=== PATIENT | female | born 1975 | race Caucasian/White ===

== ENCOUNTER 2023-04-28 16:31 | Emergency (ER) | payer BC, SELFPAY ==
[2023-04-28 16:51] VITALS: BP 171/94; PULSE 107; RESP 18; TEMP 37.4; O2SAT 97
--- NOTE | 2023-04-28 17:00 | ED.GENADULT ---
HPI - General Adult General Time Seen by Provider: 17:00 Date Seen: 04/28/23 Chief complaint: Sore Throat Stated complaint: Covid+, aches Time Seen by Provider: 04/28/23 17:00 Source: patient and RN notes reviewed Mode of arrival: ambulatory Limitations: no limitations History of Present Illness HPI narrative: Patient is a 48-year-old female coming in with positive COVID test today. 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 She started with symptoms yesterday. She has got sore throat congestion, body aches, some cough. No GI symptoms. She took Paxlovid before without incident, had this prescribed through [facility] where she does get her primary care. She has underlying diabetes, would like to be treated. She is happy to see her oxygenation is good in triage. Related Data Home Medications Medication Instructions Recorded Confirmed escitalopram oxalate .ROUTE 04/28/23 gabapentin .ROUTE 04/28/23 metformin .ROUTE 04/28/23 propranolol .ROUTE 04/28/23 simvastatin .ROUTE 04/28/23 Previous Rx's Medication Instructions Recorded nirmatrelvir 300 mg (150 mg See Rx Instructions PO .COMPLEX 04/28/23 x2)-ritonavir 100 mg tablet,dose #30 ea pack (Paxlovid) Allergies Allergy/AdvReac Type Severity Reaction Status Date / Time hydromorphone [From Dilaudid] Allergy Verified 04/28/23 16:55 Iodinated Contrast Media Allergy Verified 04/28/23 16:55 ibuprofen AdvReac Verified 04/28/23 16:55 Review of Systems Status of ROS: Reports: 6 or more systems reviewed and unremarkable except as noted in History and below Exam Const: Vital Signs, click to edit/add: Vital Signs - 24 hr 04/28/23 16:51 Temperature 99.4 F Pulse Rate [Right Pulse Oximeter] 107 H Respiratory Rate 18 Blood Pressure [Ri ght Upper Arm] 171/94 H Pulse Oximetry 97 Oxygen Delivery Me thod Room Air 48-year-old very pleasant female with some audible nasal congestion but able to speak in complete sentences. Conjugate gaze, pupils equal round reactive, sclera clear. TMs canals normal. Oropharynx with normal mucosa, currently dentulous, posterior pharynx looks normal. Neck is supple. Lungs are clear with good air entry, no wheezing or crackles, no tachypnea. CV slightly fast but regular, no murmur, normal S1 and S2. Documenting provider has reviewed patient's vital signs: yes Course Course ED Course: Reviewed with patient that we are happy to take her home positive test with her current active symptoms and treat for COVID. She did show a picture of her positive COVID test. Vital Signs Vital signs: Initial Vital Signs Temperature 99.4 F 04/28/23 16:51 Temperature Source Temporal Artery Scan 04/28/23 16:51 Pulse Rate 107 H 04/28/23 16:51 Respiratory Rate 18 04/28/23 16:51 Blood Pressure 171/94 H 04/28/23 16:51 Blood Pressure Mean 119 H 04/28/23 16:51 Blood Pressure Position Sitting 04/28/23 16:51 Pulse Oximetry 97 04/28/23 16:51 Oxygen Delivery Method Room Air 04/28/23 16:51 Vital Signs Temperature 99.4 F 04/28/23 16:51 Pulse Rate 107 H 04/28/23 16:51 Respiratory Rate 18 04/28/23 16:51 Blood Pressure 171/94 H 04/28/23 16:51 Pulse Oximetry 97 04/28/23 16:51 Oxygen Delivery Method Room Air 04/28/23 16:51 Temperature 99.4 F 04/28/23 16:51 Pulse Rate 107 H 04/28/23 16:51 Respiratory Rate 18 04/28/23 16:51 Blood Pressure 171/94 H 04/28/23 16:51 Pulse Oximetry 97 04/28/23 16:51 Oxygen Delivery Method Room Air 04/28/23 16:51 Discharge Plan Discharge Clinical Impression: COVID-19 Patient Disposition: Home, Self-Care Condition: Stable Instructions: COVID-19 (Coronavirus Disease 2019) (ED), COVID-19 and Chronic Health Conditions (ED) Additional Instructions: Can use Tylenol and [id number] cough or cold medicines as needed for symptom control. Need to isolate per CDC guidelines until you are improving. Note provided for work that you have COVID. Need to start the Paxlovid kari, if after 5 days from onset of symptoms, will not be beneficial. Need to stop your simvastatin while you are on this medication, can restart 3 days after you stop the Paxlovid. If you feel you are worsening, have further concerns, please seek medical re-evaluation. Activity Level: Activity as Tolerated Prescriptions: New Paxlovid 300 mg (150 mg x 2)-100 mg tablets,dose pack See Rx Instructions .ROUTE .COMPLEX Qty: 30 0RF Rx Instructions: take TWO 150 mg tablets of nirmatrelvir with ONE 100 mg tablet of ritonavir twice daily for 5 days No Action metformin .ROUTE simvastatin .ROUTE gabapentin .ROUTE propranolol .ROUTE escitalopram oxalate [Lexapro] .ROUTE Stand Alone Forms: [employer] Info Instructions
--- NOTE | 2023-04-28 18:15 | ED.NURSE ---
Work note provided.
== END 2023-04-28 18:17 | disposition home or self-care (01) ==
LOC: ED 17:13
PROVIDERS: Emergency Provider Family Medicine
DX: U07.1 COVID-19 (principal)
CPT/HCPCS: 99283

== ENCOUNTER 2023-08-24 13:38 | Emergency (ER) | payer BC, SELFPAY ==
[2023-08-24 13:46] VITALS: BP 142/94; PULSE 83; RESP 18; TEMP 36.6; O2SAT 98; BMI 32.1
--- NOTE | 2023-08-24 13:53 | ED_ITS ---
HPI - General Adult General Date Seen: 08/24/23 Chief complaint: Back Injury/Pain Stated complaint: back and hip pain Time Seen by Provider: 08/24/23 13:51 History of Present Illness HPI narrative: This is a pleasant 48-year-old female presenting to the ER today with her for evaluation of low back pain. She has a history of intermittent low back pain off and on for years but really no significant pain for at least a few years. No previous history of any epidural steroid injections or back surgeries. Past medical history also includes Vanegas's esophagus, GERD (on Protonix), pulmonary sarcoidosis (follows of [facility]). No history of cancer, diabetes, immunosuppression. She recalls that about a week ago last Sunday she was getting out of her car and twisted. She felt like she ?tweaked? something in her low back. She had a momentary spasm of bad pain that day and then was better. The following day, last Sunday, she had a lot of pain in her low back that made it difficult for her to get out of bed. She has been trying to treat her pain with Tylenol. She cannot take NSAIDs because of her GERD and Vanegas's. She has been having difficulty getting around a week and often times has to walk ?hunched over like an old lady?. 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 The pain is mostly on the left side and radiates down to her hip. When it is bad sometimes it has radiated down into her thigh. She does not really have any numbness or burning pain down her leg. No fevers or chills. No anterior abdominal pain Today when she was at [employer] she was apparently carrying something and twisted and then her back is hurting more than normal. Her has been trying to convince her to come see her doctor all week, but she has been refusing. Finally today she relented and came here to the ER. She also notes that for the past month or so she has had occasional episodes of intense dysuria when she urinates. Also sometimes this pain radiates up into her bladder and throughout her body. She is not having any urinary retention or other urinary symptoms today. No anterior abdominal pain. No fever or chills. Bowel movements normal. She has had a previous hysterectomy and a bladder or pelvic sling surgery (no mesh) and has chronic incontinence from that. Incontinence is not changed or worsening lately per her regular primary care doctor is through the [facility] in [place] Related Data Home Medications Medication Instructions Recorded Confirmed escitalopram oxalate .ROUTE 04/28/23 gabapentin .ROUTE 04/28/23 metformin .ROUTE 04/28/23 propranolol .ROUTE 04/28/23 simvastatin .ROUTE 04/28/23 Previous Rx's Medication Instructions Recorded nirmatrelvir 300 mg (150 mg See Rx Instructions PO .COMPLEX 04/28/23 x2)-ritonavir 100 mg tablet,dose #30 ea pack (Paxlovid) cephalexin 500 mg capsule 500 mg PO BID #20 caps 08/24/23 cyclobenzaprine 10 mg tablet 10 mg PO Q8H PRN muscle spasm #15 08/24/23 tabs hydrocodone 5 mg-acetaminophen 325 1 tab PO Q4-6H PRN pain #14 tabs 08/24/23 mg tablet Allergies Allergy/AdvReac Type Severity Reaction Status Date / Time hydromorphone [From Dilaudid] Allergy Verified 04/28/23 16:55 Iodinated Contrast Media Allergy Verified 04/28/23 16:55 ibuprofen AdvReac Verified 04/28/23 16:55 [facility] PFS Social History Smoking Status: Current every day smoker What tobacco products do you use: cigarettes Smoking packs per day: 1 Smoking cigarettes per day: 20.0 Years smoked: 31 Smoking pack-years: 31.00 Do you use any of these nicotine containing products: None Second hand tobacco smoke exposure: No How often do you have a drink containing alcohol: never AUDIT-C Alcohol total score: 0 Non-prescribed substance use: denies use service: Yes Exam Narrative: Exam Narrative: Constitutional: Appears well-developed and well-nourished. Alert. Conversant. Non toxic. HENT: Head: Atraumatic. Nose: Nose normal. Mouth/Throat: Oral mucosa is clear and moist. no trismus. Pharynx normal. Tonsi ls symmetric. No tonsillar enlargement, erythema, or exudate. Eyes: Conjunctivae normal. EOM normal. Pupils equal, round, and reactive to light. No scleral icterus. Neck: Normal range of motion. Neck supple. No tracheal deviation present. Cardiovascular: Normal rate, regular rhythm. No gallop. No friction rub. No murmur heard. Symmetric radial artery pulses Pulmonary/Chest: Effort normal. No stridor. No respiratory distress. No wheezes. No rales. No rhonchi . No tenderness. Abdominal: Soft. Bowel sounds normal. No distension. No mass. No tenderness. No rebound. No guarding. Musculoskeletal: RUE: Normal range of motion. No tenderness. No deformity LUE: Normal range of motion. No tenderness. No deformity RLE: Normal range of motion. No edema. No tenderness. No deformity LLE: Normal range of motion. No edema. No tenderness. No deformity Has pain when she tries to sit up for back exam but is able to roll over. Normal inspection of her lumbar and thoracic spines. No erythema, bruising, abrasion, RASS. She is tender diffusely on the low back, including the midline. No midline lumbar spinous bony tenderness. Neurological: Alert and oriented to person, place, and time. Normal strength. CN II-VII intact. No sensory deficit. GCS eye subscore is 4. GCS verbal subscore is 5. GCS motor subscore is 6. Normal coordination Exam back pain Skin: Skin is warm and dry. No rash noted. No pallor. Normal capillary refill. Psychiatric: Normal mood. Normal affect. Const: Vital Signs, click to edit/add: Vital Signs - 24 hr 08/24/23 13:46 Temperature 98 F Pulse Rate [Pulse Oximeter] 83 Respiratory Rate 18 Blood Pressure [Le ft Upper Arm] 142/94 H Pulse Oximetry 98 Oxygen Delivery Me thod Room Air Course Vital Signs Vital signs: Initial Vital Signs Temperature 98 F 08/24/23 13:46 Temperature Source Temporal Artery Scan 08/24/23 13:46 Pulse Rate 83 08/24/23 13:46 Pulse Rhythm Regular 08/24/23 13:46 Respiratory Rate 18 08/24/23 13:46 Blood Pressure 142/94 H 08/24/23 13:46 Blood Pressure Mean 110 H 08/24/23 13:46 Blood Pressure Position Supine 08/24/23 13:46 Pulse Oximetry 98 08/24/23 13:46 Oxygen Delivery Method Room Air 08/24/23 13:46 Vital Signs Temperature 98 F 08/24/23 13:46 Pulse Rate 83 08/24/23 13:46 Respiratory Rate 18 08/24/23 13:46 Blood Pressure 142/94 H 08/24/23 13:46 Pulse Oximetry 98 08/24/23 13:46 Oxygen Delivery Method Room Air 08/24/23 13:46 Temperature 98 F 08/24/23 13:46 Pulse Rate 83 08/24/23 13:46 Respiratory Rate 18 08/24/23 13:46 Blood Pressure 142/94 H 08/24/23 13:46 Pulse Oximetry 98 08/24/23 13:46 Oxygen Delivery Method Room Air 08/24/23 13:46 Medications Administered Medications: Discontinued Medications Generic Name Dose Route Start Last Admin Trade Name Timothy PRN Reason Stop Dose Admin Hydrocodone Bitart/Acetaminophen 2 tab 08/24/23 14:17 08/24/23 14:31 Hydrocodone-Acetamin 5-325 Mg 1 Tab PO 08/24/23 14:18 2 tab ONCE ONE Administration Cyclobenzaprine HCl 10 mg 08/24/23 14:17 08/24/23 14:31 Cyclobenzaprine Hcl 10 Mg Tablet PO 08/24/23 14:18 10 mg ONCE ONE Administration Medical Decision Making [facility] Narrative Medical decision making narrative: This patient presented with back pain predominantly affecting the left side of her lumbar spine but is often bilateral. It started last week with a known nodule movement that caused a ?twinge in her back and has been present, triggered by movement such as walking, twisting, or trying to bend over, all week long.. Broad differential considered. The patient did not sustain any trauma, therefore x-rays are not necessary due to the low likelihood of fracture or subluxation. No red flag symptoms to suggest CT and/or MRI is indicated at this point. The patient has not had a fever, saddle/perineal anesthesia, bilateral foot numbness, or bowel or bladder dysfunction. There is no clinical evidence of cauda equina syndrome, discitis, spinal/epidural space hematoma or epidural abscess. The neurological exam is normal and the patient's symptoms seem consistent with a musculoskeletal issues and significant muscle spasm. Incidentally she also notes that she has had some occasional bouts of dysuria ongoing for about a month. We did obtain urinalysis which is abnormal showing pyuria, bacteria, and positive nitrite. I suspect she probably also has a concomitant cystitis. Will require outpatient oral antibiotics. No indications for hospitalization or IV antibiotics at this point. Given the nature of her back pain, I would strongly favor that her back pain is actually did related to her spine/musculoskeletal rather than being pain from pyelonephritis. Nonetheless will put her on a 10 day course of oral antibiotics to cover for the possibility of a pyelonephritis. Urine culture is pending. Pain has improved with interventions in the emergency department. The patient will be discharged with pain medications to use as directed. Ice or heat to the back and stretching exercises. No heavy lifting, bending or twisting. Return if increasing pain, numbness, weakness, or bowel or bladder dysfunction. The patient was advised to schedule follow-up with their primary doctor within 2-3 days to re-assess symptoms. Return precautions reviewed and questions answered. Prescriptions for Smoot and Flexeril provided. We reviewed sedation and opiate precautions. Patient and her verbalized their understanding. They have already set up a follow-up appointment with her primary care provider next week. Precautions for return to the ER reviewed. Lab Data Labs: Lab Results 08/24/23 Range/Units 14:42 Urine Color Yellow (Yellow) Urine Appearance Cloudy A (Clear) Urine pH 6.0 (5.0-8.5) Ur Specific King 1.020 (1.000-1.030) Urine Protein Negative (Negative) Urine Glucose (UA) Negative (Negative) Urine Ketones Negative (Negative) Urine Blood 2+ A (Negative) Urine Nitrite Positive A (Negative) Urine Bilirubin Negative (Negative) Urine Urobilinogen 0.2 (0.2-1.0) Ur Leukocyte Esterase 1+ A (Negative) Urine RBC 2-5 A (0-2) Urine WBC 5-10 A (0-5) Ur Squamous Epith Cells Few (None-Few) Urine Bacteria Many A (None) Discharge Plan Discharge Clinical Impression: UTI (urinary tract infection), Low back pain Patient Disposition: Home, Self-Care Condition: Stable Instructions: Urinary Tract Infection in Women (DC), Acute Low Back Pain (ED) Additional Instructions: As we discussed, please follow-up with your regular doctor by next week. If you have worsening pain in your back, numbness or weakness down your leg, distur bance of bladder or bowel function, high fever, or other worsening symptoms, please come back to the ER right away. He use caution with pain killers a muscle relaxers because they can cause drowsiness, dizziness, and can be addictive. We take the antibiotics twice daily to treat your urinary infection. Prescriptions: New cephalexin 500 mg capsule 500 mg PO BID Qty: 20 0RF hydrocodone-acetaminophen 5-325 mg tablet 1 tab PO Q4-6H PRN (Reason: pain) Qty: 14 0RF cyclobenzaprine 10 mg tablet 10 mg PO Q8H PRN (Reason: muscle spasm) Qty: 15 0RF No Action metformin .ROUTE simvastatin .ROUTE gabapentin .ROUTE propranolol .ROUTE escitalopram oxalate [Lexapro] .ROUTE Paxlovid 300 mg (150 mg x 2)-100 mg tablets,dose pack See Rx Instructions .ROUTE .COMPLEX Qty: 30 0RF Rx Instructions: take TWO 150 mg tablets of nirmatrelvir with ONE 100 mg tablet of ritonavir twice daily for 5 days Follow Up/Referrals: Provider,Not a Local [Primary Care Provider] - Stand Alone Forms: MyHealth Info Instructions
[2023-08-24] MEDS: CYCLOBENZAPRINE HCL 10 MG TABLET PO (14:31)
[2023-08-24] MEDS: HYDROCODONE-ACETAMIN 5-325 MG 1 TAB 2 TAB PO (14:31)
[2023-08-24 14:53] LABS: Appearance Urine Cloudy (Clear); Bilirubin Urine Negative (Negative); Blood Urine 2+ (Negative); Color Urine Yellow (Yellow); Glucose Urine Negative (Negative); Ketones Urine Negative (Negative); Leukocyte Esterase Urine 1+ (Negative); Nitrite Urine Positive (Negative); Protein Urine Negative (Negative); Urobilinogen Urine 0.2 (0.2-1.0)
[2023-08-24 15:08] LABS: Bacteria Urine Many; Squamous Epithelial Cell Urine Few (None-Few)
[2023-08-24 16:16] VITALS: PULSE 78; O2SAT 97
== END 2023-08-24 16:25 | disposition home or self-care (01) ==
PROVIDERS: Emergency Provider Emergency Medicine
DX: M54.50 Low back pain, unspecified (principal); N39.0 Urinary tract infection, site not specified
CPT/HCPCS: 81001; 87086; 87186; 99284; A9270

== ENCOUNTER 2023-10-01 18:24 | Emergency (ER) | payer BC, SELFPAY ==
[2023-10-01 18:40] VITALS: BP 132/86; PULSE 81; RESP 16; TEMP 36.3; O2SAT 97; BMI 32.1
--- NOTE | 2023-10-01 18:45 | XR_ITS ---
Patient: JOE JHON Facility:?[facility] Patient ID:?[id number] Site Patient ID:?[id number]. Site :?[id number] Study:?XRay-Extremity Left WRIST 3V-10/01/2023 7:12:51 PM Ordering Physician:RAGHAVENDRA Final Report: Indication: Injury and pain Technique: Left wrist 3 view Comparison: None Findings: Bones: Alignment is normal. No fractures or bone lesions. Joint spaces: Unremarkable. Soft tissues: Unremarkable. Impression: No sign of acute injury in the left wrist. Dictated by Oskar Tierney MD @ 10/01/2023 9:22:27 PM Signed by:?Oskar Tierney MD @10/01/2023 9:22:27 PM (Electronic Signature)
--- NOTE | 2023-10-02 08:17 | W.ED.CHARTNO ---
ED Chart Note Chart Note Details Date: 10/02/23 Details: I had no involvement in direct patient care of this patient, patient left the ED without being seen.
== END 2023-10-01 21:50 | disposition left against medical advice (07) ==
PROVIDERS: Emergency Provider Family Medicine
DX: M79.602 Pain in left arm (principal); Z53.21 Procedure and treatment not carried out due to patient leaving prior to being seen by health care provider
CPT/HCPCS: 73110

== ENCOUNTER 2024-10-20 16:12 | Emergency (ER) | payer OTHER, SELFPAY ==
--- OUTSIDE RECORDS SUMMARY | 2024-10-20 16:14 | XMS_ITS | Encounter Summary ---
Author Organization [facility] Address [address] [place] [address] Care Team Providers Care Hob Machine Operator Name Role Phone Diamond Wiggins M.D. Primary Care Provider + Reason for Referral * Outpatient (Routine) - Authorized Specialty Diagnoses / Procedures Referred By [place] baca Referred To Contact Orthopedic Surgery Diagnoses Pain Knee Right Diamond Wiggins M.D. [address] [place] [address] Phone: tel: fax: [facility] Region Referral ID Status Reason Start Date Expiration Date V isits Requested Visits Authorized [id number] Authorized 09/12/2024 03/14/2026 1 1 Scheduling Instructions Ortho internal referral panel order, imaging before Consult visit LETTER [facility]RIER Encounter Details Date Type Department Care Team (Late st Contact Info) Description 09/03/2024 Results Follow-Up Department of Family Medicine, [facility], in [place], [place] [address], [place] [address] Diamond Wiggins M.D. [address], [place] [address] Albumin, Random, Urine, MR Knee Right without IV Contrast Social History Tobacco Use Types Packs/Day Years Used Date Smoking Tobacco: Every Day Cigarettes 1 31.1 Started: 08/28/1993 Passive Smoke Exposure: Current Smokeless Tobacco: Never Alcohol Use Standard Drinks/Week Comments No 0 (1 standard drink = 0.6 oz pur e alcohol) [facility] Utilities Answer Date Recorded In the past 12 months has th e electric, gas, oil, or water company threatened to shut off services in your home? No 03/11/2024 Humiliation, Afraid, Rape, and Kick questionnair e Answer Date Recorded Within the last year, have y ou been afraid of your partner or ex-partner? No 11/01/2022 Within the last year, have y ou been humiliated or emotionally abused in other ways by your partner or ex-partner? No Within the last year, have y ou been kicked, hit, slapped, or otherwise physically hurt by your partner or ex-partner? No 11/01/2022 Within the last year, have y ou been raped or forced to have any kind of sexual activity by your partner or ex-partner? No 11/01/2022 Social Connection and Isolation Panel [NHANES] A nswer Date Recorded In a typical week, how many times do you talk on the phone with family, friends, or neighbors? Once a week 11/01/2022 How often do you get together with friends or re latives? Never 11/01/2022 How often do you attend episcopal or denominational serv ices? Never 11/01/2022 Do you belong to any clubs o r organizations such as episcopal groups, unions, fraternal or athletic groups, or school groups? No 11/01/2022 How often do you attend meet ings of the clubs or organizations you belong to? Never 11/01/2022 Are you , , di vorced, , never , or living with a partner? 11/01/2022 AUDIT-C Answer Date Recorded Q1: How often do you have a drink containing alc ohol? Never 11/01/2022 Average Number of Drinks Not on file 023 Frequency of Binge Drinking Not on file 10/05 Overall Financial Resource Strain (CARDIA) Answe r Date Recorded How hard is it for you to pa y for the very basics like food, housing, medical care, and heating? Not hard at all 11/01/2022 PHQ-2 Answer Date Recorded PHQ-2 Score 2 09/01/2024 [facility] - Occupational Stress Questionnaire Answer Date Recorded Do you feel stress - tense, restless, nervous, or anxious, or unable to sleep at night because your mind is troubled all the time - these days? Very much 11/01/2022 Exercise Vital Sign Answer Date Recorde d On average, how many days pe r week do you engage in moderate to strenuous exercise (like a brisk walk)? 4 days 03/11/2024 On average, how many minutes do you engage in exercise at this level? 30 min 03/11/2024 Hunger Vital Sign Answer Date Recorded Within the past 12 months, y ou worried that your food would run out before you got the money to buy more. Sometimes true Within the past 12 months, t he food you bought just didn't last and you didn't have money to get more. Never true 01/2024 PRAPARE - Transportation Answer Date Re corded In the past 12 months, has l ack of transportation kept you from medical appointments or from getting medications? No 01/2024 In the past 12 months, has l ack of transportation kept you from meetings, work, or from getting things needed for daily living? No 03/11/2024 Depression Answer Date Recor ded PHQ-9 Total Score (max 27) 6 09/01 Nutrition Answer Date Recorded On average, how many serving s of fruits and vegetables do you eat per day (serving size is equal to 1 cup or approximately the size of a tennis ball)? 3-5 03/11/2024 Dental Answer Date Recorded Dental: Regular Dentist No 11/02/19 23 Employment Answer Date Recorded Employment status Employed and actively working without restrictions 03/11/2024 Housing Stability Answer Date Recorded What is your living situation today? I have a [facility] place to live 03/11/2024 Education Answer Date Recorded What is the highest level of school you have completed or the highest degree you have received? 12th grade 01/05/2020 Comments No Sex and Gender Information Value Date Recorded Sex Assigned at Female 01/07/2018 10:26 AM CDT Legal Sex Female 7:46 PM [employer] [facility] Gender Identity Female 01/07/2018 10:26 AM CDT Sexual Orientation Straight 01/07/2018 10 :26 AM CDT documented as of this encounter Plan of Treatment Upcoming Encounters Date Type Department Care Team (Late st Contact Info) Description 10/27/2024 3:30 PM CDT Comprehensive Visit Department of Orthopedic Surgery in [place], [place] [address] [address] Laith Mckinnon M.D. [address] [address] 12/31/2024 3:00 PM CDT Office Visit Department of Urology in [place], [place] [address] [phone] Tatum Orozco, ALEJANDRA, C.N.P. [address] [address] Scheduled Referrals Name Type Priority Associated Diagnoses Order Schedule Orthopedic Surgery - Knee non surgical consult (clinic) Outpatient Referral Routine Pain Knee Right Expected: 09/12/2024 (Approximate), Expires: 12/10/2025 documented as of this encounter Visit Diagnoses Diagnosis Pain Knee Right- Primary Other Tear Medial Meniscus Current Injury Right Knee Initial- Primary documented in this encounter Additional Health Concerns Assessment Noted Time PHQ-9 Depression Total Score: 6 09/01/19 25 10:41 PM [facility] documented as of this encounter Care Teams Hob Machine Operator Relationship Specialty Start Date End Date Diamond Wiggins M.D. [address] [address] PCP - General Family Medicine 01/22/23 documented as of this encounter
--- OUTSIDE RECORDS SUMMARY | 2024-10-20 16:14 | XMS_ITS | Encounter Summary ---
Author Organization [facility] Address [address] [place] [address] Care Team Providers Care Shipping Track Supervisor Name Role Phone Diamond Wiggins M.D. Primary Care Provider + Reason for Referral * Outpatient (Routine) - Authorized Specialty Diagnoses / Procedures Referred By Maine baca Referred To Contact Urology Tatum Orozco APRN, C.N.P. [address] [place] [address] Phone: tel: fax: [facility] Region Referral ID Status Reason Start Date Expiration Date V isits Requested Visits Authorized [id number] Authorized 09/30/2024 04/01/2026 1 1 TEACHER Reason for Visit * Reason Comments Consult Dysuria * Outpatient (Routine) - Closed Specialty Diagnoses / Procedures Referred By Maine baca Referred To Contact Urology Diagnoses Dysuria Diamond Wiggins M.D. [address] [place] [address] Phone: tel: fax: [facility] Region Referral ID Status Reason Start Date Expiration Date Visits Re quested Visits Authorized [id number] Closed 09/02/2024 03/04/2026 1 1 Encounter Details Date Type Department Care Team (Latest Contact Info) Description 09/30/2024 2:00 PM MID TEACHER Comprehensive Visit Department of Urology in [place], [place] [address] [place] [address] Tatum Orozco APRN, C.N.P. [address] [place] [phone] Infection Urinary Tract Personal History (Primary Dx); Dysuria; Atrophy Vagina Due To Estrogen Deficiency; Incontinence Urinary; Abuse Tobacco Smoking Social History Tobacco Use Types Packs/Day Years Used Date Smoking Tobacco: Every Day Cigarettes 1 31.1 Started: 08/28/1993 Passive Smoke Exposure: Current Smokeless Tobacco: Never Tobacco Cessation:Ready to Q uit: Not Asked; Counseling Given: Not Answered Comments:2 packs/day from 1993 to 2009 Alcohol Use Standard Drinks/Week Comments Not Currently 0 (1 standard drink = 0.6 oz pur e alcohol) [facility] [employer] Answer Date Recorded In the past 12 months has [employer] gas, oil, or water [employer] threatened to shut off services in your [...] Never 11/01/2022 How often do you attend yazidism or nondenominational serv ices? Never 11/01/2022 Do you belong to any clubs o r organizations such as yazidism groups, unions, fraternal or athletic groups, or [...] Answer Date Recorded PHQ-2 Score 2 09/01/2024 [facility] - [facility]ational Stress Questionnaire Answer Date [...] Date Recorded Dental: Regular Dentist No 11/02/19 Employment Answer Date Recorded Employment status Employed and actively working without restrictions 03/11/2024 Housing Stability Answer Date Recorded What is your living situation today? I have a [facility] place to live 03/11/2024 Education Answer Date Recorded What is the highest level of school you have completed or the highest degree you have received? 12th grade 01/05/2020 Comments No Sex and Gender Information Value Date Recorded Sex Assigned at Female 01/07/2018 10:26 AM CDT Legal Sex Female 7:46 PM MID TEACHER Gender Identity Female 01/07/2018 10:26 AM CDT Sexual Orientation Straight 01/07/2018 10 :26 AM CDT documented as of this encounter Consult Notes * Tatum Orozco APRN, C.N.P. - 09/30/2024 2:00 PM CST DATE OF VISIT: 09/30/2024 SUBJECTIVE CHIEF COMPLAINT / REASON FOR VISIT Susie Mcghee is a 49 y.o. female who presents for evaluation of Consult and Dysuria. The patient verbally consented to an audio recording of their visit to assist with the completion of documentation. History of Present Illness Mrs. Susie Hernandez is a pleasant 49 year old female with recurrent urinary tract infections who presents with persistent symptoms despite multiple antibiotic treatments. She has been experiencing urinary tract infection symptoms for over a month and is currently on herthird course of antibiotics. Initially treated with Macrobid, which was ineffective, she then used Bactrim, which temporarily resolved her symptoms. However, symptoms recurred a few days after completing Bactrim, leading to treatment with Cipro. She continues to experience dysuria and uses AZO for symptom relief. Hematuria is noted during infections. She underwent a hysterectomy in 2011 but retained her ovaries. She experiences menopausal symptoms such as hot flashes, night sweats, and vaginal dryness, which have impacted her sexual activity, requiring more lubrication during intercourse. She has a history of diabetes, which she states is 'pretty much under control,' although she notes that her creatinine ratio is abnormal. She has not had frequent infections since the of her oldest daughter 33 years ago. She has a history of sarcoidosis affecting her lungs, diagnosed in 2009, and is the only family member with this condition. She smokes about a pack a day, having reduced from two packs a day since 2009. She started smoking at age 21. Her quit smoking three years ago. Lower Urinary Symptoms Lower Urinary Sx: able to sense full bladder (+) 6 x per day 3 x nightly difficulty urinating (+) Presence of pelvic pain: suprapubic pain (+) Obstructive Sx: straining (+) kidney infections or required hospitalization for kidney failure (-) # of UTI's in past year: 3 or more Required catheter: no Incontinence: urge incontinence (+) unintentionally leaks urine (-) Treatments: Treatments taken for urinary symptoms: medications treatments helped (-) had surgical or office procedures to improve urinary symptoms (-) The following portions of the patient's history were reviewed and updated as appropriate: allergies, current medications, family history, medical history, social history, surgical history, and problem list. REVIEW OF SYSTEMS Genitourinary: Positive for difficulty urinating. Problem List[1] Medical History[2] Surgical History[3] Family History[4] Allergies[5] Medications Ordered Prior to Encounter[6] Social History[7] OBJECTIVE Physical Exam Vitals and nursing note reviewed. General: Well developed, well nourished, well groomed female in no acute distress. Neurological: Alert, cooperative, oriented x3. Appropriate mood and affect. Abdomen: Soft, non-tender, non-distended Extremities: Warm, without edema or ulcerations. DIAGNOSTIC Postvoid residual by bladder scan 14 mL. ASSESSMENT/ PLAN Dysuria Orders: Urology - General - lower urinary symptoms consult (clinic) Infection Urinary Tract Personal History Persistent UTI symptoms continue despite multiple antibiotic courses, including Macrobid, Bactrim, and Cipro. E. Coli was identified in the urine culture. Perimenopausal symptoms include vaginal dryness. Complete the current Ciprofloxacin course. We discussed the role of vaginal estrogen in preventing further urinary tract infections. Start vaginal estrogen cream nightly for the first week, then reduce to three times a week. Proper administration discussed. Consider cranberry supplements and vitamin C for prevention. Maintain hydration, urinate frequently, urinate after sex, and practice gentle hygiene. Follow up in three months. Atrophy Vagina Due To Estrogen Deficiency Experiencing hot flashes and night sweats. Start vaginal estrogen cream as previously discussed. Incontinence Urinary Currently using Oxybutynin for urgency and frequency. Discussed potential long- term side effects. Continue Oxybutynin for now. Reassess the need for it after starting vaginal estrogen cream. Abuse Tobacco Smoking Currently smoking one pack a day. Discussed increased risk for bladder and kidney cancers. Encouraged to quit smoking. Plan to reassess symptoms and treatment efficacy in three months. If infection symptoms return, send a portal message or contact the nurse directly. All questions answered today. [1] Patient Active Problem List Diagnosis Barretts Esophagus Without Dysplasia Restless Leg Syndrome Obesity Body Mass Index 30-39.9 Adult Depression Major Recurrent Moderate (HCC) Hyperlipidemia Diabetes Mellitus Type 2 Without Complication (HCC) Nicotine Dependence Cigarettes Migraine Headache Refraction Disorder Elevated Alkaline Phosphatase Sarcoidosis Pulmonary (HCC) Anxiety Temporomandibular Joint Disorder Incontinence Urinary [2] Past Medical History: Diagnosis Date Anxiety Generalized Disorder Asthma Moderate Persistent With History Of Tobacco Use 02/19/2018 Asthma NOS Simmons's Esophagus Depressive Disorder Diabetes Mellitus NOS Dysphagia Gastroesophageal Reflux Disease NOS Headache Unspecified Hyperlipidemia Other Injury Of Unspecified Body Region My right big toe Personal History Unintended Awareness Under General Anesthesia Post Operative Nausea/Vomiting Restless Leg Syndrome Sarcoidosis [3] Past Surgical History: Procedure Laterality Date CHOLECYSTECTOMY GALLBLADDER SURGERY [id number] LYMPH NODE BIOPSY Chest and neck TOTAL HYSTERECTOMY [id number] TUBAL LIGATION [id number] [4] Family History Problem Relation Name Age of Onset Diabetes Mother Susie Mathis Hypertension Mother Susie Mathis Stroke Mother Susie Mathis 61 Kidney disease Father Jeffry mathis Bone cancer Father Jeffry mathis Other cancer Father Jeffry mathis Bone cancer Coronary artery disease Father Jeffry mathis Heart attack Father Jeffry mathis 40 Diabetes Sister tarsha paige Sleep apnea Sister tarsha royal Hypertension Sister tarsha royal Hypertension Sister Treva festus Diabetes Sister Treva festus Sleep apnea Sister Treva festus Brain Aneurysm Maternal Grandmother Tarsha Duff Coronary artery disease Maternal Grandmother Tarsha Duff Had pacemaker Heart attack Maternal Grandmother Tarsha Duff 66 Heart disease Maternal Grandfather Heart disease Paternal Grandmother Ulrich stanislaw Coronary artery disease Paternal Grandmother Ulrich stanislaw Heart attack Paternal Grandmother Mojgan dover 89 Heart disease Paternal Grandfather No Known Problems Daughter No Known Problems Daughter No Known Problems Daughter Glaucoma Neg Hx Macular degeneration Neg Hx [5] Allergies Allergen Reactions Contrast [Iodinated Contrast Media] GI intolerance Hydromorphone GI intolerance Ibuprofen Other (see comments) Hx of simmons's esophagus [6] Current Outpatient Medications on File Prior to Visit Medication Sig Dispense Refill acetaminophen (TYLENOL) 500 mg tablet Take 500 mg by mouth as needed. albuterol 90 mcg/actuation inhaler Inhale 2 puffs every 4 (four) hours as needed for wheezing or shortness of breath. 54 g 3 ciprofloxacin (Cipro) 250 mg tablet Take 250 mg by mouth 2 (two) times a day before morning and evening meals. DULoxetine (Cymbalta) [address] capsule Take 1 capsule (30 mg total) by mouth daily. 28 capsule 0 FLUoxetine (PROzac) 20 mg capsule Take 1 capsule (20 mg total) by mouth daily. Take with 40 mg pillfor a dose of 60 mg daily 90 capsule 3 FLUoxetine (PROzac) 40 mg capsule Take 1 capsule (40 mg total) by mouth daily. Take with 20 mg pillfor a total daily dose of 60 mg 90 capsule 3 gabapentin (Neurontin) 100 mg capsule Take 1 pill (100 mg) with each morning and afternoon dose of gabapentin 300 mg for a total dose of 400 mg in the morning and 400 mg in the afternoon. 180 capsule3 gabapentin (Neurontin) 300 mg capsule TAKE 1 CAPSULE BY MOUTH TWICE DAILY AND 3 CAPSULES AT [id number] capsule 11 magnesium 200 mg tablet Take 2 tablets (400 mg total) by mouth every morning before breakfast. 180 tablet 3 metFORMIN XR (Glucophage-XR) 500 mg 24 hr tablet Take 1 tablet by mouth twice daily 180 tablet 3 oxyBUTYnin (Ditropan-XL) 5 mg 24 hr tablet Take 1 tablet (5 mg total) by mouth at bedtime. 90 tablet 3 pantoprazole (PROTONIX) 40 mg EC tablet TAKE 1 TABLET BY MOUTH TWICE DAILY BEFORE BREAKFAST AND DINNER. TAKE 30-60 MINUTES BEFORE MEALS 180 tablet 3 rosuvastatin (CRESTOR) 20 mg tablet Take 1 tablet (20 mg total) by mouth daily. 90 tablet 3 No current facility-administered medications on file prior to visit. [7] Social History Tobacco Use Smoking status: Every Day Current packs/day: 1.00 Average packs/day: 1 pack/day for 31.1 years (31.1 ttl pk-yrs) Types: Cigarettes Start date: 08/28/1993 Passive exposure: Current Smokeless tobacco: Never Tobacco comments: 2 packs/day from 1993 to 2009 Vaping Use Vaping status: never used Substance Use Topics Alcohol use: Not Currently Drug use: Never TEACHER documented in this encounter Miscellaneous Notes * Assessment & Plan Note - Tatum Orozco APRN, C.N.P. - 09/30/2024 2:00 PM CSTAssociated Problem(s): Incontinence Urinary Currently using Oxybutynin for urgency and frequency. Discussed potential long- term side effects. Continue Oxybutynin for now. Reassess the need for it after starting vaginal estrogen cream. TEACHER documented in this encounter Plan of Treatment Upcoming Encounters Date Type Department Care Team (Late st Contact Info) Description 10/27/2024 3:30 PM CDT Comprehensive Visit Department of Orthopedic Surgery in [place], [place] [address] [phone] Laith Mckinnon M.D. [address] [phone] 12/31/2024 3:00 PM CDT Office Visit Department of Urology in [place], [place] [address] [phone] Tatum Orozco APRN, C.N.P. [address] [phone] Scheduled Referrals Name Type Priority Associated Diagnoses Orde r Schedule Urology office visit (clinic) Outpatient Referral Routine Expected: 12/28/2024, Expires: 12/28/2025 documented as of this encounter Visit Diagnoses Diagnosis Infection Urinary Tract Personal History- Primary Dysuria Atrophy Vagina Due To Estrogen Deficiency Incontinence Urinary Abuse Tobacco Smoking Other Tear Medial Meniscus Current Injury Right Knee Initial- Primary documented in this encounter Additional Health Concerns Assessment Noted Time PHQ-9 Depression Total Score: 6 09/01/19 25 10:41 PM MID TEACHER documented as of this encounter Care Teams Shipping Track Supervisor Relationship Specialty Start Date End Date Diamond Wiggins M.D. [address] [phone] PCP - General Family Medicine 01/22/23 documented as of this encounter
--- OUTSIDE RECORDS SUMMARY | 2024-10-20 16:14 | XMS_ITS | Encounter Summary ---
Author Organization [facility] Address [address] [place] [address] Care Team Providers Care Painter Helper Name Role Phone Diamond Wiggins M.D. Primary Care Provider + Encounter Details Date Type Department Care Team (Latest Contact Info) Description 09/30/2024 10:58 AM SMALL WIND ENERGY INSTALLER - 09/30/2024 11:59 PM [facility] Hospital Encounter Department of Laboratory Medicine in [place], [place] [address], [place] [address] Diamond Wiggins M.D. [address] [place] [phone] Diabetes Mellitus Type 2 Peripheral Neuropathy (HCC) Discharge Disposition: Home or Self Care Social History Tobacco Use Types Packs/Day Years Used Date Smoking Tobacco: Every Day Cigarettes 1 31.1 Started: 08/28/1993 Passive Smoke Exposure: Current Smokeless Tobacco: Never Comments:2 packs/day from to 2009 Alcohol Use Standard Drinks/Week Comments Not Currently 0 (1 standard drink = 0.6 oz pur e alcohol) [facility] Utilities Answer Date Recorded In the past 12 months has e electric, gas, oil, or water company [...] Never 11/01/2022 How often do you attend zoroastrian or catholic serv ices? Never 11/01/2022 Do you belong to any clubs o r organizations such as zoroastrian groups, unions, fraternal or athletic groups, or [...] Answer Date Recorded PHQ-2 Score 2 09/01/2024 [facility] [place] of Occupat ional Health - Occupational Stress Questionnaire Answer Date Recorded [...] your living situation today? I have a [facility] place to live 03/11/2024 Education Answer Date Recorded What is the highest level of school you have completed or the highest degree you have received? 12th grade 01/05/2020 Comments No Sex and Gender Information Value Date Recorded Sex Assigned at Female 01/07/2018 10:26 AM CDT Legal Sex Female 7:46 PM SMALL WIND ENERGY INSTALLER Gender Identity Female 01/07/2018 10:26 AM CDT Sexual Orientation Straight 01/07/2018 10 :26 AM CDT documented as of this encounter Medications at Time of Discharge acetaminophen (TYLENOL) 500 mg tablet Take 500 mg by mouth as needed. albuterol 90 mcg/actuation inhaler Inhale 2 puffs every 4 (four) hours as needed for wheezing or shortness of breath. 54 g 3 05/18/2022 DULoxetine (Cymbalta) [address] capsule Take 1 capsule (30 mg total) by mouth daily. 28 capsule 07/10/2024 estradioL (Estrace) 0.1 mg/g (0.01%) vaginal cream Insert 1 g into the vagina 3 (three) times a week. Use nightly for first week. 42.5 g 3 10/01/2024 FLUoxetine (PROzac) 20 mg capsule Take 1 capsule (20 mg total) by mouth daily. Take with 40 mg pill for a dose of 60 mg daily 90 capsule 3 09/02/2024 FLUoxetine (PROzac) 40 mg capsule Take 1 capsule (40 mg total) by mouth daily. Take with 20 mg pill for a total daily dose of 60 mg 90 capsule 3 09/02/2024 gabapentin (Neurontin) 100 mg capsule Take 1 pill (100 mg) with each morning and afternoon dose of gabapentin 300 mg for a total dose of 400 mg in the morning and 400 mg in the afternoon. 180 capsule 3 07/25/2024 gabapentin (Neurontin) 300 mg capsuleIndication s:Neuropathy Peripheral TAKE 1 CAPSULE BY MOUTH TWICE DAILY AND 3 CAPSULES AT BEDTIME 150 capsule 11 07/08/2024 magnesium 200 mg tablet Take 2 tablets (400 mg total) by mouth every morning before breakfast. 180 tablet 3 07/03/2023 metFORMIN XR (Glucophage-XR) 500 mg 24 hr tablet Take 1 tablet by mouth twice daily 180 tablet 3 05/14/2024 oxyBUTYnin (Ditropan-XL) 5 mg 24 hr tablet Take 1 tablet (5 mg total) by mouth at bedtime. 90 tablet 3 07/10/2024 pantoprazole (PROTONIX) 40 mg EC tablet TAKE 1 TABLET BY MOUTH TWICE DAILY BEFORE BREAKFAST AND DINNER. TAKE 30-60 MINUTES BEFORE MEALS 180 tablet 3 11/03/2022 rosuvastatin (CRESTOR) 20 mg tablet Take 1 tablet (20 mg total) by mouth daily. 90 tablet 3 10/12/2023 cefdinir (Omnicef) 300 mg capsuleIndication s:Cystitis Unspecified With Hematuria Take 1 capsule (300 mg total) by mouth 2 (two) times a day before morning and evening meals for 7 days. 14 capsule 10/02/2024 ciprofloxacin (Cipro) 250 mg tablet Take 250 mg by mouth 2 (two) times a day before morning and evening meals. 09/24/2024 5 documented as of this encounter Plan of Treatment Upcoming Encounters Date Type Department Care Team (Late st Contact Info) Description 10/27/2024 3:30 PM CDT Comprehensive Visit Department of Orthopedic Surgery in [place], [place] [address], [place] [address] Laith Mckinnon M.D. [address] [place] [phone] 12/31/2024 3:00 PM CDT Office Visit Department of Urology in [place], [place] [address] [place] [address] Tatum Orozco APRN, C.N.P. [address] [place] [phone] documented as of this encounter Procedures Procedure Name Priority Date/Time Associated Diagnosis Comments BASIC METABOLIC PANEL, S/P Routine 09/30/2024 11:19 AM SMALL WIND ENERGY INSTALLER Diabetes Mellitus Type 2 Peripheral Neuropathy (HCC) documented in this encounter Results * (ABNORMAL) Basic Metabolic Panel (09/30/2024 11:19 AM SMALL WIND ENERGY INSTALLER) Potassium, P 4.0 3.6 - 5.2 mmol/L 09/30/2024 11:47 AM SMALL WIND ENERGY INSTALLER OWAT Sodium, P 136 135 - 145 mmol/L 09/30/2024 11:47 AM SMALL WIND ENERGY INSTALLER OWAT Chloride, P 100 98 - 107 mmol/L 09/30/2024 11:47 AM SMALL WIND ENERGY INSTALLER OWAT Bicarbonate, P 22 22 - 29 mmol/L 09/30/2024 11:47 AM SMALL WIND ENERGY INSTALLER OWAT Anion Gap, P 14 7 - 15 09/30/2024 11:47 AM SMALL WIND ENERGY INSTALLER OWAT BUN (Blood Urea Nitrogen), P 10 6 - 21 mg/dL 09/30/2024 11:47 AM SMALL WIND ENERGY INSTALLER OWAT Creatinine 0.82 0.59 - 1.04 mg/dL 09/30/2024 11:47 AM SMALL WIND ENERGY INSTALLER OWAT Estimated GFR (eGFR) 87 >=60 mL/min/BSA 09/30/2024 11:47 AM SMALL WIND ENERGY INSTALLER OWAT Comment: Estimated GFR calculated using the 2020 CKD_EPI creatinine equation. Calcium, Total, P 9.4 8.6 - 10.0 mg/dL 09/30/2024 11:47 AM SMALL WIND ENERGY INSTALLER OWAT Glucose, P 163(H) 70 - 140 mg/dL 09/30/2024 11:47 AM SMALL WIND ENERGY INSTALLER OWAT Blood (Blood, Venous) 09/30/2024 11:19 AM SMALL WIND ENERGY INSTALLER 09/30/2024 11:25 AM SMALL WIND ENERGY INSTALLER us Diamond Wiggins M.D. LAB BLOOD ADD-ON Final R esult [facility] [address] [place] [id number], [facility] OWAT [facility] in [place] [address] [place] [address] documented in this encounter Visit Diagnoses Diagnosis Diabetes Mellitus Type 2 Peripheral Neuropathy (HCC) Other Tear Medial Meniscus Current Injury Right Knee Initial- Primary documented in this encounter Additional Health Concerns Assessment Noted Time PHQ-9 Depression Total Score: 6 09/01/19 25 10:41 PM SMALL WIND ENERGY INSTALLER documented as of this encounter Care Teams Painter Helper Relationship Specialty Start Date End Date Diamond Wiggins M.D. [address] [phone] PCP - General Family Medicine 01/22/23 documented as of this encounter
--- OUTSIDE RECORDS SUMMARY | 2024-10-20 16:14 | XMS_ITS | Encounter Summary ---
Author Organization [facility] Address [address] [place] [address] Care Team Providers Care Containers Sales Representative Name Role Phone Diamond Wiggins M.D. Primary Care Provider + Encounter Details Date Type Department Care Team (Late st Contact Info) Description 09/02/2024 Results Follow-Up Department of Family Medicine, [facility], in [place], [place] [address] [place] [phone] Diamond Wiggins M.D. [address] [place] [phone] Urinalysis, with Microscopic: Urine, Midstream, Bacterial Culture, Aerobic + Susceptibility, Urine, Albumin, Random, Urine, Hemoglobin A1c Social History Tobacco Use Types Packs/Day Years Used Date Smoking Tobacco: Every Day Cigarettes 1 31.1 Started: 08/28/1993 Passive Smoke Exposure: Current Smokeless Tobacco: Never Alcohol Use Standard Drinks/Week Comments No 0 (1 standard drink = 0.6 oz pur e alcohol) [facility] Utilities Answer Date Recorded In the past 12 months has [facility] [employer] [facility], gas, oil, or water [employer] threatened to shut off services in your [...] Never 11/01/2022 How often do you attend roman catholic or worship serv ices? Never 11/01/2022 Do you belong to any clubs o r organizations such as roman catholic groups, unions, fraternal or athletic groups, or [...] Answer Date Recorded PHQ-2 Score 2 09/01/2024 [facility] [place] [facility] - Occupational Stress Questionnaire Answer [...] your living situation today? I have a [facility] place to live 03/11/2024 Education Answer Date Recorded What is the highest level of school you have completed or the highest degree you have received? 12th grade 01/05/2020 Comments No Sex and Gender Information Value Date Recorded Sex Assigned at Female 01/07/2018 10:26 AM CDT Legal Sex Female 7:46 PM MECHANICAL CAR CHECKER Gender Identity Female 01/07/2018 10:26 AM CDT Sexual Orientation Straight 01/07/2018 10 :26 AM CDT documented as of this encounter Plan of Treatment Upcoming Encounters Date Type Department Care Team (Late st Contact Info) Description 10/27/2024 3:30 PM CDT Comprehensive Visit Department of Orthopedic Surgery in [place], [place] [address] [place] [address] Laith Mckinnon M.D. [address] [place] [phone] 12/31/2024 3:00 PM CDT Office Visit Department of Urology in [place], [place] [address] [phone] Tatum Orozoc APRN, C.N.P. [address] [phone] documented as of this encounter Visit Diagnoses Diagnosis Acute Cystitis Without Hematuria- Primary Other Tear Medial Meniscus Current Injury Right Knee Initial- Primary documented in this encounter Additional Health Concerns Assessment Noted Time PHQ-9 Depression Total Score: 6 09/01/19 25 10:41 PM MECHANICAL CAR CHECKER documented as of this encounter Care Teams Containers Sales Representative Relationship Specialty Start Date End Date Diamond Wiggins M.D. [address] [phone] PCP - General Family Medicine 01/22/23 documented as of this encounter
--- OUTSIDE RECORDS SUMMARY | 2024-10-20 16:14 | XMS_ITS | Clinical Summary ---
Author Organization [facility] Address [address] [place] [address] Care Team Providers Care Chemical Production Technician Name Role Phone Diamond Wiggins M.D. Primary Care Provider + Source Comments Patient records contain information from all sites at [facility]. For routine questions regarding patient records, call [phone] during business hours, M-F 8:00 AM - 5:00 PM Central Time. Record requests for emergency care only can be directed to [phone] at any time.[facility] Allergies Active Allergy Reactions Criticality Noted Date Comments Iodinated Contrast Media GI intolerance 08/16/2017 Hydromorphone GI intolerance 08/16/2017 Ibuprofen Other (see comments) 04/27/2018 Hx of simmons's esophagus Medications * This document contains information received from the source organization and may not represent a complete record from that organization. acetaminophen (TYLENOL) 500 mg tablet Take 500 mg by mouth as needed. Active albuterol 90 mcg/actuation inhaler Inhale 2 puffs every 4 (four) hours as needed for wheezing or shortness of breath. 54 g 3 05/18/20 22 Active pantoprazole (PROTONIX) 40 mg EC tablet TAKE 1 TABLET BY MOUTH TWICE DAILY BEFORE BREAKFAST AND DINNER. TAKE 30-60 MINUTES BEFORE MEALS 180 tablet 3 11/04/19 23 Active magnesium 200 mg tablet Take 2 tablets (400 mg total) by mouth every morning before breakfast. 180 tablet 3 07/03/20 23 Active rosuvastatin (CRESTOR) 20 mg tablet Take 1 tablet (20 mg total) by mouth daily. 90 tablet 3 10/12/19 24 Active metFORMIN XR (Glucophage-XR ) 500 mg 24 hr tablet Take 1 tablet by mouth twice daily 180 tablet 3 05/14/20 24 Active gabapentin (Neurontin) 300 mg capsuleIndicat ions:Neuropath y Peripheral TAKE 1 CAPSULE BY MOUTH TWICE DAILY AND 3 CAPSULES AT BEDTIME 150 capsule 11 07/08/20 24 Active oxyBUTYnin (Ditropan-XL) 5 mg 24 hr tablet Take 1 tablet (5 mg total) by mouth at bedtime. 90 tablet 3 07/10/20 24 Active DULoxetine (Cymbalta) [address] capsule Take 1 capsule (30 mg total) by mouth daily. 28 capsule 07/10/20 24 Active gabapentin (Neurontin) 100 mg capsule Take 1 pill (100 mg) with each morning and afternoon dose of gabapentin 300 mg for a total dose of 400 mg in the morning and 400 mg in the afternoon. 180 capsule 3 07/25/20 24 Active FLUoxetine (PROzac) 20 mg capsule Take 1 capsule (20 mg total) by mouth daily. Take with 40 mg pill for a dose of 60 mg daily 90 capsule 3 09/02/19 25 Active FLUoxetine (PROzac) 40 mg capsule Take 1 capsule (40 mg total) by mouth daily. Take with 20 mg pill for a total daily dose of 60 mg 90 capsule 3 09/02/19 25 Active estradioL (Estrace) 0.1 mg/g (0.01%) vaginal cream Insert 1 g into the vagina 3 (three) times a week. Use nightly for first week. 42.5 g 3 10/01/19 25 Active ondansetron (Zofran) 4 mg tablet Take 1 tablet (4 mg total) by mouth every 8 (eight) hours as needed for nausea or vomiting. 20 tablet 10/03/19 25 Active ciprofloxacin (Cipro) 250 mg tablet Take 250 mg by mouth 2 (two) times a day before morning and evening meals. 09/24/19 25 025 Discontinued cefdinir (Omnicef) 300 mg capsuleIndicat ions:Cystitis Unspecified With Hematuria Take 1 capsule (300 mg total) by mouth 2 (two) times a day before morning and evening meals for 7 days. 14 capsule 10/02/19 25 025 ondansetron (Zofran) 4 mg tablet Take 4 mg by mouth every 8 (eight) hours as needed for nausea or vomiting. 025 Discontinued(Re order) Active Problems Problem Noted Date Diagnosed Date Incontinence Urinary 10/26/2023 Overview (10/26/2023): Elements of overflow, urge, and stress incontinence Assessment & Plan (10/01/2024 8:26 PM PRODUCTION TEAM LEADER): Currently using Oxybutynin for urgency and frequency. Discussed potential long- term side effects. Continue Oxybutynin for now. Reassess the need for it after starting vaginal estrogen cream. Assessment & Plan (10/26/2023 6:58 PM CDT): We had an in-depth discussion of the different factors that can contribute to this mixed picture of incontinence and the fact that it gives us many options to try for treatment. It also indicates that no option is likely to be completely effective. When presented with the options for medication, pelvic floor physical therapy, and gynecologic referral for pessary or discussion of surgical intervention, she opted to try medication alone at this time. I advised we could try Myrbetriq and see if insurance will cover it. If not, we will likely need to do an older anticholinergic medications such as oxybutynin. 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 Gastroenterology: Elevated alk phos to be monitored yearly. Ocular: No evidence of involvement 04/19/22 Previously medicated: Prednisone and caused sweats, eating disorder, and chest pain. Annual monitoring: CBC w/ differential, CMP, vitamin D, EKG, CXR, ophthalmologic exam Elevated Alkaline Phosphatase 11/06/2022 Overview (10/26/2023): April 2022: MRI elastogram 1. No findings to suggest sarcoidosis in the abdomen. 2. Hepatic steatosis and hepatomegaly. 3. Mean liver stiffness is normal. 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 Sound tension-like in distribution yet some migraine symptoms (photophobia//nausea) Medications trialed: propranolol 60 mg (2020) Hyperlipidemia 04/29/2020 Overview (11/07/2022): Medications: 40mg Simvastatin Recent Lipid panel: 10/2021 LDL= 65, HDL= 35, BE=864, FN=238 (fasted) Diabetes Mellitus Type 2 Without Complication Overview (09/03/2024): # Disease status - Hgb A1c: 6.4 - Goal/Control: <7.0 - Complications: none # Lab monitoring - Vitamin B12, annual if on metformin: due - Protein:Microalbumin Ratio: 18 03/16/23 # CV risk management - Statin (CVD or age > 40): rosuvastatin 20 mg - Tobacco cessation: precontemplative # Preventive agents - ACEi/ARB (If proteinuria present or HTN): n/a - Vaccinations: Influenza vaccine: Up-to-date PCV20: Up-to-date HBV vaccine series (Recommended for -): Up-to-date Tdap: Up-to-date # Preventive exams - Foot exam: 09/02/24 - Eye exam: Due - Dental exam: Due Nicotine Dependence Cigarettes 04/29/2020 Depression Major Recurrent Moderate 01/29/2020 Overview (10/26/2023): Discontinued Wellbutrin 11/18/20 in setting of headaches, hypertension and limited benefit. Assessment & Plan (10/26/2023 6:54 PM CDT): Doing well on Cymbalta 60 mg Restless Leg Syndrome 02/19/2018 Overview (11/19/2020): Increased Mirapex from 0.125 to 0.25 mg 11/18/20 Obesity Body Mass Index 30-39.9 Adult 02/19/2018 Barretts Esophagus Without Dysplasia 02/12/2018 Overview (11/06/2022): February 2018: EGD specialized Simmons's mucosa. February 2020: EGD biopsies specialized Simmons's mucosa, no dysplasia November 2020: EGD revealed Bristol-colored mucosa consistent with short-segment Simmons's esophagus biopsies were negative for dysplasia and no specialized Simmons's mucosa Medications: 40mg of Protonix daily Follow up: Should have endoscopy every 3-5 years Assessment & Plan (10/25/2023 4:50 PM CDT): Endoscopy ordered today Resolved Problems Problem Noted Date Diagnosed Date Resolved Date Pain Chest Wall 04/26/2020 11/10/2020 Asthma Moderate Persistent W ith History Of Tobacco Use 02/19/2018 01/29/2020 Encounters Date Type Department Care Team Description 10/02/2024 4:45 PM PRODUCTION TEAM LEADER Internal E-Consult Division of Nephrology and Hypertension in [place], [place] [address] [place] [address] Aditya Sheikh M.D. Proteinuria 10/02/2024 Orders Only Department of Family Medicine, [facility], in [place], [place] [address] [place] [phone] Diamond Wiggins M.D. Proteinuria (Primary Dx) 09/30/2024 2:00 PM PRODUCTION TEAM LEADER Comprehensive Visit Department of Urology in [place], [place] [address] [place] [phone] Tatum Orozco APRN CMeliaNMeliaPMelia Infection Urinary Tract Personal History (Primary Dx); Dysuria; Atrophy Vagina Due To Estrogen Deficiency; Incontinence Urinary; Abuse Tobacco Smoking 09/30/2024 10:58 AM PRODUCTION TEAM LEADER - 09/30/2024 11:59 PM PRODUCTION TEAM LEADER Hospital Encounter Department of Laboratory Medicine in [address] [phone] Diamond Wiggins M.D. Dysuria; Proteinuria Discharge Disposition: Home or Self Care 09/30/2024 10:58 AM PRODUCTION TEAM LEADER - 09/30/2024 11:59 PM PRODUCTION TEAM LEADER Hospital Encounter Department of Laboratory Medicine in [address] [phone] Diamond Wiggins M.D. Diabetes Mellitus Type 2 Peripheral Neuropathy (HCC) Discharge Disposition: Home or Self Care 09/30/2024 Results Follow-Up Department of Family Medicine, [facility], in [place], [place] [address] [place] [phone] Diamond Wiggins M.D. Urinalysis with Microscopic if Indicated: Urine, Midstream, Albumin, Random, Urine, Microscopic Automated, Bacterial Culture, Aerobic + Susceptibility, Urine 09/24/2024 1:07 PM PRODUCTION TEAM LEADER - 09/24/2024 11:59 PM PRODUCTION TEAM LEADER Emergency [facility] [address] [place] [phone] Discharge Disposition: Home or Self Care 09/12/2024 8:21 AM PRODUCTION TEAM LEADER - 09/12/2024 11:59 PM PRODUCTION TEAM LEADER Hospital Encounter Department of Laboratory Medicine in [place], [place] [address] [place] [phone] Diamodn Wiggins M.D. Proteinuria Discharge Disposition: Home or Self Care 09/12/2024 6:50 AM PRODUCTION TEAM LEADER - 09/12/2024 8:20 AM PRODUCTION TEAM LEADER Hospital Encounter Department of Radiology in [address] [phone] Diamond Wiggins M.D. Pain Knee Right Discharge Disposition: Home or Self Care 09/12/2024 Results Follow-Up Department of Family Medicine, [facility], in [address] [phone] Diamond Wiggins M.D. Albumin, Random, Urine 09/09/2024 Orders Only [facility] Diamond Wiggins M.D. Diabetes Mellitus Type 2 Peripheral Neuropathy (HCC) 09/03/2024 Results Follow-Up Department of Family Medicine, [facility], in [address] [phone] Diamond Wiggins M.D. Albumin, Random, Urine, MR Knee Right without IV Contrast 09/03/2024 Clinical Communication Department of Family Medicine, [facility], in [address] [phone] Diamond Wiggins M.D. Results 09/02/2024 2:00 PM PRODUCTION TEAM LEADER Office Visit Department of Family Medicine, [facility], in [address] [phone] Diamond Wiggins M.D. Dysuria (Primary Dx); Pain Knee Right; Screening Mammogram Breast Cancer; Diabetes Mellitus Type 2 Without Complication (HCC); Bunion Right; Diabetes Mellitus Type 2 Peripheral Neuropathy (HCC); Depression Major Recurrent Moderate (HCC); Sarcoidosis Pulmonary (HCC) 09/02/2024 11:50 AM PRODUCTION TEAM LEADER - 09/02/2024 11:59 PM PRODUCTION TEAM LEADER Hospital Encounter Department of Laboratory Medicine in [address] [phone] Diamond Wiggins M.D. Diabetes Mellitus Type 2 Without Complication (HCC) Discharge Disposition: Home or Self Care 09/02/2024 11:50 AM PRODUCTION TEAM LEADER - 09/02/2024 11:59 PM PRODUCTION TEAM LEADER Hospital Encounter Department of Laboratory Medicine in [address] [phone] Diamond Wiggins M.D. Hematuria; Dysuria; Diabetes Mellitus Type 2 Without Complication (HCC) Discharge Disposition: Home or Self Care 09/02/2024 Results Follow-Up Department of [facility], [facility], in [address] [phone] Diamond Wiggins M.D. Urinalysis, with Microscopic: Urine, Midstream, Bacterial Culture, Aerobic + Susceptibility, Urine, Albumin, Random, Urine, Hemoglobin A1c 08/15/2024 Clinical Communication Department of [facility], [facility], in [address] [phone] Diamond Wiggins M.D. Order Request 08/13/2024 Clinical Communication Department of [facility], [facility], in [address] [phone] Diamond Wiggins M.D. Med Question from Last 3 Months Immunizations Immunization Administration Dates Next Due HepB Adult (HEPLISAV-B) 12/10/2020,11/03/2020 PCV20 12/21/2021 PPSV23 02/19/2018 RZV (SHINGRIX) 07/03/2023,05/01/2023 SARS-COV-2 (COVID-19) - MODE RNA (12 YEARS AND OLDER) Fall Seasonal 09/02/2024 Tdap 02/19/2018 influenza trivalent vaccine (6 months and older)(PF) 09/02/2024 influenza vaccine quad (FLUZ ONE/FLUARIX) (6 months and older)(PF) 05/01/2023,07/26/2021,11/03/2020 Family History Medical History Relation Name Comments No Known Problems Daughter 1 No Known Problems Daughter 2 No Known Problems Daughter 3 Bone cancer Father Jeffry mathis Coronary artery disease Father Jeffry mathis Heart attack Father Jeffry mathis 40 Kidney disease Father Jeffry mathis Other cancer Father Jeffry mathis Bone cancer Heart disease Maternal Grandfather Brain Aneurysm Maternal Grandmother Tarsha Duff Coronary artery disease Maternal Grandmother Tarsha conner Had pacemaker Heart attack Maternal Grandmother Tarsha Duff 66 Diabetes Mother Susie Mathis Hypertension Mother Susie Mathis Stroke Mother Susie Mathis 61 Heart disease Paternal Grandfather Coronary artery disease Paternal Grandmother Mojgan dover Heart attack Paternal Grandmother Mojgan dover 89 Heart disease Paternal Grandmother Mojgan dover Diabetes Sister 1 tarsha paige Hypertension Sister 1 tarsha paige Sleep apnea Sister 1 tarsha paige Diabetes Sister 2 Treva de la pazs Hypertension Sister 2 Treva de la pazs Sleep apnea Sister 2 Treva de la pazs Glaucoma Neg Hx Macular degeneration Neg Hx Relation Name Status Comments Daughter 1 Daughter 2 Daughter 3 Father Jeffry mathis Maternal Grandfather Maternal Grandmother Tarsha Duff Mother Susie Mathis Paternal Grandfather Paternal Grandmother Mojgan dover Sister 1 tarsha paige Sister 2 Treva mortensen Social History Tobacco Use Types Packs/Day Years Used Date Smoking Tobacco: Every Day Cigarettes 1 31.1 Started: 08/28/1993 Passive Smoke Exposure: Current Smokeless Tobacco: Never Tobacco Cessation:Ready to Q uit: Not Asked; Counseling Given: Not Answered Comments:2 packs/day from 1993 to 2009 Alcohol Use Standard Drinks/Week Comments Not Currently 0 (1 standard drink = 0.6 oz pur e alcohol) [facility] Utilities Answer Date Recorded In the past 12 months has [facility] [employer], gas, oil, or water 5o9 threatened to shut off services in your [...] Never 11/01/2022 How often do you attend methodist or temple serv ices? Never 11/01/2022 Do you belong to any clubs o r organizations such as methodist groups, unions, fraternal or athletic groups, or [...] Answer Date Recorded PHQ-2 Score 2 09/01/2024 [facility] - Occupational Stress [...] your living situation today? I have a [facility] place to live 03/11/2024 Education Answer Date Recorded What is the highest level of school you have completed or the highest degree you have received? 12th grade 01/05/2020 Comments No Sex and Gender Information Value Date Recorded Sex Assigned at Female 01/07/2018 10:26 AM CDT Legal Sex Female 7:46 PM PRODUCTION TEAM LEADER Gender Identity Female 01/07/2018 10:26 AM CDT Sexual Orientation Straight 01/07/2018 10 :26 AM CDT Last Filed Vital Signs Vital Sign Reading Time Taken Comments Blood Pressure 127/81 09/02/2024 1:11 PM PRODUCTION TEAM LEADER Pulse 77 09/02/2024 1:11 PM PRODUCTION TEAM LEADER Temperature 36.6 C (97.8 F) 09/02/2024 1:11 PM PRODUCTION TEAM LEADER Respiratory Rate 16 10/25/2023 3:15 PM CDT Oxygen Saturation 97% 07/22/2022 3:00 PM PRODUCTION TEAM LEADER Inhaled Oxygen Concentration - - Weight 90.4 kg (199 lb 4.7 oz) 09/02/2024 1:11 P M PRODUCTION TEAM LEADER Height 174 cm (5' 8.5) 09/02/2024 1:11 PM PRODUCTION TEAM LEADER Body Mass Index 29.86 09/02/2024 1:11 PM PRODUCTION TEAM LEADER Plan of Treatment Upcoming Encounters Date Type Department Care Team (Late st Contact Info) Description 10/27/2024 3:30 PM CDT Comprehensive Visit Department of Orthopedic Surgery in [place], [place] [address] [phone] Laith Mckinnon M.D. [address] [phone] 12/31/2024 3:00 PM CDT Office Visit Department of Urology in [place], [place] [address] [phone] Tatum Orozco APRN, C.N.P. [address] [phone] Health Maintenance Due Date Last Done Comments CT Colonography 1973 Cologuard 1973 Colonoscopy 1973 Colorectal Cancer Screening 1973 FIT 1973 Hepatitis C Screening 1973 Mammogram 11/19/2021 11/19/2020, 01/24/2018 Tobacco Cessation counseling 11/23/2021 11/23/2020 Lung Cancer Screening 03/19/2023 03/19/2022 , 02/09/2020, 01/08/2018 Depression Monitoring (PHQ-9) 12/30/2024 09/01/2024 Hemoglobin A1C 03/02/2025 09/02/2024, 03/0 02/2024, 03/16/2023, Additional history exists Diabetic Office Visit with Foot Exam 09/02/2025 09/02/2024, 09/02/2024, 09/02/2024, Additional history exists Office Visit for Blood Pressure Check / Re-check 09/02/2025 09/02/2024 Visit: Chronic Disease, age 18+ 09/02/2025 09/02/2024 Dilated Eye Exam 09/06/2025 09/06/2024 (Per formed elsewhere), 04/19/2022, 11/02/2020 (Performed elsewhere) Creatinine Level (Kidney Function Test) 09/30/2025 09/30/2024, 10/11/2023, 10/06/2022, Additional history exists Urine Albumin 09/30/2025 09/30/2024, 02/2025, 09/02/2024, Additional history exists DTaP,Tdap,and Td Vaccines (2 - Td or Tdap) 02/20/2028 02/19/2018 Lipid (Cholesterol) Screening 10/10/2028 10/11/2023, 10/06/2022, 12/21/2021, Additional history exists Hepatitis B Vaccines Completed 12/10/2020, 11/04/19 21 Pneumococcal vaccine (50+ years) Completed 12/21/2021, 02/19/2018 Zoster Vaccines Completed 07/03/2023, 05/01/2023 COVID-19 Vaccine Completed 09/02/2024, , 08/15/2021, Additional history exists Depression Monitoring (PHQ-9 for quality tracking) Completed 09/02/2024 Influenza Vaccine Completed 09/02/2024, , 07/26/2021, Additional history exists IPV Vaccines Aged Out No longer eligi ble based on patient's age to complete this topic Procedures Procedure Name Priority Date/Time Associated Diagnosis Comments VA URINALYSIS AUTO WO MICRO Routine 09/30/2024 11:27 AM PRODUCTION TEAM LEADER ALBUMIN, RANDOM, U Routine 09/30/2024 11:27 AM PRODUCTION TEAM LEADER Proteinuria URINALYSIS WITH MICROSCOPIC IF INDICATED, U Routine 09/30/2024 11:27 AM PRODUCTION TEAM LEADER Dysuria BACTERIAL CULTURE, AEROBIC + SUSC, URINE Routine 09/30/2024 11:27 AM PRODUCTION TEAM LEADER Dysuria BASIC METABOLIC PANEL, S/P Routine 09/30/2024 11:19 AM PRODUCTION TEAM LEADER Diabetes Mellitus Type 2 Peripheral Neuropathy (HCC) ALBUMIN, RANDOM, U Routine 09/12/2024 8: 23 AM PRODUCTION TEAM LEADER Proteinuria MR KNEE RIGHT WITHOUT IV CONTRAST RAD - Routine (most inpatients and all outpatients) 09/12/2024 7:56 AM PRODUCTION TEAM LEADER Pain Knee Right HEMOGLOBIN A1C, B Routine 09/02/2024 12:15 PM PRODUCTION TEAM LEADER Diabetes Mellitus Type 2 Without Complication (HCC) ALBUMIN, RANDOM, U Routine 09/02/2024 12:13 PM PRODUCTION TEAM LEADER Diabetes Mellitus Type 2 Without Complication (HCC) URINALYSIS WITH MICROSCOPIC Routine 09/02/2024 12:13 PM PRODUCTION TEAM LEADER Hematuria BACTERIAL CULTURE, AEROBIC + SUSC, URINE Routine 09/02/2024 12:13 PM PRODUCTION TEAM LEADER Dysuria LIPID PANEL, S Routine 10/11/2023 10:36 AM PRODUCTION TEAM LEADER Hyperlipidemia Diabetes Mellitus Type 2 Without Complication (HCC) CT CHEST WITHOUT IV CONTRAST RAD - Routine (most inpatients and all outpatients) 03/19/2022 8:56 AM CDT Nodule Pulmonary BI BREAST SCREENING BILATERAL WITH TOMOSYNTHESIS RAD - Routine (most inpatients and all outpatients) 11/19/2020 8:53 AM CDT Screening Mammogram Average Risk Patient from Last 3 Months or Most Recently Relevant to Health Maintenance Results * (ABNORMAL) Urinalysis with Microscopic if Indicated: Urine, Midstream (09/30/2024 11:27 AM PRODUCTION TEAM LEADER) Source Urine, Urine, Midstream 09/30/2024 11:27 AM PRODUCTION TEAM LEADER OWAT Clarity Clear Clear 09/30/2024 11:32 AM PRODUCTION TEAM LEADER OWAT Color Yellow 09/30/2024 11:32 AM PRODUCTION TEAM LEADER OWAT Comment: ----REFERENCE VALUE---- Colorless Yellow Dina Blood Small(A) Negative 09/30/2024 11:32 AM PRODUCTION TEAM LEADER OWAT Nitrite Negative Negative 09/30/2024 11:32 AM PRODUCTION TEAM LEADER OWAT Leukocyte Esterase Negative Negative 09/30/2024 11:32 AM PRODUCTION TEAM LEADER OWAT Protein 100(A) mg/dL 09/30/2024 11:32 AM PRODUCTION TEAM LEADER OWAT Comment: ----REFERENCE VALUE---- Negative Trace Glucose Negative Negative mg/dL 09/30/2024 11:32 AM PRODUCTION TEAM LEADER OWAT Ketone Negative Negative mg/dL 09/30/2024 11:32 AM PRODUCTION TEAM LEADER OWAT Bilirubin Negative Negative 09/30/2024 11:32 AM PRODUCTION TEAM LEADER OWAT pH 6.5 5.0 - 8.0 09/30/2024 11:32 AM PRODUCTION TEAM LEADER OWAT Specific [place] 1.019 1.001 - 1.035 09/30/2024 11:32 AM PRODUCTION TEAM LEADER OWAT Urobilinogen 0.2 0.2 - 1.0 mg/dL 09/30/2024 11:32 AM PRODUCTION TEAM LEADER OWAT Urine (Urine, Midstream) 09/30/2024 11:27 AM PRODUCTION TEAM LEADER 09/30/2024 11:27 AM PRODUCTION TEAM LEADER us Diamond Wiggins M.D. LAB URINE ORDERABLES Fin al Result Performing Organization Address [facility] Co de Phone Number [facility] [address] [place] [address], [facility] OWAT [facility] [place] [address] [address] * (ABNORMAL) Microscopic Automated (09/30/2024 11:27 AM PRODUCTION TEAM LEADER) White Blood Cells None Seen /hpf 09/30/2024 11:42 AM PRODUCTION TEAM LEADER OWAT Comment: ----REFERENCE VALUE---- Males: 0-3 Females: 0-10 Unknown: 0-10 Red Blood Cells 11-20(A) 0 - 2 /hpf 11:42 AM PRODUCTION TEAM LEADER OWAT Dysmorphic Red Blood Cells <=25 <=25 % 09/30/2024 11:42 AM PRODUCTION TEAM LEADER OWAT Hyaline Casts 1-3 /lpf 09/30/2024 11:42 AM PRODUCTION TEAM LEADER OWAT Squamous Cells Occ-3 /hpf 09/30/2024 11:42 AM PRODUCTION TEAM LEADER OWAT Urine 09/30/2024 11:2 7 AM PRODUCTION TEAM LEADER 09/30/2024 11:27 AM PRODUCTION TEAM LEADER us Diamond Wiggins M.D. LAB URINE ORDERABLES Fin al Result Performing Organization Address City/[facility]/ZIP Co de Phone Number [facility] [address] [facility] [place] [address], [place] OWAT [facility] [place] [address] [place] [address] * (ABNORMAL) Bacterial Culture, Aerobic + Susceptibility, Urine (09/30/2024 11:27 AM PRODUCTION TEAM LEADER) Only the most recent of2 resultswithin the time period is included. Urine Culture ESCHERICHIA COLI 10,000-100,000 cfu/mL (A) 10/02/2024 8:27 AM PRODUCTION TEAM LEADER MKTO Urine (Urine, Midstream) 09/30/2024 11:27 AM PRODUCTION TEAM LEADER 09/30/2024 1:56 PM PRODUCTION TEAM LEADER Comment:Specimen Source Site : Urine Narrative Organism Antibiotic Method Susceptibility Escherichia coli Ampicillin SUSCEPTIBILITY, LAURA (MCG/ML) >=32 mcg/mL: Resistant Escherichia coli Ampicillin + Sulbactam SUSCEPTI BILITY, LAURA (MCG/ML) 16 mcg/mL: Intermediate Escherichia coli Piperacillin + Tazobactam SUSCE PTIBILITY, LAURA (MCG/ML) <=4 mcg/mL: Susceptible Escherichia coli Cefazolin SUSCEPTIBILITY, LAURA (MCG/ML) <=4 mcg/mL: Susceptible Comment: The interpretation applies to uncomplicated urinary tract infections only. It also applies to these oral cephalosporins: cefuroxime, cephalexin, and cefprozil. Escherichia coli Ceftazidime SUSCEPTIBILITY, LAURA (MCG/ML) <=1 mcg/mL: Susceptible Escherichia coli Ceftriaxone SUSCEPTIBILITY, LAURA (MCG/ML) <=1 mcg/mL: Susceptible Escherichia coli Cefepime SUSCEPTIBILITY, LAURA (MCG/ML) <=1 mcg/mL: Susceptible Escherichia coli Aztreonam SUSCEPTIBILITY, LAURA (MCG/ML) <=1 mcg/mL: Susceptible Escherichia coli Ertapenem SUSCEPTIBILITY, LAURA (MCG/ML) <=0.5 mcg/mL: Susceptible Escherichia coli Meropenem SUSCEPTIBILITY, LAURA (MCG/ML) <=0.25 mcg/mL: Susceptible Escherichia coli Gentamicin SUSCEPTIBILITY, LAURA (MCG/ML) <=1 mcg/mL: Susceptible Escherichia coli Tobramycin SUSCEPTIBILITY, LAURA (MCG/ML) <=1 mcg/mL: Susceptible Escherichia coli Levofloxacin SUSCEPTIBILITY, LAURA (MCG/ML) >=8 mcg/mL: Resistant Escherichia coli Nitrofurantoin SUSCEPTIBILITY, LAURA (MCG/ML) <=16 mcg/mL: Susceptible Escherichia coli Trimethoprim + Sulfamethoxazole SUSCEPTIBILITY, LAURA (MCG/ML) <=20 mcg/mL: Susceptible us Diamond Wiggins M.D. LAB MICROBIOLOGY - GENER AL ORDERABLES Final Result Performing Organization Address City/[facility]/ZIP Co de Phone Number [facility] [address] [place] [address], [facility] MKTO [facility] in [place] [address] [place] [address] * (ABNORMAL) Albumin, Random, Urine (09/30/2024 11:27 AM PRODUCTION TEAM LEADER) Only the most recent of3 resultswithin the time period is included. Microalbumin 588.0 mg/L 09/30/2024 12:49 PM PRODUCTION TEAM LEADER OWAT Creatinine 137 mg/dL 09/30/2024 12:17 PM PRODUCTION TEAM LEADER OWAT Albumin/Creatinin e Ratio 429(H) <25 mg/g 09/30/2024 12:49 PM PRODUCTION TEAM LEADER OWAT Urine (Urine, Midstream) 09/30/2024 11:27 AM PRODUCTION TEAM LEADER 09/30/2024 11:27 AM PRODUCTION TEAM LEADER us Diamond Wiggins M.D. LAB URINE ORDERABLES Fin al Result [facility] [address] [place] [address], [facility] OWAT [facility] in [place] [address] [place] [address] * (ABNORMAL) Basic Metabolic Panel (09/30/2024 11:19 AM PRODUCTION TEAM LEADER) Potassium, P 4.0 3.6 - 5.2 mmol/L 09/30/2024 11:47 AM PRODUCTION TEAM LEADER OWAT Sodium, P 136 135 - 145 mmol/L 09/30/2024 11:47 AM PRODUCTION TEAM LEADER OWAT Chloride, P 100 98 - 107 mmol/L 09/30/2024 11:47 AM PRODUCTION TEAM LEADER OWAT Bicarbonate, P 22 22 - 29 mmol/L 09/30/2024 11:47 AM PRODUCTION TEAM LEADER OWAT Anion Gap, P 14 7 - 15 09/30/2024 11:47 AM PRODUCTION TEAM LEADER OWAT BUN (Blood Urea Nitrogen), P 10 6 - 21 mg/dL 09/30/2024 11:47 AM PRODUCTION TEAM LEADER OWAT Creatinine 0.82 0.59 - 1.04 mg/dL 09/30/2024 11:47 AM PRODUCTION TEAM LEADER OWAT Estimated GFR (eGFR) 87 >=60 mL/min/BSA 09/30/2024 11:47 AM PRODUCTION TEAM LEADER OWAT Comment: Estimated GFR calculated using the 2020 CKD_EPI creatinine equation. Calcium, Total, P 9.4 8.6 - 10.0 mg/dL 09/30/2024 11:47 AM PRODUCTION TEAM LEADER OWAT Glucose, P 163(H) 70 - 140 mg/dL 09/30/2024 11:47 AM PRODUCTION TEAM LEADER OWAT Blood (Blood, Venous) 09/30/2024 11:19 AM PRODUCTION TEAM LEADER 09/30/2024 11:25 AM PRODUCTION TEAM LEADER us Diamond Wiggins M.D. LAB BLOOD ADD-ON Final R esult [facility] [address] [place] [id number], [facility] OWAT [facility] in [place] [address] [place] [address] * MR Knee Right without IV Contrast (09/12/2024 7:56 AM PRODUCTION TEAM LEADER) Anatomical Region Laterality Modality Lower Extremity, Knee, Muscu loskeletal RST LOS, Musculoskeletal ARZ LOS, Muskuloskeletal FLA LOS Right Magne tic Resonance Impressions 09/12/2024 8:06 AM PRODUCTION TEAM LEADER 1. Equivocal horizontal oblique tears of the lateral meniscus at the posterior horn and posterior horn body junction. 2. The medial meniscus is intact. 3. No acute cruciate or collateral ligamentous injury. Sequela of remote injury to the MCL. 4. Focal high-grade chondromalacia of the anterior weightbearing lateral femoral condyle with reactive bone marrow edema. Grade 2 patellar chondromalacia. No additional high-grade chondral defects. 5. Small to moderate knee joint effusion. Narrative 09/12/2024 8:06 AM PRODUCTION TEAM LEADER EXAM: MR KNEE RIGHT WITHOUT IV CONTRAST COMPARISON:12/27/2022 radiographs, 12/27/2022 CT FINDINGS: Motion artifact mildly degrades image quality. Increased intrasubstance signal of the medial meniscal posterior horn, without definitive tear. No high-grade medial compartment chondral defects. Increased signal of the lateral meniscus at the posterior horn extending to the articular surface on one image, series 7 image 12.. Increased signal of the lateral meniscus free edge at the body posterior horn junction, example sagittal images 13. High-grade chondromalacia of the anterior weightbearing lateral femoral condyle with associated subchondral edema, example sagittal images 8. The extensor mechanism is intact. Grade 2 patellar chondromalacia.. The medial patellofemoral ligament and the lateral retinacular complex are unremarkable. The ACL and PCL are intact. The MCL is mildly thickened, without evidence for fiber disruption. Popliteus tendinosis. The lateral supporting structures are otherwise unremarkable. Trace fluid in a popliteal cyst. Small to moderate knee joint effusion. Procedure Note Jorge Cisse M.D. - 09/12/2024 EXAM: MR KNEE RIGHT WITHOUT IV CONTRAST COMPARISON:12/27/2022 radiographs, 12/27/2022 CT FINDINGS: Motion artifact mildly degrades image quality. Increased intrasubstance signal of the medial meniscal posterior horn,without definitive tear. No high-grade medial compartment chondraldefects. Increased signal of the lateral meniscus at the posterior horn extendingto the articular surface on one image, series 7 image 12.. Increasedsignal of the lateral meniscus free edge at the body posterior hornjunction, example sagittal images 13. High-grade chondromalacia of the anterior weightbearing lateral femoralcondyle with associated subchondral edema, example sagittal images 8. The extensor mechanism is intact. Grade 2 patellar chondromalacia.. Themedial patellofemoral ligament and the lateral retinacular complex areunremarkable. The ACL and PCL are intact. The MCL is mildly thickened, without evidencefor fiber disruption. Popliteus tendinosis. The lateral supportingstructures are otherwise unremarkable. Trace fluid in a popliteal cyst.Small to moderate knee joint effusion. IMPRESSION: 1. Equivocal horizontal oblique tears of the lateral meniscus at theposterior horn and posterior horn body junction. 2. The medial meniscus is intact. 3. No acute cruciate or collateral ligamentous injury. Sequela of remoteinjury to the MCL. 4. Focal high-grade chondromalacia of the anterior weightbearing lateralfemoral condyle with reactive bone marrow edema. Grade 2 patellarchondromalacia. No additional high-grade chondral defects. 5. Small to moderate knee joint effusion. us Diamond Wiggins M.D. IMG MRI PROCEDURES Final Result * (ABNORMAL) Hemoglobin A1c (09/02/2024 12:15 PM PRODUCTION TEAM LEADER) Hemoglobin A1c, B 6.2(H) 4.2 - 5.6 % 09/02/2024 5:27 PM PRODUCTION TEAM LEADER AUST Comment: Hemoglobin A1c values of 5.7-6.4 percent indicate an increased risk for developing diabetes mellitus. In diabetic patients, HbA1c goals should be discussed with healthcare provider. Blood (Blood, Venous) 09/02/2024 12:15 PM PRODUCTION TEAM LEADER 09/02/2024 12:27 PM PRODUCTION TEAM LEADER Diamond Wiggins M.D. LAB BLOOD ADD-ON Final R esult [facility] [address] [place] [address], [facility] [address] [place] [address] * (ABNORMAL) Urinalysis, with Microscopic: Urine, Midstream (09/02/2024 12:13 PM PRODUCTION TEAM LEADER) Source Urine, Urine, Midstream 09/02/2024 12:34 PM PRODUCTION TEAM LEADER OWAT Clarity Clear Clear 09/02/2024 12:34 PM PRODUCTION TEAM LEADER OWAT Color Dina 09/02/2024 12:34 PM PRODUCTION TEAM LEADER OWAT Comment: ----REFERENCE VALUE---- Colorless Yellow Dina Blood Small(A) Negative 09/02/2024 12:34 PM PRODUCTION TEAM LEADER OWAT Nitrite Negative Negative 09/02/2024 12:34 PM PRODUCTION TEAM LEADER OWAT Leukocyte Esterase Trace(A) Negative 09/02/2024 12:34 PM PRODUCTION TEAM LEADER OWAT Protein Trace mg/dL 09/02/2024 12:34 PM PRODUCTION TEAM LEADER OWAT Comment: ----REFERENCE VALUE---- Negative Trace Glucose Negative Negative mg/dL 09/02/2024 12:34 PM PRODUCTION TEAM LEADER OWAT Ketone Negative Negative mg/dL 09/02/2024 12:34 PM PRODUCTION TEAM LEADER OWAT Bilirubin Negative Negative 09/02/2024 12:34 PM PRODUCTION TEAM LEADER OWAT pH 6.0 5.0 - 8.0 09/02/2024 12:34 PM PRODUCTION TEAM LEADER OWAT Specific [place] 1.007 1.001 - 1.035 09/02/2024 12:34 PM PRODUCTION TEAM LEADER OWAT Urobilinogen 0.2 0.2 - 1.0 mg/dL 09/02/2024 12:34 PM PRODUCTION TEAM LEADER OWAT White Blood Cells 4-10 /hpf 09/02/2024 12:38 PM PRODUCTION TEAM LEADER OWAT Comment: ----REFERENCE VALUE---- Males: 0-3 Females: 0-10 Unknown: 0-10 Red Blood Cells Occ-2 0 - 2 /hpf 12:38 PM PRODUCTION TEAM LEADER OWAT Bacteria Present(A) None Seen 09/02/2024 12:38 PM PRODUCTION TEAM LEADER OWAT Urine (Urine, Midstream) 09/02/2024 12:13 PM PRODUCTION TEAM LEADER 09/02/2024 12:28 PM PRODUCTION TEAM LEADER us Diamond Wiggins M.D. LAB URINE ORDERABLES Fin al Result [facility] [address] [place] [address], [facility] OWAT [facility] [place] [address] [place] [address] * (ABNORMAL) Lipid Panel (10/11/2023 10:36 AM PRODUCTION TEAM LEADER) Triglycerides 375(H) mg/dL 10/11/2023 11:48 AM PRODUCTION TEAM LEADER OWAT Comment: ----REFERENCE VALUE---- Normal: <150 mg/dL Borderline High: 150-199 mg/dL High: 200-499 mg/dL Very High: > or =500 mg/dL Cholesterol, Total 262(H) mg/dL 2023 11:48 AM PRODUCTION TEAM LEADER OWAT Comment: ----REFERENCE VALUE---- Desirable: < 200 mg/dL Borderline High: 200 - 239 mg/dL High: > or = 240 mg/dL Cholesterol, LDL, Calculated 148(H) mg/dL 10/11/2023 11:48 AM PRODUCTION TEAM LEADER OWAT Comment: ----REFERENCE VALUE---- Desirable: <100 mg/dL Above Desirable: 100-129 mg/dL Borderline High: 130-159 mg/dL High: 160-189 mg/dL Very High: >=190 mg/dL ----ADDITIONAL INFORMATION---- LDL cholesterol calculated using the Souza/NIH equation. Cholesterol, HDL 44(L) >=50 mg/dL 10/11/19 11:48 AM PRODUCTION TEAM LEADER OWAT Cholesterol, Non-HDL, Calculated 218(H) mg/dL 10/11/2023 11:48 AM PRODUCTION TEAM LEADER OWAT Comment: ----REFERENCE VALUE---- Desirable: <130 mg/dL Above Desirable: 130-159 mg/dL Borderline High: 160-189 mg/dL High: 190-219 mg/dL Very High: > or =220 mg/dL Fasting (8 HR or more) Yes 10/11/2023 10:50 AM PRODUCTION TEAM LEADER OWAT Blood (Blood, Venous) 10/11/2023 10:36 AM PRODUCTION TEAM LEADER 10/11/2023 10:50 AM PRODUCTION TEAM LEADER us Diamond Wiggins M.D. LAB BLOOD ADD-ON Final R esult [facility] [address] [place] [address], [facility] OWAT [facility] [place] [address] [place] [address] * CT Chest without IV Contrast (03/19/2022 8:56 AM CDT) Anatomical Region Laterality Modality Chest, Thoracic RST LOS, Tho racic ARZ LOS, Thoracic FLA LOS N/A Computed Tomography, Compute d Tomography 03/19/2022 7:05 PM CDT Impressions 03/20/2022 12:00 PM CDT 1. Bulky bilateral hilar and mediastinal adenopathy, some which are stable others which are larger and is compatible with the clinical history of sarcoidosis. 2. Increasing centrilobular groundglass nodularity in the upper lungs which may relate to smoking-related respiratory bronchiolitis Mosaic attenuation of both lungs is likely due to areas of air trapping which may relate to small airway disease. However hypersensitivity pneumonitis is not excluded and clinical correlation is recommended. 3. Small (sub-6 mm) pulmonary nodules, some which are new. Guidelines for follow-up as discussed in the body of the report Narrative 03/20/2022 12:00 PM CDT EXAM: CT CHEST WITHOUT IV CONTRAST COMPARISON: CT chest dated 02/09/2020 FINDINGS: Tiny tracheal diverticulum. Increasing upper lung predominant centrilobular groundglass nodularity/ micro-nodularity. Increasing mosaic attenuation of the lung parenchyma laterally. Previous described mild new scattered groundglass opacities in the upper lungs have resolved. Few new small nodules such as a 3 mm nodule in the inferior right upper lobe (series 3/image 209). Stable additional small nodules such as 4 mm nodule right middle lobe (image 233). Calcified granuloma. No pleural effusion. Multi station bulky hilar lymphadenopathy is again noted with some lymph nodes which are stable others which are increased in size such as a 23 x 17 mm right paratracheal lymph node (image 142) previously measuring 21 x 14 mm. Additional scattered subcentimeter thoracic lymph nodes are stable such as a 7 mm right anterior diaphragmatic lymph node ( image 369) . Mild calcifications of the thoracic aorta. Small hiatal hernia. No suspicious osseous lesions. Degenerative changes of the spine. Cholecystectomy. Splenule GUIDELINES FOR FOLLOW-UP of newly detected solid nodules incidentally detected on CT in persons 35 years or older. (2017 revision) LOW-RISK PATIENT (Minimal or absent history of smoking or of other known risk factors) For single nodule, size: <6mm No routine follow-up required 6-8mm CT at 6-12 months; then consider CT at 18-24 months, if no change >8mm Consider Pulmonary Medicine consultation for management, or follow-up with CT at 3 months For multiple nodules, size of largest nodule: <6mm No routine follow-up required 6mm or > CT at 3-6 months, then consider CT at 18-24 months HIGH-RISK PATIENT (History of smoking or of other known risk factors) For single nodule, size: <6mm Optional CT at 12 months*; If unchanged, no further follow-up required 6-8mm CT at 6-12 months; then CT at 18-24 months, if no change >8mm Consider Pulmonary Medicine consultation for management, or follow-up with CT at 3 months For multiple nodules, size of largest nodule: <6mm Optional CT at 12 months*; If unchanged, no further follow-up required 6mm or > CT at 3-6 months, then at 18-24 months (Nodule size is the average of length and width.) *Nodules <6mm do not require routine follow-up, but certain patients at high risk with suspicious nodule morphology, upper lobe location, or both may warrant 12-month follow-up. Guidelines do not apply to lung cancer screening, patients with immunosuppression, or patients with a known primary cancer. Sean Olea M.D. [place] CT PROCEDURES Edited Resul t - Final * BI Breast Screening Bilateral with Tomosynthesis (11/19/2020 8:53 AM CDT) Anatomical Region Laterality Modality Breast, Breast Imaging RST L OS, Breast Imaging ARZ LOS, Breast Imaging FLA LOS Bilateral Mammography 11/19/2020 9:56 AM CDT Impressions 11/19/2020 10:17 AM CDT Negative. RECOMMENDATION: Annual Screening Mammogram ASSESSMENT: BI-RADS: 1: Negative. Narrative 11/19/2020 10:17 AM CDT EXAM: BI BREAST SCREENING BILATERAL WITH TOMOSYNTHESIS Current study was evaluated with a Computer Aided Detection (CAD) system. INDICATION: Screening mammogram. COMPARISON: Prior exam(s) were available and reviewed for comparison. DENSITY: b. There are scattered areas of fibroglandular density. FINDINGS: No findings of malignancy. No significant change since prior exam. Procedure Note Yasmine Champion M.D., Ph.D. - 11/19/2020 EXAM: BI BREAST SCREENING BILATERAL WITH TOMOSYNTHESIS Current study was evaluated with a Computer Aided Detection (CAD) system. INDICATION: Screening mammogram. COMPARISON: Prior exam(s) were available and reviewed for comparison. DENSITY: b. There are scattered areas of fibroglandular density. FINDINGS: No findings of malignancy. No significant change since priorexam. IMPRESSION: Negative. RECOMMENDATION: Annual Screening Mammogram ASSESSMENT: BI-RADS: 1: Negative. Pavithra Berry APRN, C.N.P., M.S.N. IM BI PROC EDURES Final Result from Last 3 Months or Most Recently Relevant to Health Maintenance Insurance [facility] Advance Directives For more information, please contact: [phone] * Full Code (Latest Code Status on File) Date Activated Date Inactivated Comments 04/26/2020 3:55 AM 04/26/2020 2:23 PM Question Answer Comments Full Code: Discussed Care Teams Chemical Production Technician Relationship Specialty Start Date End Date Diamond Wiggins M.D. [address], [place] [phone] PCP - General Family Medicine 01/22/23
--- OUTSIDE RECORDS SUMMARY | 2024-10-20 16:14 | XMS_ITS | Encounter Summary ---
Author Organization [facility] Address [address] [place] [address] Care Team Providers Care Director Of Retail Operations Name Role Phone Diamond Wiggins M.D. Primary Care Provider + Reason for Referral * MRI/CAT/PET Scan (Routine) - Closed Specialty Diagnoses / Procedures Referred By Contac t Referred To Contact Radiology Diagnoses Pain Knee Right Procedures MR Knee Right without IV Contrast [place] MRI LWR EXT JOINT WO Diamond Daigle M.D. [address] [place] [phone] Phone: tel: fax: [facility] Region Referral ID Status Reason Start Date Expiration Date Visits Re quested Visits Authorized [id number] Closed 09/03/2024 11/01/2024 1 1 ETING REPORTING ANALYST Reason for Visit * MRI/CAT/PET Scan (Routine) - Closed Specialty Diagnoses / Procedures Referred By Contac t Referred To Contact Radiology Diagnoses Pain Knee Right Procedures MR Knee Right without IV Contrast NJ MRI LWR EXT JOINT WO Diamond Daigle M.D. [address] [place] [phone] Phone: tel: fax: [facility] Region Referral ID Status Reason Start Date Expiration Date Visits Re quested Visits Authorized [id number] Closed 09/03/2024 11/01/2024 1 1 Encounter Details Date Type Department Care Team (Latest Contact Info) Description 09/12/2024 6:50 AM MARKETING REPORTING ANALYST - 09/12/2024 8:20 AM MARKETING REPORTING ANALYST Hospital Encounter Department of Radiology in [place], [place] [address] [place] [phone] Diamond Wiggins M.D. [address], [place] [phone] Pain Knee Right Discharge Disposition: Home or Self Care Social History Tobacco Use Types Packs/Day Years Used Date Smoking Tobacco: Every Day Cigarettes 09 05. Started: 08/28/1993 Passive Smoke Exposure: Current Smokeless Tobacco: Never Alcohol Use Standard Drinks/Week Comments No 0 (1 standard drink = 0.6 oz pur e alcohol) [facility] Utilities Answer Date Recorded In the past 12 months has e [employer], gas, oil, or water [employer] threatened to shut off services in your [...] Never 11/01/2022 How often do you attend congregational or church serv ices? Never 11/01/2022 Do you belong to any clubs o r organizations such as congregational groups, unions, fraternal or athletic groups, or [...] Date Recorded PHQ-2 Score 2 09/01/2024 [facility] - Occupational Stress Questionnaire Answer Date [...] ded PHQ-9 Total Score (max 27) 6 01/27 /2025 Nutrition Answer Date Recorded On average, how [...] your living situation today? I have a [facility] place to live 03/11/2024 Education Answer Date Recorded What is the highest level of school you have completed or the highest degree you have received? 12th grade 01/05/2020 Comments No Sex and Gender Information Value Date Recorded Sex Assigned at Female 01/07/2018 10:26 AM CDT Legal Sex Female 7:46 PM MARKETING REPORTING ANALYST Gender Identity Female 01/07/2018 10:26 AM CDT [...] total) by mouth daily. 28 capsule 07/10/2024 FLUoxetine (PROzac) 20 mg capsule Take 1 [...] capsule 3 07/25/2024 gabapentin (Neurontin) 300 mg capsuleIndicatio ns:Neuropathy Peripheral TAKE 1 CAPSULE BY MOUTH TWICE [...] by mouth daily. 90 tablet 3 10/12/2023 documented as of this encounter Plan of Treatment Upcoming Encounters Date Type Department Care Team (Late st Contact Info) Description 10/27/2024 3:30 PM CDT Comprehensive Visit Department of Orthopedic Surgery in [place], [place] [address] [phone] Laith Mckinnon M.D. [address] [phone] 12/31/2024 3:00 PM CDT Office Visit Department of Urology in [place], [place] [address] [phone] Tatum Orozco APRN, C.N.P. [address] [phone] documented as of this encounter Procedures Procedure Name Priority Date/Time Associated Diagnosis Comments MR KNEE RIGHT WITHOUT IV CONTRAST RAD - Routine (most inpatients and all outpatients) 09/12/2024 7:56 AM MARKETING REPORTING ANALYST Pain Knee Right documented in this encounter Results * MR Knee Right without IV Contrast (09/12/2024 7:56 AM MARKETING REPORTING ANALYST) Anatomical Region Laterality Modality Lower Extremity, Knee, Muscu loskeletal RST LOS, Musculoskeletal ARZ LOS, Muskuloskeletal FLA LOS Right Magne tic Resonance Impressions 09/12/2024 8:06 AM MARKETING REPORTING ANALYST 1. Equivocal horizontal oblique tears of the [...] knee joint effusion. Narrative 09/12/2024 8:06 AM MARKETING REPORTING ANALYST EXAM: MR KNEE RIGHT WITHOUT IV CONTRAST [...] 5. Small to moderate knee joint effusion. Diamond Wiggins M.D. IMG MRI PROCEDURES Final Result documented in this encounter Visit Diagnoses Diagnosis Pain Knee Right Other Tear Medial Meniscus Current Injury Right Knee Initial- Primary documented in this encounter Additional Health Concerns Assessment Noted Time PHQ-9 Depression Total Score: 6 09/01/19 25 10:41 PM MARKETING REPORTING ANALYST documented as of this encounter Care Teams Director Of Retail Operations Relationship Specialty Start Date End Date Diamond Wiggins M.D. [address] [phone] PCP - General Family Medicine 01/22/23 documented as of this encounter
--- OUTSIDE RECORDS SUMMARY | 2024-10-20 16:14 | XMS_ITS | Encounter Summary ---
Author Organization [facility] Address [address] [place] [address] Care Team Providers Care Tunnel Drier Operator Name Role Phone Diamond Wiggins M.D. Primary Care Provider + Reason for Visit * Reason Comments BURNING ON URINATION Encounter Details Date Type Department Care Team (Late st Contact Info) Description 09/24/2024 1:07 PM SECTION REPAIRER - 09/24/2024 11:59 PM SECTION REPAIRER Emergency [facility] [address] [place] [address] Discharge Disposition: Home or Self Care Social History Tobacco Use Types Packs/Day Years Used Date Smoking Tobacco: Every Day Cigarettes 1 31.1 Started: 08/28/1993 Passive Smoke Exposure: Current Smokeless Tobacco: Never Alcohol Use Standard Drinks/Week Comments No 0 (1 standard drink = 0.6 oz pur e alcohol) [facility] Utilities Answer Date Recorded In the past 12 months has [employer] gas, oil, or water [email or web address] threatened to shut off services in your [...] Never 11/01/2022 How often do you attend rastafarian or pentecostal serv ices? Never 11/01/2022 Do you belong to any clubs o r organizations such as rastafarian groups, unions, fraternal or athletic groups, or [...] Answer Date Recorded PHQ-2 Score 2 09/01/2024 [facility] of Occupat ional Health - Occupational Stress [...] your living situation today? I have a [facility] place to live 03/11/2024 Education Answer Date Recorded What is the highest level of school you have completed or the highest degree you have received? 12th grade 01/05/2020 Comments No Sex and Gender Information Value Date Recorded Sex Assigned at Female 01/07/2018 10:26 AM CDT Legal Sex Female 7:46 PM SECTION REPAIRER Gender Identity Female 01/07/2018 10:26 AM CDT [...] by mouth daily. 90 tablet 3 10/12/2023 ciprofloxacin (Cipro) 250 mg tablet Take 250 mg by mouth 2 (two) times a day before morning and evening meals. 09/24/2024 documented as of this encounter Plan of Treatment Upcoming Encounters Date Type Department Care Team (Late st Contact Info) Description 10/27/2024 3:30 PM CDT Comprehensive Visit Department of Orthopedic Surgery in [place], [place] [address], [place] [address] Laith Mckinnon M.D. [address] [place] [phone] 12/31/2024 3:00 PM CDT Office Visit Department of Urology in [place], [place] [address], [place] [address] Tatum Orozco APRN, C.N.P. [address] [place] [phone] documented as of this encounter Visit Diagnoses Not on filedocumented in this encounter Additional Health Concerns Assessment Noted Time PHQ-9 Depression Total Score: 6 09/01/19 25 10:41 PM SECTION REPAIRER documented as of this encounter Care Teams Tunnel Drier Operator Relationship Specialty Start Date End Date Diamond Wiggins M.D. [address] [place] [phone] PCP - General Family Medicine 01/22/23 documented as of this encounter
--- OUTSIDE RECORDS SUMMARY | 2024-10-20 16:14 | XMS_ITS | Encounter Summary ---
Author Organization [facility] Address [address] [place] [address] Care Team Providers Care Sociology Teacher Name Role Phone Diamond Wiggins M.D. Primary Care Provider + Encounter Details Date Type Department Care Team (Late st Contact Info) Description 09/12/2024 Results Follow-Up Department of Family Medicine, [facility], in [place], [place] [address] [place] [phone] Diamond Wiggins M.D. [address] [place] [phone] Albumin, Random, Urine Social History Tobacco Use Types Packs/Day Years Used Date Smoking Tobacco: Every Day Cigarettes 1 31.1 Started: 08/28/1993 Passive Smoke Exposure: Current Smokeless Tobacco: Never Alcohol Use Standard Drinks/Week Comments No 0 (1 standard drink = 0.6 oz pur e alcohol) [facility] Utilities Answer Date Recorded In the [...] Never 11/01/2022 How often do you attend scientology or oriental orthodox serv ices? Never 11/01/2022 Do you belong to any clubs o r organizations such as scientology groups, unions, fraternal or athletic groups, or [...] Answer Date Recorded PHQ-2 Score 2 09/01/2024 [facility] of Occupat ional Health - Occupational Stress [...] your living situation today? I have a [facility] place to live 03/11/2024 Education Answer Date Recorded What is the highest level of school you have completed or the highest degree you have received? 12th grade 01/05/2020 Comments No Sex and Gender Information Value Date Recorded Sex Assigned at Female 01/07/2018 10:26 AM CDT Legal Sex Female 7:46 PM ROLLER HELPER Gender Identity Female 01/07/2018 10:26 AM CDT Sexual Orientation Straight 01/07/2018 10 :26 AM CDT documented as of this encounter Plan of Treatment Upcoming Encounters Date Type Department Care Team (Late st Contact Info) Description 10/27/2024 3:30 PM CDT Comprehensive Visit Department of Orthopedic Surgery in [place], [place] [address] [place] [address] Laith Mckinnon M.D. [address] [place] [phone] 12/31/2024 3:00 PM CDT Office Visit Department of Urology in [place], [place] [address] [place] [address] Tatum Orozco APRN, C.N.P. [address] [place] [phone] documented as of this encounter Results * (ABNORMAL) Albumin, Random, Urine (09/30/2024 11:27 AM ROLLER HELPER) Microalbumin 588.0 mg/L 09/30/2024 12:49 PM ROLLER HELPER OWAT Creatinine 137 mg/dL 09/30/2024 12:17 PM ROLLER HELPER OWAT Albumin/Creatinin e Ratio 429(H) <25 mg/g 09/30/2024 12:49 PM ROLLER HELPER OWAT Urine (Urine, Midstream) 09/30/2024 11:27 AM ROLLER HELPER 09/30/2024 11:27 AM ROLLER HELPER us Diamond Wiggins M.D. LAB URINE ORDERABLES Fin al Result [facility] [address] [place] [address], [place] OW[facility] in [place] [address] [place] [address] * (ABNORMAL) Bacterial Culture, Aerobic + Susceptibility, Urine (09/30/2024 11:27 AM ROLLER HELPER) Urine Culture ESCHERICHIA COLI 10,000-100,000 cfu/mL (A) 10/02/2024 8:27 AM ROLLER HELPER MKTO Urine (Urine, Midstream) 09/30/2024 11:27 AM ROLLER HELPER 09/30/2024 1:56 PM ROLLER HELPER Comment:Specimen Source Site : Urine Narrative Organism [...] Sulfamethoxazole SUSCEPTIBILITY, LAURA (MCG/ML) <=20 mcg/mL: Susceptible Diamond Wiggins M.D. LAB MICROBIOLOGY - [facility] ORDERABLES Final Result [facility] [address] [place] [address], [facility] in [place] [address] [place] [address] * (ABNORMAL) Urinalysis with Microscopic if Indicated: Urine, Midstream (09/30/2024 11:27 AM ROLLER HELPER) Source Urine, Urine, Midstream 09/30/2024 11:27 AM ROLLER HELPER OWAT Clarity Clear Clear 09/30/2024 11:32 AM ROLLER HELPER OWAT Color Yellow 09/30/2024 11:32 AM ROLLER HELPER OWAT Comment: ----REFERENCE VALUE---- Colorless Yellow Dina Blood Small(A) Negative 09/30/2024 11:32 AM ROLLER HELPER OWAT Nitrite Negative Negative 09/30/2024 11:32 AM ROLLER HELPER OWAT Leukocyte Esterase Negative Negative 09/30/2024 11:32 AM ROLLER HELPER OWAT Protein 100(A) mg/dL 09/30/2024 11:32 AM ROLLER HELPER OWAT Comment: ----REFERENCE VALUE---- Negative Trace Glucose Negative Negative mg/dL 09/30/2024 11:32 AM ROLLER HELPER OWAT Ketone Negative Negative mg/dL 09/30/2024 11:32 AM ROLLER HELPER OWAT Bilirubin Negative Negative 09/30/2024 11:32 AM ROLLER HELPER OWAT pH 6.5 5.0 - 8.0 09/30/2024 11:32 AM ROLLER HELPER OWAT Specific [place] 1.019 1.001 - 1.035 09/30/2024 11:32 AM ROLLER HELPER OWAT Urobilinogen 0.2 0.2 - 1.0 mg/dL 09/30/2024 11:32 AM ROLLER HELPER OWAT Urine (Urine, Midstream) 09/30/2024 11:27 AM ROLLER HELPER 09/30/2024 11:27 AM ROLLER HELPER Diamond Wiggins M.D. LAB URINE ORDERABLES Fin al Result [facility] [address] [place] [address], [facility] OWAT [facility] in [place] [address] [place] [address] documented in this encounter Visit Diagnoses Diagnosis Dysuria- Primary Proteinuria Other Tear Medial Meniscus Current Injury Right Knee Initial- Primary documented in this encounter Additional Health Concerns Assessment Noted Time PHQ-9 Depression Total Score: 6 09/01/19 10:41 PM ROLLER HELPER documented as of this encounter Care Teams Sociology Teacher Relationship Specialty Start Date End Date Diamond Wiggins M.D. [address] [place] [phone] PCP - General Family Medicine 01/22/23 documented as of this encounter
--- OUTSIDE RECORDS SUMMARY | 2024-10-20 16:14 | XMS_ITS | Encounter Summary ---
Author Organization [facility] Address [address] [place] [address] Care Team Providers Care Grill Cook Name Role Phone Diamond Wiggins M.D. Primary Care Provider + Encounter Details Date Type Department Care Team (Latest Contact Info) Description 09/12/2024 8:21 AM DIRECTOR BUSINESS MANAGEMENT - 09/12/2024 11:59 PM [facility] Hospital Encounter Department of Laboratory Medicine in [place], [place] [address], [place] [address] Diamond Wiggins M.D. [address] [place] [phone] Proteinuria Discharge Disposition: Home or Self Care Social History Tobacco Use Types Packs/Day Years Used Date Smoking Tobacco: Every Day Cigarettes 1 31.1 Started: 08/28/1993 Passive Smoke Exposure: Current Smokeless Tobacco: Never Alcohol Use Standard Drinks/Week Comments No 0 (1 standard drink = 0.6 oz pur e alcohol) [facility] Utilities Answer Date Recorded In the past 12 months has e [employer], gas, oil, or water [employer] threatened to shut off services in your [...] Never 11/01/2022 How often do you attend oriental orthodox or gnosticism serv ices? Never 11/01/2022 Do you belong to any clubs o r organizations such as oriental orthodox groups, unions, fraternal or athletic groups, or [...] Answer Date Recorded PHQ-2 Score 2 09/01/2024 [facility] of Occupat ional Health - Occupational Stress [...] your living situation today? I have a [facility] place to live 03/11/2024 Education Answer Date Recorded What is the highest level of school you have completed or the highest degree you have received? 12th grade 01/05/2020 Comments No Sex and Gender Information Value Date Recorded Sex Assigned at Female 01/07/2018 10:26 AM CDT Legal Sex Female 7:46 PM DIRECTOR BUSINESS MANAGEMENT Gender Identity Female 01/07/2018 10:26 AM CDT [...] Comprehensive Visit Department of Orthopedic Surgery in [place], [place] [address], [place] [address] Laith Mckinnon M.D. [address] [place] [address] 12/31/2024 3:00 PM CDT Office Visit Department of Urology in [place], [place] [address] [place] [address] Tatum Orozco APRN, C.N.P. [address] [place] [phone] documented as of this encounter Procedures Procedure Name Priority Date/Time Associated Diagnosis Comments ALBUMIN, RANDOM, U Routine 09/12/2024 8: 23 AM DIRECTOR BUSINESS MANAGEMENT Proteinuria documented in this encounter Results * (ABNORMAL) Albumin, Random, Urine (09/12/2024 8:23 AM DIRECTOR BUSINESS MANAGEMENT) Microalbumin 245.0 mg/L 09/12/2024 9:08 AM DIRECTOR BUSINESS MANAGEMENT OWAT Creatinine 81 mg/dL 09/12/2024 9:08 AM DIRECTOR BUSINESS MANAGEMENT OWAT Albumin/Creatinin e Ratio 302(H) <25 mg/g 09/12/2024 9:08 AM DIRECTOR BUSINESS MANAGEMENT OWAT Urine (Urine, Midstream) 09/12/2024 8:23 AM DIRECTOR BUSINESS MANAGEMENT 09/12/2024 8:36 AM DIRECTOR BUSINESS MANAGEMENT us Diamond Wiggins M.D. LAB URINE ORDERABLES Fin al Result - [facility] [address] [place] [address], [facility] OWAT [facility] in [place] [address] [place] [address] documented in this encounter Visit Diagnoses Diagnosis Proteinuria Other Tear Medial Meniscus Current Injury Right Knee Initial- Primary documented in this encounter Additional Health Concerns Assessment Noted Time PHQ-9 Depression Total Score: 6 09/01/19 25 10:41 PM DIRECTOR BUSINESS MANAGEMENT documented as of this encounter Care Teams Grill Cook Relationship Specialty Start Date End Date Diamond Wiggins M.D. [address] [place] [phone] PCP - General Family Medicine 01/22/23 documented as of this encounter
--- OUTSIDE RECORDS SUMMARY | 2024-10-20 16:14 | XMS_ITS | Encounter Summary ---
Author Organization [facility] Address [address] [place] [address] Care Team Providers Care Engineering Leader Name Role Phone Diamond Wiggins M.D. Primary Care Provider + Reason for Visit * Reason Onset Date Comments Results 09/03/2024 Encounter Details Date Type Department Care Team (Late st Contact Info) Description 09/03/2024 Clinical Communication Department of Family Medicine, [facility], in [place], [place] [address] [place] [phone] Diamond Wiggins M.D. [address] [place] [phone] Results Social History Tobacco Use Types Packs/Day Years Used Date Smoking Tobacco: Every Day Cigarettes 1 31.1 Started: 08/28/1993 Passive Smoke Exposure: Current Smokeless Tobacco: Never Alcohol Use Standard Drinks/Week Comments No 0 (1 standard drink = 0.6 oz pur e alcohol) [facility] Utilities Answer Date Recorded In the [...] Never 11/01/2022 How often do you attend jain or christian serv ices? Never 11/01/2022 Do you belong to any clubs o r organizations such as jain groups, unions, fraternal or athletic groups, or [...] Answer Date Recorded PHQ-2 Score 2 09/01/2024 [facility] of Occupat ional Health - Occupational Stress [...] your living situation today? I have a [employer] place to live 03/11/2024 Education Answer Date Recorded What is the highest level of school you have completed or the highest degree you have received? 12th grade 01/05/2020 Comments No Sex and Gender Information Value Date Recorded Sex Assigned at Female 01/07/2018 10:26 AM CDT Legal Sex Female 7:46 PM ATHLETICS TEACHER Gender Identity Female 01/07/2018 10:26 AM CDT Sexual Orientation Straight 01/07/2018 10 :26 AM CDT documented as of this encounter Plan of Treatment Upcoming Encounters Date Type Department Care Team (Late st Contact Info) Description 10/27/2024 3:30 PM CDT Comprehensive Visit Department of Orthopedic Surgery in [place], [place] [address] [place] [phone] Laith Mckinnon M.D. [address] [place] [address] 12/31/2024 3:00 PM CDT Office Visit Department of Urology in [place], [place] [address] [place] [phone] Tatum Orozco APRN, C.N.P. [address] [address] documented as of this encounter Results * (ABNORMAL) Albumin, Random, Urine (09/12/2024 8:23 AM ATHLETICS TEACHER) Microalbumin 245.0 mg/L 09/12/2024 9:08 AM ATHLETICS TEACHER OWAT Creatinine 81 mg/dL 09/12/2024 9:08 AM ATHLETICS TEACHER OWAT Albumin/Creatinin e Ratio 302(H) <25 mg/g 09/12/2024 9:08 AM ATHLETICS TEACHER OWAT Urine (Urine, Midstream) 09/12/2024 8:23 AM ATHLETICS TEACHER 09/12/2024 8:36 AM ATHLETICS TEACHER us Diamond Wiggins M.D. LAB URINE ORDERABLES Fin al Result [facility] [address] [place] [address], [facility] OWAT [facility] [place] [address] [place] [address] documented in this encounter Visit Diagnoses Diagnosis Proteinuria- Primary Other Tear Medial Meniscus Current Injury Right Knee Initial- Primary documented in this encounter Additional Health Concerns Assessment Noted Time PHQ-9 Depression Total Score: 6 09/01/19 25 10:41 PM ATHLETICS TEACHER documented as of this encounter Care Teams Engineering Leader Relationship Specialty Start Date End Date Diamond Wiggins M.D. [address] [place] [phone] PCP - General Family Medicine 01/22/23 documented as of this encounter
--- OUTSIDE RECORDS SUMMARY | 2024-10-20 16:14 | XMS_ITS | Encounter Summary ---
Author Organization [facility] Address [address] [place] [address] Care Team Providers Care Make Ready Worker Name Role Phone Diamond Wiggins M.D. Primary Care Provider + Encounter Details Date Type Department Care Team (Late st Contact Info) Description 09/09/2024 [facility] Diamond Todd M.D. [address] [place] [address] Diabetes Mellitus Type 2 Peripheral Neuropathy (HCC) Social History Tobacco Use Types Packs/Day Years Used Date Smoking Tobacco: Every Day Cigarettes 1 31.1 Started: 08/28/1993 Passive Smoke Exposure: Current Smokeless Tobacco: Never Alcohol Use Standard Drinks/Week Comments No 0 (1 standard drink = 0.6 oz pur e alcohol) [facility] Utilities Answer Date Recorded In the past 12 months has e [employer], gas, oil, or water [employer] threatened to shut off services in your [...] Never 11/01/2022 How often do you attend bahai or hoahaoism serv ices? Never 11/01/2022 Do you belong to any clubs o r organizations such as bahai groups, unions, fraternal or athletic groups, or [...] Answer Date Recorded PHQ-2 Score 2 09/01/2024 [facility] of Occupat ional Health - [...] medical appointments or from getting medications? No 0801/2024 In the past 12 months, has l [...] living situation today? I have a [facility] place to live 03/11/2024 Education Answer Date Recorded What is the highest level of school you have completed or the highest degree you have received? 12th grade 01/05/2020 Comments No Sex and Gender Information Value Date Recorded Sex Assigned at Female 01/07/2018 10:26 AM CDT Legal Sex Female 7:46 PM SOLUTIONS EXECUTIVE CLOUD SALES Gender Identity Female 01/07/2018 10:26 AM CDT Sexual Orientation Straight 01/07/2018 10 :26 AM CDT documented as of this encounter Plan of Treatment Upcoming Encounters Date Type Department Care Team (Late st Contact Info) Description 10/27/2024 3:30 PM CDT Comprehensive Visit Department of Orthopedic Surgery in [place], [place] [address] [place] [phone] Laith Mckinnon M.D. [address] [place] [phone] 12/31/2024 3:00 PM CDT Office Visit Department of Urology in [place], [place] [address] [place] [address] Tatum Orozco APRN, C.N.P. [address] [facility] [place] [address] documented as of this encounter Results * (ABNORMAL) Basic Metabolic Panel (09/30/2024 11:19 AM SOLUTIONS EXECUTIVE CLOUD SALES) Potassium, P 4.0 3.6 - 5.2 mmol/L 09/30/2024 11:47 AM SOLUTIONS EXECUTIVE CLOUD SALES OWAT Sodium, P 136 135 - 145 mmol/L 09/30/2024 11:47 AM SOLUTIONS EXECUTIVE CLOUD SALES OWAT Chloride, P 100 98 - 107 mmol/L 09/30/2024 11:47 AM SOLUTIONS EXECUTIVE CLOUD SALES OWAT Bicarbonate, P 22 22 - 29 mmol/L 09/30/2024 11:47 AM SOLUTIONS EXECUTIVE CLOUD SALES OWAT Anion Gap, P 14 7 - 15 09/30/2024 11:47 AM SOLUTIONS EXECUTIVE CLOUD SALES OWAT BUN (Blood Urea Nitrogen), P 10 6 - 21 mg/dL 09/30/2024 11:47 AM SOLUTIONS EXECUTIVE CLOUD SALES OWAT Creatinine 0.82 0.59 - 1.04 mg/dL 09/30/2024 11:47 AM SOLUTIONS EXECUTIVE CLOUD SALES OWAT Estimated GFR (eGFR) 87 >=60 mL/min/BSA 09/30/2024 11:47 AM SOLUTIONS EXECUTIVE CLOUD SALES OWAT Comment: Estimated GFR calculated using the 2020 CKD_EPI creatinine equation. Calcium, Total, P 9.4 8.6 - 10.0 mg/dL 09/30/2024 11:47 AM SOLUTIONS EXECUTIVE CLOUD SALES OWAT Glucose, P 163(H) 70 - 140 mg/dL 09/30/2024 11:47 AM SOLUTIONS EXECUTIVE CLOUD SALES OWAT Blood (Blood, Venous) 09/30/2024 11:19 AM SOLUTIONS EXECUTIVE CLOUD SALES 09/30/2024 11:25 AM SOLUTIONS EXECUTIVE CLOUD SALES us Diamond Wiggins M.D. LAB BLOOD ADD-ON Final R esult [facility] [address] [place] [address], [facility] OWAT [facility] [place] [address] [place] [address] documented in this encounter Visit Diagnoses Diagnosis Diabetes Mellitus Type 2 Peripheral Neuropathy (HCC) Other Tear Medial Meniscus Current Injury Right Knee Initial- Primary documented in this encounter Additional Health Concerns Assessment Noted Time PHQ-9 Depression Total Score: 6 09/01/19 25 10:41 PM SOLUTIONS EXECUTIVE CLOUD SALES documented as of this encounter Care Teams Make Ready Worker Relationship Specialty Start Date End Date Diamond Wiggins M.D. [address] [place] [phone] PCP - General Family Medicine 01/22/23 documented as of this encounter
--- OUTSIDE RECORDS SUMMARY | 2024-10-20 16:15 | XMS_ITS | Clinical Summary ---
Author Organization [facility] Address [address] [place] [address] Care Team Providers Care Pump Installation And Servicer Name Role Phone Diamond Wiggins MD Primary Care Provider Allergies Active Allergy Reactions Criticality Noted Date Comments Hydromorphone Nausea And Vomiting 12/27/2022 Ibuprofen *Unknown 04/27/2018 Hx of simmons's esophagus Iodinated Contrast Media GI Upset 08/16/2017 Medications crutchIndicatio ns:Knee injury, initial encounter,Sprai n of medial collateral ligament of right knee, initial encounter For home use. 2 Each 12/27/2022 Active fluconazole (DIFLUCAN) 150 mg tabletIndicatio ns:Dysuria Take 1 tab today and repeat in 3 days. 2 Tablet 09/24/2024 Active ciprofloxacin (CIPRO) 250 mg tabletIndicatio ns:Dysuria Take 1 Tablet (250 mg) by mouth two times daily before meals for 10 days. 20 Tablet 09/24/2024 Encounters Date Type Department Care Team Description 09/24/2024 1:17 PM CERTIFIED VETERINARY TECHNICIAN - 09/24/2024 2:49 PM [facility] Emergency [facility] [address] [place] [address] Floyd Quinones PA Dysuria (Primary Dx) Discharge Disposition: Home Self Care 09/24/2024 Travel from Last 3 Months Social History Tobacco Use Types Packs/Day Years Used Date Smoking Tobacco: Never Assessed Interpersonal Safety Answer Date Record ed Are you being hit, kicked, p ushed or yelled at (see row info)? No 09/24/2024 Interpersonal Safety Abuse 12 - 18 Not on file 09/24/2024 Interpersonal Safety Ambulatory Vulnerability No t on file 09/24/2024 Comments No Sex and Gender Information Value Date Recorded Sex Assigned at Not on file Legal Sex Female 4:52 PM CDT Gender Identity Not on file Sexual Orientation Not on file Last Filed Vital Signs Vital Sign Reading Time Taken Comments Blood Pressure 126/79 09/24/2024 1:13 PM CERTIFIED VETERINARY TECHNICIAN Pulse 96 09/24/2024 1:13 PM CERTIFIED VETERINARY TECHNICIAN Temperature 36.3 C (97.3 F) 09/24/2024 1:13 PM CERTIFIED VETERINARY TECHNICIAN Respiratory Rate 16 09/24/2024 1:13 PM CERTIFIED VETERINARY TECHNICIAN Oxygen Saturation 97% 09/24/2024 1:13 PM CERTIFIED VETERINARY TECHNICIAN Inhaled Oxygen Concentration - - Weight 88.9 kg (196 lb) 09/24/2024 1:13 PM CERTIFIED VETERINARY TECHNICIAN Height 170.2 cm (5' 7) 09/24/2024 1:13 PM CERTIFIED VETERINARY TECHNICIAN Body Mass Index 30.7 09/24/2024 1:13 PM CERTIFIED VETERINARY TECHNICIAN Plan of Treatment Health Maintenance Due Date Last Done Comments Tdap 1984 Depression screening for age 12+ 1985 HIV for age 15-65 1988 BMI (ht and wt on same day) for age 18+ 1991 Hepatitis C screening for ag e 18-79 1991 Tetanus booster 1993 Pap test for age 21-65 1994 Colonoscopy through age 75 2018 Lipids for age 45-75 2018 Mammogram for age 45-75 2018 Pneumococcal series for age 50+ (1 of 1 - PCV) 2023 Zoster (shingles) series for age 50+ (1 of 2) 2023 Influenza Vaccine (#1) 2024 COVID-19 vaccine series Completed 09/02/19, 07/03/2023, 08/15/2021, Additional history exists Procedures Procedure Name Priority Date/Time Associated Diagnosis Comments URINALYSIS MICROSCOPIC STAT 09/24/2024 2:02 PM CERTIFIED VETERINARY TECHNICIAN UA W/ SEDIMENT EXAM REFLEXED PER CRITERIA STAT 09/24/2024 2:02 PM CERTIFIED VETERINARY TECHNICIAN URINALYSIS MICROSCOPIC STAT 09/24/2024 1:19 PM CERTIFIED VETERINARY TECHNICIAN from Last 3 Months Results * (ABNORMAL) URINALYSIS MICROSCOPIC (09/24/2024 2:02 PM CERTIFIED VETERINARY TECHNICIAN) Only the most recent of2 resultswithin the time period is included. RBC 0-2 0-2, None Seen /HPF 09/24/2024 2:18 PM [facility] WBC 3-5 0-2, 3-5, None Seen /HPF 09/24/2024 2:18 PM [facility] BACTERIA Few None Seen, Rare, Few Bacteria/H PF 09/24/2024 2:18 PM [facility] EPITHELIAL CELLS Moderate(A ) None Seen, Few Epi/HPF 09/24/2024 2:18 PM [facility] Urine URINE SPECIMEN / Unknown Non-Blood / Unknown 09/24/2024 2:02 PM CERTIFIED VETERINARY TECHNICIAN 09/24/2024 2:07 PM CERTIFIED VETERINARY TECHNICIAN us Floyd RAMIREZ URINE Aracelis l Result [facility] [address] [phone] * (ABNORMAL) UA W/ SEDIMENT EXAM REFLEXED PER CRITERIA (09/24/2024 2:02 PM CERTIFIED VETERINARY TECHNICIAN) COLOR [place](A) Yellow Color 09/24/2024 2:18 PM [facility] CLARITY Clear Clear Clarity 09/24/2024 2:18 PM [facility] SPECIFIC GRAVITY,URINE <=1.005(A) 1.010, 1.015, 1.020, 1.025 09/24/2024 2:18 PM [facility] PH,URINE 5.5 6.0, 7.0, 8.0, 5.5, 6.5, 7.5, 8.5 09/24/2024 2:18 PM [facility] UROBILINOGEN, QUALITATIVE Increased(A) Normal EU/dl 09/24/2024 2:18 PM [facility] PROTEIN, URINE Trace(A) Negative mg/dL 09/24/2024 2:18 PM [facility] GLUCOSE, URINE 100(A) Negative mg/dL 09/24/2024 2:18 PM [facility] KETONES,URINE Negative Negative mg/dL 09/24/2024 2:18 PM CERTIFIED VETERINARY TECHNICIAN [facility] BILIRUBIN,URI NE Negative Negative 09/24/2024 2:18 PM [facility] OCCULT BLOOD,URINE Trace(A) Negative 09/24/2024 2:18 PM [facility] NITRITE Positive(A) Negative 09/24/2024 2:18 PM [facility] LEUKOCYTE ESTERASE Negative Negative 09/24/2024 2:18 PM [facility] Urine URINE SPECIMEN / Unknown Non-Blood / Unknown 09/24/2024 2:02 PM CERTIFIED VETERINARY TECHNICIAN 09/24/2024 2:07 PM [facility] Floyd RAMIREZ URINE Aracelis l Result [facility] [address] [phone] from Last 3 Months Insurance [facility] NON-GA-ITS Care Teams Pump Installation And Servicer Relationship Specialty Start Date End Date Diamond Wiggins MD [address] [place] [phone] PCP - General Family Practice 12/14/23
--- OUTSIDE RECORDS SUMMARY | 2024-10-20 16:15 | XMS_ITS | Encounter Summary ---
Author Organization [facility] Address [address] [place] [address] Care Team Providers Care Associate Property Manager Name Role Phone Diamond Wiggins M.D. Primary Care Provider + Reason for Visit * Outpatient (Routine) - Closed Specialty Diagnoses / Procedures Referred By [place] baca Referred To Contact Nephrology and Hypertension Diagnoses Proteinuria Procedures Nephrology - Abnormal urine sediment/proteinuria eConsult Diamond Wiggins M.D. [address] [place] [phone] Phone: tel: fax: [facility] Referral ID Status Reason Start Date Expiration Date Visits Re quested Visits Authorized [id number] Closed 09/30/2024 12/31/2025 1 1 Encounter Details Date Type Department Care Team (Late st Contact Info) Description 10/02/2024 4:45 PM SEASONAL PACKAGE HANDLER Internal E-Consult Division of Nephrology and Hypertension in [place], [place] [address] [place] [phone] Aditya Sheikh M.D. [address] [place] [phone] Proteinuria Social History Tobacco Use Types Packs/Day Years Used Date Smoking Tobacco: Every Day Cigarettes 1 31.1 Started: 08/28/1993 Passive Smoke Exposure: Current Smokeless Tobacco: Never Comments:2 packs/day from to 2009 Alcohol Use Standard Drinks/Week Comments Not Currently 0 (1 standard drink = 0.6 oz pur e alcohol) [facility] Utilities Answer Date Recorded In the past [...] Never 11/01/2022 How often do you attend confucianism or mandaen serv ices? Never 11/01/2022 Do you belong to any clubs o r organizations such as confucianism groups, unions, fraternal or athletic groups, or [...] Answer Date Recorded PHQ-2 Score 2 09/01/2024 [place] [facility] Questionnaire Answer Date [...] your living situation today? I have a [facility] place to live 03/11/2024 Education Answer Date Recorded What is the highest level of school you have completed or the highest degree you have received? 12th grade 01/05/2020 Comments No Sex and Gender Information Value Date Recorded Sex Assigned at Female 01/07/2018 10:26 AM CDT Legal Sex Female 7:46 PM SEASONAL PACKAGE HANDLER Gender Identity Female 01/07/2018 10:26 AM CDT Sexual Orientation Straight 01/07/2018 10 :26 AM CDT documented as of this encounter Consult Notes * Aditya Sheikh M.D. - 10/02/2024 4:45 PM CST SUBJECTIVE Ordering Physician: Diamond Wiggins M.D. The patient was not personally interviewed or examined. The history and examination findings are based on the clinical documentation provided and/or discussed with a physician or provider who had personally interviewed and examined the patient. Time spent: Five minutes or more of medical review. Chief Complaint / Reason for Visit A consult was placed regarding Susie Mcghee, a 49 y.o. female. Clinical question to be answered: New proteinuria over last month, patient dealing with recurrent UTIs during that time. Initial test done for routine screening with diabetes. Family history of kidney failure. Recommendations for additional testing now versus watchful waiting? History of Present Illness The following portions of the patient's history were reviewed and updated as appropriate: allergies, current medications, family history, medical history, social history, surgical history, and problem list. OBJECTIVE Consult Findings: Susie Mcghee is a 49 y.o. with history of DM II, pulmonary sarcoidosis, multiple recent UTIs, with new proteinuria. Not present 03/29 but seen on most recent testing. Question is whether to test further now vs wait. Prior CT A/P from 2020 did not comment on any kidney pathology (such as granulomas). ASSESSMENT / PLAN In setting of UTI not uncommon to have uptick in proteinuria, so reasonable to wait at least until episode resolved and then retest perhaps 2-4 weeks from resolution. Would get ACR + UPCR because shehas two risk factors for true proteinuria, those being her DM II + the sarcoidosis. If proteinuria still elevated, please refer her to nephrology for further evaluation. Independently of referral, given DM II, RAAS blockade would be appropriate if proteinuria persists. Less enthusiastic about SGLT2i only because of UTI history. ONAL PACKAGE HANDLER documented in this encounter Plan of Treatment Upcoming Encounters Date Type Department Care Team (Late st Contact Info) Description 10/27/2024 3:30 PM CDT Comprehensive Visit Department of Orthopedic Surgery in [place], [place] [address] [place] [phone] Laith Mckinnon M.D. [address] [place] [phone] 12/31/2024 3:00 PM CDT Office Visit Department of Urology in [place], [place] [address] [place] [address] Tatum Orozco, ALEJANDRA, C.N.P. [address] [place] [phone] documented as of this encounter Visit Diagnoses Diagnosis Proteinuria Other Tear Medial Meniscus Current Injury Right Knee Initial- Primary documented in this encounter Additional Health Concerns Assessment Noted Time PHQ-9 Depression Total Score: 6 09/01/19 25 10:41 PM SEASONAL PACKAGE HANDLER documented as of this encounter Care Teams Associate Property Manager Relationship Specialty Start Date End Date Diamond Wiggins M.D. [address], [place] [phone] PCP - General Family Medicine 01/22/23 documented as of this encounter
--- OUTSIDE RECORDS SUMMARY | 2024-10-20 16:15 | XMS_ITS | Encounter Summary ---
Author Organization [facility] Address [address] [place] [address] Care Team Providers Care Cook Candy Name Role Phone Diamond Wiggins M.D. Primary Care Provider + Encounter Details Date Type Department Care Team (Latest Contact Info) Description 09/30/2024 10:58 AM NETWORK SYSTEMS ADMINISTRATOR - 09/30/2024 11:59 PM [facility] Hospital Encounter Department of Laboratory Medicine in [place], [place] [address], [place] [address] Diamond Wiggins M.D. [address] [place] [phone] Dysuria; Proteinuria Discharge Disposition: Home or Self Care Social History Tobacco Use Types Packs/Day Years Used Date Smoking Tobacco: Every Day Cigarettes 1 31.1 Started: 08/28/1993 Passive Smoke Exposure: Current Smokeless Tobacco: Never Comments:2 packs/day from to 2009 Alcohol Use Standard Drinks/Week Comments Not Currently 0 (1 standard drink = 0.6 oz pur e alcohol) [facility] Utilities Answer Date Recorded In the past 12 months has e [employer], gas, oil, or water [employer] threatened to shut off services in your [...] How often do you attend rastafarian or restoration serv ices? Never 11/01/2022 Do you belong [...] Answer Date Recorded PHQ-2 Score 2 09/01/2024 [facility] [place] of Occupat ional Health - Occupational [...] your living situation today? I have a [facility] place to live 03/11/2024 Education Answer Date Recorded What is the highest level of school you have completed or the highest degree you have received? 12th grade 01/05/2020 Comments No Sex and Gender Information Value Date Recorded Sex Assigned at Female 01/07/2018 10:26 AM CDT Legal Sex Female 7:46 PM NETWORK SYSTEMS ADMINISTRATOR Gender Identity Female 01/07/2018 10:26 AM CDT [...] Comprehensive Visit Department of Orthopedic Surgery in [place], [place] [address] [facility] [place] [address] Laith Mckinnon M.D. [address] [address] 12/31/2024 3:00 PM CDT Office Visit Department of Urology in [place], [place] [address] [facility] [place] [address] Tatum Orozco APRN, C.NMeliaP. [address] [place] [address] documented as of this encounter Procedures Procedure Name Priority Date/Time Associated Diagnosis Comments URINALYSIS WITH MICROSCOPIC IF INDICATED, U Routine 09/30/2024 11:27 AM NETWORK SYSTEMS ADMINISTRATOR Dysuria SD URINALYSIS AUTO WO MICRO Routine 09/30/2024 11:27 AM NETWORK SYSTEMS ADMINISTRATOR BACTERIAL CULTURE, AEROBIC + SUSC, URINE Routine 09/30/2024 11:27 AM NETWORK SYSTEMS ADMINISTRATOR Dysuria ALBUMIN, RANDOM, U Routine 09/30/2024 11 :27 AM NETWORK SYSTEMS ADMINISTRATOR Proteinuria documented in this encounter Results * (ABNORMAL) Microscopic Automated (09/30/2024 11:27 AM NETWORK SYSTEMS ADMINISTRATOR) White Blood Cells None Seen /hpf 09/30/2024 11:42 AM NETWORK SYSTEMS ADMINISTRATOR OWAT Comment: ----REFERENCE VALUE---- Males: 0-3 Females: 0-10 Unknown: 0-10 Red Blood Cells 11-20(A) 0 - 2 /hpf 11:42 AM NETWORK SYSTEMS ADMINISTRATOR OWAT Dysmorphic Red Blood Cells <=25 <=25 % 09/30/2024 11:42 AM NETWORK SYSTEMS ADMINISTRATOR OWAT Hyaline Casts 1-3 /lpf 09/30/2024 11:42 AM NETWORK SYSTEMS ADMINISTRATOR OWAT Squamous Cells Occ-3 /hpf 09/30/2024 11:42 AM NETWORK SYSTEMS ADMINISTRATOR OWAT Urine 09/30/2024 11:2 7 AM NETWORK SYSTEMS ADMINISTRATOR 09/30/2024 11:27 AM NETWORK SYSTEMS ADMINISTRATOR Diamond Wiggins M.D. LAB URINE ORDERABLES Fin al Result Performing Organization Address [facility] Co de Phone Number [facility] [address] [place] [address], [facility] OWAT [facility] in [place] [address], [place] [address] * (ABNORMAL) Albumin, Random, Urine (09/30/2024 11:27 AM NETWORK SYSTEMS ADMINISTRATOR) Microalbumin 588.0 mg/L 09/30/2024 12:49 PM NETWORK SYSTEMS ADMINISTRATOR OWAT Creatinine 137 mg/dL 09/30/2024 12:17 PM NETWORK SYSTEMS ADMINISTRATOR OWAT Albumin/Creatinin e Ratio 429(H) <25 mg/g 09/30/2024 12:49 PM NETWORK SYSTEMS ADMINISTRATOR OWAT Urine (Urine, Midstream) 09/30/2024 11:27 AM NETWORK SYSTEMS ADMINISTRATOR 09/30/2024 11:27 AM NETWORK SYSTEMS ADMINISTRATOR us Diamond Wiggins M.D. LAB URINE ORDERABLES Fin al Result Performing Organization Address [facility] Co de Phone Number [facility] [address] [place] [address], [place] OWAT [facility] in [place] [address] [place] [address] * (ABNORMAL) Bacterial Culture, Aerobic + Susceptibility, Urine (09/30/2024 11:27 AM NETWORK SYSTEMS ADMINISTRATOR) Urine Culture ESCHERICHIA COLI 10,000-100,000 cfu/mL (A) 10/02/2024 8:27 AM NETWORK SYSTEMS ADMINISTRATOR MKTO Urine (Urine, Midstream) 09/30/2024 11:27 AM NETWORK SYSTEMS ADMINISTRATOR 09/30/2024 1:56 PM NETWORK SYSTEMS ADMINISTRATOR Comment:Specimen Source Site : Urine Narrative Organism [...] us Diamond Wiggins M.D. LAB MICROBIOLOGY - BANNER AL ORDERABLES Final Result [facility] [address] [place] [address], [facility] in [place] [address] [place] [address] * (ABNORMAL) Urinalysis with Microscopic if Indicated: Urine, Midstream (09/30/2024 11:27 AM NETWORK SYSTEMS ADMINISTRATOR) Source Urine, Urine, Midstream 09/30/2024 11:27 AM NETWORK SYSTEMS ADMINISTRATOR OWAT Clarity Clear Clear 09/30/2024 11:32 AM NETWORK SYSTEMS ADMINISTRATOR OWAT Color Yellow 09/30/2024 11:32 AM NETWORK SYSTEMS ADMINISTRATOR OWAT Comment: ----REFERENCE VALUE---- Colorless Yellow Dina Blood Small(A) Negative 09/30/2024 11:32 AM NETWORK SYSTEMS ADMINISTRATOR OWAT Nitrite Negative Negative 09/30/2024 11:32 AM NETWORK SYSTEMS ADMINISTRATOR OWAT Leukocyte Esterase Negative Negative 09/30/2024 11:32 AM NETWORK SYSTEMS ADMINISTRATOR OWAT Protein 100(A) mg/dL 09/30/2024 11:32 AM NETWORK SYSTEMS ADMINISTRATOR OWAT Comment: ----REFERENCE VALUE---- Negative Trace Glucose Negative Negative mg/dL 09/30/2024 11:32 AM NETWORK SYSTEMS ADMINISTRATOR OWAT Ketone Negative Negative mg/dL 09/30/2024 11:32 AM NETWORK SYSTEMS ADMINISTRATOR OWAT Bilirubin Negative Negative 09/30/2024 11:32 AM NETWORK SYSTEMS ADMINISTRATOR OWAT pH 6.5 5.0 - 8.0 09/30/2024 11:32 AM NETWORK SYSTEMS ADMINISTRATOR OWAT Specific [place] 1.019 1.001 - 1.035 09/30/2024 11:32 AM NETWORK SYSTEMS ADMINISTRATOR OWAT Urobilinogen 0.2 0.2 - 1.0 mg/dL 09/30/2024 11:32 AM NETWORK SYSTEMS ADMINISTRATOR OWAT Urine (Urine, Midstream) 09/30/2024 11:27 AM NETWORK SYSTEMS ADMINISTRATOR 09/30/2024 11:27 AM NETWORK SYSTEMS ADMINISTRATOR us Diamond Wiggins M.D. LAB URINE ORDERABLES Fin al Result [facility] [address] [place] [address], [facility] OWAT [facility] [place] [address] [place] [address] documented in this encounter Visit Diagnoses Diagnosis Dysuria Proteinuria Other Tear Medial Meniscus Current Injury Right Knee Initial- Primary documented in this encounter Additional Health Concerns Assessment Noted Time PHQ-9 Depression Total Score: 6 09/01/19 10:41 PM NETWORK SYSTEMS ADMINISTRATOR documented as of this encounter Care Teams Cook Candy Relationship Specialty Start Date End Date Diamond Wiggins M.D. [address] [phone] PCP - General Family Medicine 01/22/23 documented as of this encounter
--- OUTSIDE RECORDS SUMMARY | 2024-10-20 16:15 | XMS_ITS | Encounter Summary ---
Author Organization [facility] Address [address] [place] [address] Care Team Providers Care Stock Selector Name Role Phone Diamond Wiggins M.D. Primary Care Provider + Encounter Details Date Type Department Care Team (Late st Contact Info) Description 10/02/2024 Orders Only Department of Family Medicine, [facility], in [place], [place] [address], [place] [address] Diamond Wiggins M.D. [address], [place] [address] Proteinuria (Primary Dx) Social History Tobacco Use Types Packs/Day Years Used Date Smoking Tobacco: Every Day Cigarettes 1 31.1 Started: 08/28/1993 Passive Smoke Exposure: Current Smokeless Tobacco: Never Comments:2 packs/day from to 2009 Alcohol Use Standard Drinks/Week Comments Not Currently 0 (1 standard drink = 0.6 oz pur e alcohol) [facility] Utilities Answer Date Recorded In the [...] Never 11/01/2022 How often do you attend restorationism or faith serv ices? Never 11/01/2022 Do you belong to any clubs o r organizations such as restorationism groups, unions, fraternal or athletic groups, or [...] Answer Date Recorded PHQ-2 Score 2 09/01/2024 [facility] of Occupat ional Health - Occupational Stress [...] your living situation today? I have a [facility] place to live 03/11/2024 Education Answer Date Recorded What is the highest level of school you have completed or the highest degree you have received? 12th grade 01/05/2020 Comments No Sex and Gender Information Value Date Recorded Sex Assigned at Female 01/07/2018 10:26 AM CDT Legal Sex Female 7:46 PM MANAGER FUND Gender Identity Female 01/07/2018 10:26 AM CDT Sexual Orientation Straight 01/07/2018 10 :26 AM CDT documented as of this encounter Plan of Treatment Upcoming Encounters Date Type Department Care Team (Late st Contact Info) Description 10/27/2024 3:30 PM CDT Comprehensive Visit Department of Orthopedic Surgery in [place], [place] [address] [place] [phone] Laith Mckinnon M.D. [address] [place] [phone] 12/31/2024 3:00 PM CDT Office Visit Department of Urology in [place], [place] [address], [place] [address] Tatum Orozco APRN, C.N.P. [address] [place] [address] Scheduled Orders Name Type Priority Associated Diagnoses Orde r Schedule Albumin, Random, Urine Lab Routine Proteinuria Expected: 10/30/2024, Expires: 12/30/2025 Protein/Creatinine Ratio, Random, Urine Lab Routine Proteinuria Expected: 10/30/2024, Expires: 12/30/2025 documented as of this encounter Visit Diagnoses Diagnosis Proteinuria- Primary Other Tear Medial Meniscus Current Injury Right Knee Initial- Primary documented in this encounter Additional Health Concerns Assessment Noted Time PHQ-9 Depression Total Score: 6 09/01/19 25 10:41 PM MANAGER FUND documented as of this encounter Care Teams Stock Selector Relationship Specialty Start Date End Date Diamond Wiggins M.D. [address] [place] [phone] PCP - General Family Medicine 01/22/23 documented as of this encounter
--- OUTSIDE RECORDS SUMMARY | 2024-10-20 16:15 | XMS_ITS | Encounter Summary ---
Author Organization [facility] Address [address] [place] [address] Care Team Providers Care Airways Operations Specialist Name Role Phone Diamond Wiggins M.D. Primary Care Provider + Reason for Referral * Outpatient (Routine) - Closed Specialty Diagnoses / Procedures Referred By Maine baca Referred To Contact Nephrology and Hypertension Diagnoses Proteinuria Procedures Nephrology - Abnormal urine sediment/proteinuria eConsult Diamond Wiggins M.D. [address] [place] [address] Phone: tel: fax: [facility] Referral ID Status Reason Start Date Expiration Date Visits Re quested Visits Authorized [id number] Closed 09/30/2024 12/31/2025 1 1 WORKER Encounter Details Date Type Department Care Team (Late st Contact Info) Description 09/30/2024 Results Follow-Up Department of Family Medicine, [facility], in [place], [place] [address] [place] [address] Diamond Wiggins M.D. [address] [place] [address] Urinalysis with Microscopic if Indicated: Urine, Midstream, Albumin, Random, Urine, Microscopic Automated, Bacterial Culture, Aerobic + Susceptibility, Urine Social History Tobacco Use Types Packs/Day Years Used Date Smoking Tobacco: Every Day Cigarettes 1 31.1 Started: 08/28/1993 Passive Smoke Exposure: Current Smokeless Tobacco: Never Comments:2 packs/day from to 2009 Alcohol Use Standard Drinks/Week Comments Not Currently 0 (1 standard drink = 0.6 oz pur e alcohol) [facility] Utilities Answer Date Recorded In the past 12 months has e [employer], gas, oil, or water [employer] threatened to shut off services in your [...] Never 11/01/2022 How often do you attend yarsanism or christian serv ices? Never 11/01/2022 Do you belong to any clubs o r organizations such as yarsanism groups, unions, fraternal or athletic groups, or [...] Answer Date Recorded PHQ-2 Score 2 09/01/2024 [facility] [place] of Occupat ional Health - Occupational Stress [...] AM CDT Legal Sex Female 7:46 PM DOCKWORKER Gender Identity Female 01/07/2018 10:26 AM CDT Sexual Orientation Straight 01/07/2018 10 :26 AM CDT documented as of this encounter Plan of Treatment Upcoming Encounters Date Type Department Care Team (Late st Contact Info) Description 10/27/2024 3:30 PM CDT Comprehensive Visit Department of Orthopedic Surgery in [place], [place] [address] [phone] Laith Mckinnon M.D. [address] [phone] 12/31/2024 3:00 PM CDT Office Visit Department of Urology in [place], [place] [address] [phone] Tatum Orozco APRN, C.N.P. [address] [phone] documented as of this encounter Visit Diagnoses Diagnosis Proteinuria- Primary Cystitis Unspecified With Hematuria Other Tear Medial Meniscus Current Injury Right Knee Initial- Primary documented in this encounter Additional Health Concerns Assessment Noted Time PHQ-9 Depression Total Score: 6 09/01/19 25 10:41 PM DOCKWORKER documented as of this encounter Care Teams Airways Operations Specialist Relationship Specialty Start Date End Date Diamond Wiggins M.D. [address] [phone] PCP - General Family Medicine 01/22/23 documented as of this encounter
[2024-10-20 17:00] VITALS: BP 117/79; PULSE 108; RESP 18; TEMP 36.7; O2SAT 97; BMI 31.0
[2024-10-20 17:14] LABS: Appearance Urine Cloudy (Clear)
[2024-10-20 17:17] LABS: Color Urine Red (Yellow)
[2024-10-20 17:21] LABS: Bacteria Urine Many; Squamous Epithelial Cell Urine Few (None-Few)
--- NOTE | 2024-10-20 19:27 | ED.GENADULT ---
HPI - General Adult General Date Seen: 10/20/24 Chief complaint: Urogenital Problems, Female Stated complaint: UTI persisting Time Seen by Provider: 10/20/24 19:21 History of Present Illness HPI narrative: 49 yo F with a past medical history of Vanegas's esophagus, GERD, pulmonary sarcoidosis, low back pain. I saw her here in the ER on August 24, about 2 months ago for a exacerbation of low back pain. During that visit she did have an abnormal urinalysis with 5-10 WBC/HPF and 2-5 RBC/HPF, positive nitrite. Positive leukocyte esterase. Prescribe cephalexin. Urine culture from that visit grew > 1000,000 CFU/mL pansensitive E coli . Patient reports that while on the antibiotics her symptoms got better but then within a few days after completing them she had recurrence of urinary urgency, frequency, dysuria. She had a follow-up with a ER in [place] and apparently had another urinary tract infection. After that she had another bout of symptoms and saw her PCP and was put back on another course of antibiotics. She has been on total of 4 antibiotics in the past couple of months. While on the medications her symptoms get better and then when the few days after completion the symptoms come back. She actually had a an appointment with a urologist through [facility] last week and reports that she had a bella postvoid residual. Her urologist recommended vaginal estrogen cream, daily cranberry pills and follow-up in a month to see if her symptoms are getting better. Her most recent course of antibiotics was prescribed by her PCP. She had finish 10 days of Bactrim that she finished it a few days ago and is now having recurrence of urinary urgency, dysuria, frequency. She has also had a few weeks of some left flank pain. No fever or chills. No nausea vomiting. Bowel movements normal. No other abdominal pain. Her notes that she has had blood in her urine for many months. She has not yet had a cystoscopy. No history of bladder cancer. Related Data Home Medications ?Medication ?Instructions ?Recorded ?Confirmed gabapentin .Route 04/28/23 metformin PO TID 04/28/23 simvastatin .Route 04/28/23 duloxetine 60 mg capsule,delayed 60 mg PO 10/01/23 release pantoprazole 40 mg tablet,delayed 40 mg PO 10/01/23 release fluoxetine 40 mg capsule mg PO 10/20/24 Previous Rx's ?Medication ?Instructions ?Recorded cefdinir 300 mg capsule 300 mg PO BID 10 days #20 caps 10/20/24 ondansetron 4 mg disintegrating 4 mg PO Q8H PRN nausea and 10/20/24 tablet vomiting #10 tabs Allergies Allergy/AdvReac Type Severity Reaction Status Date / Time hydromorphone (From Dilaudid) Allergy Verified 10/20/24 17:10 Iodinated Contrast Media Allergy Verified 10/20/24 17:10 ibuprofen AdvReac Ver[facility] 10/20/24 [facility] Social History Smoking Status: Current every day smoker What tobacco products do you use: cigarettes Smoking packs per day: 1 Smoking cigarettes per day: 20.0 Years smoked: 31 Smoking pack-years: 31.00 Do you use any of these nicotine containing products: None Second hand tobacco smoke exposure: No How often do you have a drink containing alcohol: never AUDIT-C Alcohol total score: 0 Non-prescribed substance use: denies use service: Yes Exam Narrative: Exam Narrative: Constitutional: Appears well-developed and well-nourished. Alert. Conversant. Non toxic. HENT: Head: Atraumatic. Nose: Nose normal. Mouth/Throat: Oral mucosa is clear and moist. no trismus. Eyes: Conjunctivae normal. EOM normal. Pupils equal, round, and reactive to light. No scleral icterus. Neck: Normal range of motion. Neck supple. No tracheal deviation present. Cardiovascular: Normal rate, regular rhythm. No gallop. No friction rub. No murmur heard. Symmetric radial artery pulses Pulmonary/Chest: Effort normal. No stridor. No respiratory distress. No wheezes. No rales. No rhonchi . No tenderness. Abdominal: Soft. Bowel sounds normal. No distension. No mass. Endorses suprapubic pain, mild suprapubic tenderness. No rebound. No guarding. Endorses left CVA pain but no tenderness. No rash or bruising Musculoskeletal: RUE: Normal range of motion. No tenderness. No deformity LUE: Normal range of motion. No tenderness. No deformity RLE: Normal range of motion. No edema. No tenderness. No deformity LLE: Normal range of motion. No edema. No tenderness. No deformity Neurological: Alert and oriented to person, place, and time. Normal strength. CN II-VII intact. No sensory deficit. GCS eye subscore is 4. GCS verbal subscore is 5. GCS motor subscore is 6. Normal coordination Skin: Skin is warm and dry. No rash noted. No pallor. Normal capillary refill. Psychiatric: Normal mood. Normal affect. Const: Vital Signs, click to edit/add: Vital Signs - 24 hr 10/20/24 17:00 Temperature 98.0 F Pulse Rate [Pulse Oximeter] 108 H Respiratory Rate 18 Blood Pressure [Ri ght Upper Arm] 117/79 Pulse Oximetry 97 Oxygen Delivery Me thod Room Air Course Vital Signs Vital signs: Initial Vital Signs Temperature 98.0 F 10/20/24 17:00 Temperature Source Temporal Artery Scan 10/20/24 17:00 Pulse Rate 108 H 10/20/24 17:00 Respiratory Rate 18 10/20/24 17:00 Blood Pressure 117/79 10/20/24 17:00 Blood Pressure Mean 91 10/20/24 17:00 Blood Pressure Position Sitting 10/20/24 17:00 Pulse Oximetry 97 10/20/24 17:00 Oxygen Delivery Method Room Air 10/20/24 17:00 Vital Signs Temperature 98.0 F 10/20/24 17:00 Pulse Rate 108 H 10/20/24 17:00 Respiratory Rate 18 10/20/24 17:00 Blood Pressure 117/79 10/20/24 17:00 Pulse Oximetry 97 10/20/24 17:00 Oxygen Delivery Method Room Air 10/20/24 17:00 Temperature 98.0 F 10/20/24 17:00 Pulse Rate 108 H 10/20/24 17:00 Respiratory Rate 18 10/20/24 17:00 Blood Pressure 117/79 10/20/24 17:00 Pulse Oximetry 97 10/20/24 17:00 Oxygen Delivery Method Room Air 10/20/24 17:00 Medications Administered Medications: Discontinued Medications Generic Name Dose Route Start Last Admin Trade Name Freq PRN Reason Stop Dose Admin Cephalexin HCl 500 mg 10/20/24 20:59 10/20/24 21:05 Cephalexin 500 Mg Capsule PO 10/20/24 21:00 500 mg ONCE ONE Administration Medical Decision Making MDM Narrative Medical decision making narrative: Pleasant 49-year-old female with history of pulmonary sarcoidosis and multiple recent urinary tract infections presenting to the ER today with recurrent episode of dysuria, urgency, frequency for the past couple of days. She had just completed a 10 day course of Bactrim prior to onset of her symptoms. Urinalysis obtained here in the ER today is mildly abnormal with hematuria, positive nitrite, positive glucose S esterase. However not quite as abnormal as her urinalysis from August. Previous culture grew pansensitive E coli. Given recurrent symptoms consider possible anatomic abnormality in the urinary tract such as bladder stone, staghorn kidney stone, colovesical fistula. We did obtain CT imaging which is fortunately normal [place] [id number] but the patient is not febrile and she is hemodynamically stable. At this point there isn't really much sepsis physiology. Initial tachycardia improved prior to my evaluation here in the ER without receiving IV fluids. Although she has a leukocytosis at this point I think she is safe for outpatient management. First dose of antibiotic administered here in the ER and prescription for cefdinir sent to her pharmacy. Repeat urine culture is pending and we may need to adjust antibiotic therapy, if indicated by sensitivities. Need for close outpatient follow-up with her PCP and her urologist for further evaluation. Likely would benefit from cystoscopy given recurrent hematuria and repeat urinary tract infections. Lab Data Labs: Lab Results 10/20/24 10/20/24 Range/Units 17:00 20:14 WBC 20.76 H (4.50-11.00) K/uL RBC 4.47 (4.00-5.20) m/uL Hgb 13.8 (12.0-16.0) gm/dL Hct 42.1 (33.0-51.0) % MCV 94 (80-100) fL MCH 31 (26-34) pg MCHC 33 (32-36) gm/dL RDW Coeff of Amanda 12.8 (11.5-15.5) % Plt Count 475 H (140-440) K/uL Neut % (Auto) 68.3 (42.0-72.0) % Lymph % (Auto) 23.4 (20-44) % Garvin % (Auto) 5.9 (0.0-11.0) % Eos % (Auto) 1.4 (0.0-7.0) % Baso % (Auto) 0.7 (0.0-3.0) % Neut # (Auto) 14.20 H (1.7-7.0) K/uL Lymph # (Auto) 4.90 H (0.90-2.90) K/uL Garvin # (Auto) 1.20 H (0.00-0.90) K/UL Eos # (Auto) 0.30 (0.00-0.50) K/uL Baso # (Auto) 0.10 (0.00-0.30) K/uL Abs Immat Gran (auto) 0.10 (0.00-0.30) K/uL Imm/Tot Granulo (auto) 0.3 % Sodium 133 L (135-149) mmol/L Potassium 4.2 (3.6-5.1) mmol/L Chloride 98 (96-114) mmol/L Carbon Dioxide 22 (20-32) mmol/L Anion Gap 13 (7-15) mEq/L BUN 13 (7-30) mg/dL Creatinine 1.6 H (0.5-1.5) mg/dL Estimated Creat Clear 40.45 Estimated GFR 39 ml/min Glucose 104 (60-115) mg/dL Calcium 9.6 (8.4-10.6) mg/dL Urine Color Red A (Yellow) Urine Appearance Cloudy A (Clear) Urine pH 5.0 (5.0-8.5) Ur Specific Frederick <= 1.005 (1.000-1.030) Urine Protein 2+ A (Negative) Urine Glucose (UA) 1+ A (Negative) Urine Ketones 1+ A (Negative) Urine Blood Trace-intact A (Negative) Urine Nitrite Positive A (Negative) Urine Bilirubin 1+ A (Negative) Urine Urobilinogen 4.0 A (0.2-1.0) Ur Leukocyte Esterase 3+ A (Negative) Urine RBC 2-5 A (0-2) Urine WBC 2-5 (0-5) Ur Squamous Epith Cells Few (None-Few) Urine Bacteria Many A (None) Imaging Data CT scan - abdomen: Attestation: I have reviewed the pertinent imaging results. Radiologist's impression: IMPRESSION: No acute findings within the abdomen or pelvis. No urolith or evidence of obstructive uropathy. Discharge Plan Discharge Clinical Impression: UTI (urinary tract infection) Patient Disposition: Home, Self-Care Condition: Stable Instructions: Urinary Tract Infection in Women (DC) Additional Instructions: As we discussed, your urine sample is somewhat abnormal today, suggesting that you probably have another bladder infection. Will put you back on antibiotics starting today. We will start you back on cephalexin today, and we can adjust her antibiotic if needed after urine culture comes back. It typically takes a day or 2 for your urine culture to result. Please follow-up with your regular doctor in [place] and with your urologist through [facility] within 1 week for re-evaluation. Activity Level: No Restrictions Discharge Diet: Regular Prescriptions: New cefdinir 300 mg capsule 300 mg PO BID 10 Days Qty: 20 0RF ondansetron 4 mg tablet,disintegrating 4 mg PO Q8H PRN (Reason: nausea and vomiting) Qty: 10 0RF No Action metformin PO TID Patient Comments: 400mg at am and noon, 900mg at hs simvastatin .Route gabapentin .Route pantoprazole 40 mg tablet,delayed release (DR/EC) 40 mg PO duloxetine 60 mg capsule,delayed release(DR/EC) 60 mg PO fluoxetine 40 mg capsule PO Follow Up/Referrals: Provider,Not a Local [Primary Care Provider] - Stand Alone Forms: [employer] Info Instructions
[2024-10-20 19:36] LABS: Bilirubin Urine 1+ (Negative); Glucose Urine 1+ (Negative); Ketones Urine 1+ (Negative)
[2024-10-20 19:37] LABS: Blood Urine Trace-intact (Negative); Leukocyte Esterase Urine 3+ (Negative); Nitrite Urine Positive (Negative); Protein Urine 2+ (Negative); Specific Gravity Urine <= 1.005 (1.000-1.030)
--- NOTE | 2024-10-20 19:54 | CRLHL7_ITS ---
For Patients: As a result of the Century Cures Act, medical imaging exams and procedure reports are released immediately into your electronic medical record. You may view this report before your referring provider. If you have questions, please contact your health care provider. INDICATION: Pelvic pain, left flank pain, hematuria. TECHNIQUE: CT abdomen and pelvis without contrast. COMPARISON: None. FINDINGS: Lower chest: Unremarkable. Liver: Normal in size and attenuation. No suspicious masses. Gallbladder and bile ducts: Status post cholecystectomy. No abnormal biliary ductal dilatation. Pancreas: Unremarkable. No mass or inflammation. Spleen: Normal in size. No masses. Adrenal glands: Normal in size. No nodules. Kidneys: Normal in size. No suspicious masses, stones, or hydronephrosis. GI tract: Unremarkable. Normal in caliber. No sign of mass or inflammation. Normal appendix. Vasculature: Normal caliber abdominal aorta with mild atherosclerotic calcification. Lymph nodes: No lymphadenopathy. Peritoneum/Abdominal Wall: Unremarkable. No free air or significant free fluid. Pelvis: Status post hysterectomy. Bones: Unremarkable for age. IMPRESSION: No acute findings within the abdomen or pelvis. No urolith or evidence of obstructive uropathy. Please note that all CT scans at this facility use dose modulation, iterative reconstruction, and/or weight-based dosing when appropriate to reduce radiation dose to as low as reasonably achievable. Dictated by Michael Rojas MD @ 10/20/2024 8:43:11 PM (Electronically Signed)
--- OUTSIDE RECORDS SUMMARY | 2024-10-20 20:04 | XMS_ITS | Encounter Summary ---
Author Organization [facility] Address [address] [place] [address] Care Team Providers Care Design Consultant Name Role Phone Diamond Wiggins M.D. Primary Care Provider + Reason for Visit * Reason Onset Date Comments Results 09/03/2024 Encounter Details Date Type Department Care Team (Late st Contact Info) Description 09/03/2024 Clinical Communication Department of Family Medicine, [facility], in [place], [place] [address] [place] [phone] Diamond Wiggins M.D. [address] [place] [phone] Results Social History Tobacco Use Types Packs/Day Years Used Date Smoking Tobacco: Every Day Cigarettes 1 31.1 Started: 08/28/1993 Passive Smoke Exposure: Current Smokeless Tobacco: Never Alcohol Use Standard Drinks/Week Comments No 0 (1 standard drink = 0.6 oz pur e alcohol) [facility] Utilities Answer Date Recorded In [...] Never 11/01/2022 How often do you attend presybeterian or denominational serv ices? Never 11/01/2022 Do you belong to any clubs o r organizations such as presybeterian groups, unions, fraternal or athletic groups, or [...] Answer Date Recorded PHQ-2 Score 2 09/01/2024 [facility] of Occupat ional Health - [...] your living situation today? I have a [facility] place to live 03/11/2024 Education Answer Date Recorded What is the highest level of school you have completed or the highest degree you have received? 12th grade 01/05/2020 Comments No Sex and Gender Information Value Date Recorded Sex Assigned at Female 01/07/2018 10:26 AM CDT Legal Sex Female 7:46 PM CASH PERSON Gender Identity Female 01/07/2018 10:26 AM CDT Sexual Orientation Straight 01/07/2018 10 :26 AM CDT documented as of this encounter Plan of Treatment Upcoming Encounters Date Type Department Care Team (Late st Contact Info) Description 10/27/2024 3:30 PM CDT Comprehensive Visit Department of Orthopedic Surgery in [place], [place] [address] [place] [phone] Laith Mckinnon M.D. [address] [place] [address] 12/31/2024 3:00 PM CDT Office Visit Department of Urology in [place], [place] [address] [place] [phone] Tatum Orozco APRN, C.N.P. [address], [place] [phone] documented as of this encounter Results * (ABNORMAL) Albumin, Random, Urine (09/12/2024 8:23 AM CASH PERSON) Microalbumin 245.0 mg/L 09/12/2024 9:08 AM CASH PERSON OWAT Creatinine 81 mg/dL 09/12/2024 9:08 AM CASH PERSON OWAT Albumin/Creatinin e Ratio 302(H) <25 mg/g 09/12/2024 9:08 AM CASH PERSON OWAT Urine (Urine, Midstream) 09/12/2024 8:23 AM CASH PERSON 09/12/2024 8:36 AM CASH PERSON us Diamond Wiggins M.D. LAB URINE ORDERABLES Fin al Result [facility] [address] [place] [address], [facility] in [place] [address] [place] [address] documented in this encounter Visit Diagnoses Diagnosis Proteinuria- Primary Other Tear Medial Meniscus Current Injury Right Knee Initial- Primary documented in this encounter Additional Health Concerns Assessment Noted Time PHQ-9 Depression Total Score: 6 09/01/19 25 10:41 PM CASH PERSON documented as of this encounter Care Teams Design Consultant Relationship Specialty Start Date End Date Diamond Wiggins M.D. [address] [place] [phone] PCP - General Family Medicine 01/22/23 documented as of this encounter
--- OUTSIDE RECORDS SUMMARY | 2024-10-20 20:04 | XMS_ITS | Encounter Summary ---
Author Organization [facility] Address [address] [place] [address] Care Team Providers Care Data Operations Director Name Role Phone Diamond Wiggins M.D. Primary Care Provider + Reason for Referral * Outpatient (Routine) - Closed Specialty Diagnoses / Procedures Referred By Maine baca Referred To Contact Nephrology and Hypertension Diagnoses Proteinuria Procedures Nephrology - Abnormal urine sediment/proteinuria eConsult Diamond Wiggins M.D. 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 [address] [place] [phone] Urinalysis with Microscopic if Indicated: [...] drink = 0.6 oz pur e alcohol) [facility] Utilities Answer Date Recorded In the past 12 months has e [employer], gas, oil, or water [employer] threatened to shut off services in your [...] Never 11/01/2022 How often do you attend shinto or adventism serv ices? 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 [address] [phone] 12/31/2024 3:00 PM CDT Office Visit Department of Urology in [place], [place] [address] [phone] Tatum Orozco APRN, C.N.P. 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 [address] [phone] PCP - General Family Medicine 01/22/23 documented as of this encounter
--- OUTSIDE RECORDS SUMMARY | 2024-10-20 20:04 | XMS_ITS | Clinical Summary ---
Author Organization [facility] Address [address] [place] [address] Care Team Providers Care Talent Development Consultant Name Role Phone Diamond Wiggins MD Primary [...] Department Care Team Description 09/24/2024 1:17 PM OPTO MECHANICAL TECHNICIAN - 09/24/2024 2:49 PM [facility] Emergency [facility] [address] [place] [address] Floyd Quinones PA Dysuria (Primary Dx) Discharge [...] Comments Blood Pressure 126/79 09/24/2024 1:13 PM OPTO MECHANICAL TECHNICIAN Pulse 96 09/24/2024 1:13 PM OPTO MECHANICAL TECHNICIAN Temperature 36.3 C (97.3 F) 09/24/2024 1:13 PM OPTO MECHANICAL TECHNICIAN Respiratory Rate 16 09/24/2024 1:13 PM OPTO MECHANICAL TECHNICIAN Oxygen Saturation 97% 09/24/2024 1:13 PM OPTO MECHANICAL TECHNICIAN Inhaled Oxygen Concentration - - Weight 88.9 kg (196 lb) 09/24/2024 1:13 PM OPTO MECHANICAL TECHNICIAN Height 170.2 cm (5' 7) 09/24/2024 1:13 PM OPTO MECHANICAL TECHNICIAN Body Mass Index 30.7 09/24/2024 1:13 PM OPTO MECHANICAL TECHNICIAN Plan of Treatment Health Maintenance Due [...] Comments URINALYSIS MICROSCOPIC STAT 09/24/2024 2:02 PM OPTO MECHANICAL TECHNICIAN UA W/ SEDIMENT EXAM REFLEXED PER CRITERIA STAT 09/24/2024 2:02 PM OPTO MECHANICAL TECHNICIAN URINALYSIS MICROSCOPIC STAT 09/24/2024 1:19 PM OPTO MECHANICAL TECHNICIAN from Last 3 Months Results * (ABNORMAL) URINALYSIS MICROSCOPIC (09/24/2024 2:02 PM OPTO MECHANICAL TECHNICIAN) Only the most recent of2 resultswithin the time period is included. RBC 0-2 0-2, None Seen /HPF 09/24/2024 2:18 PM [facility] WBC 3-5 0-2, 3-5, None Seen /HPF 09/24/2024 2:18 PM [facility] BACTERIA Few None Seen, Rare, Few Bacteria/H PF 09/24/2024 2:18 PM [facility] EPITHELIAL CELLS Moderate(A ) None Seen, Few Epi/HPF 09/24/2024 2:18 PM [facility] Urine URINE SPECIMEN / Unknown Non-Blood / Unknown 09/24/2024 2:02 PM OPTO MECHANICAL TECHNICIAN 09/24/2024 2:07 PM OPTO MECHANICAL TECHNICIAN us Floyd RAMIREZ URINE Aracelis l Result [facility] [address] [phone] * (ABNORMAL) UA W/ SEDIMENT EXAM REFLEXED PER CRITERIA (09/24/2024 2:02 PM OPTO MECHANICAL TECHNICIAN) COLOR Anton(A) Yellow Color 09/24/2024 2:18 PM [facility] CLARITY Clear Clear Clarity 09/24/2024 2:18 PM [facility] SPECIFIC GRAVITY,URINE <=1.005(A) 1.010, 1.015, 1.020, 1.025 09/24/2024 2:18 PM [facility] PH,URINE 5.5 6.0, 7.0, 8.0, 5.5, 6.5, 7.5, 8.5 09/24/2024 2:18 PM [facility] UROBILINOGEN, QUALITATIVE Increased(A) Normal EU/dl 09/24/2024 2:18 PM [facility] PROTEIN, URINE Trace(A) Negative mg/dL 09/24/2024 2:18 PM [facility] GLUCOSE, URINE 100(A) Negative mg/dL 09/24/2024 2:18 PM [facility] KETONES,URINE Negative Negative mg/dL 09/24/2024 2:18 PM OPTO MECHANICAL TECHNICIAN [facility] BILIRUBIN,URI NE Negative Negative 09/24/2024 2:18 PM [facility] OCCULT BLOOD,URINE Trace(A) Negative 09/24/2024 2:18 PM [facility] NITRITE Positive(A) Negative 09/24/2024 2:18 PM [facility] LEUKOCYTE ESTERASE Negative Negative 09/24/2024 2:18 PM [facility] Urine URINE SPECIMEN / Unknown Non-Blood / Unknown 09/24/2024 2:02 PM OPTO MECHANICAL TECHNICIAN 09/24/2024 2:07 PM [facility] Floyd RAMIREZ URINE Aracelis l Result [facility] [address] [phone] from Last 3 Months Insurance [facility] NON-MS-ITS Care Teams Talent Development Consultant Relationship Specialty Start Date End Date Diamond Wiggins MD [address] [place] [phone] PCP - General Family Practice 12/14/23
--- OUTSIDE RECORDS SUMMARY | 2024-10-20 20:04 | XMS_ITS | Clinical Summary ---
Author Organization [facility] Address [address] [place] [address] Care Team Providers Care Sander Hand Name Role Phone Diamond Wiggins M.D. Primary Care Provider + Source Comments Patient records contain information from all sites at [facility]. For routine questions regarding patient records, call [phone] during business hours, M-F 8:00 AM - 5:00 PM Central Time. Record requests for emergency care only can be directed to [phone] at any time.[facility] Allergies Active Allergy Reactions Criticality Noted Date [...] incontinence Assessment & Plan (10/01/2024 8:26 PM LOCAL DRIVER): Currently using Oxybutynin for urgency and frequency. [...] cervical lymph node biopsy in 2009 at [facility]: April 2020 she does warrant surveillance [...] Lipid panel: 10/2021 LDL= 65, HDL= 35, PW=622, TZ=695 (fasted) Diabetes Mellitus Type 2 Without Complication [...] mucosa, no dysplasia November 2020: EGD revealed [place]-colored mucosa consistent with short-segment Simmons's esophagus biopsies [...] Department Care Team Description 10/02/2024 4:45 PM LOCAL DRIVER Internal E-Consult Division of Nephrology and Hypertension in [place], [place] [address] [place] [address] Aditya Sheikh M.D. Proteinuria 10/02/2024 Orders Only Department of Family Medicine, [facility], in [place], [place] [address] [place] [phone] Diamond Wiggins M.D. Proteinuria (Primary Dx) 09/30/2024 2:00 PM LOCAL DRIVER Comprehensive Visit Department of Urology in [place], [place] [address] [place] [phone] Tatum Orozco APRN CMeliaNMeliaPMelia Infection Urinary Tract Personal History (Primary Dx); Dysuria; Atrophy Vagina Due To Estrogen Deficiency; Incontinence Urinary; Abuse Tobacco Smoking 09/30/2024 10:58 AM LOCAL DRIVER - 09/30/2024 11:59 PM LOCAL DRIVER Hospital Encounter Department of Laboratory Medicine in [address] [phone] Diamond Wiggins M.D. Dysuria; Proteinuria Discharge Disposition: Home or Self Care 09/30/2024 10:58 AM LOCAL DRIVER - 09/30/2024 11:59 PM LOCAL DRIVER Hospital Encounter Department of Laboratory Medicine in [address] [phone] Diamond Wiggins M.D. Diabetes Mellitus Type 2 Peripheral Neuropathy (HCC) Discharge Disposition: Home or Self Care 09/30/2024 Results Follow-Up Department of Family Medicine, [facility], in [place], [place] [address] [place] [phone] Diamond Wiggins M.D. Urinalysis with Microscopic if Indicated: Urine, Midstream, Albumin, Random, Urine, Microscopic Automated, Bacterial Culture, Aerobic + Susceptibility, Urine 09/24/2024 1:07 PM LOCAL DRIVER - 09/24/2024 11:59 PM LOCAL DRIVER Emergency [facility] [address] [place] [phone] Discharge Disposition: Home or Self Care 09/12/2024 8:21 AM LOCAL DRIVER - 09/12/2024 11:59 PM LOCAL DRIVER Hospital Encounter Department of Laboratory Medicine in [place], [place] [address] [place] [phone] Diamond Wiggins M.D. Proteinuria Discharge Disposition: Home or Self Care 09/12/2024 6:50 AM LOCAL DRIVER - 09/12/2024 8:20 AM LOCAL DRIVER Hospital Encounter Department of Radiology in [address] [phone] Diamond Wiggins M.D. Pain Knee Right Discharge Disposition: Home or Self Care 09/12/2024 Results Follow-Up Department of Family Medicine, [facility], in [address] [phone] Diamond Wiggins M.D. Albumin, Random, Urine 09/09/2024 Orders Only [facility] Diamond Wiggins M.D. Diabetes Mellitus Type 2 Peripheral Neuropathy (HCC) 09/03/2024 Results Follow-Up Department of Family Medicine, [facility], in [address] [phone] Diamond Wiggins M.D. Albumin, Random, Urine, MR Knee Right without IV Contrast 09/03/2024 Clinical Communication Department of Family Medicine, [facility], in [address] [phone] Diamond Wiggins M.D. Results 09/02/2024 2:00 PM LOCAL DRIVER Office Visit Department of Family Medicine, [facility], in [address] [phone] Diamond Wiggins M.D. Dysuria (Primary Dx); Pain Knee Right; Screening Mammogram Breast Cancer; Diabetes Mellitus Type 2 Without Complication (HCC); Bunion Right; Diabetes Mellitus Type 2 Peripheral Neuropathy (HCC); Depression Major Recurrent Moderate (HCC); Sarcoidosis Pulmonary (HCC) 09/02/2024 11:50 AM LOCAL DRIVER - 09/02/2024 11:59 PM LOCAL DRIVER Hospital Encounter Department of Laboratory Medicine in [address] [phone] Diamond Wiggins M.D. Diabetes Mellitus Type 2 Without Complication (HCC) Discharge Disposition: Home or Self Care 09/02/2024 11:50 AM LOCAL DRIVER - 09/02/2024 11:59 PM LOCAL DRIVER Hospital Encounter Department of Laboratory Medicine in [address] [phone] Diamond Wiggins M.D. Hematuria; Dysuria; Diabetes Mellitus Type 2 Without Complication (HCC) Discharge Disposition: Home or Self Care 09/02/2024 Results Follow-Up Department of [facility], [facility], in [address] [phone] Diamond Wiggins M.D. Urinalysis, with Microscopic: Urine, Midstream, Bacterial Culture, Aerobic + Susceptibility, Urine, Albumin, Random, Urine, Hemoglobin A1c 08/15/2024 Clinical Communication Department of [facility], [facility], in [address] [phone] Diamond Wiggins M.D. Order Request 08/13/2024 Clinical Communication Department of [facility], [facility], in [address] [phone] Diamond Wiggins M.D. Med Question from Last [...] 0.6 oz pur e alcohol) [facility] Utilities Answer Date Recorded In the past 12 months has [facility] [employer], gas, oil, or water [employer] threatened to shut off services in your [...] Never 11/01/2022 How often do you attend taoism or hindu serv ices? Never 11/01/2022 Do you belong to any clubs o r organizations such as taoism groups, unions, fraternal or athletic groups, or [...] Answer Date Recorded PHQ-2 Score 2 09/01/2024 [facility] - Occupational Stress [...] your living situation today? I have a [facility] place to live 03/11/2024 Education Answer Date Recorded What is the highest level of school you have completed or the highest degree you have received? 12th grade 01/05/2020 Comments No Sex and Gender Information Value Date Recorded Sex Assigned at Female 01/07/2018 10:26 AM CDT Legal Sex Female 7:46 PM LOCAL DRIVER Gender Identity Female 01/07/2018 10:26 AM CDT Sexual Orientation Straight 01/07/2018 10 :26 AM CDT Last Filed Vital Signs Vital Sign Reading Time Taken Comments Blood Pressure 127/81 09/02/2024 1:11 PM LOCAL DRIVER Pulse 77 09/02/2024 1:11 PM LOCAL DRIVER Temperature 36.6 C (97.8 F) 09/02/2024 1:11 PM LOCAL DRIVER Respiratory Rate 16 10/25/2023 3:15 PM CDT Oxygen Saturation 97% 07/22/2022 3:00 PM LOCAL DRIVER Inhaled Oxygen Concentration - - Weight 90.4 kg (199 lb 4.7 oz) 09/02/2024 1:11 P M LOCAL DRIVER Height 174 cm (5' 8.5) 09/02/2024 1:11 PM LOCAL DRIVER Body Mass Index 29.86 09/02/2024 1:11 PM LOCAL DRIVER Plan of Treatment Upcoming Encounters Date Type Department Care Team (Late st Contact Info) Description 10/27/2024 3:30 PM CDT Comprehensive Visit Department of Orthopedic Surgery in [place], [place] [address] [phone] Laith Mckinnon M.D. [address] [phone] 12/31/2024 3:00 PM CDT Office Visit Department of Urology in [place], [place] [address] [phone] Tatum Orozco APRN, C.N.P. [address] [phone] Health Maintenance Due Date Last [...] Procedure Name Priority Date/Time Associated Diagnosis Comments [place] URINALYSIS AUTO WO MICRO Routine 09/30/2024 11:27 AM LOCAL DRIVER ALBUMIN, RANDOM, U Routine 09/30/2024 11:27 AM LOCAL DRIVER Proteinuria URINALYSIS WITH MICROSCOPIC IF INDICATED, U Routine 09/30/2024 11:27 AM LOCAL DRIVER Dysuria BACTERIAL CULTURE, AEROBIC + SUSC, URINE Routine 09/30/2024 11:27 AM LOCAL DRIVER Dysuria BASIC METABOLIC PANEL, S/P Routine 09/30/2024 11:19 AM LOCAL DRIVER Diabetes Mellitus Type 2 Peripheral Neuropathy (HCC) ALBUMIN, RANDOM, U Routine 09/12/2024 8: 23 AM LOCAL DRIVER Proteinuria MR KNEE RIGHT WITHOUT IV CONTRAST RAD - Routine (most inpatients and all outpatients) 09/12/2024 7:56 AM LOCAL DRIVER Pain Knee Right HEMOGLOBIN A1C, B Routine 09/02/2024 12:15 PM LOCAL DRIVER Diabetes Mellitus Type 2 Without Complication (HCC) ALBUMIN, RANDOM, U Routine 09/02/2024 12:13 PM LOCAL DRIVER Diabetes Mellitus Type 2 Without Complication (HCC) URINALYSIS WITH MICROSCOPIC Routine 09/02/2024 12:13 PM LOCAL DRIVER Hematuria BACTERIAL CULTURE, AEROBIC + SUSC, URINE Routine 09/02/2024 12:13 PM LOCAL DRIVER Dysuria LIPID PANEL, S Routine 10/11/2023 10:36 AM LOCAL DRIVER Hyperlipidemia Diabetes Mellitus Type 2 Without Complication [...] if Indicated: Urine, Midstream (09/30/2024 11:27 AM LOCAL DRIVER) Source Urine, Urine, Midstream 09/30/2024 11:27 AM LOCAL DRIVER OWAT Clarity Clear Clear 09/30/2024 11:32 AM LOCAL DRIVER OWAT Color Yellow 09/30/2024 11:32 AM LOCAL DRIVER OWAT Comment: ----REFERENCE VALUE---- Colorless Yellow Dina Blood Small(A) Negative 09/30/2024 11:32 AM LOCAL DRIVER OWAT Nitrite Negative Negative 09/30/2024 11:32 AM LOCAL DRIVER OWAT Leukocyte Esterase Negative Negative 09/30/2024 11:32 AM LOCAL DRIVER OWAT Protein 100(A) mg/dL 09/30/2024 11:32 AM LOCAL DRIVER OWAT Comment: ----REFERENCE VALUE---- Negative Trace Glucose Negative Negative mg/dL 09/30/2024 11:32 AM LOCAL DRIVER OWAT Ketone Negative Negative mg/dL 09/30/2024 11:32 AM LOCAL DRIVER OWAT Bilirubin Negative Negative 09/30/2024 11:32 AM LOCAL DRIVER OWAT pH 6.5 5.0 - 8.0 09/30/2024 11:32 AM LOCAL DRIVER OWAT Specific [place] 1.019 1.001 - 1.035 09/30/2024 11:32 AM LOCAL DRIVER OWAT Urobilinogen 0.2 0.2 - 1.0 mg/dL 09/30/2024 11:32 AM LOCAL DRIVER OWAT Urine (Urine, Midstream) 09/30/2024 11:27 AM LOCAL DRIVER 09/30/2024 11:27 AM LOCAL DRIVER us Diamond Wiggins M.D. LAB URINE ORDERABLES Fin al Result Performing Organization Address [facility] Co de Phone Number [facility] [address] [place] [address], [facility] OW[address] [facility] [place] [address] [address] * (ABNORMAL) Microscopic Automated (09/30/2024 11:27 AM LOCAL DRIVER) White Blood Cells None Seen /hpf 09/30/2024 11:42 AM LOCAL DRIVER OWAT Comment: ----REFERENCE VALUE---- Males: 0-3 Females: 0-10 Unknown: 0-10 Red Blood Cells 11-20(A) 0 - 2 /hpf 11:42 AM LOCAL DRIVER OWAT Dysmorphic Red Blood Cells <=25 <=25 % 09/30/2024 11:42 AM LOCAL DRIVER OWAT Hyaline Casts 1-3 /lpf 09/30/2024 11:42 AM LOCAL DRIVER OWAT Squamous Cells Occ-3 /hpf 09/30/2024 11:42 AM LOCAL DRIVER OWAT Urine 09/30/2024 11:2 7 AM LOCAL DRIVER 09/30/2024 11:27 AM LOCAL DRIVER us Diamond Wiggins M.D. LAB URINE ORDERABLES Fin al Result Performing Organization Address City/[facility]/ZIP Co de Phone Number [facility] [address] [place] [address], [place] OWAT [facility] in [place] [address] [place] [address] * (ABNORMAL) Bacterial Culture, Aerobic + Susceptibility, Urine (09/30/2024 11:27 AM LOCAL DRIVER) Only the most recent of2 resultswithin the time period is included. Urine Culture ESCHERICHIA COLI 10,000-100,000 cfu/mL (A) 10/02/2024 8:27 AM LOCAL DRIVER MKTO Urine (Urine, Midstream) 09/30/2024 11:27 AM LOCAL DRIVER 09/30/2024 1:56 PM LOCAL DRIVER Comment:Specimen Source Site : Urine Narrative Organism [...] AL ORDERABLES Final Result Performing Organization Address City/[facility]/ZIP Co de Phone Number [facility] [address] [place] [address], [facility] MK[address] [facility] [place] [address] [place] [address] * (ABNORMAL) Albumin, Random, Urine (09/30/2024 11:27 AM LOCAL DRIVER) Only the most recent of3 resultswithin the time period is included. Microalbumin 588.0 mg/L 09/30/2024 12:49 PM LOCAL DRIVER OWAT Creatinine 137 mg/dL 09/30/2024 12:17 PM LOCAL DRIVER OWAT Albumin/Creatinin e Ratio 429(H) <25 mg/g 09/30/2024 12:49 PM LOCAL DRIVER OWAT Urine (Urine, Midstream) 09/30/2024 11:27 AM LOCAL DRIVER 09/30/2024 11:27 AM LOCAL DRIVER us Diamond Wiggins M.D. LAB URINE ORDERABLES Fin al Result [facility] [address] [place] [address], [facility] [facility] [place] [address] [place] [address] * (ABNORMAL) Basic Metabolic Panel (09/30/2024 11:19 AM LOCAL DRIVER) Potassium, P 4.0 3.6 - 5.2 mmol/L 09/30/2024 11:47 AM LOCAL DRIVER OWAT Sodium, P 136 135 - 145 mmol/L 09/30/2024 11:47 AM LOCAL DRIVER OWAT Chloride, P 100 98 - 107 mmol/L 09/30/2024 11:47 AM LOCAL DRIVER OWAT Bicarbonate, P 22 22 - 29 mmol/L 09/30/2024 11:47 AM LOCAL DRIVER OWAT Anion Gap, P 14 7 - 15 09/30/2024 11:47 AM LOCAL DRIVER OWAT BUN (Blood Urea Nitrogen), P 10 6 - 21 mg/dL 09/30/2024 11:47 AM LOCAL DRIVER OWAT Creatinine 0.82 0.59 - 1.04 mg/dL 09/30/2024 11:47 AM LOCAL DRIVER OWAT Estimated GFR (eGFR) 87 >=60 mL/min/BSA 09/30/2024 11:47 AM LOCAL DRIVER OWAT Comment: Estimated GFR calculated using the 2020 CKD_EPI creatinine equation. Calcium, Total, P 9.4 8.6 - 10.0 mg/dL 09/30/2024 11:47 AM LOCAL DRIVER OWAT Glucose, P 163(H) 70 - 140 mg/dL 09/30/2024 11:47 AM LOCAL DRIVER OWAT Blood (Blood, Venous) 09/30/2024 11:19 AM LOCAL DRIVER 09/30/2024 11:25 AM LOCAL DRIVER us Diamond Wiggins M.D. LAB BLOOD ADD-ON Final R esult [facility] [address] [place] [address], [facility] OW[address] [facility] [place] [address] [place] [address] * MR Knee Right without IV Contrast (09/12/2024 7:56 AM LOCAL DRIVER) Anatomical Region Laterality Modality Lower Extremity, Knee, Muscu loskeletal RST LOS, Musculoskeletal ARZ LOS, Muskuloskeletal FLA LOS Right Magne tic Resonance Impressions 09/12/2024 8:06 AM LOCAL DRIVER 1. Equivocal horizontal oblique tears of the [...] knee joint effusion. Narrative 09/12/2024 8:06 AM LOCAL DRIVER EXAM: MR KNEE RIGHT WITHOUT IV CONTRAST [...] * (ABNORMAL) Hemoglobin A1c (09/02/2024 12:15 PM LOCAL DRIVER) Hemoglobin A1c, B 6.2(H) 4.2 - 5.6 % 09/02/2024 5:27 PM LOCAL DRIVER AUST Comment: Hemoglobin A1c values of 5.7-6.4 percent indicate an increased risk for developing diabetes mellitus. In diabetic patients, HbA1c goals should be discussed with healthcare provider. Blood (Blood, Venous) 09/02/2024 12:15 PM LOCAL DRIVER 09/02/2024 12:27 PM LOCAL DRIVER Diamond Wiggins M.D. LAB BLOOD ADD-ON Final R esult [facility] [address] [place] [address], [facility] [address] [place] [address] * (ABNORMAL) Urinalysis, with Microscopic: Urine, Midstream (09/02/2024 12:13 PM LOCAL DRIVER) Source Urine, Urine, Midstream 09/02/2024 12:34 PM LOCAL DRIVER OWAT Clarity Clear Clear 09/02/2024 12:34 PM LOCAL DRIVER OWAT Color Dina 09/02/2024 12:34 PM LOCAL DRIVER OWAT Comment: ----REFERENCE VALUE---- Colorless Yellow Dina Blood Small(A) Negative 09/02/2024 12:34 PM LOCAL DRIVER OWAT Nitrite Negative Negative 09/02/2024 12:34 PM LOCAL DRIVER OWAT Leukocyte Esterase Trace(A) Negative 09/02/2024 12:34 PM LOCAL DRIVER OWAT Protein Trace mg/dL 09/02/2024 12:34 PM LOCAL DRIVER OWAT Comment: ----REFERENCE VALUE---- Negative Trace Glucose Negative Negative mg/dL 09/02/2024 12:34 PM LOCAL DRIVER OWAT Ketone Negative Negative mg/dL 09/02/2024 12:34 PM LOCAL DRIVER OWAT Bilirubin Negative Negative 09/02/2024 12:34 PM LOCAL DRIVER OWAT pH 6.0 5.0 - 8.0 09/02/2024 12:34 PM LOCAL DRIVER OWAT Specific [place] 1.007 1.001 - 1.035 09/02/2024 12:34 PM LOCAL DRIVER OWAT Urobilinogen 0.2 0.2 - 1.0 mg/dL 09/02/2024 12:34 PM LOCAL DRIVER OWAT White Blood Cells 4-10 /hpf 09/02/2024 12:38 PM LOCAL DRIVER OWAT Comment: ----REFERENCE VALUE---- Males: 0-3 Females: 0-10 Unknown: 0-10 Red Blood Cells Occ-2 0 - 2 /hpf 12:38 PM LOCAL DRIVER OWAT Bacteria Present(A) None Seen 09/02/2024 12:38 PM LOCAL DRIVER OWAT Urine (Urine, Midstream) 09/02/2024 12:13 PM LOCAL DRIVER 09/02/2024 12:28 PM LOCAL DRIVER us Dimaond Wiggins M.D. LAB URINE ORDERABLES Fin al Result [facility] [address] [place] [address], [facility] OWAT [facility] [place] [address] [place] [address] * (ABNORMAL) Lipid Panel (10/11/2023 10:36 AM LOCAL DRIVER) Triglycerides 375(H) mg/dL 10/11/2023 11:48 AM LOCAL DRIVER OWAT Comment: ----REFERENCE VALUE---- Normal: <150 mg/dL Borderline High: 150-199 mg/dL High: 200-499 mg/dL Very High: > or =500 mg/dL Cholesterol, Total 262(H) mg/dL 2023 11:48 AM LOCAL DRIVER OWAT Comment: ----REFERENCE VALUE---- Desirable: < 200 mg/dL Borderline High: 200 - 239 mg/dL High: > or = 240 mg/dL Cholesterol, LDL, Calculated 148(H) mg/dL 10/11/2023 11:48 AM LOCAL DRIVER OWAT Comment: ----REFERENCE VALUE---- Desirable: <100 mg/dL Above Desirable: 100-129 mg/dL Borderline High: 130-159 mg/dL High: 160-189 mg/dL Very High: >=190 mg/dL ----ADDITIONAL INFORMATION---- LDL cholesterol calculated using the Souza/NIH equation. Cholesterol, HDL 44(L) >=50 mg/dL 10/11/19 11:48 AM LOCAL DRIVER OWAT Cholesterol, Non-HDL, Calculated 218(H) mg/dL 10/11/2023 11:48 AM LOCAL DRIVER OWAT Comment: ----REFERENCE VALUE---- Desirable: <130 mg/dL Above Desirable: 130-159 mg/dL Borderline High: 160-189 mg/dL High: 190-219 mg/dL Very High: > or =220 mg/dL Fasting (8 HR or more) Yes 10/11/2023 10:50 AM LOCAL DRIVER OWAT Blood (Blood, Venous) 10/11/2023 10:36 AM LOCAL DRIVER 10/11/2023 10:50 AM LOCAL DRIVER us Diamond Wiggins M.D. LAB BLOOD ADD-ON Final R esult [facility] [address] [place] [address], [facility] OWAT [facility] [place] [address] [place] [address] * CT Chest without IV Contrast (03/19/2022 [...] Most Recently Relevant to Health Maintenance Insurance [facility] Advance Directives For more information, please contact: [phone] * Full Code (Latest Code Status on File) Date Activated Date Inactivated Comments 04/26/2020 3:55 AM 04/26/2020 2:23 PM Question Answer Comments Full Code: Discussed Care Teams Sander Hand Relationship Specialty Start Date End Date Diamond Wiggins M.D. [address] [phone] PCP - General Family Medicine 01/22/23
--- OUTSIDE RECORDS SUMMARY | 2024-10-20 20:04 | XMS_ITS | Encounter Summary ---
Author Organization [facility] Address [address] [place] [address] Care Team Providers Care Magento Developer Name Role Phone Diamond Wiggins M.D. Primary Care Provider + Reason for Visit * Reason Comments BURNING ON URINATION Encounter Details Date Type Department Care Team (Late st Contact Info) Description 09/24/2024 1:07 PM STONE GLUER - 09/24/2024 11:59 PM STONE GLUER Emergency [facility] [address] [place] [address] Discharge Disposition: Home or Self Care Social History Tobacco Use Types Packs/Day Years Used Date Smoking Tobacco: Every Day Cigarettes 1 31.1 Started: 08/28/1993 Passive Smoke Exposure: Current Smokeless Tobacco: Never Alcohol Use Standard Drinks/Week Comments No 0 (1 standard drink = 0.6 oz pur e alcohol) [facility] Utilities Answer Date Recorded In the past 12 months has [employer] gas, oil, or water [email or web address] threatened to shut off services in your [...] Never 11/01/2022 How often do you attend lutheran or christian serv ices? Never 11/01/2022 Do you belong to any clubs o r organizations such as lutheran groups, unions, fraternal or athletic groups, or [...] Answer Date Recorded PHQ-2 Score 2 09/01/2024 [facility] of Occupat ional Health - Occupational Stress [...] your living situation today? I have a [facility] place to live 03/11/2024 Education Answer Date Recorded What is the highest level of school you have completed or the highest degree you have received? 12th grade 01/05/2020 Comments No Sex and Gender Information Value Date Recorded Sex Assigned at Female 01/07/2018 10:26 AM CDT Legal Sex Female 7:46 PM STONE GLUER Gender Identity Female 01/07/2018 10:26 AM CDT [...] Comprehensive Visit Department of Orthopedic Surgery in [place], [place] [address], [place] [address] Laith Mckinnon M.D. [address] [place] [address] 12/31/2024 3:00 PM CDT Office Visit Department of Urology in [place], [place] [address], [place] [address] Tatum Orozco APRN, C.N.P. [address] [place] [address] documented as of this encounter Visit Diagnoses Not on filedocumented in this encounter Additional Health Concerns Assessment Noted Time PHQ-9 Depression Total Score: 6 09/01/19 25 10:41 PM STONE GLUER documented as of this encounter Care Teams Magento Developer Relationship Specialty Start Date End Date Diamond Wiggins M.D. [address] [place] [phone] PCP - General Family Medicine 01/22/23 documented as of this encounter
--- OUTSIDE RECORDS SUMMARY | 2024-10-20 20:04 | XMS_ITS | Encounter Summary ---
Author Organization [facility] Address [address] [place] [address] Care Team Providers Care Screw Down Name Role Phone Diamond Wiggins M.D. Primary Care Provider + Encounter Details Date Type Department Care Team (Late st Contact Info) Description 09/02/2024 Results Follow-Up Department of Family Medicine, [facility], in [place], [place] [address] [place] [phone] Diamond Wiggins M.D. [address] [place] [phone] Urinalysis, with Microscopic: Urine, Midstream, Bacterial Culture, Aerobic + Susceptibility, Urine, Albumin, Random, Urine, Hemoglobin A1c Social History Tobacco Use Types Packs/Day Years Used Date Smoking Tobacco: Every Day Cigarettes 1 31.1 Started: 08/28/1993 Passive Smoke Exposure: Current Smokeless Tobacco: Never Alcohol Use Standard Drinks/Week Comments No 0 (1 standard drink = 0.6 oz pur e alcohol) [facility] Utilities Answer Date Recorded In the past 12 months has [facility] [employer], gas, oil, or water [employer] threatened to shut off services in your [...] Never 11/01/2022 How often do you attend mormon or mormonism serv ices? Never 11/01/2022 Do you belong to any clubs o r organizations such as mormon groups, unions, fraternal or athletic groups, or [...] Answer Date Recorded PHQ-2 Score 2 09/01/2024 [facility] - Occupational Stress Questionnaire Answer [...] your living situation today? I have a [facility] place to live 03/11/2024 Education Answer Date Recorded What is the highest level of school you have completed or the highest degree you have received? 12th grade 01/05/2020 Comments No Sex and Gender Information Value Date Recorded Sex Assigned at Female 01/07/2018 10:26 AM CDT Legal Sex Female 7:46 PM STOCK OR DELIVERY CLERK Gender Identity Female 01/07/2018 10:26 AM CDT Sexual Orientation Straight 01/07/2018 10 :26 AM CDT documented as of this encounter Plan of Treatment Upcoming Encounters Date Type Department Care Team (Late st Contact Info) Description 10/27/2024 3:30 PM CDT Comprehensive Visit Department of Orthopedic Surgery in [place], [place] [address] [place] [address] Laith Mckinnon M.D. [address] [place] [phone] 12/31/2024 3:00 PM CDT Office Visit Department of Urology in [place], [place] [address] [phone] Tatum Orozco APRN, C.N.P. [address] [phone] documented as of this encounter Visit Diagnoses Diagnosis Acute Cystitis Without Hematuria- Primary Other Tear Medial Meniscus Current Injury Right Knee Initial- Primary documented in this encounter Additional Health Concerns Assessment Noted Time PHQ-9 Depression Total Score: 6 09/01/19 25 10:41 PM STOCK OR DELIVERY CLERK documented as of this encounter Care Teams Screw Down Relationship Specialty Start Date End Date Diamond Wiggins M.D. [address] [phone] PCP - General Family Medicine 01/22/23 documented as of this encounter
--- OUTSIDE RECORDS SUMMARY | 2024-10-20 20:04 | XMS_ITS | Encounter Summary ---
Author Organization [facility] Address [address] [place] [address] Care Team Providers Care Dye Colorist Formulator Name Role Phone Diamond Wiggins M.D. Primary Care Provider + Encounter Details Date Type Department Care Team (Late st Contact Info) Description 10/02/2024 Orders Only Department of Family Medicine, [facility], in [place], [place] [address], [place] [address] Diamond Wiggins M.D. [address], [place] [address] Proteinuria (Primary Dx) Social History Tobacco Use Types Packs/Day Years Used Date Smoking Tobacco: Every Day Cigarettes 1 31.1 Started: 08/28/1993 Passive Smoke Exposure: Current Smokeless Tobacco: Never Comments:2 packs/day from to 2009 Alcohol Use Standard Drinks/Week Comments Not Currently 0 (1 standard drink = 0.6 oz pur e alcohol) [facility] Utilities Answer Date Recorded In the [...] Never 11/01/2022 How often do you attend religion or latter day serv ices? Never 11/01/2022 Do you belong to any clubs o r organizations such as religion groups, unions, fraternal or athletic groups, or [...] Answer Date Recorded PHQ-2 Score 2 09/01/2024 [facility] [place] of Occupat ional Health - Occupational Stress [...] your living situation today? I have a [facility] place to live 03/11/2024 Education Answer Date Recorded What is the highest level of school you have completed or the highest degree you have received? 12th grade 01/05/2020 Comments No Sex and Gender Information Value Date Recorded Sex Assigned at Female 01/07/2018 10:26 AM CDT Legal Sex Female 7:46 PM GEOTHERMAL HEAT PUMP MACHINIST Gender Identity Female 01/07/2018 10:26 AM CDT Sexual Orientation Straight 01/07/2018 10 :26 AM CDT documented as of this encounter Plan of Treatment Upcoming Encounters Date Type Department Care Team (Late st Contact Info) Description 10/27/2024 3:30 PM CDT Comprehensive Visit Department of Orthopedic Surgery in [place], [place] [address] [place] [phone] Laith Mckinnon M.D. [address] [place] [phone] 12/31/2024 3:00 PM CDT Office Visit Department of Urology in [place], [place] [address], [place] [address] Tatum Orozco APRN, C.N.P. [address] [place] [address] Scheduled Orders Name Type Priority [...] Total Score: 6 09/01/19 25 10:41 PM GEOTHERMAL HEAT PUMP MACHINIST documented as of this encounter Care Teams Dye Colorist Formulator Relationship Specialty Start Date End Date Diamond Wiggins M.D. [address] [place] [phone] PCP - General Family Medicine 01/22/23 documented as of this encounter
--- OUTSIDE RECORDS SUMMARY | 2024-10-20 20:04 | XMS_ITS | Encounter Summary ---
Author Organization [facility] Address [address] [place] [address] Care Team Providers Care Professor Of Literature Name Role Phone Diamond Wiggins M.D. Primary Care Provider + Reason for Referral * Outpatient (Routine) - Authorized Specialty Diagnoses / Procedures Referred By [place] baca Referred To Contact Urology Tatum Orozco APRN, C.N.P. [address] [place] [address] Phone: tel: fax: [facility] Region Referral ID Status Reason Start Date Expiration Date V isits Requested Visits Authorized [id number] Authorized 09/30/2024 04/01/2026 1 1 CARGO GROUND OPERATIONS SUPERVISOR Reason for Visit * Reason Comments Consult Dysuria * Outpatient (Routine) - Closed Specialty Diagnoses / Procedures Referred By [place] baca Referred To Contact Urology Diagnoses Dysuria Diamond Wiggins M.D. [address] [place] [address] Phone: tel: fax: [facility] Region Referral ID Status Reason Start Date Expiration Date Visits Re quested Visits Authorized [id number] Closed 09/02/2024 03/04/2026 1 1 Encounter Details Date Type Department Care Team (Latest Contact Info) Description 09/30/2024 2:00 PM AIR CARGO GROUND OPERATIONS SUPERVISOR Comprehensive Visit Department of Urology in [place], [place] [address] [place] [address] Tatum Orozco APRN, C.N.P. [address] [place] [phone] Infection Urinary Tract Personal History (Primary Dx); [...] drink = 0.6 oz pur e alcohol) [facility] [employer] Answer Date Recorded In the past 12 months has [employer] gas, oil, or water [employer] threatened to shut off services in your [...] Never 11/01/2022 How often do you attend sikh or adventist serv ices? Never 11/01/2022 Do you belong to any clubs o r organizations such as sikh groups, unions, fraternal or athletic groups, or [...] 09/01/2024 [facility] of Occupat ional [facility] - Occupational Stress Questionnaire Answer Date Recorded [...] your living situation today? I have a [facility] place to live 03/11/2024 Education Answer Date Recorded What is the highest level of school you have completed or the highest degree you have received? 12th grade 01/05/2020 Comments No Sex and Gender Information Value Date Recorded Sex Assigned at Female 01/07/2018 10:26 AM CDT Legal Sex Female 7:46 PM AIR CARGO GROUND OPERATIONS SUPERVISOR Gender Identity Female 01/07/2018 10:26 AM CDT [...] History: Procedure Laterality Date CHOLECYSTECTOMY GALLBLADDER SURGERY [id number] LYMPH NODE BIOPSY Chest and neck TOTAL HYSTERECTOMY [id number] TUBAL LIGATION [id number] [4] Family History Problem Relation Name Age [...] Ulrich stanislaw Coronary artery disease Paternal Grandmother Ulrihc stanislaw Heart attack Paternal Grandmother Mojgan dover [...] MOUTH TWICE DAILY AND 3 CAPSULES AT [id number] capsule 11 magnesium 200 mg tablet Take [...] Alcohol use: Not Currently Drug use: Never CARGO GROUND OPERATIONS SUPERVISOR documented in this encounter Miscellaneous Notes * Assessment & Plan Note - Tatum Orozco APRN, C.N.P. - 09/30/2024 2:00 PM CSTAssociated Problem(s): Incontinence Urinary Currently using Oxybutynin for urgency and frequency. Discussed potential long- term side effects. Continue Oxybutynin for now. Reassess the need for it after starting vaginal estrogen cream. CARGO GROUND OPERATIONS SUPERVISOR documented in this encounter Plan of Treatment Upcoming Encounters Date Type Department Care Team (Late st Contact Info) Description 10/27/2024 3:30 PM CDT Comprehensive Visit Department of Orthopedic Surgery in [place], [place] [address] [phone] Laith Mckinnon M.D. [address] [phone] 12/31/2024 3:00 PM CDT Office Visit Department of Urology in [place], [place] [address] [phone] Tatum Orozco APRN, C.N.P. [address] [phone] Scheduled Referrals Name Type Priority [...] Total Score: 6 09/01/19 25 10:41 PM AIR CARGO GROUND OPERATIONS SUPERVISOR documented as of this encounter Care Teams Professor Of Literature Relationship Specialty Start Date End Date Diamond Wiggins M.D. [address] [phone] PCP - General Family Medicine 01/22/23 documented as of this encounter
--- OUTSIDE RECORDS SUMMARY | 2024-10-20 20:04 | XMS_ITS | Encounter Summary ---
Author Organization [facility] Address [address] [place] [address] Care Team Providers Care Field Reviewer Name Role Phone Diamond Wiggins M.D. Primary Care Provider + Reason for Referral * MRI/CAT/PET Scan (Routine) - Closed Specialty Diagnoses / Procedures Referred By Contac t Referred To Contact Radiology Diagnoses Pain Knee Right Procedures MR Knee Right without IV Contrast [place] MRI LWR EXT JOINT WO Diamond Daigle M.D. [address] [place] [phone] Phone: tel: fax: [facility] Region Referral ID Status Reason Start Date Expiration Date Visits Re quested Visits Authorized [id number] Closed 09/03/2024 11/01/2024 1 1 ERY FILLER Reason for Visit * MRI/CAT/PET Scan (Routine) - Closed Specialty Diagnoses / Procedures Referred By Contac t Referred To Contact Radiology Diagnoses Pain Knee Right Procedures MR Knee Right without IV Contrast [place] MRI LWR EXT JOINT WO Diamond Daigle M.D. [address] [place] [phone] Phone: tel: fax: [facility] Region Referral ID Status Reason Start Date Expiration Date Visits Re quested Visits Authorized [id number] Closed 09/03/2024 11/01/2024 1 1 Encounter Details Date Type Department Care Team (Latest Contact Info) Description 09/12/2024 6:50 AM BATTERY FILLER - 09/12/2024 8:20 AM BATTERY FILLER Hospital Encounter Department of Radiology in [place], [place] [address] [place] [phone] Diamond Wiggins M.D. [address], [place] [address] Pain Knee Right Discharge Disposition: Home or Self Care Social History Tobacco Use Types Packs/Day Years Used Date Smoking Tobacco: Every Day Cigarettes 09 05. Started: 08/28/1993 Passive Smoke Exposure: Current Smokeless Tobacco: Never Alcohol Use Standard Drinks/Week Comments No 0 (1 standard drink = 0.6 oz pur e alcohol) [facility] Utilities Answer Date Recorded In the past 12 months has e [employer], gas, oil, or water [employer] threatened to shut off services in your [...] Never 11/01/2022 How often do you attend holiness or jainism serv ices? Never 11/01/2022 Do you belong to any clubs o r organizations such as holiness groups, unions, fraternal or athletic groups, or [...] Answer Date Recorded PHQ-2 Score 2 09/01/2024 [facility] of Occupat ional [facility] - Occupational Stress Questionnaire Answer Date [...] your living situation today? I have a [facility] place to live 03/11/2024 Education Answer Date Recorded What is the highest level of school you have completed or the highest degree you have received? 12th grade 01/05/2020 Comments No Sex and Gender Information Value Date Recorded Sex Assigned at Female 01/07/2018 10:26 AM CDT Legal Sex Female 7:46 PM BATTERY FILLER Gender Identity Female 01/07/2018 10:26 AM CDT [...] Comprehensive Visit Department of Orthopedic Surgery in [place], [place] [address] [phone] Laith Mckinnon M.D. [address] [phone] 12/31/2024 3:00 PM CDT Office Visit Department of Urology in [place], [place] [address] [phone] Tatum Orozco APRN, C.N.P. [address] [phone] documented as of this encounter Procedures Procedure Name Priority Date/Time Associated Diagnosis Comments MR KNEE RIGHT WITHOUT IV CONTRAST RAD - Routine (most inpatients and all outpatients) 09/12/2024 7:56 AM BATTERY FILLER Pain Knee Right documented in this encounter Results * MR Knee Right without IV Contrast (09/12/2024 7:56 AM BATTERY FILLER) Anatomical Region Laterality Modality Lower Extremity, Knee, Muscu loskeletal RST LOS, Musculoskeletal ARZ LOS, Muskuloskeletal FLA LOS Right Magne tic Resonance Impressions 09/12/2024 8:06 AM BATTERY FILLER 1. Equivocal horizontal oblique tears of the [...] knee joint effusion. Narrative 09/12/2024 8:06 AM BATTERY FILLER EXAM: MR KNEE RIGHT WITHOUT IV CONTRAST [...] Total Score: 6 09/01/19 25 10:41 PM BATTERY FILLER documented as of this encounter Care Teams Field Reviewer Relationship Specialty Start Date End Date Diamond Wiggins M.D. [address] [phone] PCP - General Family Medicine 01/22/23 documented as of this encounter
--- OUTSIDE RECORDS SUMMARY | 2024-10-20 20:04 | XMS_ITS | Encounter Summary ---
Author Organization [facility] Address [address] [place] [address] Care Team Providers Care Power Plant Operations Manager Name Role Phone Diamond Wiggins M.D. Primary Care Provider + Reason for Referral * Outpatient (Routine) - Authorized Specialty Diagnoses / Procedures Referred By [place] baca Referred To Contact Orthopedic Surgery Diagnoses Pain Knee Right Diamond Wiggins M.D. [address] [place] [address] Phone: tel: fax: [facility] Region Referral ID Status Reason Start Date Expiration Date V isits Requested Visits Authorized [id number] Authorized 09/12/2024 03/14/2026 1 1 Scheduling Instructions Ortho internal referral panel order, imaging before Consult visit ULAR TOWER CLIMBER Encounter Details Date Type Department Care Team (Late st Contact Info) Description 09/03/2024 Results Follow-Up Department of Family Medicine, [facility], in [place], [place] [address], [place] [address] Diamond Wiggins M.D. [address], [place] [address] Albumin, Random, Urine, MR Knee Right without IV Contrast Social History Tobacco Use Types Packs/Day Years Used Date Smoking Tobacco: Every Day Cigarettes 1 31.1 Started: 08/28/1993 Passive Smoke Exposure: Current Smokeless Tobacco: Never Alcohol Use Standard Drinks/Week Comments No 0 (1 standard drink = 0.6 oz pur e alcohol) [facility] Utilities Answer Date Recorded In [...] How often do you attend confucianism or pentecostal serv ices? Never 11/01/2022 Do [...] Answer Date Recorded PHQ-2 Score 2 09/01/2024 [facility] of Occupat ional [facility] - Occupational Stress Questionnaire Answer [...] your living situation today? I have a [facility] place to live 03/11/2024 Education Answer Date Recorded What is the highest level of school you have completed or the highest degree you have received? 12th grade 01/05/2020 Comments No Sex and Gender Information Value Date Recorded Sex Assigned at Female 01/07/2018 10:26 AM CDT Legal Sex Female 7:46 PM CELLULAR TOWER CLIMBER Gender Identity Female 01/07/2018 10:26 AM CDT Sexual Orientation Straight 01/07/2018 10 :26 AM CDT documented as of this encounter Plan of Treatment Upcoming Encounters Date Type Department Care Team (Late st Contact Info) Description 10/27/2024 3:30 PM CDT Comprehensive Visit Department of Orthopedic Surgery in [place], [place] [address] [phone] Laith Mckinnon M.D. [address] [phone] 12/31/2024 3:00 PM CDT Office Visit Department of Urology in [place], [place] [address] [phone] Tatum Orozco, ALEJANDRA, C.N.P. [address] [phone] Scheduled Referrals Name Type Priority [...] Total Score: 6 09/01/19 25 10:41 PM CELLULAR TOWER CLIMBER documented as of this encounter Care Teams Power Plant Operations Manager Relationship Specialty Start Date End Date Diamond Wiggins M.D. [address] [phone] PCP - General Family Medicine 01/22/23 documented as of this encounter
--- OUTSIDE RECORDS SUMMARY | 2024-10-20 20:04 | XMS_ITS | Encounter Summary ---
Author Organization [facility] Address [address] [place] [address] Care Team Providers Care Machine Sprayer Name Role Phone Diamond Wiggins M.D. Primary Care Provider + Reason for Visit * Outpatient (Routine) - Closed Specialty Diagnoses / Procedures Referred By [place] baca Referred To Contact Nephrology and Hypertension Diagnoses Proteinuria Procedures Nephrology - Abnormal urine sediment/proteinuria eConsult Diamond Wiggins M.D. [address] [place] [phone] Phone: tel: fax: [facility] Referral ID Status Reason Start Date Expiration Date Visits Re quested Visits Authorized [id number] Closed 09/30/2024 12/31/2025 1 1 Encounter Details Date Type Department Care Team (Late st Contact Info) Description 10/02/2024 4:45 PM CHILD DEVELOPMENT PROFESSOR Internal E-Consult Division of Nephrology and Hypertension in [place], [place] [address] [place] [phone] Aditya Sheikh M.D. [address] [place] [phone] Proteinuria Social History Tobacco Use Types Packs/Day Years Used Date Smoking Tobacco: Every Day Cigarettes 1 31.1 Started: 08/28/1993 Passive Smoke Exposure: Current Smokeless Tobacco: Never Comments:2 packs/day from to 2009 Alcohol Use Standard Drinks/Week Comments Not Currently 0 (1 standard drink = 0.6 oz pur e alcohol) [facility] Utilities Answer Date Recorded In [...] How often do you attend holiness or mormon serv ices? Never 11/01/2022 Do you belong [...] Answer Date Recorded PHQ-2 Score 2 09/01/2024 [facility] [place] [facility] Questionnaire Answer Date [...] AM CDT Legal Sex Female 7:46 PM CHILD DEVELOPMENT PROFESSOR Gender Identity Female 01/07/2018 10:26 AM CDT [...] about SGLT2i only because of UTI history. D DEVELOPMENT PROFESSOR documented in this encounter Plan of Treatment Upcoming Encounters Date Type Department Care Team (Late st Contact Info) Description 10/27/2024 3:30 PM CDT Comprehensive Visit Department of Orthopedic Surgery in [place], [place] [address] [place] [address] Laith Mckinnon M.D. [address] [place] [phone] 12/31/2024 3:00 PM CDT Office Visit Department of Urology in [place], [place] [address] [place] [address] Tatum Orozco, ALEJANDRA, C.N.P. [address] [place] [address] documented as of this encounter Visit Diagnoses Diagnosis Proteinuria Other Tear Medial Meniscus Current Injury Right Knee Initial- Primary documented in this encounter Additional Health Concerns Assessment Noted Time PHQ-9 Depression Total Score: 6 09/01/19 25 10:41 PM CHILD DEVELOPMENT PROFESSOR documented as of this encounter Care Teams Machine Sprayer Relationship Specialty Start Date End Date Diamond Wiggins M.D. [address], [place] [phone] PCP - General Family Medicine 01/22/23 documented as of this encounter
--- OUTSIDE RECORDS SUMMARY | 2024-10-20 20:04 | XMS_ITS | Encounter Summary ---
Author Organization [facility] Address [address] [place] [address] Care Team Providers Care Infection Control Rn Name Role Phone Diamond Wiggins M.D. Primary Care Provider + Encounter Details Date Type Department Care Team (Latest Contact Info) Description 09/12/2024 8:21 AM DIAMOND CUTTER - 09/12/2024 11:[address] [facility] Hospital Encounter Department of Laboratory Medicine in [place], [place] [address], [place] [phone] Diamond Wiggins M.D. [address] [place] [phone] Proteinuria Discharge Disposition: Home or Self Care Social History Tobacco Use Types Packs/Day Years Used Date Smoking Tobacco: Every Day Cigarettes 1 31.1 Started: 08/28/1993 Passive Smoke Exposure: Current Smokeless Tobacco: Never Alcohol Use Standard Drinks/Week Comments No 0 (1 standard drink = 0.6 oz pur e alcohol) [facility] Utilities Answer Date Recorded In the past 12 months has e [employer], gas, oil, or water [employer] threatened to shut off services in your [...] Never 11/01/2022 How often do you attend protestant or congregation serv ices? Never 11/01/2022 Do you belong to any clubs o r organizations such as protestant groups, unions, fraternal or athletic groups, or [...] Answer Date Recorded PHQ-2 Score 2 09/01/2024 [facility] [place] of Occupat ional Health - Occupational Stress [...] your living situation today? I have a [facility] place to live 03/11/2024 Education Answer Date Recorded What is the highest level of school you have completed or the highest degree you have received? 12th grade 01/05/2020 Comments No Sex and Gender Information Value Date Recorded Sex Assigned at Female 01/07/2018 10:26 AM CDT Legal Sex Female 7:46 PM DIAMOND CUTTER Gender Identity Female 01/07/2018 10:26 AM CDT [...] Comprehensive Visit Department of Orthopedic Surgery in [place], [place] [address], [place] [address] Laith Mckinnon M.D. [address] [place] [phone] 12/31/2024 3:00 PM CDT Office Visit Department of Urology in [place], [place] [address] [place] [address] Tatum Orozco APRN, C.N.P. [address] [place] [phone] documented as of this encounter Procedures Procedure Name Priority Date/Time Associated Diagnosis Comments ALBUMIN, RANDOM, U Routine 09/12/2024 8: 23 AM DIAMOND CUTTER Proteinuria documented in this encounter Results * (ABNORMAL) Albumin, Random, Urine (09/12/2024 8:23 AM DIAMOND CUTTER) Microalbumin 245.0 mg/L 09/12/2024 9:08 AM DIAMOND CUTTER OWAT Creatinine 81 mg/dL 09/12/2024 9:08 AM DIAMOND CUTTER OWAT Albumin/Creatinin e Ratio 302(H) <25 mg/g 09/12/2024 9:08 AM DIAMOND CUTTER OWAT Urine (Urine, Midstream) 09/12/2024 8:23 AM DIAMOND CUTTER 09/12/2024 8:36 AM DIAMOND CUTTER us Diamond Wiggins M.D. LAB URINE ORDERABLES Fin al Result [facility] [address] [place] [address], [facility] OWAT [facility] in [place] [address] [place] [address] documented in this encounter Visit Diagnoses Diagnosis Proteinuria Other Tear Medial Meniscus Current Injury Right Knee Initial- Primary documented in this encounter Additional Health Concerns Assessment Noted Time PHQ-9 Depression Total Score: 6 09/01/19 25 10:41 PM DIAMOND CUTTER documented as of this encounter Care Teams Infection Control Rn Relationship Specialty Start Date End Date Diamond Wiggins M.D. [address] [place] [phone] PCP - General Family Medicine 01/22/23 documented as of this encounter
--- OUTSIDE RECORDS SUMMARY | 2024-10-20 20:04 | XMS_ITS | Encounter Summary ---
Author Organization [facility] Address [address] [place] [address] Care Team Providers Care Training And Quality Manager Name Role Phone Diamond Wiggins M.D. Primary Care Provider + Encounter Details Date Type Department Care Team (Latest Contact Info) Description 09/30/2024 10:58 AM SAWMILL WORKER - 09/30/2024 11:59 PM [facility] Hospital Encounter Department of Laboratory Medicine in [place], [place] [address], [place] [address] Diamond Wiggins M.D. [address] [place] [phone] Diabetes Mellitus Type 2 Peripheral Neuropathy [...] How often do you attend mormon or jewish serv ices? Never 11/01/2022 Do you belong [...] Answer Date Recorded PHQ-2 Score 2 09/01/2024 [facility] [place] of Occupat ional Health - Occupational Stress [...] your living situation today? I have a [facility] place to live 03/11/2024 Education Answer Date Recorded What is the highest level of school you have completed or the highest degree you have received? 12th grade 01/05/2020 Comments No Sex and Gender Information Value Date Recorded Sex Assigned at Female 01/07/2018 10:26 AM CDT Legal Sex Female 7:46 PM SAWMILL WORKER Gender Identity Female 01/07/2018 10:26 AM CDT [...] Comprehensive Visit Department of Orthopedic Surgery in [place], [place] [address], [place] [address] Laith Mckinnon M.D. [address] [place] [phone] 12/31/2024 3:00 PM CDT Office Visit Department of Urology in [place], [place] [address] [place] [address] Tatum Orozco APRN, C.N.P. [address] [place] [phone] documented as of this encounter Procedures Procedure Name Priority Date/Time Associated Diagnosis Comments BASIC METABOLIC PANEL, S/P Routine 09/30/2024 11:19 AM SAWMILL WORKER Diabetes Mellitus Type 2 Peripheral Neuropathy (HCC) documented in this encounter Results * (ABNORMAL) Basic Metabolic Panel (09/30/2024 11:19 AM SAWMILL WORKER) Potassium, P 4.0 3.6 - 5.2 mmol/L 09/30/2024 11:47 AM SAWMILL WORKER OWAT Sodium, P 136 135 - 145 mmol/L 09/30/2024 11:47 AM SAWMILL WORKER OWAT Chloride, P 100 98 - 107 mmol/L 09/30/2024 11:47 AM SAWMILL WORKER OWAT Bicarbonate, P 22 22 - 29 mmol/L 09/30/2024 11:47 AM SAWMILL WORKER OWAT Anion Gap, P 14 7 - 15 09/30/2024 11:47 AM SAWMILL WORKER OWAT BUN (Blood Urea Nitrogen), P 10 6 - 21 mg/dL 09/30/2024 11:47 AM SAWMILL WORKER OWAT Creatinine 0.82 0.59 - 1.04 mg/dL 09/30/2024 11:47 AM SAWMILL WORKER OWAT Estimated GFR (eGFR) 87 >=60 mL/min/BSA 09/30/2024 11:47 AM SAWMILL WORKER OWAT Comment: Estimated GFR calculated using the 2020 CKD_EPI creatinine equation. Calcium, Total, P 9.4 8.6 - 10.0 mg/dL 09/30/2024 11:47 AM SAWMILL WORKER OWAT Glucose, P 163(H) 70 - 140 mg/dL 09/30/2024 11:47 AM SAWMILL WORKER OWAT Blood (Blood, Venous) 09/30/2024 11:19 AM SAWMILL WORKER 09/30/2024 11:25 AM SAWMILL WORKER us Diamond Wiggins M.D. LAB BLOOD ADD-ON Final R esult [facility] [address] [place] [address], [facility] OWAT [facility] in [place] [address] [place] [address] documented in this encounter Visit Diagnoses Diagnosis Diabetes Mellitus Type 2 Peripheral Neuropathy (HCC) Other Tear Medial Meniscus Current Injury Right Knee Initial- Primary documented in this encounter Additional Health Concerns Assessment Noted Time PHQ-9 Depression Total Score: 6 09/01/19 25 10:41 PM SAWMILL WORKER documented as of this encounter Care Teams Training And Quality Manager Relationship Specialty Start Date End Date Diamond Wiggins M.D. [address] [phone] PCP - General Family Medicine 01/22/23 documented as of this encounter
--- OUTSIDE RECORDS SUMMARY | 2024-10-20 20:04 | XMS_ITS | Encounter Summary ---
Author Organization [facility] Address [address] [place] [address] Care Team Providers Care Abstract Maker Name Role Phone Diamond Wiggins M.D. Primary Care Provider + Encounter Details Date Type Department Care Team (Late st Contact Info) Description 09/09/2024 [facility] Diamond Todd M.D. [address] [place] [address] Diabetes Mellitus Type 2 Peripheral Neuropathy (HCC) Social History Tobacco Use Types Packs/Day Years Used Date Smoking Tobacco: Every Day Cigarettes 1 31.1 Started: 08/28/1993 Passive Smoke Exposure: Current Smokeless Tobacco: Never Alcohol Use Standard Drinks/Week Comments No 0 (1 standard drink = 0.6 oz pur e alcohol) [facility] Utilities Answer Date Recorded In the past 12 months has e [employer], gas, oil, or water [email or web address] threatened to shut off services in your [...] Never 11/01/2022 How often do you attend muslim or caodaism serv ices? Never 11/01/2022 Do you belong to any clubs o r organizations such as muslim groups, unions, fraternal or athletic groups, or [...] Answer Date Recorded PHQ-2 Score 2 09/01/2024 [facility] of Occupat ional Health - Occupational Stress [...] your living situation today? I have a [facility] place to live 03/11/2024 Education Answer Date Recorded What is the highest level of school you have completed or the highest degree you have received? 12th grade 01/05/2020 Comments No Sex and Gender Information Value Date Recorded Sex Assigned at Female 01/07/2018 10:26 AM CDT Legal Sex Female 7:46 PM MARKETING SUPPORT COORDINATOR Gender Identity Female 01/07/2018 10:26 AM CDT Sexual Orientation Straight 01/07/2018 10 :26 AM CDT documented as of this encounter Plan of Treatment Upcoming Encounters Date Type Department Care Team (Late st Contact Info) Description 10/27/2024 3:30 PM CDT Comprehensive Visit Department of Orthopedic Surgery in [place], [place] [address] [place] [phone] Laith Mckinnon M.D. [address] [place] [phone] 12/31/2024 3:00 PM CDT Office Visit Department of Urology in [place], [place] [address] [place] [address] Tatum Orozco APRN, C.N.P. [address] [facility] [place] [address] documented as of this encounter Results * (ABNORMAL) Basic Metabolic Panel (09/30/2024 11:19 AM MARKETING SUPPORT COORDINATOR) Potassium, P 4.0 3.6 - 5.2 mmol/L 09/30/2024 11:47 AM MARKETING SUPPORT COORDINATOR OWAT Sodium, P 136 135 - 145 mmol/L 09/30/2024 11:47 AM MARKETING SUPPORT COORDINATOR OWAT Chloride, P 100 98 - 107 mmol/L 09/30/2024 11:47 AM MARKETING SUPPORT COORDINATOR OWAT Bicarbonate, P 22 22 - 29 mmol/L 09/30/2024 11:47 AM MARKETING SUPPORT COORDINATOR OWAT Anion Gap, P 14 7 - 15 09/30/2024 11:47 AM MARKETING SUPPORT COORDINATOR OWAT BUN (Blood Urea Nitrogen), P 10 6 - 21 mg/dL 09/30/2024 11:47 AM MARKETING SUPPORT COORDINATOR OWAT Creatinine 0.82 0.59 - 1.04 mg/dL 09/30/2024 11:47 AM MARKETING SUPPORT COORDINATOR OWAT Estimated GFR (eGFR) 87 >=60 mL/min/BSA 09/30/2024 11:47 AM MARKETING SUPPORT COORDINATOR OWAT Comment: Estimated GFR calculated using the 2020 CKD_EPI creatinine equation. Calcium, Total, P 9.4 8.6 - 10.0 mg/dL 09/30/2024 11:47 AM MARKETING SUPPORT COORDINATOR OWAT Glucose, P 163(H) 70 - 140 mg/dL 09/30/2024 11:47 AM MARKETING SUPPORT COORDINATOR OWAT Blood (Blood, Venous) 09/30/2024 11:19 AM MARKETING SUPPORT COORDINATOR 09/30/2024 11:25 AM MARKETING SUPPORT COORDINATOR us Diamond Wiggins M.D. LAB BLOOD ADD-ON Final R esult [facility] [address] [facility] [place] [address], [facility] OWAT [facility] in [place] [address] [place] [address] documented in this encounter Visit Diagnoses Diagnosis Diabetes Mellitus Type 2 Peripheral Neuropathy (HCC) Other Tear Medial Meniscus Current Injury Right Knee Initial- Primary documented in this encounter Additional Health Concerns Assessment Noted Time PHQ-9 Depression Total Score: 6 09/01/19 25 10:41 PM MARKETING SUPPORT COORDINATOR documented as of this encounter Care Teams Abstract Maker Relationship Specialty Start Date End Date Diamond Wiggins M.D. [address] [place] [phone] PCP - General Family Medicine 01/22/23 documented as of this encounter
--- OUTSIDE RECORDS SUMMARY | 2024-10-20 20:04 | XMS_ITS | Encounter Summary ---
Author Organization [facility] Address [address] [place] [address] Care Team Providers Care Print Project Manager Name Role Phone Diamond Wiggins M.D. Primary Care Provider + Encounter Details Date Type Department Care Team (Latest Contact Info) Description 09/30/2024 10:58 AM CAREER AND GUIDANCE COUNSELOR - 09/30/2024 11:59 PM [facility] Hospital Encounter Department of Laboratory Medicine in [place], [place] [address], [place] [address] Diamond Wiggins M.D. [address] [place] [phone] Dysuria; Proteinuria Discharge Disposition: Home or Self Care Social History Tobacco Use Types Packs/Day Years Used Date Smoking Tobacco: Every Day Cigarettes 1 31.1 Started: 08/28/1993 Passive Smoke Exposure: Current Smokeless Tobacco: Never Comments:2 packs/day from to 2009 Alcohol Use Standard Drinks/Week Comments Not Currently 0 (1 standard drink = 0.6 oz pur e alcohol) [facility] Utilities Answer Date Recorded In the past 12 months has e [employer], gas, oil, or water [employer] threatened to shut off services in your [...] Never 11/01/2022 How often do you attend restorationist or methodist serv ices? Never 11/01/2022 Do you belong to any clubs o r organizations such as restorationist groups, unions, fraternal or athletic groups, or [...] Answer Date Recorded PHQ-2 Score 2 09/01/2024 [facility] [place] of Occupat ional Health - Occupational Stress [...] your living situation today? I have a [facility] place to live 03/11/2024 Education Answer Date Recorded What is the highest level of school you have completed or the highest degree you have received? 12th grade 01/05/2020 Comments No Sex and Gender Information Value Date Recorded Sex Assigned at Female 01/07/2018 10:26 AM CDT Legal Sex Female 7:46 PM CAREER AND GUIDANCE COUNSELOR Gender Identity Female 01/07/2018 10:26 AM CDT [...] Comprehensive Visit Department of Orthopedic Surgery in [place], [place] [address] [place] [facility] [phone] Laith Mckinnon M.D. [address], [place] [phone] 12/31/2024 3:00 PM CDT Office Visit Department of Urology in [place], [place] [address] [place] [facility] [place] [phone] Tatum Orozco APRN, C.NMeliaP. [address] [place] [phone] documented as of this encounter Procedures Procedure Name Priority Date/Time Associated Diagnosis Comments URINALYSIS WITH MICROSCOPIC IF INDICATED, U Routine 09/30/2024 11:27 AM CAREER AND GUIDANCE COUNSELOR Dysuria GA URINALYSIS AUTO WO MICRO Routine 09/30/2024 11:27 AM CAREER AND GUIDANCE COUNSELOR BACTERIAL CULTURE, AEROBIC + SUSC, URINE Routine 09/30/2024 11:27 AM CAREER AND GUIDANCE COUNSELOR Dysuria ALBUMIN, RANDOM, U Routine 09/30/2024 11 :27 AM CAREER AND GUIDANCE COUNSELOR Proteinuria documented in this encounter Results * (ABNORMAL) Microscopic Automated (09/30/2024 11:27 AM CAREER AND GUIDANCE COUNSELOR) White Blood Cells None Seen /hpf 09/30/2024 11:42 AM CAREER AND GUIDANCE COUNSELOR OWAT Comment: ----REFERENCE VALUE---- Males: 0-3 Females: 0-10 Unknown: 0-10 Red Blood Cells 11-20(A) 0 - 2 /hpf 11:42 AM CAREER AND GUIDANCE COUNSELOR OWAT Dysmorphic Red Blood Cells <=25 <=25 % 09/30/2024 11:42 AM CAREER AND GUIDANCE COUNSELOR OWAT Hyaline Casts 1-3 /lpf 09/30/2024 11:42 AM CAREER AND GUIDANCE COUNSELOR OWAT Squamous Cells Occ-3 /hpf 09/30/2024 11:42 AM CAREER AND GUIDANCE COUNSELOR OWAT Urine 09/30/2024 11:2 7 AM CAREER AND GUIDANCE COUNSELOR 09/30/2024 11:27 AM CAREER AND GUIDANCE COUNSELOR Diamond Wiggins M.D. LAB URINE ORDERABLES Fin al Result Performing Organization Address [facility] Co de Phone Number [facility] [address] [place] [address], [facility] OWAT [facility] in [place] [address], [place] [address] * (ABNORMAL) Albumin, Random, Urine (09/30/2024 11:27 AM CAREER AND GUIDANCE COUNSELOR) Microalbumin 588.0 mg/L 09/30/2024 12:49 PM CAREER AND GUIDANCE COUNSELOR OWAT Creatinine 137 mg/dL 09/30/2024 12:17 PM CAREER AND GUIDANCE COUNSELOR OWAT Albumin/Creatinin e Ratio 429(H) <25 mg/g 09/30/2024 12:49 PM CAREER AND GUIDANCE COUNSELOR OWAT Urine (Urine, Midstream) 09/30/2024 11:27 AM CAREER AND GUIDANCE COUNSELOR 09/30/2024 11:27 AM CAREER AND GUIDANCE COUNSELOR us Diamond Wiggins M.D. LAB URINE ORDERABLES Fin al Result Performing Organization Address [facility] Co de Phone Number [facility] [address] [place] [address], [place] OWAT [facility] in [place] [address] [place] [address] * (ABNORMAL) Bacterial Culture, Aerobic + Susceptibility, Urine (09/30/2024 11:27 AM CAREER AND GUIDANCE COUNSELOR) Urine Culture ESCHERICHIA COLI 10,000-100,000 cfu/mL (A) 10/02/2024 8:27 AM CAREER AND GUIDANCE COUNSELOR MKTO Urine (Urine, Midstream) 09/30/2024 11:27 AM CAREER AND GUIDANCE COUNSELOR 09/30/2024 1:56 PM CAREER AND GUIDANCE COUNSELOR Comment:Specimen Source Site : Urine Narrative Organism [...] Diamond Wiggins M.D. LAB MICROBIOLOGY - [facility] AL ORDERABLES Final Result [facility] [address] [place] [address], [facility] in [place] [address] [place] [address] * (ABNORMAL) Urinalysis with Microscopic if Indicated: Urine, Midstream (09/30/2024 11:27 AM CAREER AND GUIDANCE COUNSELOR) Source Urine, Urine, Midstream 09/30/2024 11:27 AM CAREER AND GUIDANCE COUNSELOR OWAT Clarity Clear Clear 09/30/2024 11:32 AM CAREER AND GUIDANCE COUNSELOR OWAT Color Yellow 09/30/2024 11:32 AM CAREER AND GUIDANCE COUNSELOR OWAT Comment: ----REFERENCE VALUE---- Colorless Yellow Dina Blood Small(A) Negative 09/30/2024 11:32 AM CAREER AND GUIDANCE COUNSELOR OWAT Nitrite Negative Negative 09/30/2024 11:32 AM CAREER AND GUIDANCE COUNSELOR OWAT Leukocyte Esterase Negative Negative 09/30/2024 11:32 AM CAREER AND GUIDANCE COUNSELOR OWAT Protein 100(A) mg/dL 09/30/2024 11:32 AM CAREER AND GUIDANCE COUNSELOR OWAT Comment: ----REFERENCE VALUE---- Negative Trace Glucose Negative Negative mg/dL 09/30/2024 11:32 AM CAREER AND GUIDANCE COUNSELOR OWAT Ketone Negative Negative mg/dL 09/30/2024 11:32 AM CAREER AND GUIDANCE COUNSELOR OWAT Bilirubin Negative Negative 09/30/2024 11:32 AM CAREER AND GUIDANCE COUNSELOR OWAT pH 6.5 5.0 - 8.0 09/30/2024 11:32 AM CAREER AND GUIDANCE COUNSELOR OWAT Specific [place] 1.019 1.001 - 1.035 09/30/2024 11:32 AM CAREER AND GUIDANCE COUNSELOR OWAT Urobilinogen 0.2 0.2 - 1.0 mg/dL 09/30/2024 11:32 AM CAREER AND GUIDANCE COUNSELOR OWAT Urine (Urine, Midstream) 09/30/2024 11:27 AM CAREER AND GUIDANCE COUNSELOR 09/30/2024 11:27 AM CAREER AND GUIDANCE COUNSELOR us Diamond Wiggins M.D. LAB URINE ORDERABLES Fin al Result [facility] [address] [place] [address], [facility] OWAT [facility] [place] [address] [place] [address] documented in this encounter Visit Diagnoses Diagnosis Dysuria Proteinuria Other Tear Medial Meniscus Current Injury Right Knee Initial- Primary documented in this encounter Additional Health Concerns Assessment Noted Time PHQ-9 Depression Total Score: 6 09/01/19 10:41 PM CAREER AND GUIDANCE COUNSELOR documented as of this encounter Care Teams Print Project Manager Relationship Specialty Start Date End Date Diamond Wiggins M.D. [address], [place] [phone] PCP - General Family Medicine 01/22/23 documented as of this encounter
--- OUTSIDE RECORDS SUMMARY | 2024-10-20 20:04 | XMS_ITS | Encounter Summary ---
Author Organization [facility] Address [address] [place] [address] Care Team Providers Care Scrap Burner Name Role Phone Diamond Wiggins M.D. Primary Care Provider + Encounter Details Date Type Department Care Team (Late st Contact Info) Description 09/12/2024 Results Follow-Up Department of Family Medicine, [facility], in [place], [place] [address] [place] [phone] Diamond Wiggins M.D. [address] [place] [phone] Albumin, Random, Urine Social History Tobacco Use Types Packs/Day Years Used Date Smoking Tobacco: Every Day Cigarettes 1 31.1 Started: 08/28/1993 Passive Smoke Exposure: Current Smokeless Tobacco: Never Alcohol Use Standard Drinks/Week Comments No 0 (1 standard drink = 0.6 oz pur e alcohol) [facility] Utilities Answer Date Recorded In the past [...] Never 11/01/2022 How often do you attend anglican or zoroastrianism serv ices? Never 11/01/2022 Do you belong to any clubs o r organizations such as anglican groups, unions, fraternal or athletic groups, or [...] Answer Date Recorded PHQ-2 Score 2 09/01/2024 [facility] [place] of Occupat ional Health - Occupational Stress [...] living situation today? I have a [facility] place to live 03/11/2024 Education Answer Date Recorded What is the highest level of school you have completed or the highest degree you have received? 12th grade 01/05/2020 Comments No Sex and Gender Information Value Date Recorded Sex Assigned at Female 01/07/2018 10:26 AM CDT Legal Sex Female 7:46 PM DIGITAL DESIGN ENGINEER Gender Identity Female 01/07/2018 10:26 AM CDT Sexual Orientation Straight 01/07/2018 10 :26 AM CDT documented as of this encounter Plan of Treatment Upcoming Encounters Date Type Department Care Team (Late st Contact Info) Description 10/27/2024 3:30 PM CDT Comprehensive Visit Department of Orthopedic Surgery in [place], [place] [address] [place] [phone] Laith Mckinnon M.D. [address] [place] [phone] 12/31/2024 3:00 PM CDT Office Visit Department of Urology in [place], [place] [address] [place] [phone] Tatum Orozco APRN, C.N.P. [address] [place] [phone] documented as of this encounter Results * (ABNORMAL) Albumin, Random, Urine (09/30/2024 11:27 AM DIGITAL DESIGN ENGINEER) Microalbumin 588.0 mg/L 09/30/2024 12:49 PM DIGITAL DESIGN ENGINEER OWAT Creatinine 137 mg/dL 09/30/2024 12:17 PM DIGITAL DESIGN ENGINEER OWAT Albumin/Creatinin e Ratio 429(H) <25 mg/g 09/30/2024 12:49 PM DIGITAL DESIGN ENGINEER OWAT Urine (Urine, Midstream) 09/30/2024 11:27 AM DIGITAL DESIGN ENGINEER 09/30/2024 11:27 AM DIGITAL DESIGN ENGINEER us Diamond Wiggins M.D. LAB URINE ORDERABLES Fin al Result [facility] [address] [place] [address], [place] OWAT [facility] in [place] [address] [place] [address] * (ABNORMAL) Bacterial Culture, Aerobic + Susceptibility, Urine (09/30/2024 11:27 AM DIGITAL DESIGN ENGINEER) Urine Culture ESCHERICHIA COLI 10,000-100,000 cfu/mL (A) 10/02/2024 8:27 AM DIGITAL DESIGN ENGINEER MKTO Urine (Urine, Midstream) 09/30/2024 11:27 AM DIGITAL DESIGN ENGINEER 09/30/2024 1:56 PM DIGITAL DESIGN ENGINEER Comment:Specimen Source Site : Urine Narrative Organism [...] Susceptible Diamond Wiggins M.D. LAB MICROBIOLOGY - [facility] ORDERABLES Final Result [facility] [address] [place] [address], [facility] [place] [address] [place] [address] * (ABNORMAL) Urinalysis with Microscopic if Indicated: Urine, Midstream (09/30/2024 11:27 AM DIGITAL DESIGN ENGINEER) Source Urine, Urine, Midstream 09/30/2024 11:27 AM DIGITAL DESIGN ENGINEER OWAT Clarity Clear Clear 09/30/2024 11:32 AM DIGITAL DESIGN ENGINEER OWAT Color Yellow 09/30/2024 11:32 AM DIGITAL DESIGN ENGINEER OWAT Comment: ----REFERENCE VALUE---- Colorless Yellow Dina Blood Small(A) Negative 09/30/2024 11:32 AM DIGITAL DESIGN ENGINEER OWAT Nitrite Negative Negative 09/30/2024 11:32 AM DIGITAL DESIGN ENGINEER OWAT Leukocyte Esterase Negative Negative 09/30/2024 11:32 AM DIGITAL DESIGN ENGINEER OWAT Protein 100(A) mg/dL 09/30/2024 11:32 AM DIGITAL DESIGN ENGINEER OWAT Comment: ----REFERENCE VALUE---- Negative Trace Glucose Negative Negative mg/dL 09/30/2024 11:32 AM DIGITAL DESIGN ENGINEER OWAT Ketone Negative Negative mg/dL 09/30/2024 11:32 AM DIGITAL DESIGN ENGINEER OWAT Bilirubin Negative Negative 09/30/2024 11:32 AM DIGITAL DESIGN ENGINEER OWAT pH 6.5 5.0 - 8.0 09/30/2024 11:32 AM DIGITAL DESIGN ENGINEER OWAT Specific [place] 1.019 1.001 - 1.035 09/30/2024 11:32 AM DIGITAL DESIGN ENGINEER OWAT Urobilinogen 0.2 0.2 - 1.0 mg/dL 09/30/2024 11:32 AM DIGITAL DESIGN ENGINEER OWAT Urine (Urine, Midstream) 09/30/2024 11:27 AM DIGITAL DESIGN ENGINEER 09/30/2024 11:27 AM DIGITAL DESIGN ENGINEER Diamond Wiggins M.D. LAB URINE ORDERABLES Fin al Result [facility] [address] [place] [address], [facility] OWAT [facility] in [place] [address] [place] [address] documented in this encounter Visit Diagnoses Diagnosis Dysuria- Primary Proteinuria Other Tear Medial Meniscus Current Injury Right Knee Initial- Primary documented in this encounter Additional Health Concerns Assessment Noted Time PHQ-9 Depression Total Score: 6 09/01/19 10:41 PM DIGITAL DESIGN ENGINEER documented as of this encounter Care Teams Scrap Burner Relationship Specialty Start Date End Date Diamond Wiggins M.D. [address] [place] [phone] PCP - General Family Medicine 01/22/23 documented as of this encounter
[2024-10-20 20:17] LABS: Basophils Percent Auto 0.7 % (0.0-3.0); Eosinophils Percent Auto 1.4 % (0.0-7.0); Hematocrit 42.1 % (33.0-51.0); Hemoglobin* 13.8 gm/dL (12.0-16.0); Immature Granulocytes Pct Auto 0.3 %; Lymphocytes Percent Auto 23.4 % (20-44); Mean Corpuscular HGB Conc 33 gm/dL (32-36); Mean Corpuscular Hemoglobin 31 pg (26-34); Mean Corpuscular Volume 94 fL (80-100); Monocytes Percent Auto 5.9 % (0.0-11.0); Neutrophils Percent Auto 68.3 % (42.0-72.0); Platelet Count* 475 K/uL (140-440); RDW Coefficient of Variation % 12.8 % (11.5-15.5); Red Blood Count 4.47 m/uL (4.00-5.20); White Blood Count* 20.76 K/uL (4.50-11.00)
[2024-10-20 20:18] LABS: Slide Review Reflex No
[2024-10-20 20:37] LABS: Chloride* 98 mmol/L (96-114); Sodium* 133 mmol/L (135-149)
[2024-10-20 20:38] LABS: Potassium* 4.2 mmol/L (3.6-5.1)
[2024-10-20 20:40] LABS: Blood Urea Nitrogen* 13 mg/dL (7-30); Creatinine* 1.6 mg/dL (0.5-1.5); Est. Creatinine Clearance* 40.45; Estimated Glomerular Filt Rate 39 ml/min
[2024-10-20 20:41] LABS: Calcium* 9.6 mg/dL (8.4-10.6); Carbon Dioxide* 22 mmol/L (20-32); Glucose* 104 mg/dL (60-115)
[2024-10-20 20:53] LABS: Anion Gap 13 mEq/L (7-15)
[2024-10-20] MEDS: cephALEXin 500 MG CAPSULE PO (21:05)
--- NOTE | 2024-10-23 15:23 | ED_ITS ---
HPI - General Adult General Chief complaint: Urogenital Problems, Female Stated complaint: UTI persisting Time Seen by Provider: 10/20/24 19:21 History of Present Illness HPI narrative: Urine culture growing E coli. Resistant to Ancef and 1st generation cephalosporins, also resistant to Levaquin. Also resistant to Cipro. She is on cefdinir and according to sensitivity data at her E coli isolate is sensitive to 3rd generation cephalosporins. I called the patient and updated her by phone. Related Data Home Medications ?Medication ?Instructions ?Recorded ?Confirmed gabapentin .Route 04/28/23 metformin PO TID 04/28/23 simvastatin .Route 04/28/23 duloxetine 60 mg capsule,delayed 60 mg PO 10/01/23 release pantoprazole 40 mg tablet,delayed 40 mg PO 10/01/23 release fluoxetine 40 mg capsule mg PO 10/20/24 Previous Rx's ?Medication ?Instructions ?Recorded cefdinir 300 mg capsule 300 mg PO BID 10 days #20 caps 10/20/24 ondansetron 4 mg disintegrating 4 mg PO Q8H PRN nausea and 10/20/24 tablet vomiting #10 tabs Allergies Allergy/AdvReac Type Severity Reaction Status Date / Time hydromorphone (From Dilaudid) Allergy Verified 10/20/24 17:10 Iodinated Contrast Media Allergy Verified 10/20/24 17:10 ibuprofen AdvReac Verified 10/20/24 17:10 PFSH PFSH Social History Smoking Status: Current every day smoker What tobacco products do you use: cigarettes Smoking packs per day: 1 Smoking cigarettes per day: 20.0 Years smoked: 31 Smoking pack-years: 31.00 Do you use any of these nicotine containing products: None Second hand tobacco smoke exposure: No How often do you have a drink containing alcohol: never AUDIT-C Alcohol total score: 0 Non-prescribed substance use: denies use service: Yes Course Vital Signs Vital signs: Initial Vital Signs Temperature 98.0 F 10/20/24 17:00 Temperature Source Temporal Artery Scan 10/20/24 17:00 Pulse Rate 108 H 10/20/24 17:00 Respiratory Rate 18 10/20/24 17:00 Blood Pressure 117/79 10/20/24 17:00 Blood Pressure Mean 91 10/20/24 17:00 Blood Pressure Position Sitting 10/20/24 17:00 Pulse Oximetry 97 10/20/24 17:00 Oxygen Delivery Method Room Air 10/20/24 17:00 Vital Signs Temperature 98.0 F 10/20/24 17:00 Pulse Rate 108 H 10/20/24 17:00 Respiratory Rate 18 10/20/24 17:00 Blood Pressure 117/79 10/20/24 17:00 Pulse Oximetry 97 10/20/24 17:00 Oxygen Delivery Method Room Air 10/20/24 17:00 Temperature 98.0 F 10/20/24 17:00 Pulse Rate 108 H 10/20/24 17:00 Respiratory Rate 18 10/20/24 17:00 Blood Pressure 117/79 10/20/24 17:00 Pulse Oximetry 97 10/20/24 17:00 Oxygen Delivery Method Room Air 10/20/24 17:00 Medications Administered Medications: Discontinued Medications Generic Name Dose Route Start Last Admin Trade Name Freq PRN Reason Stop Dose Admin Cephalexin HCl 500 mg 10/20/24 20:59 10/20/24 21:05 Cephalexin 500 Mg Capsule PO 10/20/24 21:00 500 mg ONCE ONE Administration Medical Decision Making Lab Data Labs: Lab Results 10/20/24 10/20/24 Range/Units 17:00 20:14 WBC 20.76 H (4.50-11.00) K/uL RBC 4.47 (4.00-5.20) m/uL Hgb 13.8 (12.0-16.0) gm/dL Hct 42.1 (33.0-51.0) % MCV 94 (80-100) fL MCH 31 (26-34) pg MCHC 33 (32-36) gm/dL RDW Coeff of Amanda 12.8 (11.5-15.5) % Plt Count 475 H (140-440) K/uL Neut % (Auto) 68.3 (42.0-72.0) % Lymph % (Auto) 23.4 (20-44) % [place] % (Auto) 5.9 (0.0-11.0) % Eos % (Auto) 1.4 (0.0-7.0) % Baso % (Auto) 0.7 (0.0-3.0) % Neut # (Auto) 14.20 H (1.7-7.0) K/uL Lymph # (Auto) 4.90 H (0.90-2.90) K/uL [place] # (Auto) 1.20 H (0.00-0.90) K/UL Eos # (Auto) 0.30 (0.00-0.50) K/uL Baso # (Auto) 0.10 (0.00-0.30) K/uL Abs Immat Gran (auto) 0.10 (0.00-0.30) K/uL Imm/Tot Granulo (auto) 0.3 % Sodium 133 L (135-149) mmol/L Potassium 4.2 (3.6-5.1) mmol/L Chloride 98 (96-114) mmol/L Carbon Dioxide 22 (20-32) mmol/L Anion Gap 13 (7-15) mEq/L BUN 13 (7-30) mg/dL Creatinine 1.6 H (0.5-1.5) mg/dL Estimated Creat Clear 40.45 Estimated GFR 39 ml/min Glucose 104 (60-115) mg/dL Calcium 9.6 (8.4-10.6) mg/dL Urine Color Red A (Yellow) Urine Appearance Cloudy A (Clear) Urine pH 5.0 (5.0-8.5) Ur Specific [place] <= 1.005 (1.000-1.030) Urine Protein 2+ A (Negative) Urine Glucose (UA) 1+ A (Negative) Urine Ketones 1+ A (Negative) Urine Blood Trace-intact A (Negative) Urine Nitrite Positive A (Negative) Urine Bilirubin 1+ A (Negative) Urine Urobilinogen 4.0 A (0.2-1.0) Ur Leukocyte Esterase 3+ A (Negative) Urine RBC 2-5 A (0-2) Urine WBC 2-5 (0-5) Ur Squamous Epith Cells Few (None-Few) Urine Bacteria Many A (None) Discharge Plan Discharge Clinical Impression: UTI (urinary tract infection) Patient Disposition: Home, Self-Care Condition: Stable Instructions: Urinary Tract Infection in Women (DC) Additional Instructions: As we discussed, your urine sample is somewhat abnormal today, suggesting that you probably have another bladder infection. Will put you back on antibiotics starting today. We will start you back on cephalexin today, and we can adjust her antibiotic if needed after urine culture comes back. It typically takes a day or 2 for your urine culture to result. Please follow-up with your regular doctor in [place] and with your urologist through [facility] within 1 week for re-evaluation. Activity Level: No Restrictions Discharge Diet: Regular Prescriptions: New cefdinir 300 mg capsule 300 mg PO BID 10 Days Qty: 20 0RF ondansetron 4 mg tablet,disintegrating 4 mg PO Q8H PRN (Reason: nausea and vomiting) Qty: 10 0RF No Action metformin PO TID Patient Comments: 400mg at am and noon, 900mg at hs simvastatin .Route gabapentin .Route pantoprazole 40 mg tablet,delayed release (DR/EC) 40 mg PO duloxetine 60 mg capsule,delayed release(DR/EC) 60 mg PO fluoxetine 40 mg capsule PO Follow Up/Referrals: Provider,Not a Local [Primary Care Provider] - Stand Alone Forms: [employer] Info Instructions
== END 2024-10-20 21:05 | disposition home or self-care (01) ==
PROVIDERS: Emergency Provider Emergency Medicine
DX: N39.0 Urinary tract infection, site not specified (principal)
CPT/HCPCS: 36415; 74176; 80048; 81001; 85025; 87086; 99281; 99283; A9270

== ENCOUNTER 2024-10-24 14:59 | Emergency (ER) | payer BC, SELFPAY ==
--- OUTSIDE RECORDS SUMMARY | 2024-10-24 15:02 | XMS_ITS | Encounter Summary ---
Author Organization [facility] Address [address] [place] [address] Care Team Providers Care Sap Senior Developer Name Role Phone Diamond Wiggins M.D. Primary Care Provider + Encounter Details Date Type Department Care Team (Late st Contact Info) Description 09/09/[address] [facility] Diamond Todd M.D. [address] [place] [phone] Diabetes Mellitus Type 2 Peripheral Neuropathy (HCC) Social History Tobacco Use Types Packs/Day Years Used Date Smoking Tobacco: Every Day Cigarettes 1 31.2 Started: 08/28/1993 Passive Smoke Exposure: Current Smokeless Tobacco: Never Alcohol Use Standard Drinks/Week Comments No 0 (1 standard drink = 0.6 oz pur e alcohol) [facility] Utilities Answer Date Recorded In the past 12 months has e [employer], gas, oil, or water [employer] threatened to shut off services in your [...] Never 11/01/2022 How often do you attend sikhism or anglican serv ices? Never 11/01/2022 Do you belong to any clubs o r organizations such as sikhism groups, unions, fraternal or athletic groups, or [...] Answer Date Recorded PHQ-2 Score 2 09/01/2024 [facility] of Occupat ional Health - Occupational [...] your living situation today? I have a [facility] place to live 03/11/2024 Education Answer Date Recorded What is the highest level of school you have completed or the highest degree you have received? 12th grade 01/05/2020 Comments No Sex and Gender Information Value Date Recorded Sex Assigned at Female 01/07/2018 10:26 AM CDT Legal Sex Female 7:46 PM HOTEL BAGGAGE HANDLER Gender Identity Female 01/07/2018 10:26 AM CDT Sexual Orientation Straight 01/07/2018 10 :26 AM CDT documented as of this encounter Plan of Treatment Upcoming Encounters Date Type Department Care Team (Late st Contact Info) Description 10/27/2024 3:30 PM CDT Comprehensive Visit Department of Orthopedic Surgery in [place], [place] [address] [place] [phone] Laith Mckinnon M.D. [address] [place] [phone] 12/31/2024 3:00 PM CDT Office Visit Department of Urology in [place], [place] [address] [place] [address] Tatum Orozco APRN, C.N.P. [address] [facility] [place] [address] documented as of this encounter Results * (ABNORMAL) Basic Metabolic Panel (09/30/2024 11:19 AM HOTEL BAGGAGE HANDLER) Potassium, P 4.0 3.6 - 5.2 mmol/L 09/30/2024 11:47 AM HOTEL BAGGAGE HANDLER OWAT Sodium, P 136 135 - 145 mmol/L 09/30/2024 11:47 AM HOTEL BAGGAGE HANDLER OWAT Chloride, P 100 98 - 107 mmol/L 09/30/2024 11:47 AM HOTEL BAGGAGE HANDLER OWAT Bicarbonate, P 22 22 - 29 mmol/L 09/30/2024 11:47 AM HOTEL BAGGAGE HANDLER OWAT Anion Gap, P 14 7 - 15 09/30/2024 11:47 AM HOTEL BAGGAGE HANDLER OWAT BUN (Blood Urea Nitrogen), P 10 6 - 21 mg/dL 09/30/2024 11:47 AM HOTEL BAGGAGE HANDLER OWAT Creatinine 0.82 0.59 - 1.04 mg/dL 09/30/2024 11:47 AM HOTEL BAGGAGE HANDLER OWAT Estimated GFR (eGFR) 87 >=60 mL/min/BSA 09/30/2024 11:47 AM HOTEL BAGGAGE HANDLER OWAT Comment: Estimated GFR calculated using the 2020 CKD_EPI creatinine equation. Calcium, Total, P 9.4 8.6 - 10.0 mg/dL 09/30/2024 11:47 AM HOTEL BAGGAGE HANDLER OWAT Glucose, P 163(H) 70 - 140 mg/dL 09/30/2024 11:47 AM HOTEL BAGGAGE HANDLER OWAT Blood (Blood, Venous) 09/30/2024 11:19 AM HOTEL BAGGAGE HANDLER 09/30/2024 11:25 AM HOTEL BAGGAGE HANDLER us Diamond Wiggins M.D. LAB BLOOD ADD-ON Final R esult [facility] [address] [place] [address], [place] [employer] [place] [address] [place] [address] documented in this encounter Visit Diagnoses Diagnosis Diabetes Mellitus Type 2 Peripheral Neuropathy (HCC) Other Tear Medial Meniscus Current Injury Right Knee Initial- Primary documented in this encounter Additional Health Concerns Assessment Noted Time PHQ-9 Depression Total Score: 6 09/01/19 25 10:41 PM HOTEL BAGGAGE HANDLER documented as of this encounter Care Teams Sap Senior Developer Relationship Specialty Start Date End Date Diamond Wiggins M.D. [address] [place] [phone] PCP - General Family Medicine 01/22/23 documented as of this encounter
--- OUTSIDE RECORDS SUMMARY | 2024-10-24 15:02 | XMS_ITS | Encounter Summary ---
Author Organization [facility] Address [address] [place] [address] Care Team Providers Care Corral Boss Name Role Phone Diamond Wiggins M.D. Primary Care Provider + Encounter Details Date Type Department Care Team (Latest Contact Info) Description 09/30/2024 10:58 AM REGIONAL ECONOMIC LIAISON - 09/30/2024 11:59 PM [facility] Hospital Encounter Department of Laboratory Medicine in [place], [place] [address], [place] [phone] Diamond Wiggins M.D. [address] [place] [phone] Diabetes Mellitus Type 2 Peripheral Neuropathy (HCC) Discharge Disposition: Home or Self Care Social History Tobacco Use Types Packs/Day Years Used Date Smoking Tobacco: Every Day Cigarettes 1 31.2 Started: 08/28/1993 Passive Smoke Exposure: Current Smokeless Tobacco: Never Comments:2 packs/day from to 2009 Alcohol Use Standard Drinks/Week Comments Not Currently 0 (1 standard drink = 0.6 oz pur e alcohol) [facility] Utilities Answer Date Recorded In [...] Never 11/01/2022 How often do you attend religious or yazidism serv ices? Never 11/01/2022 Do you belong to any clubs o r organizations such as religious groups, unions, fraternal or athletic groups, or [...] Answer Date Recorded PHQ-2 Score 2 09/01/2024 [facility] [place] of Occupat ional Health - Occupational Stress [...] your living situation today? I have a [facility] place to live 03/11/2024 Education Answer Date Recorded What is the highest level of school you have completed or the highest degree you have received? 12th grade 01/05/2020 Comments No Sex and Gender Information Value Date Recorded Sex Assigned at Female 01/07/2018 10:26 AM CDT Legal Sex Female 7:46 PM REGIONAL ECONOMIC LIAISON Gender Identity Female 01/07/2018 10:26 AM CDT [...] Comprehensive Visit Department of Orthopedic Surgery in [place], [place] [address], [place] [phone] Laith Mckinnon M.D. [address] [place] [phone] 12/31/2024 3:00 PM CDT Office Visit Department of Urology in [place], [place] [address] [place] [phone] Tatum Orozco APRN, C.N.P. [address] [place] [phone] documented as of this encounter Procedures Procedure Name Priority Date/Time Associated Diagnosis Comments BASIC METABOLIC PANEL, S/P Routine 09/30/2024 11:19 AM REGIONAL ECONOMIC LIAISON Diabetes Mellitus Type 2 Peripheral Neuropathy (HCC) documented in this encounter Results * (ABNORMAL) Basic Metabolic Panel (09/30/2024 11:19 AM REGIONAL ECONOMIC LIAISON) Potassium, P 4.0 3.6 - 5.2 mmol/L 09/30/2024 11:47 AM [employer] E[employer]OMIC LIAISON OWAT Sodium, P 136 135 - 145 mmol/L 09/30/2024 11:47 AM REG[employer] E[employer]OMIC LIAISON OWAT Chloride, P 100 98 - 107 mmol/L 09/30/2024 11:47 AM REG[employer] E[employer]OMIC LIAISON OWAT Bicarbonate, P 22 22 - 29 mmol/L 09/30/2024 11:47 AM REGIONAL ECONOMIC LIAISON OWAT Anion Gap, P 14 7 - 15 09/30/2024 11:47 AM REGIONAL ECONOMIC LIAISON OWAT BUN (Blood Urea Nitrogen), P 10 6 - 21 mg/dL 09/30/2024 11:47 AM REG[employer] E[employer]OMIC LIAISON OWAT Creatinine 0.82 0.59 - 1.04 mg/dL 09/30/2024 11:47 AM REGION[employer] ECONOMIC LIAISON OWAT Estimated GFR (eGFR) 87 >=60 mL/min/BSA 09/30/2024 11:47 AM REGIONAL ECONOMIC LIAISON OWAT Comment: Estimated GFR calculated using the 2020 CKD_EPI creatinine equation. Calcium, Total, P 9.4 8.6 - 10.0 mg/dL 09/30/2024 11:47 AM REGIONAL ECONOMIC LIAISON OWAT Glucose, P 163(H) 70 - 140 mg/dL 09/30/2024 11:47 AM REGIONAL ECONOMIC LIAISON OWAT Blood (Blood, Venous) 09/30/2024 11:19 AM REGIONAL ECONOMIC LIAISON 09/30/2024 11:25 AM REGIONAL ECONOMIC LIAISON us Diamond Wiggins M.D. LAB BLOOD ADD-ON Final R esult [facility] [address] [place] [address], [facility] OWAT [facility] [place] [address] [place] [address] documented in this encounter Visit Diagnoses Diagnosis Diabetes Mellitus Type 2 Peripheral Neuropathy (HCC) Other Tear Medial Meniscus Current Injury Right Knee Initial- Primary documented in this encounter Additional Health Concerns Assessment Noted Time PHQ-9 Depression Total Score: 6 09/01/19 25 10:41 PM REGIONAL ECONOMIC LIAISON documented as of this encounter Care Teams Corral Boss Relationship Specialty Start Date End Date Diamond Wiggins M.D. [address] [phone] PCP - General Family Medicine 01/22/23 documented as of this encounter
--- OUTSIDE RECORDS SUMMARY | 2024-10-24 15:02 | XMS_ITS | Encounter Summary ---
Author Organization [facility] Address [address] [place] [address] Care Team Providers Care Substation Operator Name Role Phone Diamond Wiggins M.D. Primary Care Provider + Reason for Referral * MRI/CAT/PET Scan (Routine) - Closed Specialty Diagnoses / Procedures Referred By Contac t Referred To Contact Radiology Diagnoses Pain Knee Right Procedures MR Knee Right without IV Contrast ND MRI LWR EXT JOINT WO Diamond Daigle M.D. [address] [place] [phone] Phone: tel: fax: [facility] Region Referral ID Status Reason Start Date Expiration Date Visits Re quested Visits Authorized [id number] Closed 09/03/2024 11/01/2024 1 1 ANIC SENIOR Reason for Visit * MRI/CAT/PET Scan (Routine) - Closed Specialty Diagnoses / Procedures Referred By Contac t Referred To Contact Radiology Diagnoses Pain Knee Right Procedures MR Knee Right without IV Contrast ND MRI LWR EXT JOINT WO Diamond Daigle M.D. [address] [place] [phone] Phone: tel: fax: [facility] Region Referral ID Status Reason Start Date Expiration Date Visits Re quested Visits Authorized [id number] Closed 09/03/2024 11/01/2024 1 1 Encounter Details Date Type Department Care Team (Latest Contact Info) Description 09/12/2024 6:50 AM MECHANIC SENIOR - 09/12/2024 8:20 AM MECHANIC SENIOR Hospital Encounter Department of Radiology in [place], [place] [address] [place] [phone] Diamond Wiggins M.D. [address], [place] [phone] Pain Knee Right Discharge Disposition: Home or Self Care Social History Tobacco Use Types Packs/Day Years Used Date Smoking Tobacco: Every Day Cigarettes 09 05.2 Started: 08/28/1993 Passive Smoke Exposure: Current Smokeless Tobacco: Never Alcohol Use Standard Drinks/Week Comments No 0 (1 standard drink = 0.6 oz pur e alcohol) [facility] Utilities Answer Date Recorded In the past 12 months has e [employer], gas, oil, or water [employer] threatened to shut off services in your [...] Never 11/01/2022 How often do you attend adventism or samaritan serv ices? Never 11/01/2022 Do you belong to any clubs o r organizations such as adventism groups, unions, fraternal or athletic groups, or [...] Answer Date Recorded PHQ-2 Score 2 09/01/2024 [facility] of Occupat ional [facility] - Occupational Stress Questionnaire Answer Date Recorded [...] living situation today? I have a [facility] place to live 03/11/2024 Education Answer Date Recorded What is the highest level of school you have completed or the highest degree you have received? 12th grade 01/05/2020 Comments No Sex and Gender Information Value Date Recorded Sex Assigned at Female 01/07/2018 10:26 AM CDT Legal Sex Female 7:46 PM MECHANIC SENIOR Gender Identity Female 01/07/2018 10:26 AM CDT [...] Comprehensive Visit Department of Orthopedic Surgery in [place], [place] [address] [phone] Laith Mckinnon M.D. [address] [phone] 12/31/2024 3:00 PM CDT Office Visit Department of Urology in [place], [place] [address] [phone] Tatum Orozco APRN, C.N.P. [address] [phone] documented as of this encounter Procedures Procedure Name Priority Date/Time Associated Diagnosis Comments MR KNEE RIGHT WITHOUT IV CONTRAST RAD - Routine (most inpatients and all outpatients) 09/12/2024 7:56 AM MECHANIC SENIOR Pain Knee Right documented in this encounter Results * MR Knee Right without IV Contrast (09/12/2024 7:56 AM MECHANIC SENIOR) Anatomical Region Laterality Modality Lower Extremity, Knee, Muscu loskeletal RST LOS, Musculoskeletal ARZ LOS, Muskuloskeletal FLA LOS Right Magne tic Resonance Impressions 09/12/2024 8:06 AM MECHANIC SENIOR 1. Equivocal horizontal oblique tears of the [...] knee joint effusion. Narrative 09/12/2024 8:06 AM MECHANIC SENIOR EXAM: MR KNEE RIGHT WITHOUT IV CONTRAST [...] Total Score: 6 09/01/19 25 10:41 PM MECHANIC SENIOR documented as of this encounter Care Teams Substation Operator Relationship Specialty Start Date End Date Diamond Wiggins M.D. [address] [phone] PCP - General Family Medicine 01/22/23 documented as of this encounter
--- OUTSIDE RECORDS SUMMARY | 2024-10-24 15:02 | XMS_ITS | Encounter Summary ---
Author Organization [facility] Address [address] [place] [address] Care Team Providers Care Geochemical Manager Name Role Phone Diamond Wiggins M.D. Primary Care Provider + Encounter Details Date Type Department Care Team (Latest Contact Info) Description 09/30/2024 10:58 AM POLICY AND PLANNING MANAGER - 09/30/2024 11:59 PM [facility] Hospital Encounter Department of Laboratory Medicine in [place], [place] [address], [place] [address] Diamond Wiggins M.D. [address] [place] [phone] Dysuria; Proteinuria Discharge Disposition: Home or Self Care Social History Tobacco Use Types Packs/Day Years Used Date Smoking Tobacco: Every Day Cigarettes 1 31.2 Started: 08/28/1993 Passive Smoke Exposure: Current Smokeless Tobacco: Never Comments:2 packs/day from to 2009 Alcohol Use Standard Drinks/Week Comments Not Currently 0 (1 standard drink = 0.6 oz pur e alcohol) [facility] Utilities Answer Date Recorded In the past 12 months has e [employer], gas, oil, or water [employer] threatened to shut off services in your [...] How often do you attend yazidism or buddhism serv ices? Never 11/01/2022 Do you belong [...] Answer Date Recorded PHQ-2 Score 2 09/01/2024 [facility] [place] of Occupat ional Health - Occupational Stress [...] your living situation today? I have a [facility] place to live 03/11/2024 Education Answer Date Recorded What is the highest level of school you have completed or the highest degree you have received? 12th grade 01/05/2020 Comments No Sex and Gender Information Value Date Recorded Sex Assigned at Female 01/07/2018 10:26 AM CDT Legal Sex Female 7:46 PM POLICY AND PLANNING MANAGER Gender Identity Female 01/07/2018 10:26 AM CDT [...] Comprehensive Visit Department of Orthopedic Surgery in [place], [place] [address] [place] [facility] [place] [phone] Laith Mckinnon M.D. [address], [place] [phone] 12/31/2024 3:00 PM CDT Office Visit Department of Urology in [place], [place] [address] [place] [facility] [place] [address] Tatum Orozco APRN, C.NMeliaP. [address] [place] [phone] documented as of this encounter Procedures Procedure Name Priority Date/Time Associated Diagnosis Comments URINALYSIS WITH MICROSCOPIC IF INDICATED, U Routine 09/30/2024 11:27 AM POLICY AND PLANNING MANAGER Dysuria IL URINALYSIS AUTO WO MICRO Routine 09/30/2024 11:27 AM POLICY AND PLANNING MANAGER BACTERIAL CULTURE, AEROBIC + SUSC, URINE Routine 09/30/2024 11:27 AM POLICY AND PLANNING MANAGER Dysuria ALBUMIN, RANDOM, U Routine 09/30/2024 11 :27 AM POLICY AND PLANNING MANAGER Proteinuria documented in this encounter Results * (ABNORMAL) Microscopic Automated (09/30/2024 11:27 AM POLICY AND PLANNING MANAGER) White Blood Cells None Seen /hpf 09/30/2024 11:42 AM POLICY AND PLANNING MANAGER OWAT Comment: ----REFERENCE VALUE---- Males: 0-3 Females: 0-10 Unknown: 0-10 Red Blood Cells 11-20(A) 0 - 2 /hpf 11:42 AM POLICY AND PLANNING MANAGER OWAT Dysmorphic Red Blood Cells <=25 <=25 % 09/30/2024 11:42 AM POLICY AND PLANNING MANAGER OWAT Hyaline Casts 1-3 /lpf 09/30/2024 11:42 AM POLICY AND PLANNING MANAGER OWAT Squamous Cells Occ-3 /hpf 09/30/2024 11:42 AM POLICY AND PLANNING MANAGER OWAT Urine 09/30/2024 11:2 7 AM POLICY AND PLANNING MANAGER 09/30/2024 11:27 AM POLICY AND PLANNING MANAGER Diamond Wiggins M.D. LAB URINE ORDERABLES Fin al Result Performing Organization Address [facility] Co de Phone Number [facility] [address] [place] [address], [facility] OWAT [facility] [place] [address] [address] * (ABNORMAL) Albumin, Random, Urine (09/30/2024 11:27 AM POLICY AND PLANNING MANAGER) Microalbumin 588.0 mg/L 09/30/2024 12:49 PM POLICY AND PLANNING MANAGER OWAT Creatinine 137 mg/dL 09/30/2024 12:17 PM POLICY AND PLANNING MANAGER OWAT Albumin/Creatinin e Ratio 429(H) <25 mg/g 09/30/2024 12:49 PM POLICY AND PLANNING MANAGER OWAT Urine (Urine, Midstream) 09/30/2024 11:27 AM POLICY AND PLANNING MANAGER 09/30/2024 11:27 AM POLICY AND PLANNING MANAGER us Dimaond Wiggins M.D. LAB URINE ORDERABLES Fin al Result Performing Organization Address [facility] Co de Phone Number [facility] [address] [place] [address], [place] OWAT [facility] [place] [address] [place] [address] * (ABNORMAL) Bacterial Culture, Aerobic + Susceptibility, Urine (09/30/2024 11:27 AM POLICY AND PLANNING MANAGER) Urine Culture ESCHERICHIA COLI 10,000-100,000 cfu/mL (A) 10/02/2024 8:27 AM POLICY AND PLANNING MANAGER MKTO Urine (Urine, Midstream) 09/30/2024 11:27 AM POLICY AND PLANNING MANAGER 09/30/2024 1:56 PM POLICY AND PLANNING MANAGER Comment:Specimen Source Site : Urine Narrative Organism [...] us Diamond Wiggins M.D. LAB MICROBIOLOGY - [facility] AL ORDERABLES Final Result [facility] [address] [place] [address], [facility] in [place] [address] [place] [address] * (ABNORMAL) Urinalysis with Microscopic if Indicated: Urine, Midstream (09/30/2024 11:27 AM POLICY AND PLANNING MANAGER) Source Urine, Urine, Midstream 09/30/2024 11:27 AM POLICY AND PLANNING MANAGER OWAT Clarity Clear Clear 09/30/2024 11:32 AM POLICY AND PLANNING MANAGER OWAT Color Yellow 09/30/2024 11:32 AM POLICY AND PLANNING MANAGER OWAT Comment: ----REFERENCE VALUE---- Colorless Yellow Dina Blood Small(A) Negative 09/30/2024 11:32 AM POLICY AND PLANNING MANAGER OWAT Nitrite Negative Negative 09/30/2024 11:32 AM POLICY AND PLANNING MANAGER OWAT Leukocyte Esterase Negative Negative 09/30/2024 11:32 AM POLICY AND PLANNING MANAGER OWAT Protein 100(A) mg/dL 09/30/2024 11:32 AM POLICY AND PLANNING MANAGER OWAT Comment: ----REFERENCE VALUE---- Negative Trace Glucose Negative Negative mg/dL 09/30/2024 11:32 AM POLICY AND PLANNING MANAGER OWAT Ketone Negative Negative mg/dL 09/30/2024 11:32 AM POLICY AND PLANNING MANAGER OWAT Bilirubin Negative Negative 09/30/2024 11:32 AM POLICY AND PLANNING MANAGER OWAT pH 6.5 5.0 - 8.0 09/30/2024 11:32 AM POLICY AND PLANNING MANAGER OWAT Specific [place] 1.019 1.001 - 1.035 09/30/2024 11:32 AM POLICY AND PLANNING MANAGER OWAT Urobilinogen 0.2 0.2 - 1.0 mg/dL 09/30/2024 11:32 AM POLICY AND PLANNING MANAGER OWAT Urine (Urine, Midstream) 09/30/2024 11:27 AM POLICY AND PLANNING MANAGER 09/30/2024 11:27 AM POLICY AND PLANNING MANAGER us Diamond Wiggins M.D. LAB URINE ORDERABLES Fin al Result [facility] [address] [place] [address], [facility] OWAT [facility] [place] [address] [place] [address] documented in this encounter Visit Diagnoses Diagnosis Dysuria Proteinuria Other Tear Medial Meniscus Current Injury Right Knee Initial- Primary documented in this encounter Additional Health Concerns Assessment Noted Time PHQ-9 Depression Total Score: 6 09/01/19 10:41 PM POLICY AND PLANNING MANAGER documented as of this encounter Care Teams Geochemical Manager Relationship Specialty Start Date End Date Diamond Wiggins M.D. [address] [phone] PCP - General Family Medicine 01/22/23 documented as of this encounter
--- OUTSIDE RECORDS SUMMARY | 2024-10-24 15:02 | XMS_ITS | Encounter Summary ---
Author Organization [facility] Address [address] [place] [address] Care Team Providers Care Electric Sealing Machine Operator Name Role Phone Diamond Wiggins M.D. Primary Care Provider + Encounter Details Date Type Department Care Team (Late st Contact Info) Description 09/12/2024 Results Follow-Up Department of Family Medicine, [facility], in [place], [place] [address] [place] [phone] Diamond Wiggins M.D. [address] [place] [phone] Albumin, Random, Urine Social History Tobacco Use Types Packs/Day Years Used Date Smoking Tobacco: Every Day Cigarettes 1 31.2 Started: 08/28/1993 Passive Smoke Exposure: Current Smokeless Tobacco: Never Alcohol Use Standard Drinks/Week Comments No 0 (1 standard drink = 0.6 oz pur e alcohol) [facility] Utilities Answer Date Recorded In the past [...] Never 11/01/2022 How often do you attend confucianist or roman catholic serv ices? Never 11/01/2022 Do you belong to any clubs o r organizations such as confucianist groups, unions, fraternal or athletic groups, or [...] Answer Date Recorded PHQ-2 Score 2 09/01/2024 [facility] of Occupat ional Health - Occupational Stress [...] AM CDT Legal Sex Female 7:46 PM AFTERSCHOOL Gender Identity Female 01/07/2018 10:26 AM CDT Sexual Orientation Straight 01/07/2018 10 :26 AM CDT documented as of this encounter Plan of Treatment Upcoming Encounters Date Type Department Care Team (Late st Contact Info) Description 10/27/2024 3:30 PM CDT Comprehensive Visit Department of Orthopedic Surgery in [place], [place] [address] [place] [phone] Laith Mckinnon M.D. [address] [place] [phone] 12/31/2024 3:00 PM CDT Office Visit Department of Urology in [place], [place] [address] [place] [phone] Tatum Orozco APRN, C.N.P. [address] [place] [phone] documented as of this encounter Results * (ABNORMAL) Albumin, Random, Urine (09/30/2024 11:27 AM AFTERSCHOOL) Microalbumin 588.0 mg/L 09/30/2024 12:49 PM AFTERSCHOOL OWAT Creatinine 137 mg/dL 09/30/2024 12:17 PM AFTERSCHOOL OWAT Albumin/Creatinin e Ratio 429(H) <25 mg/g 09/30/2024 12:49 PM AFTERSCHOOL OWAT Urine (Urine, Midstream) 09/30/2024 11:27 AM AFTERSCHOOL 09/30/2024 11:27 AM AFTERSCHOOL us Diamond Wiggins M.D. LAB URINE ORDERABLES Fin al Result [facility] [address] [place] [address], [place] OWAT [facility] in [place] [address] [place] [address] * (ABNORMAL) Bacterial Culture, Aerobic + Susceptibility, Urine (09/30/2024 11:27 AM AFTERSCHOOL) Urine Culture ESCHERICHIA COLI 10,000-100,000 cfu/mL (A) 10/02/2024 8:27 AM AFTERSCHOOL MKTO Urine (Urine, Midstream) 09/30/2024 11:27 AM AFTERSCHOOL 09/30/2024 1:56 PM AFTERSCHOOL Comment:Specimen Source Site : Urine Narrative Organism [...] Susceptible Diamond Wiggins M.D. LAB MICROBIOLOGY - [facility] ORDERABLES Final Result [facility] [address] [place] [address], [facility] in [place] [address] [place] [address] * (ABNORMAL) Urinalysis with Microscopic if Indicated: Urine, Midstream (09/30/2024 11:27 AM AFTERSCHOOL) Source Urine, Urine, Midstream 09/30/2024 11:27 AM AFTERSCHOOL OWAT Clarity Clear Clear 09/30/2024 11:32 AM AFTERSCHOOL OWAT Color Yellow 09/30/2024 11:32 AM AFTERSCHOOL OWAT Comment: ----REFERENCE VALUE---- Colorless Yellow Dina Blood Small(A) Negative 09/30/2024 11:32 AM AFTERSCHOOL OWAT Nitrite Negative Negative 09/30/2024 11:32 AM AFTERSCHOOL OWAT Leukocyte Esterase Negative Negative 09/30/2024 11:32 AM AFTERSCHOOL OWAT Protein 100(A) mg/dL 09/30/2024 11:32 AM AFTERSCHOOL OWAT Comment: ----REFERENCE VALUE---- Negative Trace Glucose Negative Negative mg/dL 09/30/2024 11:32 AM AFTERSCHOOL OWAT Ketone Negative Negative mg/dL 09/30/2024 11:32 AM AFTERSCHOOL OWAT Bilirubin Negative Negative 09/30/2024 11:32 AM AFTERSCHOOL OWAT pH 6.5 5.0 - 8.0 09/30/2024 11:32 AM AFTERSCHOOL OWAT Specific [place] 1.019 1.001 - 1.035 09/30/2024 11:32 AM AFTERSCHOOL OWAT Urobilinogen 0.2 0.2 - 1.0 mg/dL 09/30/2024 11:32 AM AFTERSCHOOL OWAT Urine (Urine, Midstream) 09/30/2024 11:27 AM AFTERSCHOOL 09/30/2024 11:27 AM AFTERSCHOOL Diamond Wiggins M.D. LAB URINE ORDERABLES Fin al Result [facility] [address] [place] [address], [facility] OWAT [facility] in [place] [address] [place] [address] documented in this encounter Visit Diagnoses Diagnosis Dysuria- Primary Proteinuria Other Tear Medial Meniscus Current Injury Right Knee Initial- Primary documented in this encounter Additional Health Concerns Assessment Noted Time PHQ-9 Depression Total Score: 6 09/01/19 10:41 PM AFTERSCHOOL documented as of this encounter Care Teams Electric Sealing Machine Operator Relationship Specialty Start Date End Date Diamond Wiggins M.D. [address] [place] [phone] PCP - General Family Medicine 01/22/23 documented as of this encounter
--- OUTSIDE RECORDS SUMMARY | 2024-10-24 15:02 | XMS_ITS | Encounter Summary ---
Author Organization [facility] Address [address] [place] [address] Care Team Providers Care Clinical Biostatistician Name Role Phone Diamond Wiggins M.D. Primary Care Provider + Reason for Visit * Reason Comments BURNING ON URINATION Encounter Details Date Type Department Care Team (Late st Contact Info) Description 09/24/2024 1:07 PM HANGER - 09/24/2024 11:59 PM HANGER Emergency [facility] [address] [place] [address] Discharge Disposition: Home or Self Care Social History Tobacco Use Types Packs/Day Years Used Date Smoking Tobacco: Every Day Cigarettes 1 31.2 Started: 08/28/1993 Passive Smoke Exposure: Current Smokeless Tobacco: Never Alcohol Use Standard Drinks/Week Comments No 0 (1 standard drink = 0.6 oz pur e alcohol) [facility] Utilities Answer Date Recorded In the past 12 months has [employer], oil, or water [employer] threatened to shut off services in your [...] Never 11/01/2022 How often do you attend alevism or anabaptism serv ices? Never 11/01/2022 Do you belong to any clubs o r organizations such as alevism groups, unions, fraternal or athletic groups, or [...] 09/01/2024 [facility] of Occupat ional Health - Occupational [...] AM CDT Legal Sex Female 7:46 PM HANGER Gender Identity Female 01/07/2018 10:26 AM CDT [...] Comprehensive Visit Department of Orthopedic Surgery in [place], [place] [address], [place] [phone] Laith Mckinnon M.D. [address] [place] [phone] 12/31/2024 3:00 PM CDT Office Visit Department of Urology in [place], [place] [address], [place] [phone] Tatum Orozco APRN, C.N.P. [address] [place] [phone] documented as of this encounter Visit Diagnoses Not on filedocumented in this encounter Additional Health Concerns Assessment Noted Time PHQ-9 Depression Total Score: 6 09/01/19 25 10:41 PM HANGER documented as of this encounter Care Teams Clinical Biostatistician Relationship Specialty Start Date End Date Diamond Wiggins M.D. [address] [place] [phone] PCP - General Family Medicine 01/22/23 documented as of this encounter
--- OUTSIDE RECORDS SUMMARY | 2024-10-24 15:02 | XMS_ITS | Encounter Summary ---
Author Organization [facility] Address [address] [place] [address] Care Team Providers Care Education And Training Coordinator Name Role Phone Diamond Wiggins M.D. Primary Care Provider + Reason for Referral * Outpatient (Routine) - Authorized Specialty Diagnoses / Procedures Referred By [place] baca Referred To Contact Orthopedic Surgery Diagnoses Pain Knee Right Diamond Wiggins M.D. [address] [place] [address] Phone: tel: fax: [facility] Region Referral ID Status Reason Start Date Expiration Date V isits Requested Visits Authorized [id number] Authorized 09/12/2024 03/14/2026 1 1 Scheduling Instructions Ortho internal referral panel order, imaging before Consult visit OR APPLICATIONS ARCHITECT Encounter Details Date Type Department Care Team (Late st Contact Info) Description 09/03/2024 Results Follow-Up Department of Family Medicine, [facility], in [place], [place] [address], [place] [address] Diamond Wiggins M.D. [address] [phone] Albumin, Random, Urine, MR Knee Right without IV Contrast Social History Tobacco Use Types Packs/Day Years Used Date Smoking Tobacco: Every Day Cigarettes 1 31.2 Started: 08/28/1993 Passive Smoke Exposure: Current Smokeless Tobacco: Never Alcohol Use Standard Drinks/Week Comments No 0 (1 standard drink = 0.6 oz pur e alcohol) [facility] Utilities Answer Date Recorded In [...] Never 11/01/2022 How often do you attend sabianist or orthodoxy serv ices? Never 11/01/2022 Do you belong to any clubs o r organizations such as sabianist groups, unions, fraternal or athletic groups, or [...] Date Recorded PHQ-2 Score 2 09/01/2024 [facility] of Occupat ional [facility] - Occupational Stress Questionnaire Answer Date [...] AM CDT Legal Sex Female 7:46 PM SENIOR APPLICATIONS ARCHITECT Gender Identity Female 01/07/2018 10:26 AM CDT Sexual Orientation Straight 01/07/2018 10 :26 AM CDT documented as of this encounter Plan of Treatment Upcoming Encounters Date Type Department Care Team (Late st Contact Info) Description 10/27/2024 3:30 PM CDT Comprehensive Visit Department of Orthopedic Surgery in [place], [place] [address] [phone] Laith Mckinnon M.D. [address] [phone] 12/31/2024 3:00 PM CDT Office Visit Department of Urology in [place], [place] [address] [phone] Tatum Orozco, ALEJANDRA, C.N.P. [address] [phone] Scheduled Referrals Name Type Priority [...] Total Score: 6 09/01/19 25 10:41 PM SENIOR APPLICATIONS ARCHITECT documented as of this encounter Care Teams Education And Training Coordinator Relationship Specialty Start Date End Date Diamond Wiggins M.D. [address] [phone] PCP - General Family Medicine 01/22/23 documented as of this encounter
--- OUTSIDE RECORDS SUMMARY | 2024-10-24 15:02 | XMS_ITS | Clinical Summary ---
Author Organization [facility] Address [address] [place] [address] Care Team Providers Care Spool Carrier Name Role Phone Diamond Wiggins M.D. Primary Care Provider + Source Comments Patient records contain information from all sites at [facility]. For routine questions regarding patient records, call [phone] during business hours, M-F 8:00 AM - 5:00 PM Central Time. Record requests for emergency care only can be directed to [phone] at any time.[facility] Allergies Active Allergy Reactions Criticality Noted Date [...] incontinence Assessment & Plan (10/01/2024 8:26 PM INTERNATIONAL FIRST OFFICER): Currently using Oxybutynin for urgency and frequency. 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 Proteinuria 10/02/2024 Orders Only Department of Family Medicine, [facility], in [place], [place] [address] [place] [phone] Diamond Wiggins M.D. Proteinuria (Primary Dx) 09/30/2024 2:00 PM INTERNATIONAL FIRST OFFICER Comprehensive Visit Department of Urology in [place], [place] [address] [place] [phone] Tatum Orozco APRN CMeliaNMeliaPMelia Infection Urinary Tract Personal History (Primary Dx); Dysuria; Atrophy Vagina Due To Estrogen Deficiency; Incontinence Urinary; Abuse Tobacco Smoking 09/30/2024 10:58 AM INTERNATIONAL FIRST OFFICER - 09/30/2024 11:59 PM INTERNATIONAL FIRST OFFICER Hospital Encounter Department of Laboratory Medicine in [address] [phone] Diamond Wiggins M.D. Dysuria; Proteinuria Discharge Disposition: Home or Self Care 09/30/2024 10:58 AM INTERNATIONAL FIRST OFFICER - 09/30/2024 11:59 PM INTERNATIONAL FIRST OFFICER Hospital Encounter Department of Laboratory Medicine in [address] [phone] Diamond Wiggins M.D. Diabetes Mellitus Type 2 Peripheral Neuropathy (HCC) Discharge Disposition: Home or Self Care 09/30/2024 Results Follow-Up Department of Family Medicine, [facility], in [place], [place] [address] [place] [phone] Diamond Wiggins M.D. Urinalysis with Microscopic if Indicated: Urine, Midstream, Albumin, Random, Urine, Microscopic Automated, Bacterial Culture, Aerobic + Susceptibility, Urine 09/24/2024 1:07 PM INTERNATIONAL FIRST OFFICER - 09/24/2024 11:59 PM INTERNATIONAL FIRST OFFICER Emergency [facility] [address] [place] [phone] Discharge Disposition: Home or Self Care 09/12/2024 8:21 AM INTERNATIONAL FIRST OFFICER - 09/12/2024 11:59 PM INTERNATIONAL FIRST OFFICER Hospital Encounter Department of Laboratory Medicine in [place], [place] [address] [place] [phone] Diamond Wiggins M.D. Proteinuria Discharge Disposition: Home or Self Care 09/12/2024 6:50 AM INTERNATIONAL FIRST OFFICER - 09/12/2024 8:20 AM INTERNATIONAL FIRST OFFICER Hospital Encounter Department of Radiology in [address] [phone] Diamond Wiggins M.D. Pain Knee Right Discharge Disposition: Home or Self Care 09/12/2024 Results Follow-Up Department of Family Medicine, [facility], in [address] [phone] Diamond Wiggins M.D. Albumin, Random, Urine 09/09/2024 Orders Only [facility] Diamond Wiggins M.D. Diabetes Mellitus Type 2 Peripheral Neuropathy (HCC) 09/03/2024 Results Follow-Up Department of Family Medicine, [facility], in [address] [phone] Diamond Wiggins M.D. Albumin, Random, Urine, MR Knee Right without IV Contrast 09/03/2024 Clinical Communication Department of Family Medicine, [facility], in [address] [phone] Diamond Wiggins M.D. Results 09/02/2024 2:00 PM INTERNATIONAL FIRST OFFICER Office Visit Department of Family Medicine, [facility], in [address] [phone] Diamond Wiggins M.D. Dysuria (Primary Dx); Pain Knee Right; Screening Mammogram Breast Cancer; Diabetes Mellitus Type 2 Without Complication (HCC); Bunion Right; Diabetes Mellitus Type 2 Peripheral Neuropathy (HCC); Depression Major Recurrent Moderate (HCC); Sarcoidosis Pulmonary (HCC) 09/02/2024 11:50 AM INTERNATIONAL FIRST OFFICER - 09/02/2024 11:59 PM INTERNATIONAL FIRST OFFICER Hospital Encounter Department of Laboratory Medicine in [address] [phone] Diamond Wiggins M.D. Diabetes Mellitus Type 2 Without Complication (HCC) Discharge Disposition: Home or Self Care 09/02/2024 11:50 AM INTERNATIONAL FIRST OFFICER - 09/02/2024 11:59 PM INTERNATIONAL FIRST OFFICER Hospital Encounter Department of Laboratory Medicine in [address] [phone] Diamond Wiggins M.D. Hematuria; Dysuria; Diabetes Mellitus Type 2 Without Complication (HCC) Discharge Disposition: Home or Self Care 09/02/2024 Results Follow-Up Department of [facility], [facility], in [address] [phone] Diamond Wiggins M.D. Urinalysis, with Microscopic: Urine, Midstream, Bacterial Culture, Aerobic + Susceptibility, Urine, Albumin, Random, Urine, Hemoglobin A1c 08/15/[address] Department of [facility], [facility], in [address] [phone] Diamond Wiggins M.D. Order Request 08/13/[address] of [facility], [facility], in [address] [phone] Diamond Wiggins M.D. Med Question from Last [...] 1 Daughter 2 Daughter 3 Father Jeffry matihs Maternal Grandfather Maternal Grandmother Tarsha Duff Mother [...] drink = 0.6 oz pur e alcohol) [facility] Utilities Answer Date Recorded In the past 12 months has [facility] [employer], gas, oil, or water [employer] threatened to shut off services in [...] Never 11/01/2022 How often do you attend voodoo or confucianism serv ices? Never 11/01/2022 Do you belong to any clubs o r organizations such as voodoo groups, unions, fraternal or athletic groups, or [...] Answer Date Recorded PHQ-2 Score 2 09/01/2024 [facility] Occupat ional [facility] - Occupational [...] your living situation today? I have a [facility] place to live 03/11/2024 Education Answer Date Recorded What is the highest level of school you have completed or the highest degree you have received? 12th grade 01/05/2020 Comments No Sex and Gender Information Value Date Recorded Sex Assigned at Female 01/07/2018 10:26 AM CDT Legal Sex Female 7:46 PM INTERNATIONAL FIRST OFFICER Gender Identity Female 01/07/2018 10:26 AM CDT Sexual Orientation Straight 01/07/2018 10 :26 AM CDT Last Filed Vital Signs Vital Sign Reading Time Taken Comments Blood Pressure 127/81 09/02/2024 1:11 PM INTERNATIONAL FIRST OFFICER Pulse 77 09/02/2024 1:11 PM INTERNATIONAL FIRST OFFICER Temperature 36.6 C (97.8 F) 09/02/2024 1:11 PM INTERNATIONAL FIRST OFFICER Respiratory Rate 16 10/25/2023 3:15 PM CDT Oxygen Saturation 97% 07/22/2022 3:00 PM INTERNATIONAL FIRST OFFICER Inhaled Oxygen Concentration - - Weight 90.4 kg (199 lb 4.7 oz) 09/02/2024 1:11 P M INTERNATIONAL FIRST OFFICER Height 174 cm (5' 8.5) 09/02/2024 1:11 PM INTERNATIONAL FIRST OFFICER Body Mass Index 29.86 09/02/2024 1:11 PM INTERNATIONAL FIRST OFFICER Plan of Treatment Upcoming Encounters Date Type Department Care Team (Late st Contact Info) Description 10/27/2024 3:30 PM CDT Comprehensive Visit Department of Orthopedic Surgery in [place], [place] [address] [phone] Laith Mckinnon M.D. [address] [phone] 12/31/2024 3:00 PM CDT Office Visit Department of Urology in [place], [place] [address] [phone] Tatum Orozco APRN, C.N.P. [address] [phone] Health Maintenance Due Date Last [...] Procedure Name Priority Date/Time Associated Diagnosis Comments [place] URINALYSIS AUTO WO MICRO Routine 09/30/2024 11:27 AM INTERNATIONAL FIRST OFFICER ALBUMIN, RANDOM, U Routine 09/30/2024 11:27 AM INTERNATIONAL FIRST OFFICER Proteinuria URINALYSIS WITH MICROSCOPIC IF INDICATED, U Routine 09/30/2024 11:27 AM INTERNATIONAL FIRST OFFICER Dysuria BACTERIAL CULTURE, AEROBIC + SUSC, URINE Routine 09/30/2024 11:27 AM INTERNATIONAL FIRST OFFICER Dysuria BASIC METABOLIC PANEL, S/P Routine 09/30/2024 11:19 AM INTERNATIONAL FIRST OFFICER Diabetes Mellitus Type 2 Peripheral Neuropathy (HCC) ALBUMIN, RANDOM, U Routine 09/12/2024 8: 23 AM INTERNATIONAL FIRST OFFICER Proteinuria MR KNEE RIGHT WITHOUT IV CONTRAST RAD - Routine (most inpatients and all outpatients) 09/12/2024 7:56 AM INTERNATIONAL FIRST OFFICER Pain Knee Right HEMOGLOBIN A1C, B Routine 09/02/2024 12:15 PM INTERNATIONAL FIRST OFFICER Diabetes Mellitus Type 2 Without Complication (HCC) ALBUMIN, RANDOM, U Routine 09/02/2024 12:13 PM INTERNATIONAL FIRST OFFICER Diabetes Mellitus Type 2 Without Complication (HCC) URINALYSIS WITH MICROSCOPIC Routine 09/02/2024 12:13 PM INTERNATIONAL FIRST OFFICER Hematuria BACTERIAL CULTURE, AEROBIC + SUSC, URINE Routine 09/02/2024 12:13 PM INTERNATIONAL FIRST OFFICER Dysuria LIPID PANEL, S Routine 10/11/2023 10:36 AM INTERNATIONAL FIRST OFFICER Hyperlipidemia Diabetes Mellitus Type 2 Without Complication [...] if Indicated: Urine, Midstream (09/30/2024 11:27 AM INTERNATIONAL FIRST OFFICER) Source Urine, Urine, Midstream 09/30/2024 11:27 AM INTERNATIONAL FIRST OFFICER OWAT Clarity Clear Clear 09/30/2024 11:32 AM INTERNATIONAL FIRST OFFICER OWAT Color Yellow 09/30/2024 11:32 AM INTERNATIONAL FIRST OFFICER OWAT Comment: ----REFERENCE VALUE---- Colorless Yellow Dina Blood Small(A) Negative 09/30/2024 11:32 AM INTERNATIONAL FIRST OFFICER OWAT Nitrite Negative Negative 09/30/2024 11:32 AM INTERNATIONAL FIRST OFFICER OWAT Leukocyte Esterase Negative Negative 09/30/2024 11:32 AM INTERNATIONAL FIRST OFFICER OWAT Protein 100(A) mg/dL 09/30/2024 11:32 AM INTERNATIONAL FIRST OFFICER OWAT Comment: ----REFERENCE VALUE---- Negative Trace Glucose Negative Negative mg/dL 09/30/2024 11:32 AM INTERNATIONAL FIRST OFFICER OWAT Ketone Negative Negative mg/dL 09/30/2024 11:32 AM INTERNATIONAL FIRST OFFICER OWAT Bilirubin Negative Negative 09/30/2024 11:32 AM INTERNATIONAL FIRST OFFICER OWAT pH 6.5 5.0 - 8.0 09/30/2024 11:32 AM INTERNATIONAL FIRST OFFICER OWAT Specific [place] 1.019 1.001 - 1.035 09/30/2024 11:32 AM INTERNATIONAL FIRST OFFICER OWAT Urobilinogen 0.2 0.2 - 1.0 mg/dL 09/30/2024 11:32 AM INTERNATIONAL FIRST OFFICER OWAT Urine (Urine, Midstream) 09/30/2024 11:27 AM INTERNATIONAL FIRST OFFICER 09/30/2024 11:27 AM INTERNATIONAL FIRST OFFICER us Diamond Wiggins M.D. LAB URINE ORDERABLES Fin al Result Performing Organization Address [facility] Co de Phone Number [facility] [address] [place] [address], [facility] [place] [address], [place] [address] * (ABNORMAL) Microscopic Automated (09/30/2024 11:27 AM INTERNATIONAL FIRST OFFICER) White Blood Cells None Seen /hpf 09/30/2024 11:42 AM INTERNATIONAL FIRST OFFICER OWAT Comment: ----REFERENCE VALUE---- Males: 0-3 Females: 0-10 Unknown: 0-10 Red Blood Cells 11-20(A) 0 - 2 /hpf 11:42 AM INTERNATIONAL FIRST OFFICER OWAT Dysmorphic Red Blood Cells <=25 <=25 % 09/30/2024 11:42 AM INTERNATIONAL FIRST OFFICER OWAT Hyaline Casts 1-3 /lpf 09/30/2024 11:42 AM INTERNATIONAL FIRST OFFICER OWAT Squamous Cells Occ-3 /hpf 09/30/2024 11:42 AM INTERNATIONAL FIRST OFFICER OWAT Urine 09/30/2024 11:2 7 AM INTERNATIONAL FIRST OFFICER 09/30/2024 11:27 AM INTERNATIONAL FIRST OFFICER us Diamond Wiggins M.D. LAB URINE ORDERABLES Fin al Result Performing Organization Address City/[facility]/ZIP Co de Phone Number [facility] [address] [place] [address], [place] OW[facility] in [place] [address] [place] [address] * (ABNORMAL) Bacterial Culture, Aerobic + Susceptibility, Urine (09/30/2024 11:27 AM INTERNATIONAL FIRST OFFICER) Only the most recent of2 resultswithin the time period is included. Urine Culture ESCHERICHIA COLI 10,000-100,000 cfu/mL (A) 10/02/2024 8:27 AM INTERNATIONAL FIRST OFFICER MKTO Urine (Urine, Midstream) 09/30/2024 11:27 AM INTERNATIONAL FIRST OFFICER 09/30/2024 1:56 PM INTERNATIONAL FIRST OFFICER Comment:Specimen Source Site : Urine Narrative Organism [...] AL ORDERABLES Final Result Performing Organization Address City/[facility]/ZIP Co de Phone Number [facility] [address] [place] [address], [facility] MKTO [facility] [place] [address] [place] [address] * (ABNORMAL) Albumin, Random, Urine (09/30/2024 11:27 AM INTERNATIONAL FIRST OFFICER) Only the most recent of3 resultswithin the time period is included. Microalbumin 588.0 mg/L 09/30/2024 12:49 PM INTERNATIONAL FIRST OFFICER OWAT Creatinine 137 mg/dL 09/30/2024 12:17 PM INTERNATIONAL FIRST OFFICER OWAT Albumin/Creatinin e Ratio 429(H) <25 mg/g 09/30/2024 12:49 PM INTERNATIONAL FIRST OFFICER OWAT Urine (Urine, Midstream) 09/30/2024 11:27 AM INTERNATIONAL FIRST OFFICER 09/30/2024 11:27 AM INTERNATIONAL FIRST OFFICER us Diamond Wiggins M.D. LAB URINE ORDERABLES Fin al Result [facility] [address] [place] [address], [facility] [place] [address] [place] [address] * (ABNORMAL) Basic Metabolic Panel (09/30/2024 11:19 AM INTERNATIONAL FIRST OFFICER) Potassium, P 4.0 3.6 - 5.2 mmol/L 09/30/2024 11:47 AM INTERNATIONAL FIRST OFFICER OWAT Sodium, P 136 135 - 145 mmol/L 09/30/2024 11:47 AM INTERNATIONAL FIRST OFFICER OWAT Chloride, P 100 98 - 107 mmol/L 09/30/2024 11:47 AM INTERNATIONAL FIRST OFFICER OWAT Bicarbonate, P 22 22 - 29 mmol/L 09/30/2024 11:47 AM INTERNATIONAL FIRST OFFICER OWAT Anion Gap, P 14 7 - 15 09/30/2024 11:47 AM INTERNATIONAL FIRST OFFICER OWAT BUN (Blood Urea Nitrogen), P 10 6 - 21 mg/dL 09/30/2024 11:47 AM INTERNATIONAL FIRST OFFICER OWAT Creatinine 0.82 0.59 - 1.04 mg/dL 09/30/2024 11:47 AM INTERNATIONAL FIRST OFFICER OWAT Estimated GFR (eGFR) 87 >=60 mL/min/BSA 09/30/2024 11:47 AM INTERNATIONAL FIRST OFFICER OWAT Comment: Estimated GFR calculated using the 2020 CKD_EPI creatinine equation. Calcium, Total, P 9.4 8.6 - 10.0 mg/dL 09/30/2024 11:47 AM INTERNATIONAL FIRST OFFICER OWAT Glucose, P 163(H) 70 - 140 mg/dL 09/30/2024 11:47 AM INTERNATIONAL FIRST OFFICER OWAT Blood (Blood, Venous) 09/30/2024 11:19 AM INTERNATIONAL FIRST OFFICER 09/30/2024 11:25 AM INTERNATIONAL FIRST OFFICER us Diamond Wiggins M.D. LAB BLOOD ADD-ON Final R esult [facility] [address] [place] [address], [facility] [place] [address] [place] [address] * MR Knee Right without IV Contrast (09/12/2024 7:56 AM INTERNATIONAL FIRST OFFICER) Anatomical Region Laterality Modality Lower Extremity, Knee, Muscu loskeletal RST LOS, Musculoskeletal ARZ LOS, Muskuloskeletal FLA LOS Right Magne tic Resonance Impressions 09/12/2024 8:06 AM INTERNATIONAL FIRST OFFICER 1. Equivocal horizontal oblique tears of the [...] knee joint effusion. Narrative 09/12/2024 8:06 AM INTERNATIONAL FIRST OFFICER EXAM: MR KNEE RIGHT WITHOUT IV CONTRAST [...] * (ABNORMAL) Hemoglobin A1c (09/02/2024 12:15 PM INTERNATIONAL FIRST OFFICER) Hemoglobin A1c, B 6.2(H) 4.2 - 5.6 % 09/02/2024 5:27 PM INTERNATIONAL FIRST OFFICER AUST Comment: Hemoglobin A1c values of 5.7-6.4 percent indicate an increased risk for developing diabetes mellitus. In diabetic patients, HbA1c goals should be discussed with healthcare provider. Blood (Blood, Venous) 09/02/2024 12:15 PM INTERNATIONAL FIRST OFFICER 09/02/2024 12:27 PM INTERNATIONAL FIRST OFFICER Diamond Wiggins M.D. LAB BLOOD ADD-ON Final R esult [facility] [address] [place] [address], [facility] [address] [place] [address] * (ABNORMAL) Urinalysis, with Microscopic: Urine, Midstream (09/02/2024 12:13 PM INTERNATIONAL FIRST OFFICER) Source Urine, Urine, Midstream 09/02/2024 12:34 PM INTERNATIONAL FIRST OFFICER OWAT Clarity Clear Clear 09/02/2024 12:34 PM INTERNATIONAL FIRST OFFICER OWAT Color Dina 09/02/2024 12:34 PM INTERNATIONAL FIRST OFFICER OWAT Comment: ----REFERENCE VALUE---- Colorless Yellow Dina Blood Small(A) Negative 09/02/2024 12:34 PM INTERNATIONAL FIRST OFFICER OWAT Nitrite Negative Negative 09/02/2024 12:34 PM INTERNATIONAL FIRST OFFICER OWAT Leukocyte Esterase Trace(A) Negative 09/02/2024 12:34 PM INTERNATIONAL FIRST OFFICER OWAT Protein Trace mg/dL 09/02/2024 12:34 PM INTERNATIONAL FIRST OFFICER OWAT Comment: ----REFERENCE VALUE---- Negative Trace Glucose Negative Negative mg/dL 09/02/2024 12:34 PM INTERNATIONAL FIRST OFFICER OWAT Ketone Negative Negative mg/dL 09/02/2024 12:34 PM INTERNATIONAL FIRST OFFICER OWAT Bilirubin Negative Negative 09/02/2024 12:34 PM INTERNATIONAL FIRST OFFICER OWAT pH 6.0 5.0 - 8.0 09/02/2024 12:34 PM INTERNATIONAL FIRST OFFICER OWAT Specific [place] 1.007 1.001 - 1.035 09/02/2024 12:34 PM INTERNATIONAL FIRST OFFICER OWAT Urobilinogen 0.2 0.2 - 1.0 mg/dL 09/02/2024 12:34 PM INTERNATIONAL FIRST OFFICER OWAT White Blood Cells 4-10 /hpf 09/02/2024 12:38 PM INTERNATIONAL FIRST OFFICER OWAT Comment: ----REFERENCE VALUE---- Males: 0-3 Females: 0-10 Unknown: 0-10 Red Blood Cells Occ-2 0 - 2 /hpf 12:38 PM INTERNATIONAL FIRST OFFICER OWAT Bacteria Present(A) None Seen 09/02/2024 12:38 PM INTERNATIONAL FIRST OFFICER OWAT Urine (Urine, Midstream) 09/02/2024 12:13 PM INTERNATIONAL FIRST OFFICER 09/02/2024 12:28 PM INTERNATIONAL FIRST OFFICER us Diamond Wiggins M.D. LAB URINE ORDERABLES Fin al Result [facility] [address] [place] [address], [facility] [place] [address] [place] [address] * (ABNORMAL) Lipid Panel (10/11/2023 10:36 AM INTERNATIONAL FIRST OFFICER) Triglycerides 375(H) mg/dL 10/11/2023 11:48 AM INTERNATIONAL FIRST OFFICER OWAT Comment: ----REFERENCE VALUE---- Normal: <150 mg/dL Borderline High: 150-199 mg/dL High: 200-499 mg/dL Very High: > or =500 mg/dL Cholesterol, Total 262(H) mg/dL 2023 11:48 AM INTERNATIONAL FIRST OFFICER OWAT Comment: ----REFERENCE VALUE---- Desirable: < 200 mg/dL Borderline High: 200 - 239 mg/dL High: > or = 240 mg/dL Cholesterol, LDL, Calculated 148(H) mg/dL 10/11/2023 11:48 AM INTERNATIONAL FIRST OFFICER OWAT Comment: ----REFERENCE VALUE---- Desirable: <100 mg/dL Above Desirable: 100-129 mg/dL Borderline High: 130-159 mg/dL High: 160-189 mg/dL Very High: >=190 mg/dL ----ADDITIONAL INFORMATION---- LDL cholesterol calculated using the Souza/NIH equation. Cholesterol, HDL 44(L) >=50 mg/dL 10/11/19 11:48 AM INTERNATIONAL FIRST OFFICER OWAT Cholesterol, Non-HDL, Calculated 218(H) mg/dL 10/11/2023 11:48 AM INTERNATIONAL FIRST OFFICER OWAT Comment: ----REFERENCE VALUE---- Desirable: <130 mg/dL Above Desirable: 130-159 mg/dL Borderline High: 160-189 mg/dL High: 190-219 mg/dL Very High: > or =220 mg/dL Fasting (8 HR or more) Yes 10/11/2023 10:50 AM INTERNATIONAL FIRST OFFICER OWAT Blood (Blood, Venous) 10/11/2023 10:36 AM INTERNATIONAL FIRST OFFICER 10/11/2023 10:50 AM INTERNATIONAL FIRST OFFICER us Diamond Wiggins M.D. LAB BLOOD ADD-ON Final R esult [facility] [address] [place] [address], [facility] [place] [address] [place] [address] * CT Chest without IV Contrast (03/19/2022 [...] Most Recently Relevant to Health Maintenance Insurance [facility] Advance Directives For more information, please contact: [phone] * Full Code (Latest Code Status on File) Date Activated Date Inactivated Comments 04/26/2020 3:55 AM 04/26/2020 2:23 PM Question Answer Comments Full Code: Discussed Care Teams Spool Carrier Relationship Specialty Start Date End Date Diamond Wiggins M.D. [address], [place] [phone] PCP - General Family Medicine 01/22/23
--- OUTSIDE RECORDS SUMMARY | 2024-10-24 15:02 | XMS_ITS | Encounter Summary ---
Author Organization [facility] Address [address] [place] [address] Care Team Providers Care Public Relations Supervisor Name Role Phone Diamond Wiggins M.D. Primary Care Provider + Reason for Visit * Reason Onset Date Comments Results 09/03/2024 Encounter Details Date Type Department Care Team (Late st Contact Info) Description 09/03/2024 Clinical Communication Department of Family Medicine, [facility], in [place], [place] [address] [place] [phone] Diamond Wiggins M.D. [address] [place] [phone] Results Social History Tobacco Use Types Packs/Day Years Used Date Smoking Tobacco: Every Day Cigarettes 1 31.2 Started: 08/28/1993 Passive Smoke Exposure: Current Smokeless Tobacco: Never Alcohol Use Standard Drinks/Week Comments No 0 (1 standard drink = 0.6 oz pur e alcohol) [facility] Utilities Answer Date Recorded In [...] How often do you attend episcopal or presybeterian serv ices? Never 11/01/2022 Do you belong [...] Score 2 09/01/2024 [facility] [place] of Occupat ional Health - Occupational Stress [...] your living situation today? I have a [facility] place to live 03/11/2024 Education Answer Date Recorded What is the highest level of school you have completed or the highest degree you have received? 12th grade 01/05/2020 Comments No Sex and Gender Information Value Date Recorded Sex Assigned at Female 01/07/2018 10:26 AM CDT Legal Sex Female 7:46 PM SAFETY TECHNICIAN Gender Identity Female 01/07/2018 10:26 AM CDT Sexual Orientation Straight 01/07/2018 10 :26 AM CDT documented as of this encounter Plan of Treatment Upcoming Encounters Date Type Department Care Team (Late st Contact Info) Description 10/27/2024 3:30 PM CDT Comprehensive Visit Department of Orthopedic Surgery in [place], [place] [address] [place] [phone] Laith Mckinnon M.D. [address] [place] [phone] 12/31/2024 3:00 PM CDT Office Visit Department of Urology in [place], [place] [address] [place] [phone] Tatum Orozco APRN, C.N.P. [address], [place] [phone] documented as of this encounter Results * (ABNORMAL) Albumin, Random, Urine (09/12/2024 8:23 AM SAFETY TECHNICIAN) Microalbumin 245.0 mg/L 09/12/2024 9:08 AM SAFETY TECHNICIAN OWAT Creatinine 81 mg/dL 09/12/2024 9:08 AM SAFETY TECHNICIAN OWAT Albumin/Creatinin e Ratio 302(H) <25 mg/g 09/12/2024 9:08 AM SAFETY TECHNICIAN OWAT Urine (Urine, Midstream) 09/12/2024 8:23 AM SAFETY TECHNICIAN 09/12/2024 8:36 AM SAFETY TECHNICIAN us Diamond Wiggins M.D. LAB URINE ORDERABLES Fin al Result [facility] [address] [place] [address], [facility] OWAT [facility] [place] [address] [place] [address] documented in this encounter Visit Diagnoses Diagnosis Proteinuria- Primary Other Tear Medial Meniscus Current Injury Right Knee Initial- Primary documented in this encounter Additional Health Concerns Assessment Noted Time PHQ-9 Depression Total Score: 6 09/01/19 25 10:41 PM SAFETY TECHNICIAN documented as of this encounter Care Teams Public Relations Supervisor Relationship Specialty Start Date End Date Diamond Wiggins M.D. [address] [place] [phone] PCP - General Family Medicine 01/22/23 documented as of this encounter
--- OUTSIDE RECORDS SUMMARY | 2024-10-24 15:02 | XMS_ITS | Encounter Summary ---
Author Organization [facility] Address [address] [place] [address] Care Team Providers Care Repair Service Clerk Name Role Phone Diamond Wiggins M.D. Primary Care Provider + Encounter Details Date Type Department Care Team (Late st Contact Info) Description 09/02/2024 Results Follow-Up Department of Family Medicine, [facility], in [place], [place] [address] [place] [phone] Diamond Wiggins M.D. [address] [place] [phone] Urinalysis, with Microscopic: Urine, Midstream, Bacterial Culture, Aerobic + Susceptibility, Urine, Albumin, Random, Urine, Hemoglobin A1c Social History Tobacco Use Types Packs/Day Years Used Date Smoking Tobacco: Every Day Cigarettes 1 31.2 Started: 08/28/1993 Passive Smoke Exposure: Current Smokeless Tobacco: Never Alcohol Use Standard Drinks/Week Comments No 0 (1 standard drink = 0.6 oz pur e alcohol) [facility] Utilities Answer Date Recorded In the past 12 months has [facility] [employer], gas, oil, or water [employer] threatened to shut off services in your [...] Never 11/01/2022 How often do you attend scientologist or methodist serv ices? Never 11/01/2022 Do you belong to any clubs o r organizations such as scientologist groups, unions, fraternal or athletic groups, or [...] Answer Date Recorded PHQ-2 Score 2 09/01/2024 [facility] - Occupational Stress Questionnaire [...] AM CDT Legal Sex Female 7:46 PM ER RN Gender Identity Female 01/07/2018 10:26 AM CDT Sexual Orientation Straight 01/07/2018 10 :26 AM CDT documented as of this encounter Plan of Treatment Upcoming Encounters Date Type Department Care Team (Late st Contact Info) Description 10/27/2024 3:30 PM CDT Comprehensive Visit Department of Orthopedic Surgery in [place], [place] [address] [place] [address] Laith Mckinnon M.D. [address] [place] [phone] 12/31/2024 3:00 PM CDT Office Visit Department of Urology in [place], [place] [address] [phone] Tatum Orozco APRN, C.N.P. [address] [phone] documented as of this encounter Visit Diagnoses Diagnosis Acute Cystitis Without Hematuria- Primary Other Tear Medial Meniscus Current Injury Right Knee Initial- Primary documented in this encounter Additional Health Concerns Assessment Noted Time PHQ-9 Depression Total Score: 6 09/01/19 25 10:41 PM ER RN documented as of this encounter Care Teams Repair Service Clerk Relationship Specialty Start Date End Date Diamond Wiggins M.D. [address] [phone] PCP - General Family Medicine 01/22/23 documented as of this encounter
--- OUTSIDE RECORDS SUMMARY | 2024-10-24 15:02 | XMS_ITS | Encounter Summary ---
Author Organization [facility] Address [address] [place] [address] Care Team Providers Care In Classroom Tutor Name Role Phone Diamond Wiggins M.D. Primary Care Provider + Encounter Details Date Type Department Care Team (Latest Contact Info) Description 09/12/2024 8:21 AM AIRLINE DISPATCHER - 09/12/2024 11:59 PM [facility] Encounter Department of Laboratory Medicine in [place], [place] [address] [address] Diamond Wiggins M.D. [address] [place] [phone] Proteinuria Discharge Disposition: Home or Self Care Social History Tobacco Use Types Packs/Day Years Used Date Smoking Tobacco: Every Day Cigarettes 1 31.2 Started: 08/28/1993 Passive Smoke Exposure: Current Smokeless Tobacco: Never Alcohol Use Standard Drinks/Week Comments No 0 (1 standard drink = 0.6 oz pur e alcohol) [facility] Utilities Answer Date Recorded In the past 12 months has e [employer], gas, oil, or water [employer] threatened to shut off services in your [...] How often do you attend alevism or mormonism serv ices? Never 11/01/2022 Do [...] Date Recorded PHQ-2 Score 2 09/01/2024 [facility] [place] of Occupat ional Health - Occupational Stress [...] your living situation today? I have a [facility] place to live 03/11/2024 Education Answer Date Recorded What is the highest level of school you have completed or the highest degree you have received? 12th grade 01/05/2020 Comments No Sex and Gender Information Value Date Recorded Sex Assigned at Female 01/07/2018 10:26 AM CDT Legal Sex Female 7:46 PM AIRLINE DISPATCHER Gender Identity Female 01/07/2018 10:26 AM CDT [...] Comprehensive Visit Department of Orthopedic Surgery in [place], [place] [address] [address] Laith Mckinnon M.D. [address] [place] [address] 12/31/2024 3:00 PM CDT Office Visit Department of Urology in [place], [place] [address] [place] [address] Tatmu Orozco APRN, C.N.P. [address] [place] [phone] documented as of this encounter Procedures Procedure Name Priority Date/Time Associated Diagnosis Comments ALBUMIN, RANDOM, U Routine 09/12/2024 8: 23 AM AIRLINE DISPATCHER Proteinuria documented in this encounter Results * (ABNORMAL) Albumin, Random, Urine (09/12/2024 8:23 AM AIRLINE DISPATCHER) Microalbumin 245.0 mg/L 09/12/2024 9:08 AM AIRLINE DISPATCHER OWAT Creatinine 81 mg/dL 09/12/2024 9:08 AM AIRLINE DISPATCHER OWAT Albumin/Creatinin e Ratio 302(H) <25 mg/g 09/12/2024 9:08 AM AIRLINE DISPATCHER OWAT Urine (Urine, Midstream) 09/12/2024 8:23 AM AIRLINE DISPATCHER 09/12/2024 8:36 AM AIRLINE DISPATCHER us Diamond Wiggins M.D. LAB URINE ORDERABLES Fin al Result [facility] [address] [place] [address], [facility] OWAT [facility] in [place] [address] [place] [address] documented in this encounter Visit Diagnoses Diagnosis Proteinuria Other Tear Medial Meniscus Current Injury Right Knee Initial- Primary documented in this encounter Additional Health Concerns Assessment Noted Time PHQ-9 Depression Total Score: 6 09/01/19 25 10:41 PM AIRLINE DISPATCHER documented as of this encounter Care Teams In Classroom Tutor Relationship Specialty Start Date End Date Diamond Wiggins M.D. [address] [place] [phone] PCP - General Family Medicine 01/22/23 documented as of this encounter
--- OUTSIDE RECORDS SUMMARY | 2024-10-24 15:02 | XMS_ITS | Encounter Summary ---
Author Organization [facility] Address [address] [place] [address] Care Team Providers Care Social Worker School Name Role Phone Diamond Wiggins M.D. Primary Care Provider + Reason for Referral * Outpatient (Routine) - Closed Specialty Diagnoses / Procedures Referred By Maine baca Referred To Contact Nephrology and Hypertension Diagnoses Proteinuria Procedures Nephrology - Abnormal urine sediment/proteinuria eConsult Diamond Wiggins M.D. [address] [place] [address] Phone: tel: fax: [facility] Referral ID Status Reason Start Date Expiration Date Visits Re quested Visits Authorized [id number] Closed 09/30/2024 12/31/2025 1 1 X RAY DEVELOPING MACHINE OPERATOR Encounter Details Date Type Department Care Team (Late st Contact Info) Description 09/30/2024 Results Follow-Up Department of Family Medicine, [facility], in [place], [place] [address] [place] [address] Diamond Wiggins M.D. [address] [place] [address] Urinalysis with Microscopic if Indicated: [...] = 0.6 oz pur e alcohol) [facility] Utilities Answer Date Recorded In the past 12 months has e [employer], gas, oil, or water [email or web address] threatened to shut off services in your [...] How often do you attend confucianism or mandaeism serv ices? Never 11/01/2022 Do you belong [...] Date Recorded PHQ-2 Score 2 09/01/2024 [facility] [place] of Occupat ional Health - Occupational Stress [...] AM CDT Legal Sex Female 7:46 PM X RAY DEVELOPING MACHINE OPERATOR Gender Identity Female 01/07/2018 10:26 AM CDT Sexual Orientation Straight 01/07/2018 10 :26 AM CDT documented as of this encounter Plan of Treatment Upcoming Encounters Date Type Department Care Team (Late st Contact Info) Description 10/27/2024 3:30 PM CDT Comprehensive Visit Department of Orthopedic Surgery in [place], [place] [address] [phone] Laith Mckinnon M.D. [address] [phone] 12/31/2024 3:00 PM CDT Office Visit Department of Urology in [place], [place] [address] [phone] Tatum Orozco APRN, C.N.P. [address] [phone] documented as of this encounter Visit Diagnoses Diagnosis Proteinuria- Primary Cystitis Unspecified With Hematuria Other Tear Medial Meniscus Current Injury Right Knee Initial- Primary documented in this encounter Additional Health Concerns Assessment Noted Time PHQ-9 Depression Total Score: 6 09/01/19 25 10:41 PM X RAY DEVELOPING MACHINE OPERATOR documented as of this encounter Care Teams Social Worker School Relationship Specialty Start Date End Date Diamond Wiggins M.D. [address] [phone] PCP - General Family Medicine 01/22/23 documented as of this encounter
--- OUTSIDE RECORDS SUMMARY | 2024-10-24 15:02 | XMS_ITS | Encounter Summary ---
Author Organization [facility] Address [address] [place] [address] Care Team Providers Care Firing Pin Gauger Name Role Phone Diamond Wiggins M.D. Primary Care Provider + Reason for Visit * Outpatient (Routine) - Closed Specialty Diagnoses / Procedures Referred By [place] baca Referred To Contact Nephrology and Hypertension Diagnoses Proteinuria Procedures Nephrology - Abnormal urine sediment/proteinuria eConsult Diamond Wiggins M.D. [address] [place] [phone] Phone: tel: fax: [facility] Referral ID Status Reason Start Date Expiration Date Visits Re quested Visits Authorized [id number] Closed 09/30/2024 12/31/2025 1 1 Encounter Details Date Type Department Care Team (Late st Contact Info) Description 10/02/2024 4:45 PM TRAFFIC ANALYSIS TECHNICIAN Internal E-Consult Division of Nephrology and Hypertension in [place], [place] [address] [place] [phone] Aditya Sheikh M.D. [address] [place] [phone] Proteinuria Social History Tobacco Use Types Packs/Day Years Used Date Smoking Tobacco: Every Day Cigarettes 1 31.2 Started: 08/28/1993 Passive Smoke Exposure: Current Smokeless Tobacco: Never Comments:2 packs/day from to 2009 Alcohol Use Standard Drinks/Week Comments Not Currently 0 (1 standard drink = 0.6 oz pur e alcohol) [facility] Utilities Answer Date Recorded In the past [...] Never 11/01/2022 How often do you attend denominational or roman catholic serv ices? Never 11/01/2022 Do you belong to any clubs o r organizations such as denominational groups, unions, fraternal or athletic groups, or [...] Answer Date Recorded PHQ-2 Score 2 09/01/2024 [place] [place] [facility] Questionnaire Answer Date [...] AM CDT Legal Sex Female 7:46 PM TRAFFIC ANALYSIS TECHNICIAN Gender Identity Female 01/07/2018 10:26 AM [...] about SGLT2i only because of UTI history. FIC ANALYSIS TECHNICIAN documented in this encounter Plan of Treatment Upcoming Encounters Date Type Department Care Team (Late st Contact Info) Description 10/27/2024 3:30 PM CDT Comprehensive Visit Department of Orthopedic Surgery in [place], [place] [address] [place] [address] Laith Mckinnon M.D. [address] [place] [address] 12/31/2024 3:00 PM CDT Office Visit Department of Urology in [place], [place] [address] [place] [address] Tatum Orozco, ALEJANDRA, C.N.P. [address] [place] [address] documented as of this encounter Visit Diagnoses Diagnosis Proteinuria Other Tear Medial Meniscus Current Injury Right Knee Initial- Primary documented in this encounter Additional Health Concerns Assessment Noted Time PHQ-9 Depression Total Score: 6 09/01/19 25 10:41 PM TRAFFIC ANALYSIS TECHNICIAN documented as of this encounter Care Teams Firing Pin Gauger Relationship Specialty Start Date End Date Diamond Wiggins M.D. [address] [address] PCP - General Family Medicine 01/22/23 documented as of this encounter
--- OUTSIDE RECORDS SUMMARY | 2024-10-24 15:02 | XMS_ITS | Encounter Summary ---
Author Organization [facility] Address [address] [place] [address] Care Team Providers Care Environmental Protection Specialist Name Role Phone Diamond Wiggins M.D. Primary Care Provider + Reason for Referral * Outpatient (Routine) - Authorized Specialty Diagnoses / Procedures Referred By [place] baca Referred To Contact Urology Tatum Orozco APRN, C.N.P. [address] [place] [address] Phone: tel: fax: [facility] Region Referral ID Status Reason Start Date Expiration Date V isits Requested Visits Authorized [id number] Authorized 09/30/2024 04/01/2026 1 1 ASSEMBLER Reason for Visit * Reason Comments Consult Dysuria * Outpatient (Routine) - Closed Specialty Diagnoses / Procedures Referred By [place] baca Referred To Contact Urology Diagnoses Dysuria Diamond Wiggins M.D. [address] [place] [address] Phone: tel: fax: [facility] Region Referral ID Status Reason Start Date Expiration Date Visits Re quested Visits Authorized [id number] Closed 09/02/2024 03/04/2026 1 1 Encounter Details Date Type Department Care Team (Latest Contact Info) Description 09/30/2024 2:00 PM RAIL ASSEMBLER Comprehensive Visit Department of Urology in [place], [place] [address] [place] [address] Tatum Orozco APRN, C.N.P. [address] [place] [phone] Infection Urinary Tract Personal History (Primary Dx); [...] 0.6 oz pur e alcohol) [facility] [employer]ities Answer Date Recorded In the past 12 months has [employer] gas, oil, or water [employer] threatened to shut off services in your [...] Never 11/01/2022 How often do you attend gnosticism or taoist serv ices? Never 11/01/2022 Do you belong to any clubs o r organizations such as gnosticism groups, unions, fraternal or athletic groups, or [...] Answer Date Recorded PHQ-2 Score 2 09/01/2024 [facility] of Occupat ional [facility] - Occupational Stress Questionnaire Answer Date [...] AM CDT Legal Sex Female 7:46 PM RAIL ASSEMBLER Gender Identity Female 01/07/2018 10:26 AM CDT [...] History: Procedure Laterality Date CHOLECYSTECTOMY GALLBLADDER SURGERY [id number] LYMPH NODE BIOPSY Chest and neck TOTAL HYSTERECTOMY [id number] TUBAL LIGATION [id number] [4] Family History Problem Relation Name Age [...] MOUTH TWICE DAILY AND 3 CAPSULES AT [id number] capsule 11 magnesium 200 mg tablet Take [...] Alcohol use: Not Currently Drug use: Never ASSEMBLER documented in this encounter Miscellaneous Notes * Assessment & Plan Note - Tatum Orozco APRN, C.N.P. - 09/30/2024 2:00 PM CSTAssociated Problem(s): Incontinence Urinary Currently using Oxybutynin for urgency and frequency. Discussed potential long- term side effects. Continue Oxybutynin for now. Reassess the need for it after starting vaginal estrogen cream. ASSEMBLER documented in this encounter Plan of Treatment Upcoming Encounters Date Type Department Care Team (Late st Contact Info) Description 10/27/2024 3:30 PM CDT Comprehensive Visit Department of Orthopedic Surgery in [place], [place] [address] [address] Laith Mckinnon M.D. [address] [phone] 12/31/2024 3:00 PM CDT Office Visit Department of Urology in [place], [place] [address] [phone] Tatum Orozco APRN, C.N.P. [address] [phone] Scheduled Referrals Name Type Priority [...] Total Score: 6 09/01/19 25 10:41 PM RAIL ASSEMBLER documented as of this encounter Care Teams Environmental Protection Specialist Relationship Specialty Start Date End Date Diamond Wiggins M.D. [address] [phone] PCP - General Family Medicine 01/22/23 documented as of this encounter
[2024-10-24 15:03] VITALS: BP 127/63; PULSE 86; RESP 20; TEMP 36.4; O2SAT 97; BMI 30.7
--- OUTSIDE RECORDS SUMMARY | 2024-10-24 15:03 | XMS_ITS | Encounter Summary ---
Author Organization [facility] Address [address] [place] [address] Care Team Providers Care Supervisor Small Appliance Assembly Name Role Phone Diamond Wiggins M.D. Primary Care Provider + Encounter Details Date Type Department Care Team (Late st Contact Info) Description 10/02/2024 Orders Only Department of Family Medicine, [facility], in [place], [place] [address], [place] [address] Diamond Wiggins M.D. [address] [place] [phone] Proteinuria (Primary Dx) Social History Tobacco [...] How often do you attend protestant or hindu serv ices? Never 11/01/2022 Do [...] Answer Date Recorded PHQ-2 Score 2 09/01/2024 [facility] [place] of Occupat ional Health - [...] your living situation today? I have a [facility] place to live 03/11/2024 Education Answer Date Recorded What is the highest level of school you have completed or the highest degree you have received? 12th grade 01/05/2020 Comments No Sex and Gender Information Value Date Recorded Sex Assigned at Female 01/07/2018 10:26 AM CDT Legal Sex Female 7:46 PM CASH TELLER Gender Identity Female 01/07/2018 10:26 AM CDT Sexual Orientation Straight 01/07/2018 10 :26 AM CDT documented as of this encounter Plan of Treatment Upcoming Encounters Date Type Department Care Team (Late st Contact Info) Description 10/27/2024 3:30 PM CDT Comprehensive Visit Department of Orthopedic Surgery in [place], [place] [address] [place] [phone] Laith Mckinnon M.D. [address] [place] [phone] 12/31/2024 3:00 PM CDT Office Visit Department of Urology in [place], [place] [address], [place] [address] Tatum Orozco APRN, C.N.P. [address] [place] [address] Scheduled Orders Name Type Priority [...] Score: 6 09/01/19 25 10:41 PM CASH TELLER documented as of this encounter Care Teams Supervisor Small Appliance Assembly Relationship Specialty Start Date End Date Diamond Wiggins M.D. [address] [place] [phone] PCP - General Family Medicine 01/22/23 documented as of this encounter
--- OUTSIDE RECORDS SUMMARY | 2024-10-24 15:03 | XMS_ITS | Clinical Summary ---
Author Organization [facility] Address [address] [place] [address] Care Team Providers Care Aviation Technician Name Role Phone Diamond Wiggins MD Primary [...] Department Care Team Description 09/24/2024 1:17 PM FLYING INSTRUCTOR - 09/24/2024 2:49 PM [facility] Emergency [facility] [address] [place] [address] Floyd Quinones PA Dysuria (Primary Dx) Discharge [...] Comments Blood Pressure 126/79 09/24/2024 1:13 PM FLYING INSTRUCTOR Pulse 96 09/24/2024 1:13 PM FLYING INSTRUCTOR Temperature 36.3 C (97.3 F) 09/24/2024 1:13 PM FLYING INSTRUCTOR Respiratory Rate 16 09/24/2024 1:13 PM FLYING INSTRUCTOR Oxygen Saturation 97% 09/24/2024 1:13 PM FLYING INSTRUCTOR Inhaled Oxygen Concentration - - Weight 88.9 kg (196 lb) 09/24/2024 1:13 PM FLYING INSTRUCTOR Height 170.2 cm (5' 7) 09/24/2024 1:13 PM FLYING INSTRUCTOR Body Mass Index 30.7 09/24/2024 1:13 PM FLYING INSTRUCTOR Plan of Treatment Health Maintenance Due Date [...] Comments URINALYSIS MICROSCOPIC STAT 09/24/2024 2:02 PM FLYING INSTRUCTOR UA W/ SEDIMENT EXAM REFLEXED PER CRITERIA STAT 09/24/2024 2:02 PM FLYING INSTRUCTOR URINALYSIS MICROSCOPIC STAT 09/24/2024 1:19 PM FLYING INSTRUCTOR from Last 3 Months Results * (ABNORMAL) URINALYSIS MICROSCOPIC (09/24/2024 2:02 PM FLYING INSTRUCTOR) Only the most recent of2 resultswithin the time period is included. RBC 0-2 0-2, None Seen /HPF 09/24/2024 2:18 PM [facility] WBC 3-5 0-2, 3-5, None Seen /HPF 09/24/2024 2:18 PM [facility] BACTERIA Few None Seen, Rare, Few Bacteria/H PF 09/24/2024 2:18 PM [facility] EPITHELIAL CELLS Moderate(A ) None Seen, Few Epi/HPF 09/24/2024 2:18 PM [facility] Urine URINE SPECIMEN / Unknown Non-Blood / Unknown 09/24/2024 2:02 PM FLYING INSTRUCTOR 09/24/2024 2:07 PM FLYING INSTRUCTOR us Floyd RAMIREZ URINE Aracelis l Result [facility] [address] [phone] * (ABNORMAL) UA W/ SEDIMENT EXAM REFLEXED PER CRITERIA (09/24/2024 2:02 PM FLYING INSTRUCTOR) COLOR [place](A) Yellow Color 09/24/2024 2:18 PM [facility] CLARITY Clear Clear Clarity 09/24/2024 2:18 PM [facility] SPECIFIC GRAVITY,URINE <=1.005(A) 1.010, 1.015, 1.020, 1.025 09/24/2024 2:18 PM [facility] PH,URINE 5.5 6.0, 7.0, 8.0, 5.5, 6.5, 7.5, 8.5 09/24/2024 2:18 PM [facility] UROBILINOGEN, QUALITATIVE Increased(A) Normal EU/dl 09/24/2024 2:18 PM [facility] PROTEIN, URINE Trace(A) Negative mg/dL 09/24/2024 2:18 PM [facility] GLUCOSE, URINE 100(A) Negative mg/dL 09/24/2024 2:18 PM [facility] KETONES,URINE Negative Negative mg/dL 09/24/2024 2:18 PM FLYING INSTRUCTOR [facility] BILIRUBIN,URI NE Negative Negative 09/24/2024 2:18 PM [facility] OCCULT BLOOD,URINE Trace(A) Negative 09/24/2024 2:18 PM [facility] NITRITE Positive(A) Negative 09/24/2024 2:18 PM [facility] LEUKOCYTE ESTERASE Negative Negative 09/24/2024 2:18 PM [facility] Urine URINE SPECIMEN / Unknown Non-Blood / Unknown 09/24/2024 2:02 PM FLYING INSTRUCTOR 09/24/2024 2:07 PM [facility] Floyd RAMIREZ URINE Aracelis l Result [facility] [address] [phone] from Last 3 Months Insurance [facility] NON-AR-ITS Care Teams Aviation Technician Relationship Specialty Start Date End Date Diamond Wiggins MD [address] [place] [phone] PCP - General Family Practice 12/14/23
--- NOTE | 2024-10-24 15:20 | ED.GENADULT ---
HPI - General Adult General Chief complaint: Back Injury/Pain Stated complaint: Back Pain Time Seen by Provider: 10/24/24 15:04 Source: patient Mode of arrival: ambulatory Limitations: no limitations History of Present Illness HPI narrative: 49-year-old female coming in today complaining of upper back pain for the last 4 days. Pain is located around the left shoulder blade and radiates down the left back all the way to the buttocks. She states that she has not been able to find a comfortable position in the last 4 days. She was recently diagnosed with a UTI but she feels that the 2 things are not connected. She feels that her UTI symptoms are improving. Patient does have a history of low back pain and sciatica she states. 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 She denies pain with deep inspiration. She denies cough or fever. Of note, patient did have an abdomen and pelvis CT scan done 4 days ago when she was having UTI symptoms and left-sided flank pain at that time, this did not show any evidence of kidney stones. She states that now her pain is much higher along her back. Related Data Home Medications ?Medication ?Instructions ?Recorded ?Confirmed gabapentin .Route 04/28/23 metformin PO TID 04/28/23 simvastatin .Route 04/28/23 duloxetine 60 mg capsule,delayed 60 mg PO 10/01/23 release pantoprazole 40 mg tablet,delayed 40 mg PO 10/01/23 release fluoxetine 40 mg capsule mg PO 10/20/24 gabapentin 100 mg capsule mg PO 10/24/24 metformin 500 mg tablet,extended 500 mg PO BID 10/24/24 10/24/24 release 24 hr ondansetron HCl 4 mg tablet 4 mg PO Q8H PRN nausea/vomiting 10/24/24 10/24/24 Previous Rx's ?Medication ?Instructions ?Recorded cefdinir 300 mg capsule 300 mg PO BID 10 days #20 caps 10/20/24 ondansetron 4 mg disintegrating 4 mg PO Q8H PRN nausea and 10/20/24 tablet vomiting #10 tabs cyclobenzaprine 10 mg tablet 10 mg PO TID PRN muscle spasm #14 10/24/24 tabs Allergies Allergy/AdvReac Type Severity Reaction Status Date / Time hydromorphone (From Dilaudid) Allergy Verified 10/24/24 15:09 Iodinated Contrast Media Allergy Verified 10/24/24 15:09 ibuprofen AdvReac Verified 10/24/24 15:09 Review of Systems Status of ROS: Reports: 10 or more systems reviewed and unremarkable except as noted in History and below [facility] Social History Smoking Status: Current every day smoker What tobacco products do you use: cigarettes Smoking packs per day: 1 Smoking cigarettes per day: 20.0 Years smoked: 31 Smoking pack-years: 31.00 Do you use any of these nicotine containing products: None Second hand tobacco smoke exposure: No How often do you have a drink containing alcohol: never AUDIT-C Alcohol total score: 0 Non-prescribed substance use: denies use service: Yes Exam Narrative: Exam Narrative: Well-nourished well-developed patient in no acute distress. Alert and oriented. Answers questions appropriately. Mood and affect are appropriate. Thoughts are goal oriented and rational. No tangential or magical thinking noted. Patient speaks in full sentences without needing to catch her breath. HEENT: Normocephalic atraumatic. Pupils are equally round reactive to light. Extraocular muscles are intact. Conjunctivae are moist without any icterus noted. Moist mucous membranes. Cardiovascular: Heart is regular rate and rhythm S1 and S2 are present without any murmurs. Lungs: Clear to auscultation bilaterally no wheezes rhonchi or rales are appreciated. Patient takes deep breaths without any discomfort. Abdomen: Soft and nontender nondistended with normal bowel sounds. Back: Has normal appearance. Patient has no tenderness to palpation of the cervical thoracic or lumbar spine. She has tenderness over the paraspinal musculature of the thoracic spine just medial to the left shoulder blade. She does not have any flank pain, no CVA tenderness. Const: Vital Signs, click to edit/add: Vital Signs - 24 hr 10/24/24 15:03 Temperature 97.5 F L Pulse Rate [Right Pulse Oximeter] 86 Respiratory Rate 20 Blood Pressure [Ri ght Upper Arm] 127/63 Pulse Oximetry 97 Oxygen Delivery Me thod Room Air Course Course ED Course: 49-year-old female with back pain does appear to be musculoskeletal in nature as her pain is very easily reproduced with palpation. While she was in the ED today did give her a dose of IM Toradol. Will send the patient home with Flexeril. She already is on duloxetine and gabapentin. Other differential diagnoses considered include kidney stone: UTI symptoms are improving and patient had imaging within the last 4 days. Pain is not located in the flank and she has no CVA tenderness there for this would be less likely. Lung pathology: Patient is not having any shortness of breath or cough. She has no pain with deep inspiration. If her pain does not resolve, would consider further imaging. Shingles: No rash visible at this time. Pain does not follow dermatome. Vital Signs Vital signs: Initial Vital Signs Temperature 97.5 F L 10/24/24 15:03 Temperature Source Temporal Artery Scan 10/24/24 15:03 Pulse Rate 86 10/24/24 15:03 Pulse Rhythm Regular 10/24/24 15:03 Respiratory Rate 20 10/24/24 15:03 Blood Pressure 127/63 10/24/24 15:03 Blood Pressure Mean 84 10/24/24 15:03 Pulse Oximetry 97 10/24/24 15:03 Oxygen Delivery Method Room Air 10/24/24 15:03 Vital Signs Temperature 97.5 F L 10/24/24 15:03 Pulse Rate 86 10/24/24 15:03 Respiratory Rate 20 10/24/24 15:03 Blood Pressure 127/63 10/24/24 15:03 Pulse Oximetry 97 10/24/24 15:03 Oxygen Delivery Method Room Air 10/24/24 15:03 Temperature 97.5 F L 10/24/24 15:03 Pulse Rate 86 10/24/24 15:03 Respiratory Rate 20 10/24/24 15:03 Blood Pressure 127/63 10/24/24 15:03 Pulse Oximetry 97 10/24/24 15:03 Oxygen Delivery Method Room Air 10/24/24 15:03 Medications Administered Medications: Discontinued Medications Generic Name Dose Route Start Last Admin Trade Name Freq PRN Reason Stop Dose Admin Ketorolac Tromethamine 60 mg 10/24/24 15:30 10/24/24 15:34 Ketorolac 60 Mg/2 Ml Inj IM 10/24/24 15:31 60 mg ONCE ONE Administration Medical Decision Making MDM Narrative Medical decision making narrative: 49-year-old female with back pain, musculoskeletal. Plan per above. Discharge Plan Discharge Clinical Impression: Thoracic back pain Patient Disposition: Home, Self-Care Condition: Stable Additional Instructions: Okay to take muscle relaxer as needed/as directed. Okay to use heat to sore area, do not apply heat directly to skin and do not apply for more than 20 minutes at a time. If your pain continues for longer than 1 week, I would recommend you follow-up with your primary care provider for further care. Prescriptions: New cyclobenzaprine 10 mg tablet 10 mg PO TID PRN (Reason: muscle spasm) Qty: 14 0RF No Action metformin PO TID Patient Comments: 400mg at am and noon, 900mg at hs simvastatin .Route gabapentin .Route pantoprazole 40 mg tablet,delayed release (DR/EC) 40 mg PO duloxetine 60 mg capsule,delayed release(DR/EC) 60 mg PO ondansetron HCl 4 mg tablet 4 mg PO Q8H PRN (Reason: nausea/vomiting) gabapentin 100 mg capsule PO metformin 500 mg tablet extended release 24 hr 500 mg PO BID fluoxetine 40 mg capsule PO cefdinir 300 mg capsule 300 mg PO BID 10 Days Qty: 20 0RF ondansetron 4 mg tablet,disintegrating 4 mg PO Q8H PRN (Reason: nausea and vomiting) Qty: 10 0RF Follow Up/Referrals: Provider,Not a Local [Primary Care Provider] - Stand Alone Forms: [employer] Info Instructions
[2024-10-24] MEDS: KETOROLAC 60 MG/2 ML inj IM (15:34)
--- OUTSIDE RECORDS SUMMARY | 2024-10-24 15:41 | XMS_ITS | Encounter Summary ---
Author Organization [facility] Address [address] [place] [address] Care Team Providers Care Cd Mixer Name Role Phone Diamond Wiggins M.D. Primary Care Provider + Reason for Referral * Outpatient (Routine) - Authorized Specialty Diagnoses / Procedures Referred By [place] baca Referred To Contact Orthopedic Surgery Diagnoses Pain Knee Right Diamond Wiggins M.D. [address] [place] [address] Phone: tel: fax: [facility] Region Referral ID Status Reason Start Date Expiration Date V isits Requested Visits Authorized [id number] Authorized 09/12/2024 03/14/2026 1 1 Scheduling Instructions Ortho internal referral panel order, imaging before Consult visit ESS DEVELOPMENT TECHNICIAN Encounter Details Date Type Department Care Team (Late st Contact Info) Description 09/03/2024 Results Follow-Up Department of Family Medicine, [facility], in [place], [place] [address] [address] Diamond Wiggins M.D. [address] [phone] Albumin, Random, Urine, MR Knee Right without IV Contrast Social History Tobacco Use Types Packs/Day Years Used Date Smoking Tobacco: Every Day Cigarettes 1 31.2 Started: 08/28/1993 Passive Smoke Exposure: Current Smokeless Tobacco: Never Alcohol Use Standard Drinks/Week Comments No 0 (1 standard drink = 0.6 oz pur e alcohol) [facility] Utilities Answer Date Recorded In [...] How often do you attend restorationism or hindu serv ices? Never 11/01/2022 Do [...] Answer Date Recorded PHQ-2 Score 2 09/01/2024 [facility] of Occupat ional [facility] - Occupational Stress Questionnaire Answer Date Recorded [...] AM CDT Legal Sex Female 7:46 PM PROCESS DEVELOPMENT TECHNICIAN Gender Identity Female 01/07/2018 10:26 AM CDT Sexual Orientation Straight 01/07/2018 10 :26 AM CDT documented as of this encounter Plan of Treatment Upcoming Encounters Date Type Department Care Team (Late st Contact Info) Description 10/27/2024 3:30 PM CDT Comprehensive Visit Department of Orthopedic Surgery in [place], [place] [address] [phone] Laith Mckinnon M.D. [address] [phone] 12/31/2024 3:00 PM CDT Office Visit Department of Urology in [place], [place] [address] [phone] Tatum Orozco, ALEJANDRA, C.N.P. [address] [phone] Scheduled Referrals Name Type Priority [...] Total Score: 6 09/01/19 25 10:41 PM PROCESS DEVELOPMENT TECHNICIAN documented as of this encounter Care Teams Cd Mixer Relationship Specialty Start Date End Date Diamond Wiggins M.D. [address] [phone] PCP - General Family Medicine 01/22/23 documented as of this encounter
--- OUTSIDE RECORDS SUMMARY | 2024-10-24 15:41 | XMS_ITS | Encounter Summary ---
Author Organization [facility] Address [address] [place] [address] Care Team Providers Care Supervisor Coin Machine Name Role Phone Diamond Wiggins M.D. Primary Care Provider + Reason for Visit * Reason Onset Date Comments Results 09/03/2024 Encounter Details Date Type Department Care Team (Late st Contact Info) Description 09/03/2024 Clinical Communication Department of Family Medicine, [facility], in [place], [place] [address] [place] [phone] Diamond Wiggins M.D. [address] [place] [phone] Results Social History Tobacco Use Types Packs/Day Years Used Date Smoking Tobacco: Every Day Cigarettes 1 31.2 Started: 08/28/1993 Passive Smoke Exposure: Current Smokeless Tobacco: Never Alcohol Use Standard Drinks/Week Comments No 0 (1 standard drink = 0.6 oz pur e alcohol) [facility] Utilities Answer Date Recorded In the [...] Never 11/01/2022 How often do you attend judaism or baptism serv ices? Never 11/01/2022 Do you belong to any clubs o r organizations such as judaism groups, unions, fraternal or athletic groups, or [...] Answer Date Recorded PHQ-2 Score 2 09/01/2024 [facility] of Occupat ional Health - Occupational Stress [...] your living situation today? I have a [facility] place to live 03/11/2024 Education Answer Date Recorded What is the highest level of school you have completed or the highest degree you have received? 12th grade 01/05/2020 Comments No Sex and Gender Information Value Date Recorded Sex Assigned at Female 01/07/2018 10:26 AM CDT Legal Sex Female 7:46 PM PACKAGE LIFT OPERATOR Gender Identity Female 01/07/2018 10:26 AM CDT Sexual Orientation Straight 01/07/2018 10 :26 AM CDT documented as of this encounter Plan of Treatment Upcoming Encounters Date Type Department Care Team (Late st Contact Info) Description 10/27/2024 3:30 PM CDT Comprehensive Visit Department of Orthopedic Surgery in [place], [place] [address] [place] [phone] Laith Mckinnon M.D. [address] [place] [phone] 12/31/2024 3:00 PM CDT Office Visit Department of Urology in [place], [place] [address] [place] [phone] Tatum Orozco APRN, C.N.P. [address], [place] [phone] documented as of this encounter Results * (ABNORMAL) Albumin, Random, Urine (09/12/2024 8:23 AM PACKAGE LIFT OPERATOR) Microalbumin 245.0 mg/L 09/12/2024 9:08 AM PACKAGE LIFT OPERATOR OWAT Creatinine 81 mg/dL 09/12/2024 9:08 AM PACKAGE LIFT OPERATOR OWAT Albumin/Creatinin e Ratio 302(H) <25 mg/g 09/12/2024 9:08 AM PACKAGE LIFT OPERATOR OW[place] Urine (Urine, Midstream) 09/12/2024 8:23 AM PACKAGE LIFT OPERATOR 09/12/2024 8:36 AM PACKAGE LIFT OPERATOR us Diamond Wiggins M.D. LAB URINE ORDERABLES Fin al Result [facility] [address] [place] [address], [facility] in [place] [address] [place] [address] documented in this encounter Visit Diagnoses Diagnosis Proteinuria- Primary Other Tear Medial Meniscus Current Injury Right Knee Initial- Primary documented in this encounter Additional Health Concerns Assessment Noted Time PHQ-9 Depression Total Score: 6 09/01/19 25 10:41 PM PACKAGE LIFT OPERATOR documented as of this encounter Care Teams Supervisor Coin Machine Relationship Specialty Start Date End Date Diamond Wiggins M.D. [address] [place] [phone] PCP - General Family Medicine 01/22/23 documented as of this encounter
--- OUTSIDE RECORDS SUMMARY | 2024-10-24 15:41 | XMS_ITS | Encounter Summary ---
Author Organization [facility] Address [address] [place] [address] Care Team Providers Care Print Line Inspector Name Role Phone Diamond Wiggins M.D. Primary Care Provider + Encounter Details Date Type Department Care Team (Late st Contact Info) Description 09/02/2024 Results Follow-Up Department of Family Medicine, [facility], in [place], [place] [address] [place] [phone] Diamond Wiggins M.D. [address] [place] [phone] Urinalysis, with Microscopic: Urine, Midstream, Bacterial Culture, Aerobic + Susceptibility, Urine, Albumin, Random, Urine, Hemoglobin A1c Social History Tobacco Use Types Packs/Day Years Used Date Smoking Tobacco: Every Day Cigarettes 1 31.2 Started: 08/28/1993 Passive Smoke Exposure: Current Smokeless Tobacco: Never Alcohol Use Standard Drinks/Week Comments No 0 (1 standard drink = 0.6 oz pur e alcohol) [facility] Utilities Answer Date Recorded In the past 12 months has [facility] [employer], gas, oil, or water [employer] threatened to shut off services in your [...] How often do you attend yazidism or congregational serv ices? Never 11/01/2022 Do you belong [...] Answer Date Recorded PHQ-2 Score 2 09/01/2024 [facility] - Occupational Stress Questionnaire [...] your living situation today? I have a [facility] place to live 03/11/2024 Education Answer Date Recorded What is the highest level of school you have completed or the highest degree you have received? 12th grade 01/05/2020 Comments No Sex and Gender Information Value Date Recorded Sex Assigned at Female 01/07/2018 10:26 AM CDT Legal Sex Female 7:46 PM LEACH TANK TENDER Gender Identity Female 01/07/2018 10:26 AM CDT Sexual Orientation Straight 01/07/2018 10 :26 AM CDT documented as of this encounter Plan of Treatment Upcoming Encounters Date Type Department Care Team (Late st Contact Info) Description 10/27/2024 3:30 PM CDT Comprehensive Visit Department of Orthopedic Surgery in [place], [place] [address] [place] [address] Laith Mckinnon M.D. [address] [place] [phone] 12/31/2024 3:00 PM CDT Office Visit Department of Urology in [place], [place] [address] [phone] Tatum Orozco APRN, C.N.P. [address] [phone] documented as of this encounter Visit Diagnoses Diagnosis Acute Cystitis Without Hematuria- Primary Other Tear Medial Meniscus Current Injury Right Knee Initial- Primary documented in this encounter Additional Health Concerns Assessment Noted Time PHQ-9 Depression Total Score: 6 09/01/19 25 10:41 PM LEACH TANK TENDER documented as of this encounter Care Teams Print Line Inspector Relationship Specialty Start Date End Date Diamond Wiggins M.D. [address] [phone] PCP - General Family Medicine 01/22/23 documented as of this encounter
--- OUTSIDE RECORDS SUMMARY | 2024-10-24 15:41 | XMS_ITS | Encounter Summary ---
Author Organization [facility] Address [address] [place] [address] Care Team Providers Care Massotherapist Name Role Phone Diamond Wiggins M.D. Primary Care Provider + Reason for Referral * MRI/CAT/PET Scan (Routine) - Closed Specialty Diagnoses / Procedures Referred By Contac t Referred To Contact Radiology Diagnoses Pain Knee Right Procedures MR Knee Right without IV Contrast PA MRI LWR EXT JOINT WO Diamond Daigle M.D. [address] [place] [phone] Phone: tel: fax: [facility] Region Referral ID Status Reason Start Date Expiration Date Visits Re quested Visits Authorized [id number] Closed 09/03/2024 11/01/2024 1 1 SCIENTIST Reason for Visit * MRI/CAT/PET Scan (Routine) - Closed Specialty Diagnoses / Procedures Referred By Contac t Referred To Contact Radiology Diagnoses Pain Knee Right Procedures MR Knee Right without IV Contrast PA MRI LWR EXT JOINT WO Diamond Daigle M.D. [address] [place] [phone] Phone: tel: fax: [facility] Region Referral ID Status Reason Start Date Expiration Date Visits Re quested Visits Authorized [id number] Closed 09/03/2024 11/01/2024 1 1 Encounter Details Date Type Department Care Team (Latest Contact Info) Description 09/12/2024 6:50 AM QC SCIENTIST - 09/12/2024 8:20 AM QC SCIENTIST Hospital Encounter Department of Radiology in [place], [place] [address] [place] [phone] Diamond Wiggins M.D. [address] [phone] Pain Knee Right Discharge Disposition: Home or Self Care Social History Tobacco Use Types Packs/Day Years Used Date Smoking Tobacco: Every Day Cigarettes 09 05.2 Started: 08/28/1993 Passive Smoke Exposure: Current Smokeless Tobacco: Never Alcohol Use Standard Drinks/Week Comments No 0 (1 standard drink = 0.6 oz pur e alcohol) [facility] Utilities Answer Date Recorded In the past 12 months has e [employer], gas, oil, or water [employer] threatened to shut off services in your [...] Never 11/01/2022 How often do you attend anabaptist or temple serv ices? Never 11/01/2022 Do you belong to any clubs o r organizations such as anabaptist groups, unions, fraternal or athletic groups, or [...] Answer Date Recorded PHQ-2 Score 2 09/01/2024 [facility] of Occupat ional [facility] - Occupational Stress Questionnaire Answer [...] your living situation today? I have a [facility] place to live 03/11/2024 Education Answer Date Recorded What is the highest level of school you have completed or the highest degree you have received? 12th grade 01/05/2020 Comments No Sex and Gender Information Value Date Recorded Sex Assigned at Female 01/07/2018 10:26 AM CDT Legal Sex Female 7:46 PM QC SCIENTIST Gender Identity Female 01/07/2018 10:26 AM CDT [...] Comprehensive Visit Department of Orthopedic Surgery in [place], [place] [address] [phone] Laith Mckinnon M.D. [address] [phone] 12/31/2024 3:00 PM CDT Office Visit Department of Urology in [place], [place] [address] [phone] Tatum Orozco APRN, C.N.P. [address] [phone] documented as of this encounter Procedures Procedure Name Priority Date/Time Associated Diagnosis Comments MR KNEE RIGHT WITHOUT IV CONTRAST RAD - Routine (most inpatients and all outpatients) 09/12/2024 7:56 AM QC SCIENTIST Pain Knee Right documented in this encounter Results * MR Knee Right without IV Contrast (09/12/2024 7:56 AM QC SCIENTIST) Anatomical Region Laterality Modality Lower Extremity, Knee, Muscu loskeletal RST LOS, Musculoskeletal ARZ LOS, Muskuloskeletal FLA LOS Right Magne tic Resonance Impressions 09/12/2024 8:06 AM QC SCIENTIST 1. Equivocal horizontal oblique tears of the [...] knee joint effusion. Narrative 09/12/2024 8:06 AM QC SCIENTIST EXAM: MR KNEE RIGHT WITHOUT IV CONTRAST [...] Total Score: 6 09/01/19 25 10:41 PM QC SCIENTIST documented as of this encounter Care Teams Massotherapist Relationship Specialty Start Date End Date Diamond Wiggins M.D. [address] [phone] PCP - General Family Medicine 01/22/23 documented as of this encounter
--- OUTSIDE RECORDS SUMMARY | 2024-10-24 15:41 | XMS_ITS | Clinical Summary ---
Author Organization [facility] Address [address] [place] [address] Care Team Providers Care Slunk Skinner Name Role Phone Diamond Wiggins M.D. Primary Care Provider + Source Comments Patient records contain information from all sites at [facility]. For routine questions regarding patient records, call [phone] during business hours, M-F 8:00 AM - 5:00 PM Central Time. Record requests for emergency care only can be directed to [phone] at any time.[facility] Allergies Active Allergy Reactions Criticality Noted Date [...] incontinence Assessment & Plan (10/01/2024 8:26 PM ASBESTOS WORKER): Currently using Oxybutynin for urgency and frequency. [...] cervical lymph node biopsy in 2009 at [facility]: April 2020 she does warrant surveillance [...] Lipid panel: 10/2021 LDL= 65, HDL= 35, AU=433, MJ=200 (fasted) Diabetes Mellitus Type 2 Without Complication [...] mucosa, no dysplasia November 2020: EGD revealed Fred-colored mucosa consistent with short-segment Simmons's esophagus biopsies [...] Department Care Team Description 10/02/2024 4:45 PM ASBESTOS WORKER Internal E-Consult Division of Nephrology and Hypertension in [place], [place] [address] [place] [address] Aditya Sheikh M.D. Proteinuria 10/02/2024 Orders Only Department of Family Medicine, [facility], in [place], [place] [address] [place] [phone] Diamond Wiggins M.D. Proteinuria (Primary Dx) 09/30/2024 2:00 PM ASBESTOS WORKER Comprehensive Visit Department of Urology in [place], [place] [address] [place] [phone] Tatum Orozco APRN CMeliaNMeliaPMelia Infection Urinary Tract Personal History (Primary Dx); Dysuria; Atrophy Vagina Due To Estrogen Deficiency; Incontinence Urinary; Abuse Tobacco Smoking 09/30/2024 10:58 AM ASBESTOS WORKER - 09/30/2024 11:59 PM ASBESTOS WORKER Hospital Encounter Department of Laboratory Medicine in [address] [phone] Diamond Wiggins M.D. Dysuria; Proteinuria Discharge Disposition: Home or Self Care 09/30/2024 10:58 AM ASBESTOS WORKER - 09/30/2024 11:59 PM ASBESTOS WORKER Hospital Encounter Department of Laboratory Medicine in [address] [phone] Diamond Wiggins M.D. Diabetes Mellitus Type 2 Peripheral Neuropathy (HCC) Discharge Disposition: Home or Self Care 09/30/2024 Results Follow-Up Department of Family Medicine, [facility], in [place], [place] [address] [place] [phone] Diamond Wiggins M.D. Urinalysis with Microscopic if Indicated: Urine, Midstream, Albumin, Random, Urine, Microscopic Automated, Bacterial Culture, Aerobic + Susceptibility, Urine 09/24/2024 1:07 PM ASBESTOS WORKER - 09/24/2024 11:59 PM ASBESTOS WORKER Emergency [facility] [address] [place] [phone] Discharge Disposition: Home or Self Care 09/12/2024 8:21 AM ASBESTOS WORKER - 09/12/2024 11:59 PM ASBESTOS WORKER Hospital Encounter Department of Laboratory Medicine in [place], [place] [address] [place] [phone] Diamond Wiggins M.D. Proteinuria Discharge Disposition: Home or Self Care 09/12/2024 6:50 AM ASBESTOS WORKER - 09/12/2024 8:20 AM ASBESTOS WORKER Hospital Encounter Department of Radiology in [address] [phone] Diamond Wiggins M.D. Pain Knee Right Discharge Disposition: Home or Self Care 09/12/2024 Results Follow-Up Department of Family Medicine, [facility], in [address] [phone] Diamond Wiggins M.D. Albumin, Random, Urine 09/09/2024 Orders Only [facility] Diamond Wiggins M.D. Diabetes Mellitus Type 2 Peripheral Neuropathy (HCC) 09/03/2024 Results Follow-Up Department of Family Medicine, [facility], in [address] [phone] Diamond Wiggins M.D. Albumin, Random, Urine, MR Knee Right without IV Contrast 09/03/2024 Clinical Communication Department of Family Medicine, [facility], in [address] [phone] Diamond Wiggins M.D. Results 09/02/2024 2:00 PM ASBESTOS WORKER Office Visit Department of Family Medicine, [facility], in [address] [phone] Diamond Wiggins M.D. Dysuria (Primary Dx); Pain Knee Right; Screening Mammogram Breast Cancer; Diabetes Mellitus Type 2 Without Complication (HCC); Bunion Right; Diabetes Mellitus Type 2 Peripheral Neuropathy (HCC); Depression Major Recurrent Moderate (HCC); Sarcoidosis Pulmonary (HCC) 09/02/2024 11:50 AM ASBESTOS WORKER - 09/02/2024 11:59 PM ASBESTOS WORKER Hospital Encounter Department of Laboratory Medicine in [address] [phone] Diamond Wiggins M.D. Diabetes Mellitus Type 2 Without Complication (HCC) Discharge Disposition: Home or Self Care 09/02/2024 11:50 AM ASBESTOS WORKER - 09/02/2024 11:59 PM ASBESTOS WORKER Hospital Encounter Department of Laboratory Medicine in [address] [phone] Diamond Wiggins M.D. Hematuria; Dysuria; Diabetes Mellitus Type 2 Without Complication (HCC) Discharge Disposition: Home or Self Care 09/02/2024 Results Follow-Up Department of [facility], [facility], in [address] [phone] Diamond Wiggins M.D. Urinalysis, with Microscopic: Urine, Midstream, Bacterial Culture, Aerobic + Susceptibility, Urine, Albumin, Random, Urine, Hemoglobin A1c 08/15/2024 Clinical Communication Department of [facility], [facility], in [address] [phone] Diamond Wiggins M.D. Order Request 08/13/2024 Clinical Communication Department of [facility], [facility], in [address] [phone] Diamond Wiggins M.D. Med Question from Last [...] drink = 0.6 oz pur e alcohol) [facility] Utilities Answer Date Recorded In the past 12 months has [facility] [employer], gas, oil, or water [employer] threatened to shut off services in your [...] How often do you attend anglican or presybeterian serv ices? Never 11/01/2022 Do [...] Answer Date Recorded PHQ-2 Score 2 09/01/2024 [facility] ional Health - Occupational Stress [...] AM CDT Legal Sex Female 7:46 PM ASBESTOS WORKER Gender Identity Female 01/07/2018 10:26 AM CDT Sexual Orientation Straight 01/07/2018 10 :26 AM CDT Last Filed Vital Signs Vital Sign Reading Time Taken Comments Blood Pressure 127/81 09/02/2024 1:11 PM ASBESTOS WORKER Pulse 77 09/02/2024 1:11 PM ASBESTOS WORKER Temperature 36.6 C (97.8 F) 09/02/2024 1:11 PM ASBESTOS WORKER Respiratory Rate 16 10/25/2023 3:15 PM CDT Oxygen Saturation 97% 07/22/2022 3:00 PM ASBESTOS WORKER Inhaled Oxygen Concentration - - Weight 90.4 kg (199 lb 4.7 oz) 09/02/2024 1:11 P M ASBESTOS WORKER Height 174 cm (5' 8.5) 09/02/2024 1:11 PM ASBESTOS WORKER Body Mass Index 29.86 09/02/2024 1:11 PM ASBESTOS WORKER Plan of Treatment Upcoming Encounters Date Type Department Care Team (Late st Contact Info) Description 10/27/2024 3:30 PM CDT Comprehensive Visit Department of Orthopedic Surgery in [place], [place] [address] [phone] Laith Mckinnon M.D. [address] [phone] 12/31/2024 3:00 PM CDT Office Visit Department of Urology in [place], [place] [address] [phone] Tatum Orozco APRN, C.N.P. [address] [phone] Health Maintenance Due Date Last [...] Procedure Name Priority Date/Time Associated Diagnosis Comments MI URINALYSIS AUTO WO MICRO Routine 09/30/2024 11:27 AM ASBESTOS WORKER ALBUMIN, RANDOM, U Routine 09/30/2024 11:27 AM ASBESTOS WORKER Proteinuria URINALYSIS WITH MICROSCOPIC IF INDICATED, U Routine 09/30/2024 11:27 AM ASBESTOS WORKER Dysuria BACTERIAL CULTURE, AEROBIC + SUSC, URINE Routine 09/30/2024 11:27 AM ASBESTOS WORKER Dysuria BASIC METABOLIC PANEL, S/P Routine 09/30/2024 11:19 AM ASBESTOS WORKER Diabetes Mellitus Type 2 Peripheral Neuropathy (HCC) ALBUMIN, RANDOM, U Routine 09/12/2024 8: 23 AM ASBESTOS WORKER Proteinuria MR KNEE RIGHT WITHOUT IV CONTRAST RAD - Routine (most inpatients and all outpatients) 09/12/2024 7:56 AM ASBESTOS WORKER Pain Knee Right HEMOGLOBIN A1C, B Routine 09/02/2024 12:15 PM ASBESTOS WORKER Diabetes Mellitus Type 2 Without Complication (HCC) ALBUMIN, RANDOM, U Routine 09/02/2024 12:13 PM ASBESTOS WORKER Diabetes Mellitus Type 2 Without Complication (HCC) URINALYSIS WITH MICROSCOPIC Routine 09/02/2024 12:13 PM ASBESTOS WORKER Hematuria BACTERIAL CULTURE, AEROBIC + SUSC, URINE Routine 09/02/2024 12:13 PM ASBESTOS WORKER Dysuria LIPID PANEL, S Routine 10/11/2023 10:36 AM ASBESTOS WORKER Hyperlipidemia Diabetes Mellitus Type 2 Without Complication [...] if Indicated: Urine, Midstream (09/30/2024 11:27 AM ASBESTOS WORKER) Source Urine, Urine, Midstream 09/30/2024 11:27 AM ASBESTOS WORKER OWAT Clarity Clear Clear 09/30/2024 11:32 AM ASBESTOS WORKER OWAT Color Yellow 09/30/2024 11:32 AM ASBESTOS WORKER OWAT Comment: ----REFERENCE VALUE---- Colorless Yellow Dina Blood Small(A) Negative 09/30/2024 11:32 AM ASBESTOS WORKER OWAT Nitrite Negative Negative 09/30/2024 11:32 AM ASBESTOS WORKER OWAT Leukocyte Esterase Negative Negative 09/30/2024 11:32 AM ASBESTOS WORKER OWAT Protein 100(A) mg/dL 09/30/2024 11:32 AM ASBESTOS WORKER OWAT Comment: ----REFERENCE VALUE---- Negative Trace Glucose Negative Negative mg/dL 09/30/2024 11:32 AM ASBESTOS WORKER OWAT Ketone Negative Negative mg/dL 09/30/2024 11:32 AM ASBESTOS WORKER OWAT Bilirubin Negative Negative 09/30/2024 11:32 AM ASBESTOS WORKER OWAT pH 6.5 5.0 - 8.0 09/30/2024 11:32 AM ASBESTOS WORKER OWAT Specific [place] 1.019 1.001 - 1.035 09/30/2024 11:32 AM ASBESTOS WORKER OWAT Urobilinogen 0.2 0.2 - 1.0 mg/dL 09/30/2024 11:32 AM ASBESTOS WORKER OWAT Urine (Urine, Midstream) 09/30/2024 11:27 AM ASBESTOS WORKER 09/30/2024 11:27 AM ASBESTOS WORKER us Diamond Wiggins M.D. LAB URINE ORDERABLES Fin al Result Performing Organization Address [facility] Co de Phone Number [facility] [address] [place] [address], [facility] in [place] [address], [place] [address] * (ABNORMAL) Microscopic Automated (09/30/2024 11:27 AM ASBESTOS WORKER) White Blood Cells None Seen /hpf 09/30/2024 11:42 AM ASBESTOS WORKER OWAT Comment: ----REFERENCE VALUE---- Males: 0-3 Females: 0-10 Unknown: 0-10 Red Blood Cells 11-20(A) 0 - 2 /hpf 11:42 AM ASBESTOS WORKER OWAT Dysmorphic Red Blood Cells <=25 <=25 % 09/30/2024 11:42 AM ASBESTOS WORKER OWAT Hyaline Casts 1-3 /lpf 09/30/2024 11:42 AM ASBESTOS WORKER OWAT Squamous Cells Occ-3 /hpf 09/30/2024 11:42 AM ASBESTOS WORKER OWAT Urine 09/30/2024 11:2 7 AM ASBESTOS WORKER 09/30/2024 11:27 AM ASBESTOS WORKER us Diamond Wiggins M.D. LAB URINE ORDERABLES Fin al Result Performing Organization Address City/[facility]/ZIP Co de Phone Number [facility] [address] [place] [address], [place] OWAT [facility] in [place] [address] [place] [address] * (ABNORMAL) Bacterial Culture, Aerobic + Susceptibility, Urine (09/30/2024 11:27 AM ASBESTOS WORKER) Only the most recent of2 resultswithin the time period is included. Urine Culture ESCHERICHIA COLI 10,000-100,000 cfu/mL (A) 10/02/2024 8:27 AM ASBESTOS WORKER MKTO Urine (Urine, Midstream) 09/30/2024 11:27 AM ASBESTOS WORKER 09/30/2024 1:56 PM ASBESTOS WORKER Comment:Specimen Source Site : Urine Narrative Organism [...] AL ORDERABLES Final Result Performing Organization Address City/[facility]/ZIP Co de Phone Number [facility] [address] [place] [address], [facility] MKTO [facility] in [place] [address] [place] [address] * (ABNORMAL) Albumin, Random, Urine (09/30/2024 11:27 AM ASBESTOS WORKER) Only the most recent of3 resultswithin the time period is included. Microalbumin 588.0 mg/L 09/30/2024 12:49 PM ASBESTOS WORKER OWAT Creatinine 137 mg/dL 09/30/2024 12:17 PM ASBESTOS WORKER OWAT Albumin/Creatinin e Ratio 429(H) <25 mg/g 09/30/2024 12:49 PM ASBESTOS WORKER OWAT Urine (Urine, Midstream) 09/30/2024 11:27 AM ASBESTOS WORKER 09/30/2024 11:27 AM ASBESTOS WORKER us Diamond Wiggins M.D. LAB URINE ORDERABLES Fin al Result [facility] [address] [place] [address], [facility] OW[facility] in [place] [address] [place] [address] * (ABNORMAL) Basic Metabolic Panel (09/30/2024 11:19 AM ASBESTOS WORKER) Potassium, P 4.0 3.6 - 5.2 mmol/L 09/30/2024 11:47 AM ASBESTOS WORKER OWAT Sodium, P 136 135 - 145 mmol/L 09/30/2024 11:47 AM ASBESTOS WORKER OWAT Chloride, P 100 98 - 107 mmol/L 09/30/2024 11:47 AM ASBESTOS WORKER OWAT Bicarbonate, P 22 22 - 29 mmol/L 09/30/2024 11:47 AM ASBESTOS WORKER OWAT Anion Gap, P 14 7 - 15 09/30/2024 11:47 AM ASBESTOS WORKER OWAT BUN (Blood Urea Nitrogen), P 10 6 - 21 mg/dL 09/30/2024 11:47 AM ASBESTOS WORKER OWAT Creatinine 0.82 0.59 - 1.04 mg/dL 09/30/2024 11:47 AM ASBESTOS WORKER OWAT Estimated GFR (eGFR) 87 >=60 mL/min/BSA 09/30/2024 11:47 AM ASBESTOS WORKER OWAT Comment: Estimated GFR calculated using the 2020 CKD_EPI creatinine equation. Calcium, Total, P 9.4 8.6 - 10.0 mg/dL 09/30/2024 11:47 AM ASBESTOS WORKER OWAT Glucose, P 163(H) 70 - 140 mg/dL 09/30/2024 11:47 AM ASBESTOS WORKER OWAT Blood (Blood, Venous) 09/30/2024 11:19 AM ASBESTOS WORKER 09/30/2024 11:25 AM ASBESTOS WORKER us Diamond Wiggins M.D. LAB BLOOD ADD-ON Final R esult [facility] [address] [place] [address], [facility] OW[facility] in [place] [address] [place] [address] * MR Knee Right without IV Contrast (09/12/2024 7:56 AM ASBESTOS WORKER) Anatomical Region Laterality Modality Lower Extremity, Knee, Muscu loskeletal RST LOS, Musculoskeletal ARZ LOS, Muskuloskeletal FLA LOS Right Magne tic Resonance Impressions 09/12/2024 8:06 AM ASBESTOS WORKER 1. Equivocal horizontal oblique tears of the [...] knee joint effusion. Narrative 09/12/2024 8:06 AM ASBESTOS WORKER EXAM: MR KNEE RIGHT WITHOUT IV CONTRAST [...] * (ABNORMAL) Hemoglobin A1c (09/02/2024 12:15 PM ASBESTOS WORKER) Hemoglobin A1c, B 6.2(H) 4.2 - 5.6 % 09/02/2024 5:27 PM ASBESTOS WORKER AUST Comment: Hemoglobin A1c values of 5.7-6.4 percent indicate an increased risk for developing diabetes mellitus. In diabetic patients, HbA1c goals should be discussed with healthcare provider. Blood (Blood, Venous) 09/02/2024 12:15 PM ASBESTOS WORKER 09/02/2024 12:27 PM ASBESTOS WORKER Diamond Wiggins M.D. LAB BLOOD ADD-ON Final R esult [facility] [address] [place] [address], [facility] [address] [place] [address] * (ABNORMAL) Urinalysis, with Microscopic: Urine, Midstream (09/02/2024 12:13 PM ASBESTOS WORKER) Source Urine, Urine, Midstream 09/02/2024 12:34 PM ASBESTOS WORKER OWAT Clarity Clear Clear 09/02/2024 12:34 PM ASBESTOS WORKER OWAT Color Dina 09/02/2024 12:34 PM ASBESTOS WORKER OWAT Comment: ----REFERENCE VALUE---- Colorless Yellow Dina Blood Small(A) Negative 09/02/2024 12:34 PM ASBESTOS WORKER OWAT Nitrite Negative Negative 09/02/2024 12:34 PM ASBESTOS WORKER OWAT Leukocyte Esterase Trace(A) Negative 09/02/2024 12:34 PM ASBESTOS WORKER OWAT Protein Trace mg/dL 09/02/2024 12:34 PM ASBESTOS WORKER OWAT Comment: ----REFERENCE VALUE---- Negative Trace Glucose Negative Negative mg/dL 09/02/2024 12:34 PM ASBESTOS WORKER OWAT Ketone Negative Negative mg/dL 09/02/2024 12:34 PM ASBESTOS WORKER OWAT Bilirubin Negative Negative 09/02/2024 12:34 PM ASBESTOS WORKER OWAT pH 6.0 5.0 - 8.0 09/02/2024 12:34 PM ASBESTOS WORKER OWAT Specific [place] 1.007 1.001 - 1.035 09/02/2024 12:34 PM ASBESTOS WORKER OWAT Urobilinogen 0.2 0.2 - 1.0 mg/dL 09/02/2024 12:34 PM ASBESTOS WORKER OWAT White Blood Cells 4-10 /hpf 09/02/2024 12:38 PM ASBESTOS WORKER OWAT Comment: ----REFERENCE VALUE---- Males: 0-3 Females: 0-10 Unknown: 0-10 Red Blood Cells Occ-2 0 - 2 /hpf 12:38 PM ASBESTOS WORKER OWAT Bacteria Present(A) None Seen 09/02/2024 12:38 PM ASBESTOS WORKER OWAT Urine (Urine, Midstream) 09/02/2024 12:13 PM ASBESTOS WORKER 09/02/2024 12:28 PM ASBESTOS WORKER us Diamond Wiggins M.D. LAB URINE ORDERABLES Fin al Result [facility] [address] [place] [address], [facility] OWAT [facility] in [place] [address] [place] [address] * (ABNORMAL) Lipid Panel (10/11/2023 10:36 AM ASBESTOS WORKER) Triglycerides 375(H) mg/dL 10/11/2023 11:48 AM ASBESTOS WORKER OWAT Comment: ----REFERENCE VALUE---- Normal: <150 mg/dL Borderline High: 150-199 mg/dL High: 200-499 mg/dL Very High: > or =500 mg/dL Cholesterol, Total 262(H) mg/dL 2023 11:48 AM ASBESTOS WORKER OWAT Comment: ----REFERENCE VALUE---- Desirable: < 200 mg/dL Borderline High: 200 - 239 mg/dL High: > or = 240 mg/dL Cholesterol, LDL, Calculated 148(H) mg/dL 10/11/2023 11:48 AM ASBESTOS WORKER OWAT Comment: ----REFERENCE VALUE---- Desirable: <100 mg/dL Above Desirable: 100-129 mg/dL Borderline High: 130-159 mg/dL High: 160-189 mg/dL Very High: >=190 mg/dL ----ADDITIONAL INFORMATION---- LDL cholesterol calculated using the Souza/NIH equation. Cholesterol, HDL 44(L) >=50 mg/dL 10/11/19 11:48 AM ASBESTOS WORKER OWAT Cholesterol, Non-HDL, Calculated 218(H) mg/dL 10/11/2023 11:48 AM ASBESTOS WORKER OWAT Comment: ----REFERENCE VALUE---- Desirable: <130 mg/dL Above Desirable: 130-159 mg/dL Borderline High: 160-189 mg/dL High: 190-219 mg/dL Very High: > or =220 mg/dL Fasting (8 HR or more) Yes 10/11/2023 10:50 AM ASBESTOS WORKER OWAT Blood (Blood, Venous) 10/11/2023 10:36 AM ASBESTOS WORKER 10/11/2023 10:50 AM ASBESTOS WORKER us Diamond Wiggins M.D. LAB BLOOD ADD-ON Final R esult [facility] [address] [place] [address], [facility] [place] [address] [place] [address] * CT Chest without IV Contrast (03/19/2022 [...] Most Recently Relevant to Health Maintenance Insurance [facility] Advance Directives For more information, please contact: [phone] * Full Code (Latest Code Status on File) Date Activated Date Inactivated Comments 04/26/2020 3:55 AM 04/26/2020 2:23 PM Question Answer Comments Full Code: Discussed Care Teams Slunk Skinner Relationship Specialty Start Date End Date Diamond Wiggins M.D. [address], [place] [phone] PCP - General Family Medicine 01/22/23
--- OUTSIDE RECORDS SUMMARY | 2024-10-24 15:41 | XMS_ITS | Encounter Summary ---
Author Organization [facility] Address [address] [place] [address] Care Team Providers Care Fish Hatchery Supervisor Name Role Phone Diamond Wiggins M.D. Primary Care Provider + Encounter Details Date Type Department Care Team (Late st Contact Info) Description 09/09/2024 [facility] Diamond Todd M.D. [address] [place] [address] Diabetes Mellitus Type 2 Peripheral Neuropathy (HCC) Social History Tobacco Use Types Packs/Day Years Used Date Smoking Tobacco: Every Day Cigarettes 1 31.2 Started: 08/28/1993 Passive Smoke Exposure: Current Smokeless Tobacco: Never Alcohol Use Standard Drinks/Week Comments No 0 (1 standard drink = 0.6 oz pur e alcohol) [facility] Utilities Answer Date Recorded In the past 12 months has e [employer], gas, oil, or water [employer] threatened to shut off services in your [...] How often do you attend taoism or baptist serv ices? Never 11/01/2022 Do you belong [...] Answer Date Recorded PHQ-2 Score 2 09/01/2024 [facility] Occupat ional Health - [...] living situation today? I have a [facility] place to live 03/11/2024 Education Answer Date Recorded What is the highest level of school you have completed or the highest degree you have received? 12th grade 01/05/2020 Comments No Sex and Gender Information Value Date Recorded Sex Assigned at Female 01/07/2018 10:26 AM CDT Legal Sex Female 7:46 PM CLAMP FORKLIFT OPERATOR Gender Identity Female 01/07/2018 10:26 AM CDT Sexual Orientation Straight 01/07/2018 10 :26 AM CDT documented as of this encounter Plan of Treatment Upcoming Encounters Date Type Department Care Team (Late st Contact Info) Description 10/27/2024 3:30 PM CDT Comprehensive Visit Department of Orthopedic Surgery in [place], [place] [address] [place] [phone] Laith Mckinnon M.D. [address] [place] [phone] 12/31/2024 3:00 PM CDT Office Visit Department of Urology in [place], [place] [address] [place] [address] Tatum Orozco APRN, C.N.P. [address] [facility] [place] [phone] documented as of this encounter Results * (ABNORMAL) Basic Metabolic Panel (09/30/2024 11:19 AM CLAMP FORKLIFT OPERATOR) Potassium, P 4.0 3.6 - 5.2 mmol/L 09/30/2024 11:47 AM CLAMP FORKLIFT OPERATOR OWAT Sodium, P 136 135 - 145 mmol/L 09/30/2024 11:47 AM CLAMP FORKLIFT OPERATOR OWAT Chloride, P 100 98 - 107 mmol/L 09/30/2024 11:47 AM CLAMP FORKLIFT OPERATOR OWAT Bicarbonate, P 22 22 - 29 mmol/L 09/30/2024 11:47 AM CLAMP FORKLIFT OPERATOR OWAT Anion Gap, P 14 7 - 15 09/30/2024 11:47 AM CLAMP FORKLIFT OPERATOR OWAT BUN (Blood Urea Nitrogen), P 10 6 - 21 mg/dL 09/30/2024 11:47 AM CLAMP FORKLIFT OPERATOR OWAT Creatinine 0.82 0.59 - 1.04 mg/dL 09/30/2024 11:47 AM CLAMP FORKLIFT OPERATOR OWAT Estimated GFR (eGFR) 87 >=60 mL/min/BSA 09/30/2024 11:47 AM CLAMP FORKLIFT OPERATOR OWAT Comment: Estimated GFR calculated using the 2020 CKD_EPI creatinine equation. Calcium, Total, P 9.4 8.6 - 10.0 mg/dL 09/30/2024 11:47 AM CLAMP FORKLIFT OPERATOR OWAT Glucose, P 163(H) 70 - 140 mg/dL 09/30/2024 11:47 AM CLAMP FORKLIFT OPERATOR OWAT Blood (Blood, Venous) 09/30/2024 11:19 AM CLAMP FORKLIFT OPERATOR 09/30/2024 11:25 AM CLAMP FORKLIFT OPERATOR us Diamond Wiggins M.D. LAB BLOOD ADD-ON Final R esult [facility] [address] [place] [address], [facility] OWAT [facility] [place] [address] [place] [address] documented in this encounter Visit Diagnoses Diagnosis Diabetes Mellitus Type 2 Peripheral Neuropathy (HCC) Other Tear Medial Meniscus Current Injury Right Knee Initial- Primary documented in this encounter Additional Health Concerns Assessment Noted Time PHQ-9 Depression Total Score: 6 09/01/19 25 10:41 PM CLAMP FORKLIFT OPERATOR documented as of this encounter Care Teams Fish Hatchery Supervisor Relationship Specialty Start Date End Date Diamond Wiggins M.D. [address] [place] [phone] PCP - General Family Medicine 01/22/23 documented as of this encounter
--- OUTSIDE RECORDS SUMMARY | 2024-10-24 15:42 | XMS_ITS | Encounter Summary ---
Author Organization [facility] Address [address] [place] [address] Care Team Providers Care State Auditor Name Role Phone Diamond Wiggins M.D. Primary Care Provider + Reason for Visit * Outpatient (Routine) - Closed Specialty Diagnoses / Procedures Referred By [place] baca Referred To Contact Nephrology and Hypertension Diagnoses Proteinuria Procedures Nephrology - Abnormal urine sediment/proteinuria eConsult Diamond Wiggins M.D. [address] [place] [phone] Phone: tel: fax: [facility] Referral ID Status Reason Start Date Expiration Date Visits Re quested Visits Authorized [id number] Closed 09/30/2024 12/31/2025 1 1 Encounter Details Date Type Department Care Team (Late st Contact Info) Description 10/02/2024 4:45 PM DIRECTOR OF GRADUATE MEDICAL EDUCATION Internal E-Consult Division of Nephrology and Hypertension in [place], [place] [address] [place] [phone] Aditya Sheikh M.D. [address] [place] [phone] Proteinuria Social History Tobacco Use Types Packs/Day Years Used Date Smoking Tobacco: Every Day Cigarettes 1 31.2 Started: 08/28/1993 Passive Smoke Exposure: Current Smokeless Tobacco: Never Comments:2 packs/day from to 2009 Alcohol Use Standard Drinks/Week Comments Not Currently 0 (1 standard drink = 0.6 oz pur e alcohol) [facility] Utilities Answer Date Recorded In [...] How often do you attend adventism or druze serv ices? Never 11/01/2022 Do you belong [...] Answer Date Recorded PHQ-2 Score 2 09/01/2024 [place] [facility] Answer Date [...] CDT Legal Sex Female 7:46 PM DIRECTOR OF GRADUATE MEDICAL EDUCATION Gender Identity Female 01/07/2018 10:26 AM CDT [...] about SGLT2i only because of UTI history. CTOR OF GRADUATE MEDICAL EDUCATION documented in this encounter Plan of Treatment Upcoming Encounters Date Type Department Care Team (Late st Contact Info) Description 10/27/2024 3:30 PM CDT Comprehensive Visit Department of Orthopedic Surgery in [place], [place] [address] [place] [address] Laith Mckinnon M.D. [address] [place] [phone] 12/31/2024 3:00 PM CDT Office Visit Department of Urology in [place], [place] [address] [place] [address] Tatum Orozco, ALEJANDRA, C.N.P. [address] [place] [phone] documented as of this encounter Visit Diagnoses Diagnosis Proteinuria Other Tear Medial Meniscus Current Injury Right Knee Initial- Primary documented in this encounter Additional Health Concerns Assessment Noted Time PHQ-9 Depression Total Score: 6 09/01/19 25 10:41 PM DIRECTOR OF GRADUATE MEDICAL EDUCATION documented as of this encounter Care Teams State Auditor Relationship Specialty Start Date End Date Diamond Wiggins M.D. [address], [place] [phone] PCP - General Family Medicine 01/22/23 documented as of this encounter
--- OUTSIDE RECORDS SUMMARY | 2024-10-24 15:42 | XMS_ITS | Encounter Summary ---
Author Organization [facility] Address [address] [place] [address] Care Team Providers Care Fire Prevention Bureau Captain Name Role Phone Diamond Wiggins M.D. Primary Care Provider + Encounter Details Date Type Department Care Team (Late st Contact Info) Description 09/12/2024 Results Follow-Up Department of Family Medicine, [facility], in [place], [place] [address] [place] [phone] Diamond Wiggins M.D. [address] [place] [phone] Albumin, Random, Urine Social History Tobacco [...] How often do you attend taoism or samaritan serv ices? Never 11/01/2022 Do [...] Answer Date Recorded PHQ-2 Score 2 09/01/2024 [facility] of Occupat ional Health - Occupational Stress [...] your living situation today? I have a [facility] place to live 03/11/2024 Education Answer Date Recorded What is the highest level of school you have completed or the highest degree you have received? 12th grade 01/05/2020 Comments No Sex and Gender Information Value Date Recorded Sex Assigned at Female 01/07/2018 10:26 AM CDT Legal Sex Female 7:46 PM MIRROR MAKER Gender Identity Female 01/07/2018 10:26 AM CDT Sexual Orientation Straight 01/07/2018 10 :26 AM CDT documented as of this encounter Plan of Treatment Upcoming Encounters Date Type Department Care Team (Late st Contact Info) Description 10/27/2024 3:30 PM CDT Comprehensive Visit Department of Orthopedic Surgery in [place], [place] [address] [place] [address] Laith Mckinnon M.D. [address] [place] [phone] 12/31/2024 3:00 PM CDT Office Visit Department of Urology in [place], [place] [address] [place] [address] Tatum Orozco APRN, C.N.P. [address] [place] [phone] documented as of this encounter Results * (ABNORMAL) Albumin, Random, Urine (09/30/2024 11:27 AM MIRROR MAKER) Microalbumin 588.0 mg/L 09/30/2024 12:49 PM MIRROR MAKER OWAT Creatinine 137 mg/dL 09/30/2024 12:17 PM MIRROR MAKER OWAT Albumin/Creatinin e Ratio 429(H) <25 mg/g 09/30/2024 12:49 PM MIRROR MAKER OWAT Urine (Urine, Midstream) 09/30/2024 11:27 AM MIRROR MAKER 09/30/2024 11:27 AM MIRROR MAKER us Diamond Wiggins M.D. LAB URINE ORDERABLES Fin al Result [facility] [address] [place] [address], [place] OWAT [facility] in [place] [address] [place] [address] * (ABNORMAL) Bacterial Culture, Aerobic + Susceptibility, Urine (09/30/2024 11:27 AM MIRROR MAKER) Urine Culture ESCHERICHIA COLI 10,000-100,000 cfu/mL (A) 10/02/2024 8:27 AM MIRROR MAKER MKTO Urine (Urine, Midstream) 09/30/2024 11:27 AM MIRROR MAKER 09/30/2024 1:56 PM MIRROR MAKER Comment:Specimen Source Site : Urine Narrative Organism [...] Susceptible Diamond Wiggins M.D. LAB MICROBIOLOGY - [facility] ORDERABLES Final Result [facility] [address] [place] [address], [facility] [place] in [place] [address] [place] [address] * (ABNORMAL) Urinalysis with Microscopic if Indicated: Urine, Midstream (09/30/2024 11:27 AM MIRROR MAKER) Source Urine, Urine, Midstream 09/30/2024 11:27 AM MIRROR MAKER OWAT Clarity Clear Clear 09/30/2024 11:32 AM MIRROR MAKER OWAT Color Yellow 09/30/2024 11:32 AM MIRROR MAKER OWAT Comment: ----REFERENCE VALUE---- Colorless Yellow Dina Blood Small(A) Negative 09/30/2024 11:32 AM MIRROR MAKER OWAT Nitrite Negative Negative 09/30/2024 11:32 AM MIRROR MAKER OWAT Leukocyte Esterase Negative Negative 09/30/2024 11:32 AM MIRROR MAKER OWAT Protein 100(A) mg/dL 09/30/2024 11:32 AM MIRROR MAKER OWAT Comment: ----REFERENCE VALUE---- Negative Trace Glucose Negative Negative mg/dL 09/30/2024 11:32 AM MIRROR MAKER OWAT Ketone Negative Negative mg/dL 09/30/2024 11:32 AM MIRROR MAKER OWAT Bilirubin Negative Negative 09/30/2024 11:32 AM MIRROR MAKER OWAT pH 6.5 5.0 - 8.0 09/30/2024 11:32 AM MIRROR MAKER OWAT Specific [place] 1.019 1.001 - 1.035 09/30/2024 11:32 AM MIRROR MAKER OWAT Urobilinogen 0.2 0.2 - 1.0 mg/dL 09/30/2024 11:32 AM MIRROR MAKER OWAT Urine (Urine, Midstream) 09/30/2024 11:27 AM MIRROR MAKER 09/30/2024 11:27 AM MIRROR MAKER Diamond Wiggins M.D. LAB URINE ORDERABLES Fin al Result [facility] [address] [place] [address], [facility] OWAT [facility] [place] in [place] [address] [place] [address] documented in this encounter Visit Diagnoses Diagnosis Dysuria- Primary Proteinuria Other Tear Medial Meniscus Current Injury Right Knee Initial- Primary documented in this encounter Additional Health Concerns Assessment Noted Time PHQ-9 Depression Total Score: 6 09/01/19 10:41 PM MIRROR MAKER documented as of this encounter Care Teams Fire Prevention Bureau Captain Relationship Specialty Start Date End Date Diamond Wiggins M.D. [address] [place] [phone] PCP - General Family Medicine 01/22/23 documented as of this encounter
--- OUTSIDE RECORDS SUMMARY | 2024-10-24 15:42 | XMS_ITS | Encounter Summary ---
Author Organization [facility] Address [address] [place] [address] Care Team Providers Care Slab Off Mill Tender Name Role Phone Diamond Wiggins M.D. Primary Care Provider + Encounter Details Date Type Department Care Team (Latest Contact Info) Description 09/12/2024 8:21 AM PIPELAYING FITTER - 09/12/2024 11:59 PM [facility] Hospital Encounter Department of Laboratory Medicine in [place], [place] [address], [place] [address] Diamond Wiggins M.D. [address] [place] [phone] Proteinuria Discharge Disposition: Home or Self Care Social History Tobacco Use Types Packs/Day Years Used Date Smoking Tobacco: Every Day Cigarettes 1 31.2 Started: 08/28/1993 Passive Smoke Exposure: Current Smokeless Tobacco: Never Alcohol Use Standard Drinks/Week Comments No 0 (1 standard drink = 0.6 oz pur e alcohol) [facility] Utilities Answer Date Recorded In the past 12 months has e [employer], gas, oil, or water [employer] threatened to shut off services in your [...] How often do you attend methodist or baptism serv ices? Never 11/01/2022 Do [...] PHQ-2 Score 2 09/01/2024 [facility] [place] of Occupat ional Health - Occupational Stress [...] living situation today? I have a [facility] place to live 03/11/2024 Education Answer Date Recorded What is the highest level of school you have completed or the highest degree you have received? 12th grade 01/05/2020 Comments No Sex and Gender Information Value Date Recorded Sex Assigned at Female 01/07/2018 10:26 AM CDT Legal Sex Female 7:46 PM PIPELAYING FITTER Gender Identity Female 01/07/2018 10:26 AM CDT [...] Comprehensive Visit Department of Orthopedic Surgery in [place], [place] [address], [place] [address] Laith Mckinnon M.D. [address] [place] [address] 12/31/2024 3:00 PM CDT Office Visit Department of Urology in [place], [place] [address] [place] [address] Tatum Orozco APRN, C.N.P. [address] [place] [phone] documented as of this encounter Procedures Procedure Name Priority Date/Time Associated Diagnosis Comments ALBUMIN, RANDOM, U Routine 09/12/2024 8: 23 AM PIPELAYING FITTER Proteinuria documented in this encounter Results * (ABNORMAL) Albumin, Random, Urine (09/12/2024 8:23 AM PIPELAYING FITTER) Microalbumin 245.0 mg/L 09/12/2024 9:08 AM PIPELAYING FITTER OWAT Creatinine 81 mg/dL 09/12/2024 9:08 AM PIPELAYING FITTER OWAT Albumin/Creatinin e Ratio 302(H) <25 mg/g 09/12/2024 9:08 AM PIPELAYING FITTER OWAT Urine (Urine, Midstream) 09/12/2024 8:23 AM PIPELAYING FITTER 09/12/2024 8:36 AM PIPELAYING FITTER us Diamond Wiggins M.D. LAB URINE ORDERABLES Fin al Result [facility] [address] [place] [address], [facility] OWAT [facility] [place] [address] [place] [address] documented in this encounter Visit Diagnoses Diagnosis Proteinuria Other Tear Medial Meniscus Current Injury Right Knee Initial- Primary documented in this encounter Additional Health Concerns Assessment Noted Time PHQ-9 Depression Total Score: 6 09/01/19 25 10:41 PM PIPELAYING FITTER documented as of this encounter Care Teams Slab Off Mill Tender Relationship Specialty Start Date End Date Diamond Wiggins M.D. [address] [place] [phone] PCP - General Family Medicine 01/22/23 documented as of this encounter
--- OUTSIDE RECORDS SUMMARY | 2024-10-24 15:42 | XMS_ITS | Encounter Summary ---
Author Organization [facility] Address [address] [place] [address] Care Team Providers Care Black Studies Professor Name Role Phone Diamond Wiggins M.D. Primary Care Provider + Encounter Details Date Type Department Care Team (Latest Contact Info) Description 09/30/2024 10:58 AM HARD ROCK MINER - 09/30/2024 11:59 PM [facility] Hospital Encounter Department of Laboratory Medicine in [place], [place] [address], [place] [address] Diamond Wiggins M.D. [address] [place] [phone] Diabetes Mellitus Type 2 Peripheral Neuropathy (HCC) Discharge Disposition: Home or Self Care Social History Tobacco Use Types Packs/Day Years Used Date Smoking Tobacco: Every Day Cigarettes 1 31.2 Started: 08/28/1993 Passive Smoke Exposure: Current Smokeless Tobacco: Never Comments:2 packs/day from to 2009 Alcohol Use Standard Drinks/Week Comments Not Currently 0 (1 standard drink = 0.6 oz pur e alcohol) [facility] Utilities Answer Date Recorded [...] How often do you attend sikhism or yarsanism serv ices? Never 11/01/2022 Do you belong [...] Answer Date Recorded PHQ-2 Score 2 09/01/2024 [facility] [place] of Occupat ional Health - Occupational Stress [...] AM CDT Legal Sex Female 7:46 PM HARD ROCK MINER Gender Identity Female 01/07/2018 10:26 AM CDT [...] Comprehensive Visit Department of Orthopedic Surgery in [place], [place] [address], [place] [address] Laith Mckinnon M.D. [address] [place] [address] 12/31/2024 3:00 PM CDT Office Visit Department of Urology in [place], [place] [address] [place] [address] Tatum Orozco APRN, C.N.P. [address] [place] [address] documented as of this encounter Procedures Procedure Name Priority Date/Time Associated Diagnosis Comments BASIC METABOLIC PANEL, S/P Routine 09/30/2024 11:19 AM HARD ROCK MINER Diabetes Mellitus Type 2 Peripheral Neuropathy (HCC) documented in this encounter Results * (ABNORMAL) Basic Metabolic Panel (09/30/2024 11:19 AM HARD ROCK MINER) Potassium, P 4.0 3.6 - 5.2 mmol/L 09/30/2024 11:47 AM HARD ROCK MINER OWAT Sodium, P 136 135 - 145 mmol/L 09/30/2024 11:47 AM HARD ROCK MINER OWAT Chloride, P 100 98 - 107 mmol/L 09/30/2024 11:47 AM HARD ROCK MINER OWAT Bicarbonate, P 22 22 - 29 mmol/L 09/30/2024 11:47 AM HARD ROCK MINER OWAT Anion Gap, P 14 7 - 15 09/30/2024 11:47 AM HARD ROCK MINER OWAT BUN (Blood Urea Nitrogen), P 10 6 - 21 mg/dL 09/30/2024 11:47 AM HARD ROCK MINER OWAT Creatinine 0.82 0.59 - 1.04 mg/dL 09/30/2024 11:47 AM HARD ROCK MINER OWAT Estimated GFR (eGFR) 87 >=60 mL/min/BSA 09/30/2024 11:47 AM HARD ROCK MINER OWAT Comment: Estimated GFR calculated using the 2020 CKD_EPI creatinine equation. Calcium, Total, P 9.4 8.6 - 10.0 mg/dL 09/30/2024 11:47 AM HARD ROCK MINER OWAT Glucose, P 163(H) 70 - 140 mg/dL 09/30/2024 11:47 AM HARD ROCK MINER OWAT Blood (Blood, Venous) 09/30/2024 11:19 AM HARD ROCK MINER 09/30/2024 11:25 AM HARD ROCK MINER us Diamond Wiggins M.D. LAB BLOOD ADD-ON Final R esult [facility] [address] [place] [address], [facility] OWAT [facility] in [place] [address] [place] [address] documented in this encounter Visit Diagnoses Diagnosis Diabetes Mellitus Type 2 Peripheral Neuropathy (HCC) Other Tear Medial Meniscus Current Injury Right Knee Initial- Primary documented in this encounter Additional Health Concerns Assessment Noted Time PHQ-9 Depression Total Score: 6 09/01/19 25 10:41 PM HARD ROCK MINER documented as of this encounter Care Teams Black Studies Professor Relationship Specialty Start Date End Date Diamond Wiggins M.D. [address] [phone] PCP - General Family Medicine 01/22/23 documented as of this encounter
--- OUTSIDE RECORDS SUMMARY | 2024-10-24 15:42 | XMS_ITS | Encounter Summary ---
Author Organization [facility] Address [address] [place] [address] Care Team Providers Care Bus And Sys Integration Senior Manager Name Role Phone Diamond Wiggins M.D. Primary Care Provider + Encounter Details Date Type Department Care Team (Latest Contact Info) Description 09/30/2024 10:58 AM TANK FILLER - 09/30/2024 11:59 PM [facility] Hospital Encounter Department of Laboratory Medicine in [place], [place] [address] [address] Diamond Wiggins M.D. [address] [place] [phone] Dysuria; Proteinuria Discharge Disposition: Home or Self Care Social History Tobacco Use Types Packs/Day Years Used Date Smoking Tobacco: Every Day Cigarettes 1 31.2 Started: 08/28/1993 Passive Smoke Exposure: Current Smokeless Tobacco: Never Comments:2 packs/day from to 2009 Alcohol Use Standard Drinks/Week Comments Not Currently 0 (1 standard drink = 0.6 oz pur e alcohol) [facility] Utilities Answer Date Recorded In the past 12 months has e [employer], gas, oil, or water [employer] threatened to shut off services in your [...] How often do you attend denominational or catholic serv ices? Never 11/01/2022 Do [...] Answer Date Recorded PHQ-2 Score 2 09/01/2024 [facility] [place] of Occupat ional Health - Occupational Stress [...] your living situation today? I have a [facility] place to live 03/11/2024 Education Answer Date Recorded What is the highest level of school you have completed or the highest degree you have received? 12th grade 01/05/2020 Comments No Sex and Gender Information Value Date Recorded Sex Assigned at Female 01/07/2018 10:26 AM CDT Legal Sex Female 7:46 PM TANK FILLER Gender Identity Female 01/07/2018 10:26 AM [...] Comprehensive Visit Department of Orthopedic Surgery in [place], [place] [address] [facility] [place] [address] Laith Mckinnon M.D. [address], [place] [address] 12/31/2024 3:00 PM CDT Office Visit Department of Urology in [place], [place] [address] [facility] [place] [address] Tatum Orozco APRN, C.NMeliaP. [address] [place] [address] documented as of this encounter Procedures Procedure Name Priority Date/Time Associated Diagnosis Comments URINALYSIS WITH MICROSCOPIC IF INDICATED, U Routine 09/30/2024 11:27 AM TANK FILLER Dysuria NC URINALYSIS AUTO WO MICRO Routine 09/30/2024 11:27 AM TANK FILLER BACTERIAL CULTURE, AEROBIC + SUSC, URINE Routine 09/30/2024 11:27 AM TANK FILLER Dysuria ALBUMIN, RANDOM, U Routine 09/30/2024 11 :27 AM TANK FILLER Proteinuria documented in this encounter Results * (ABNORMAL) Microscopic Automated (09/30/2024 11:27 AM TANK FILLER) White Blood Cells None Seen /hpf 09/30/2024 11:42 AM TANK FILLER OWAT Comment: ----REFERENCE VALUE---- Males: 0-3 Females: 0-10 Unknown: 0-10 Red Blood Cells 11-20(A) 0 - 2 /hpf 11:42 AM TANK FILLER OWAT Dysmorphic Red Blood Cells <=25 <=25 % 09/30/2024 11:42 AM TANK FILLER OWAT Hyaline Casts 1-3 /lpf 09/30/2024 11:42 AM TANK FILLER OWAT Squamous Cells Occ-3 /hpf 09/30/2024 11:42 AM TANK FILLER OWAT Urine 09/30/2024 11:2 7 AM TANK FILLER 09/30/2024 11:27 AM TANK FILLER Diamond Wiggins M.D. LAB URINE ORDERABLES Fin al Result Performing Organization Address [facility] Co de Phone Number [facility] [address] [place] [address], [facility] OWAT [facility] in [place] [address], [place] [address] * (ABNORMAL) Albumin, Random, Urine (09/30/2024 11:27 AM TANK FILLER) Microalbumin 588.0 mg/L 09/30/2024 12:49 PM TANK FILLER OWAT Creatinine 137 mg/dL 09/30/2024 12:17 PM TANK FILLER OWAT Albumin/Creatinin e Ratio 429(H) <25 mg/g 09/30/2024 12:49 PM TANK FILLER OWAT Urine (Urine, Midstream) 09/30/2024 11:27 AM TANK FILLER 09/30/2024 11:27 AM TANK FILLER us Diamond Wiggins M.D. LAB URINE ORDERABLES Fin al Result Performing Organization Address [facility] Co de Phone Number [facility] [address] [place] [address], [place] OW[place] [facility] in [place] [address] [place] [address] * (ABNORMAL) Bacterial Culture, Aerobic + Susceptibility, Urine (09/30/2024 11:27 AM TANK FILLER) Urine Culture ESCHERICHIA COLI 10,000-100,000 cfu/mL (A) 10/02/2024 8:27 AM TANK FILLER MKTO Urine (Urine, Midstream) 09/30/2024 11:27 AM TANK FILLER 09/30/2024 1:56 PM TANK FILLER Comment:Specimen Source Site : Urine Narrative Organism [...] us Diamond Wiggins M.D. LAB MICROBIOLOGY - [facility] AL ORDERABLES Final Result [facility] [address] [place] [address], [facility] in [place] [address] [place] [address] * (ABNORMAL) Urinalysis with Microscopic if Indicated: Urine, Midstream (09/30/2024 11:27 AM TANK FILLER) Source Urine, Urine, Midstream 09/30/2024 11:27 AM TANK FILLER OWAT Clarity Clear Clear 09/30/2024 11:32 AM TANK FILLER OWAT Color Yellow 09/30/2024 11:32 AM TANK FILLER OWAT Comment: ----REFERENCE VALUE---- Colorless Yellow Dina Blood Small(A) Negative 09/30/2024 11:32 AM TANK FILLER OWAT Nitrite Negative Negative 09/30/2024 11:32 AM TANK FILLER OWAT Leukocyte Esterase Negative Negative 09/30/2024 11:32 AM TANK FILLER OWAT Protein 100(A) mg/dL 09/30/2024 11:32 AM TANK FILLER OWAT Comment: ----REFERENCE VALUE---- Negative Trace Glucose Negative Negative mg/dL 09/30/2024 11:32 AM TANK FILLER OWAT Ketone Negative Negative mg/dL 09/30/2024 11:32 AM TANK FILLER OWAT Bilirubin Negative Negative 09/30/2024 11:32 AM TANK FILLER OWAT pH 6.5 5.0 - 8.0 09/30/2024 11:32 AM TANK FILLER OWAT Specific [place] 1.019 1.001 - 1.035 09/30/2024 11:32 AM TANK FILLER OWAT Urobilinogen 0.2 0.2 - 1.0 mg/dL 09/30/2024 11:32 AM TANK FILLER OWAT Urine (Urine, Midstream) 09/30/2024 11:27 AM TANK FILLER 09/30/2024 11:27 AM TANK FILLER us Diamond Wiggins M.D. LAB URINE ORDERABLES Fin al Result [facility] [address] [place] [address], [facility] OWAT [facility] [place] [address] [place] [address] documented in this encounter Visit Diagnoses Diagnosis Dysuria Proteinuria Other Tear Medial Meniscus Current Injury Right Knee Initial- Primary documented in this encounter Additional Health Concerns Assessment Noted Time PHQ-9 Depression Total Score: 6 09/01/19 10:41 PM TANK FILLER documented as of this encounter Care Teams Bus And Sys Integration Senior Manager Relationship Specialty Start Date End Date Diamond Wiggins M.D. [address], [place] [phone] PCP - General Family Medicine 01/22/23 documented as of this encounter
--- OUTSIDE RECORDS SUMMARY | 2024-10-24 15:42 | XMS_ITS | Encounter Summary ---
Author Organization [facility] Address [address] [place] [address] Care Team Providers Care Railway Signal Electrician Name Role Phone Diamond Wiggins M.D. Primary Care Provider + Reason for Referral * Outpatient (Routine) - Authorized Specialty Diagnoses / Procedures Referred By [place] baca Referred To Contact Urology Tatum Orozco APRN, C.N.P. [address] [place] [address] Phone: tel: fax: [facility] Region Referral ID Status Reason Start Date Expiration Date V isits Requested Visits Authorized [id number] Authorized 09/30/2024 04/01/2026 1 1 IAL DELIVERY MAIL CARRIER Reason for Visit * Reason Comments Consult Dysuria * Outpatient (Routine) - Closed Specialty Diagnoses / Procedures Referred By [place] baca Referred To Contact Urology Diagnoses Dysuria Diamond Wiggins M.D. [address] [place] [address] Phone: tel: fax: [facility] Region Referral ID Status Reason Start Date Expiration Date Visits Re quested Visits Authorized [id number] Closed 09/02/2024 03/04/2026 1 1 Encounter Details Date Type Department Care Team (Latest Contact Info) Description 09/30/2024 2:00 PM SPECIAL DELIVERY MAIL CARRIER Comprehensive Visit Department of Urology in [place], [place] [address] [place] [address] Tatum Orozco APRN, C.N.P. [address] [place] [phone] Infection Urinary Tract Personal History (Primary Dx); [...] drink = 0.6 oz pur e alcohol) [facility] [employer] Answer Date Recorded In the past 12 months has [employer] gas, oil, or water [employer] threatened to shut off services in your [...] Never 11/01/2022 How often do you attend taoist or taoist serv ices? Never 11/01/2022 Do you belong to any clubs o r organizations such as taoist groups, unions, fraternal or athletic groups, or [...] Answer Date Recorded PHQ-2 Score 2 09/01/2024 [facility] of Occupat ional [facility] - Occupational Stress Questionnaire Answer [...] AM CDT Legal Sex Female 7:46 PM SPECIAL DELIVERY MAIL CARRIER Gender Identity Female 01/07/2018 10:26 AM [...] History: Procedure Laterality Date CHOLECYSTECTOMY GALLBLADDER SURGERY [id number] LYMPH NODE BIOPSY Chest and neck TOTAL HYSTERECTOMY [id number] TUBAL LIGATION [id number] [4] Family History Problem Relation Name Age [...] MOUTH TWICE DAILY AND 3 CAPSULES AT [id number] capsule 11 magnesium 200 mg tablet Take [...] Alcohol use: Not Currently Drug use: Never IAL DELIVERY MAIL CARRIER documented in this encounter Miscellaneous Notes * Assessment & Plan Note - Tatum Orozco APRN, C.N.P. - 09/30/2024 2:00 PM CSTAssociated Problem(s): Incontinence Urinary Currently using Oxybutynin for urgency and frequency. Discussed potential long- term side effects. Continue Oxybutynin for now. Reassess the need for it after starting vaginal estrogen cream. IAL DELIVERY MAIL CARRIER documented in this encounter Plan of Treatment Upcoming Encounters Date Type Department Care Team (Late st Contact Info) Description 10/27/2024 3:30 PM CDT Comprehensive Visit Department of Orthopedic Surgery in [place], [place] [address] [address] Laith Mckinnon M.D. [address] [phone] 12/31/2024 3:00 PM CDT Office Visit Department of Urology in [place], [place] [address] [phone] Tatum Orozco APRN, C.N.P. [address] [phone] Scheduled Referrals Name Type Priority [...] Total Score: 6 09/01/19 25 10:41 PM SPECIAL DELIVERY MAIL CARRIER documented as of this encounter Care Teams Railway Signal Electrician Relationship Specialty Start Date End Date Diamond Wiggins M.D. [address] [phone] PCP - General Family Medicine 01/22/23 documented as of this encounter
--- OUTSIDE RECORDS SUMMARY | 2024-10-24 15:42 | XMS_ITS | Encounter Summary ---
Author Organization [facility] Address [address] [place] [address] Care Team Providers Care Customer Acquisition Specialist Name Role Phone Diamond Wiggins M.D. Primary Care Provider + Reason for Referral * Outpatient (Routine) - Closed Specialty Diagnoses / Procedures Referred By [place] baca Referred To Contact Nephrology and Hypertension Diagnoses Proteinuria Procedures Nephrology - Abnormal urine sediment/proteinuria eConsult Diamond Wiggins M.D. [address] [place] [address] Phone: tel: fax: [facility] Referral ID Status Reason Start Date Expiration Date Visits Re quested Visits Authorized [id number] Closed 09/30/2024 12/31/2025 1 1 DRILLER Encounter Details Date Type Department Care Team (Late st Contact Info) Description 09/30/2024 Results Follow-Up Department of Family Medicine, [facility], in [place], [place] [address] [place] [address] Diamond Wiggins M.D. [address] [place] [phone] Urinalysis with Microscopic if Indicated: [...] In the past 12 months has e [employer], gas, oil, or water [employer] threatened to shut off services in your [...] Never 11/01/2022 How often do you attend spiritism or orthodox serv ices? Never 11/01/2022 Do you belong to any clubs o r organizations such as spiritism groups, unions, fraternal or athletic groups, or [...] Answer Date Recorded PHQ-2 Score 2 09/01/2024 [facility] of Occupat ional Health - Occupational Stress [...] AM CDT Legal Sex Female 7:46 PM HAND DRILLER Gender Identity Female 01/07/2018 10:26 AM CDT Sexual Orientation Straight 01/07/2018 10 :26 AM CDT documented as of this encounter Plan of Treatment Upcoming Encounters Date Type Department Care Team (Late st Contact Info) Description 10/27/2024 3:30 PM CDT Comprehensive Visit Department of Orthopedic Surgery in [place], [place] [address] [phone] Laith Mckinnon M.D. [address] [phone] 12/31/2024 3:00 PM CDT Office Visit Department of Urology in [place], [place] [address] [phone] Tatum Orozco APRN, C.N.P. [address] [phone] documented as of this encounter Visit Diagnoses Diagnosis Proteinuria- Primary Cystitis Unspecified With Hematuria Other Tear Medial Meniscus Current Injury Right Knee Initial- Primary documented in this encounter Additional Health Concerns Assessment Noted Time PHQ-9 Depression Total Score: 6 09/01/19 25 10:41 PM HAND DRILLER documented as of this encounter Care Teams Customer Acquisition Specialist Relationship Specialty Start Date End Date Diamond Wiggins M.D. [address] [phone] PCP - General Family Medicine 01/22/23 documented as of this encounter
--- OUTSIDE RECORDS SUMMARY | 2024-10-24 15:42 | XMS_ITS | Encounter Summary ---
Author Organization [facility] Address [address] [place] [address] Care Team Providers Care Locomotive Crane Engineer Name Role Phone Diamond Wiggins M.D. Primary Care Provider + Encounter Details Date Type Department Care Team (Late st Contact Info) Description 10/02/2024 Orders Only Department of Family Medicine, [facility], in [place], [place] [address], [place] [address] Diamond Wiggins M.D. [address] [place] [phone] Proteinuria (Primary Dx) Social History Tobacco Use Types Packs/Day Years Used Date Smoking Tobacco: Every Day Cigarettes 1 31.2 Started: 08/28/1993 Passive Smoke Exposure: Current Smokeless Tobacco: Never Comments:2 packs/day from to 2009 Alcohol Use Standard Drinks/Week Comments Not Currently 0 (1 standard drink = 0.6 oz pur e alcohol) [facility] Utilities Answer Date Recorded In [...] How often do you attend sabianist or roman catholic serv ices? Never 11/01/2022 [...] Recorded PHQ-2 Score 2 09/01/2024 [facility] [place] of Occupat ional Health - Occupational Stress [...] AM CDT Legal Sex Female 7:46 PM CALIBRATION TESTER Gender Identity Female 01/07/2018 10:26 AM CDT Sexual Orientation Straight 01/07/2018 10 :26 AM CDT documented as of this encounter Plan of Treatment Upcoming Encounters Date Type Department Care Team (Late st Contact Info) Description 10/27/2024 3:30 PM CDT Comprehensive Visit Department of Orthopedic Surgery in [place], [place] [address] [place] [phone] Laith Mckinnon M.D. [address] [place] [phone] 12/31/2024 3:00 PM CDT Office Visit Department of Urology in [place], [place] [address], [place] [address] Tatum Orozco APRN, C.N.P. [address] [place] [address] Scheduled Orders Name Type Priority [...] Total Score: 6 09/01/19 25 10:41 PM CALIBRATION TESTER documented as of this encounter Care Teams Locomotive Crane Engineer Relationship Specialty Start Date End Date Diamond Wiggins M.D. [address] [place] [phone] PCP - General Family Medicine 01/22/23 documented as of this encounter
--- OUTSIDE RECORDS SUMMARY | 2024-10-24 15:42 | XMS_ITS | Encounter Summary ---
Author Organization [facility] Address [address] [place] [address] Care Team Providers Care Radio Maintainer Name Role Phone Diamond Wiggins M.D. Primary Care Provider + Reason for Visit * Reason Comments BURNING ON URINATION Encounter Details Date Type Department Care Team (Late st Contact Info) Description 09/24/2024 1:07 PM OPENER TENDER - 09/24/2024 11:59 PM OPENER TENDER Emergency [facility] [address] [place] [address] Discharge Disposition: Home or Self Care Social History Tobacco Use Types Packs/Day Years Used Date Smoking Tobacco: Every Day Cigarettes 1 31.2 Started: 08/28/1993 Passive Smoke Exposure: Current Smokeless Tobacco: Never Alcohol Use Standard Drinks/Week Comments No 0 (1 standard drink = 0.6 oz pur e alcohol) [facility] Utilities Answer Date Recorded In the past 12 months has [employer] gas, oil, or water [employer] threatened to shut off services in your [...] How often do you attend scientology or mosque serv ices? Never 11/01/2022 Do you belong [...] Date Recorded PHQ-2 Score 2 09/01/2024 [facility] of Occupat ional Health - [...] your living situation today? I have a [facility] place to live 03/11/2024 Education Answer Date Recorded What is the highest level of school you have completed or the highest degree you have received? 12th grade 01/05/2020 Comments No Sex and Gender Information Value Date Recorded Sex Assigned at Female 01/07/2018 10:26 AM CDT Legal Sex Female 7:46 PM OPENER TENDER Gender Identity Female 01/07/2018 10:26 AM [...] Comprehensive Visit Department of Orthopedic Surgery in [place], [place] [address], [place] [address] Laith Mckinnon M.D. [address] [place] [address] 12/31/2024 3:00 PM CDT Office Visit Department of Urology in [place], [place] [address], [place] [address] Tatum Orozco APRN, C.N.P. [address] [place] [address] documented as of this encounter Visit Diagnoses Not on filedocumented in this encounter Additional Health Concerns Assessment Noted Time PHQ-9 Depression Total Score: 6 09/01/19 25 10:41 PM OPENER TENDER documented as of this encounter Care Teams Radio Maintainer Relationship Specialty Start Date End Date Diamond Wiggins M.D. [address] [place] [phone] PCP - General Family Medicine 01/22/23 documented as of this encounter
--- OUTSIDE RECORDS SUMMARY | 2024-10-24 15:42 | XMS_ITS | Clinical Summary ---
Author Organization [facility] Address [address] [place] [address] Care Team Providers Care Baggage Checker Name Role Phone Diamond Wiggins MD Primary [...] Department Care Team Description 09/24/2024 1:17 PM CHILD WELFARE CASEWORKER - 09/24/2024 2:49 PM [facility] Emergency [facility] [address] [place] [address] Floyd Quinones PA Dysuria (Primary Dx) Discharge [...] Comments Blood Pressure 126/79 09/24/2024 1:13 PM CHILD WELFARE CASEWORKER Pulse 96 09/24/2024 1:13 PM CHILD WELFARE CASEWORKER Temperature 36.3 C (97.3 F) 09/24/2024 1:13 PM CHILD WELFARE CASEWORKER Respiratory Rate 16 09/24/2024 1:13 PM CHILD WELFARE CASEWORKER Oxygen Saturation 97% 09/24/2024 1:13 PM CHILD WELFARE CASEWORKER Inhaled Oxygen Concentration - - Weight 88.9 kg (196 lb) 09/24/2024 1:13 PM CHILD WELFARE CASEWORKER Height 170.2 cm (5' 7) 09/24/2024 1:13 PM CHILD WELFARE CASEWORKER Body Mass Index 30.7 09/24/2024 1:13 PM CHILD WELFARE CASEWORKER Plan of Treatment Health Maintenance Due Date [...] Comments URINALYSIS MICROSCOPIC STAT 09/24/2024 2:02 PM CHILD WELFARE CASEWORKER UA W/ SEDIMENT EXAM REFLEXED PER CRITERIA STAT 09/24/2024 2:02 PM CHILD WELFARE CASEWORKER URINALYSIS MICROSCOPIC STAT 09/24/2024 1:19 PM CHILD WELFARE CASEWORKER from Last 3 Months Results * (ABNORMAL) URINALYSIS MICROSCOPIC (09/24/2024 2:02 PM CHILD WELFARE CASEWORKER) Only the most recent of2 resultswithin the time period is included. RBC 0-2 0-2, None Seen /HPF 09/24/2024 2:18 PM [facility] WBC 3-5 0-2, 3-5, None Seen /HPF 09/24/2024 2:18 PM [facility] BACTERIA Few None Seen, Rare, Few Bacteria/H PF 09/24/2024 2:18 PM [facility] EPITHELIAL CELLS Moderate(A ) None Seen, Few Epi/HPF 09/24/2024 2:18 PM [facility] Urine URINE SPECIMEN / Unknown Non-Blood / Unknown 09/24/2024 2:02 PM CHILD WELFARE CASEWORKER 09/24/2024 2:07 PM CHILD WELFARE CASEWORKER us Floyd RAMIREZ URINE Aracelis l Result [facility] [address] [phone] * (ABNORMAL) UA W/ SEDIMENT EXAM REFLEXED PER CRITERIA (09/24/2024 2:02 PM CHILD WELFARE CASEWORKER) COLOR [place](A) Yellow Color 09/24/2024 2:18 PM [facility] CLARITY Clear Clear Clarity 09/24/2024 2:18 PM [facility] SPECIFIC GRAVITY,URINE <=1.005(A) 1.010, 1.015, 1.020, 1.025 09/24/2024 2:18 PM [facility] PH,URINE 5.5 6.0, 7.0, 8.0, 5.5, 6.5, 7.5, 8.5 09/24/2024 2:18 PM [facility] UROBILINOGEN, QUALITATIVE Increased(A) Normal EU/dl 09/24/2024 2:18 PM [facility] PROTEIN, URINE Trace(A) Negative mg/dL 09/24/2024 2:18 PM [facility] GLUCOSE, URINE 100(A) Negative mg/dL 09/24/2024 2:18 PM [facility] KETONES,URINE Negative Negative mg/dL 09/24/2024 2:18 PM CHILD WELFARE CASEWORKER [facility] BILIRUBIN,URI NE Negative Negative 09/24/2024 2:18 PM [facility] OCCULT BLOOD,URINE Trace(A) Negative 09/24/2024 2:18 PM [facility] NITRITE Positive(A) Negative 09/24/2024 2:18 PM [facility] LEUKOCYTE ESTERASE Negative Negative 09/24/2024 2:18 PM [facility] Urine URINE SPECIMEN / Unknown Non-Blood / Unknown 09/24/2024 2:02 PM CHILD WELFARE CASEWORKER 09/24/2024 2:07 PM [facility] Floyd RAMIREZ URINE Aracelis l Result [facility] [address] [phone] from Last 3 Months Insurance [facility] [place] Care Teams Baggage Checker Relationship Specialty Start Date End Date Diamond Wiggins MD [address] [place] [phone] PCP - General Family Practice 12/14/23
== END 2024-10-24 15:44 | disposition home or self-care (01) ==
LOC: ED 15:39
PROVIDERS: Emergency Provider Family Medicine
DX: M54.6 Pain in thoracic spine (principal)
CPT/HCPCS: 81001; 96372; 99283; 99284; J1885